=== PATIENT | female | born 1955 | race Caucasian/White ===

== ENCOUNTER 2017-09-16 09:35 | Outpatient (CLI) | payer BC ==
--- NOTE | 2017-09-16 12:19 | ULT ---
HEPATIC ULTRASOUND: INDICATIONS: Cirrhosis. Portal hypertension. Hepatic encephalopathy. Esophageal varices. CORRELATION: CT abdomen and pelvis from 12/07/2016 and hepatic ultrasound from 12/06/2016. TECHNIQUE: A right upper quadrant ultrasound with Doppler study is performed. FINDINGS: Mild ascites is seen with fluid around the liver margin. The gallbladder shows no evidence of gallst ones. Gallbladder wall thickening is seen, consistent with the presence of ascites. No liver lesion seen. Color Doppler with spectral analysis demonstrates flow in the hepatic veins. The hepatic artery show s flow. The main portal vein is difficult to image technically, but there is flow demonstrated in th is vein. Partial thrombus could not be excluded on this study. The prior ultrasound did suggest mary ann dence of portal vein thrombosis; however, CT from 12/07/2016 did not show portal vein thrombosis. Splenomegaly is noted. The pancreas is obscured. The common duct is of normal caliber. IMPRESSION: 1. Small liver, consistent with cirrhosis. 2. Ascites. 3. Splenomegaly, consistent with portal hypertension. 4. Hepatic artery shows normal flow. At least partial flow is detected in the main portal vein, alt lillie there were technical difficulties. POS: [facility]
== END 2017-09-16 09:36 | disposition home or self-care (01) ==
LOC: ULT 09:35
PROVIDERS: ATTEND Internal Medicine
DX: K74.60 Unspecified cirrhosis of liver (principal); K76.6 Portal hypertension; K72.90 Hepatic failure, unspecified without coma; K31.819 Angiodysplasia of stomach and duodenum without bleeding; R18.8 Other ascites; R16.1 Splenomegaly, not elsewhere classified
CPT/HCPCS: 76705

== ENCOUNTER 2018-04-29 18:18 | Inpatient (IN) | payer BC ==
--- NOTE | 2018-04-29 19:42 | RAD ---
CHEST ONE VIEW: 04/29/18 HISTORY: Dyspnea. FINDINGS: No comparison. Cardiac silhouette is magnified by projection. Pulmonary vasculature upper limits of normal. Mediasti num is midline. No lobar consolidation or evidence of pneumothorax. IMPRESSION: No active cardiopulmonary abnormalities are demonstrated. POS: [facility]
[2018-04-29 20:20] LABS: #Basophils 0.1 thou/uL (0.0-0.2); #Eosinphils 0.3 thou/uL (0.0-0.7); #Monocytes 0.3 thou/uL (0.11-0.59); #Neutrophils 3.6 thou/uL (1.40-6.50); %Basophils 1.2 % (0.0-1.0); %Eosinophils 6.1 % (0.0-10.0); %Lymphocytes 18.6 % (21.0-51.0); %Monocytes 4.8 % (0.0-10.0); %Neutrophils 69.4 % (42.0-75.0); Hemoglobin 10.2 g/dL (12.0-16.0); Mean Corpuscular HGB CONC 31.5 g/dL (32.0-36.0); Mean Corpuscular Hemoglobin 32.3 pg (27.0-31.0); Mean Platelet Volume 8.8 fL (7.4-10.4); Platelet Count 125 thou/uL (130-400); RBC Distribution Width 17.4 % (11.5-14.5); Red Blood Cell (RBC) Count 3.15 mill/uL (4.20-5.40); White Blood Cell (WBC) Count 5.2 thou/uL (4.8-10.8)
[2018-04-29 20:38] LABS: ALT (SGPT) 13 U/L (8-55); AST (SGOT) 26 U/L (5-34); Albumin 2.6 g/dL (3.4-4.8); Alkaline Phosphatase 106 U/L (40-150); Anion Gap 10 mmol/L (10-20); BUN (Urea Nitrogen) 30 mg/dL (9.8-20.1); Bilirubin, Total 1.3 mg/dL (0.2-1.2); Calc. Creatinine Clearance 0 mL/min (70-130); Calcium 9.1 mg/dL (7.8-10.44); Carbon Dioxide 20 mmol/L (23-31); Chloride 111 mmol/L (98-107); Estimated GFR-MDRD 21; Globulin 4.5 g/dL (2.4-3.5); Glucose 108 mg/dL (80-115); Potassium 5.2 mmol/L (3.5-5.1); Protein, Total 7.1 g/dL (6.0-8.3); Sodium 136 mmol/L (136-145)
[2018-04-29 20:43] LABS: CKMB 4.2 ng/mL (0-6.6); Troponin I Less than 0.010 ng/mL (< 0.028)
[2018-04-29] MEDS ORDERED: Furosemide 40 MG/4 ML VIAL ONE (21:59)
[2018-04-30] MEDS ORDERED: INSULIN DETEMIR SC SCH (07:45)
[2018-04-30] MEDS ORDERED: [UNRECOGNIZED DRUG - REMARK] PO PRN (07:45)
[2018-04-30] MEDS ORDERED: Dextrose 5% in Water 1,000 ML IV PRN (07:56)
[2018-04-30] MEDS ORDERED: Ondansetron ODT 4 MG TAB PO PRN (07:58)
--- NOTE | 2018-04-30 08:19 | HP ---
CHIEF COMPLAINT: Transfer by patient's primary care doctor for fluid overload. HISTORIAN: The patient. HISTORY OF PRESENT ILLNESS: This is a 63-year-old female with past medical history of liver cirrhosis, diabetes mellitus, hypertension, hyperlipidemia and asthma being admitted for a chief complaint of fluid overload. Patient was seen by her primary care doctor on the day of admission and was told to come to the ED because patient is fluid overloaded and needs to have fluids ticking off. Per patient, her Lasix dose that she normally takes is being adjusted by Dr. Rodriguez and she states that Dr. Rodriguez wants her to come so she can be able to receive IV Lasix. The patient states that she has been experiencing some shortness of breath. Otherwise she does not have any other complaints. REVIEW OF SYSTEMS: Positive for shortness of breath and abdominal distention. PAST MEDICAL HISTORY: Hypertension, diabetes, liver cirrhosis, hyperlipidemia, asthma. PAST SURGICAL HISTORY: Tonsillectomy, and cauterization of varices. SOCIAL HISTORY: Patient denies alcohol use. The patient denies any drug use. The patient has no smoking history. FAMILY HISTORY: Reviewed and noncontributory. ALLERGIES: SULFA. CURRENT MEDICATIONS: The patient is on lactulose, citalopram, Floranex, levothyroxine, Levemir, NovoLog, Lyrica, fluticasone, Xifaxan, Bystolic, atorvastatin, spironolactone, furosemide. PHYSICAL EXAMINATION: VITAL SIGNS: The patient's blood pressure is 154/84, pulse is 73, respiratory rate of 18, temperature of 98.9, O2 saturation of 97%. GENERAL: Patient is alert, oriented x3, not in acute distress. The patient is speaking in full sentences. HEENT: Normocephalic, atraumatic. Pupils are equally round and react to light. Extraocular movements are intact. No scleral icterus. NECK: Trachea is midline, full range of motion, supple. LUNGS: Clear to auscultation bilaterally. No wheezing, no rales, no rhonchi appreciated. CARDIOVASCULAR: S1, S2, regular rate and rhythm, no murmurs, no gallops or rubs appreciated. ABDOMEN: Soft, nontender, nondistended. No palpable masses. EXTREMITIES: Upper extremity, patient had edema bilaterally at the upper extremity and the patient has edema bilaterally at lower extremities. Patient has good strength at the upper and lower extremity. NEUROLOGIC: Cranial nerves II-XII grossly intact. No neurologic deficits noted. SKIN: Warm, dry, and intact. IMAGING DATA: EKG normal sinus rhythm, rate of 71. ED COURSE: The patient received Lasix 40 mg. Chest x-ray showed no active cardiomegaly abnormalities. There is pulmonary vasculature at the upper limit of normal. Mediastinum is midline. No lobar consolidation, no evidence of pneumothorax. LABORATORY DATA: WBC 5.2, hemoglobin is 10.2, hematocrit . Sodium 136, potassium is 5.2, chloride is 111, carbon dioxide of 20, BUN is 30, creatinine is 2.31, GFR is 21, AST 26, ALT is 13, alkaline phosphatase is 106, BNP is 334.1. Troponin is less than 0.010. ASSESSMENT AND PLAN: This is a 63-year-old female being admitted for: 1. fluid overloaded state. At this point, the patient is going to continue on Lasix. We have Nephrology on board. Patient's transcribing operator head has been following the patient in the hospital. 1. Acute on chronic kidney disease. Nephrology is on the case. 2. History of liver cirrhosis. Patient has bilateral edema at the extremities. We will continue Lasix and spironolactone. 3. Hypothyroidism. We will continue patient on her home medication. 4. Hyperlipidemia. Continue the patient's on home medication. 5. Diabetes. We will continue the patient on home medications and insulin sliding scale. 6. Asthma. We will do DuoNeb treatments. 7. Hyperlipidemia. We will continue patient's home medication. This case has been dictated by Dr. Сергей Fried. [facility] HOSPITALAwilda
[2018-04-30] MEDS ORDERED: Non-Formulary Item 1 EACH (Spironolactone [Spironolactone] 50 MG) PO SCH (09:00)
[2018-04-30] MEDS ORDERED: Insulin Glargine 70 UNITS in Pre-Filled Syringe 1 EACH SC SCH (09:00)
[2018-04-30] MEDS ORDERED: LEVOTHYROXINE SODIUM 200 MCG PO SCH (09:00)
[2018-04-30] MEDS ORDERED: Non-Formulary Item 1 EACH (Cetirizine Hcl [Zyrtec] 10 MG) PO SCH (09:00)
[2018-04-30] MEDS ORDERED: Non-Formulary Item 1 EACH (Lactulose [Lactulose] 10 GM) PO SCH (09:00)
[2018-04-30] MEDS ORDERED: Nebivolol HCl 2.5 MG TAB PO SCH (09:00)
[2018-04-30] MEDS ORDERED: [UNRECOGNIZED DRUG - OTHER] PO SCH (09:00)
[2018-04-30] MEDS: Spironolactone 25 MG TAB PO SCH ×3 (09:32→20:09)
[2018-04-30] MEDS: Multivit, Therapeutic 1 TAB PO SCH (09:32)
[2018-04-30] MEDS: Pregabalin 50 MG CAP PO SCH ×3 (09:33→20:10)
[2018-04-30] MEDS: Nebivolol HCl 5 MG TAB PO SCH (09:34)
[2018-04-30] MEDS: Atorvastatin Calcium 10 MG TAB PO SCH (09:34)
[2018-04-30] MEDS: Lactinex Tablet PO SCH ×3 (09:34→20:09)
[2018-04-30] MEDS: Escitalopram Oxalate 20 mg Tablet PO SCH (09:34)
[2018-04-30] MEDS: Heparin 5,000 UNITS/ML VIAL SC SCH ×2 (09:35→20:11)
[2018-04-30] MEDS: Loratadine 10 MG TAB PO SCH (09:43)
[2018-04-30] MEDS: Furosemide 40 MG/4 ML VIAL SLOW IVP SCH (14:30)
--- NOTE | 2018-04-30 20:20 | CON ---
DATE OF CONSULTATION: 04/30/2018 CONSULTING PHYSICIAN: Dr. Fried. REASON FOR CONSULTATION: Acute kidney injury. REASON FOR ADMISSION: Fluid overload. HISTORY OF PRESENT ILLNESS: A 63-year-old white female with history of hypertension, cirrhosis, CKD, came to the hospital with fluid overload and Nephrology is consulted. No nausea, vomiting, no short ness of breath or chest pain. The patient is still having fluid. She does have a history of cirrhos is. She is on followup with Dr. Canseco. PAST MEDICAL HISTORY: Positive for hypertension, diabetes, cirrhosis, hyperlipidemia. PAST SURGICAL HISTORY: Tonsillectomy, , . HOME MEDICATIONS: Lactulose, citalopram, Florinef, levothyroxine, Levemir, NovoLog, Lyrica, fluticas one, Effexor, Bystolic, and atorvastatin. ALLERGIES: SULFA. SOCIAL HISTORY: No smoking, alcohol or drugs. FAMILY HISTORY: No history of any kidney disease. REVIEW OF SYSTEMS: The following complete review of systems was negative, unless otherwise mentioned in the HPI or below: Constitutional: Weight loss or gain, ability to conduct usual activities. Sk in: Rash, itching. Eyes: Double vision, pain. ENT/Mouth: Nose bleeding, neck stiffness, pain, te nderness. Cardiovascular: Palpitations, dyspnea on exertion, orthopnea. Respiratory: Shortness of breath, wheezing, cough, hemoptysis, fever or night sweats. Gastrointestinal: Poor appetite, abdomi nal pain, heartburn, nausea, vomiting, constipation, or diarrhea. Genitourinary: Urgency, frequency , dysuria, nocturia. Musculoskeletal: Pain, swelling. Neurologic/Psychiatric: Anxiety, depression . Allergy/Immunologic: Skin rash, bleeding tendency. PHYSICAL EXAMINATION: GENERAL: This is a well-built female in no apparent distress. VITAL SIGNS: Temperature 98.3, pulse 60, respiratory 18, blood pressure 159/82. HEENT: Atraumatic, normocephalic. Oral mucosa is moist. NECK: Supple, no masses. CARDIOVASCULAR: S1, S2. Rate and rhythm regular. RESPIRATORY: Clear. ABDOMEN: Soft, distended. MUSCULOSKELETAL: 1+ edema. DERMATOLOGIC: No skin rash. NEUROLOGIC: Alert, awake. PSYCHIATRIC: Mood and affect normal. LABORATORY: Hemoglobin is 10.2, potassium 5.2, BUN 30, creatinine is 2.3. ASSESSMENT AND PLAN: 1. Acute kidney injury most likely secondary to fluid overload. Agree with diuretics for now. Anamaria tor labs. 2. Elevated BNP. 3. Hypoalbuminemia secondary to cirrhosis and hyperkalemia. 4. Metabolic acidosis, anemia, chronic. 5. History of cirrhosis. 6. Hepatorenal syndrome. 7. Hypertension, stable. 8. Edema. Plan is to continue on diuretics, monitor renal function, electrolytes closely and further decision w ill be made based on the clinical course. We will follow. Avoid nephrotoxins. Okay with spironolactone and furosemide for now. Monitor potassium. Limit pota ssium in the diet. Recommend renal diet. Thank you for the consult.
[2018-04-30] MEDS ORDERED: Insulin Glargine 50 UNITS in Pre-Filled Syringe 1 EACH SC SCH (21:00)
[2018-04-30] MEDS ORDERED: Insulin Glargine 25 UNITS in Pre-Filled Syringe 1 EACH SC SCH (21:00)
--- NOTE | 2018-04-30 22:41 | PDOC.PN ---
- Subjective Encounter Start Date: 04/30/18 Encounter Start Time: 15:00 Patient seen and examined for SABRINA.No N/V. Some gen abd discomfort from Ascites per patient. No other complaints. No overnight events - Objective Resuscitation Status: Resuscitation Status FULL:Full Resuscitation MAR Reviewed: Yes Vital Signs & Weight: Vital Signs (12 hours) Temp Pulse Resp BP BP Pulse Ox 04/30/18 19:00 98.4 F 60 20 162/73 H 99 04/30/18 16:28 98.3 F 60 16 151/77 H 97 Weight Weight 192 lb 6.4 oz I&O: 04/29/18 04/30/18 05/01/18 06:59 06:59 06:59 Intake Total 180 480 Output Total 950 Balance 180 -470 Result Diagrams: 05/01/18 03:39 05/01/18 03:39 Additional Labs: Accuchecks 04/30/18 04/30/18 04/30/18 19:09 16:27 10:52 POC Glucose 105 73 133 H 04/30/18 09:51 POC Glucose 146 H Phys Exam - Physical Examination Constitutional: NAD Respiratory: no wheezing, no rhonchi Cardiovascular: RRR, no rub Gastrointestinal: soft, positive bowel sounds distended, no guarding/rigidity Musculoskeletal: edema present Neurological: moves all 4 limbs Dx/Plan - Plan DVT proph w/SCDs IMPRESSION: 1. SABRINA on CKD 3/Volume overload 2. DM2 3. Cirrhosis with hypoalbuminemia 4. HTN / Obesity BMI 35 5. Other issues per previous notes. PLAN: Cont IV diuretics with Aldactone Add fluid rest Avoid Nephrotoxins AM labs Reduce Lantus dose Cont sliding scale Review of Systems - Review of Systems Respiratory: negative: Cough, Dry, Shortness of Breath, Hemoptysis, SOB with Excertion, Pleuritic Pain, Sputum, Wheezing Cardiovascular: negative: chest pain, palpitations, orthopnea, paroxysmal nocturnal dyspnea, edema, light headedness, other - Medications/Allergies Allergies/Adverse Reactions: Allergies Allergy/AdvReac Type Severity Reaction Status Date / Time Sulfa (Sulfonamide Allergy Intermediate Rash Verified 01/22/17 17:00 Antibiotics) Medications: Current Medications Acetaminophen (Tylenol) 325 mg PO Q4H PRN PRN Reason: Pain Acidophilus (Floranex) 1 tab PO TID [facility] Last Admin: 10/19/18 20:09 Dose: 1 tab Atorvastatin Calcium (Lipitor) 10 mg PO DAILY [facility] Last Admin: 04/30/18 09:34 Dose: 10 mg Dextrose/Water (Dextrose 50%) 25 gm SLOW IVP PRN PRN PRN Reason: Hypoglycemia Diphenhydramine HCl (Benadryl) 25 mg PO DAILYPRN PRN PRN Reason: Itching & Insomnia Escitalopram Oxalate (Lexapro) 20 mg PO DAILY [facility] Last Admin: 04/30/18 09:34 Dose: 20 mg Furosemide (Lasix) 40 mg SLOW IVP 0600,1400 [facility] Last Admin: 04/30/18 14:30 Dose: 40 mg Glucagon (Glucagon) 1 mg IM PRN PRN PRN Reason: Hypoglycemia Heparin Sodium (Porcine) (Heparin) 5,000 units SC BID [facility] Last Admin: 04/30/18 20:11 Dose: 5,000 units Dextrose/Water (D5w) 1,000 mls @ 0 mls/hr IV .Q0M PRN PRN Reason: Hypoglycemia Insulin Glargine 25 units/ (Miscellaneous Medication) 0.25 mls @ 0 mls/hr SC [facility] Last Admin: 04/30/18 21:08 Dose: Not Given Insulin Glargine 40 units/ (Miscellaneous Medication) 0.4 mls @ 0 mls/hr [facility] Insulin Human Lispro (Humalog) 0 units SC .MILD SLIDING SCALE PRN PRN Reason: Mild Correctional Scale Lactulose (Lactulose) 10 gm PO TID [facility] Last Admin: 04/30/18 20:10 Dose: 10 gm Levothyroxine Sodium (Synthroid) 200 mcg PO 0600 [facility] Loratadine (Claritin) 10 mg PO DAILY [facility] Last Admin: 04/30/18 09:43 Dose: 10 mg Multivitamins (Theragran) 1 tab PO DAILY [facility] Last Admin: 04/30/18 09:32 Dose: 1 tab Nebivolol (Bystolic) 5 mg PO DAILY [facility] Last Admin: 04/30/18 09:34 Dose: 5 mg Ondansetron HCl (Zofran Odt) 4 mg PO Q6H PRN PRN Reason: Nausea/Vomiting Pregabalin (Lyrica) 50 mg PO TID [facility] Last Admin: 04/30/18 20:10 Dose: 50 mg Sodium Chloride (Flush - Normal Saline) 10 ml IVF Q12HR [facility] Last Admin: 04/30/18 20:11 Dose: 10 ml Sodium Chloride (Flush - Normal Saline) 10 ml IVF PRN PRN PRN Reason: Saline Flush Spironolactone (Aldactone) 50 mg PO TID [facility] Last Admin: 04/30/18 20:09 Dose: 50 mg
[2018-05-01 04:55] LABS: #Eosinphils 0.2 thou/uL (0.0-0.7); #Lymphocytes 0.7 thou/uL (1.20-3.40); #Monocytes 0.3 thou/uL (0.11-0.59); #Neutrophils 3.6 thou/uL (1.40-6.50); %Basophils 0.8 % (0.0-1.0); %Eosinophils 3.8 % (0.0-10.0); %Monocytes 6.1 % (0.0-10.0); %Neutrophils 74.3 % (42.0-75.0); Hemoglobin 9.1 g/dL (12.0-16.0); Mean Corpuscular HGB CONC 32.2 g/dL (32.0-36.0); Mean Corpuscular Hemoglobin 32.9 pg (27.0-31.0); Mean Platelet Volume 9.2 fL (7.4-10.4); Platelet Count 100 thou/uL (130-400); RBC Distribution Width 17.2 % (11.5-14.5); Red Blood Cell (RBC) Count 2.77 mill/uL (4.20-5.40); White Blood Cell (WBC) Count 4.8 thou/uL (4.8-10.8)
[2018-05-01 05:05] LABS: Albumin 2.1 g/dL (3.4-4.8); Anion Gap 7 mmol/L (10-20); BUN (Urea Nitrogen) 34 mg/dL (9.8-20.1); BUN/Creatinine Ratio 13.88; Calc. Creatinine Clearance 33 mL/min (70-130); Calcium 8.6 mg/dL (7.8-10.44); Carbon Dioxide 23 mmol/L (23-31); Chloride 110 mmol/L (98-107); Estimated GFR-MDRD 20; Glucose 94 mg/dL (80-115); Magnesium 1.7 mg/dL (1.6-2.6); Phosphorus 3.6 mg/dL (2.3-4.7); Potassium 5.1 mmol/L (3.5-5.1); Sodium 135 mmol/L (136-145)
[2018-05-01] MEDS: Furosemide 40 MG/4 ML VIAL SLOW IVP SCH ×2 (06:08→14:18)
[2018-05-01] MEDS: Levothyroxine Sodium 100 MCG TAB PO SCH (06:08)
[2018-05-01] MEDS: Heparin 5,000 UNITS/ML VIAL SC SCH (09:00)
[2018-05-01] MEDS: Atorvastatin Calcium 10 MG TAB PO SCH (09:02)
[2018-05-01] MEDS: Nebivolol HCl 5 MG TAB PO SCH (09:02)
[2018-05-01] MEDS: Loratadine 10 MG TAB PO SCH (09:02)
[2018-05-01] MEDS: Spironolactone 25 MG TAB PO SCH ×3 (09:02→20:30)
[2018-05-01] MEDS: Multivit, Therapeutic 1 TAB PO SCH (09:02)
[2018-05-01] MEDS: Lactinex Tablet PO SCH ×3 (09:02→20:29)
[2018-05-01] MEDS: Escitalopram Oxalate 20 mg Tablet PO SCH (09:02)
[2018-05-01] MEDS: Pregabalin 50 MG CAP PO SCH ×3 (09:02→20:29)
[2018-05-01] MEDS: Insulin Glargine 40 UNITS in Pre-Filled Syringe 1 EACH SC SCH (09:03)
--- NOTE | 2018-05-01 09:58 | PRG ---
DATE OF SERVICE: 05/01/2018 SUBJECTIVE: Patient was seen and examined at bedside and overnight events noted. Patient denies any shortness of breath or chest pain or palpitation. No history of nausea or vomiting or diarrhea or f ever or chills or cramps. OBJECTIVE: GENERAL: This is an elderly female in no apparent distress. VITAL SIGNS: Temperature 98.7, pulse 70, respiratory rate 18, blood pressure 134/78. HEENT: Atraumatic, normocephalic. Oral mucosa is moist. NECK: Supple. CARDIOVASCULAR: S1, S2 heard. Rate and rhythm regular. RESPIRATORY: Clear to auscultation. GASTROINTESTINAL: Abdomen is soft. MUSCULOSKELETAL: No tenderness. No edema. DERMATOLOGIC: No skin rash. NEUROLOGIC: Alert and awake and oriented x3. No focal neurologic deficits. Moving all the extremiti es. PSYCHIATRIC: Mood and affect normal. LABORATORY DATA: Potassium 5.1, BUN is 34, creatinine is 2.1. ASSESSMENT AND PLAN: 1. Acute kidney injury on chronic kidney stage 4, stable creatinine. Okay with diuretics. If creat inine continues to rise might have to hold diuretics. 2. Hyperkalemia, mild. 3. Metabolic acidosis. 4. Cirrhosis, . 5. Edema. 6. We will continue to follow.
[2018-05-01] MEDS ORDERED: Labetalol HCl 100 MG/20 ML VIAL SLOW IVP PRN (14:22)
--- NOTE | 2018-05-01 20:23 | PDOC.PN ---
- Subjective Encounter Start Date: 05/01/18 Encounter Start Time: 10:30 Patient seen and examined for SABRINA/Volume overload. Feels gen weak. No N/V. No new complaints. No overnight events - Objective Resuscitation Status: Resuscitation Status FULL:Full Resuscitation MAR Reviewed: Yes Vital Signs & Weight: Vital Signs (12 hours) Temp Pulse Resp BP BP Pulse Ox 05/01/18 16:00 97.8 F 65 20 166/86 H 100 05/01/18 15:30 137/82 05/01/18 14:32 65 186/93 H 05/01/18 14:30 65 18 186/93 H 05/01/18 11:59 97.9 F 65 20 195/94 H 100 Weight Weight 192 lb 1.6 oz I&O: 04/30/18 05/01/18 05/02/18 06:59 06:59 06:59 Intake Total 180 930 480 Output Total 1450 660 Balance 180 -520 -180 Result Diagrams: 05/01/18 03:39 05/01/18 03:39 Additional Labs: Accuchecks 05/01/18 05/01/18 05/01/18 15:57 11:57 03:55 POC Glucose 105 97 90 Phys Exam - Physical Examination Constitutional: NAD Respiratory: no wheezing, no rhonchi Dec AE at bases Cardiovascular: RRR, no rub Gastrointestinal: soft, positive bowel sounds Distended Musculoskeletal: edema present Neurological: moves all 4 limbs Dx/Plan - Plan DVT proph w/SCDs IMPRESSION: 1. SABRINA on CKD 3/Volume overload 2. DM2 3. Cirrhosis with hypoalbuminemia 4. HTN / Obesity BMI 35/Thrombocytopenia 5. Other issues per previous notes. PLAN: Cont IV diuretics with fluid rest Cont Aldactone/Bystolic Avoid Nephrotoxins AM labs Cont Lantus with sliding scale Change to intpt due to worsening renal function. Review of Systems - Review of Systems Respiratory: negative: Cough, Dry, Shortness of Breath, Hemoptysis, SOB with Excertion, Pleuritic Pain, Sputum, Wheezing Cardiovascular: negative: chest pain, palpitations, orthopnea, paroxysmal nocturnal dyspnea, edema, light headedness, other - Medications/Allergies Allergies/Adverse Reactions: Allergies Allergy/AdvReac Type Severity Reaction Status Date / Time Sulfa (Sulfonamide Allergy Intermediate Rash Verified 01/22/17 17:00 Antibiotics) Medications: Current Medications Acetaminophen (Tylenol) 325 mg PO Q4H PRN PRN Reason: Pain Acidophilus (Floranex) 1 tab PO TID [facility] Last Admin: 05/01/18 14:17 Dose: 1 tab Atorvastatin Calcium (Lipitor) 10 mg PO DAILY [facility] Last Admin: 05/01/18 09:02 Dose: 10 mg Dextrose/Water (Dextrose 50%) 25 gm SLOW IVP PRN PRN PRN Reason: Hypoglycemia Diphenhydramine HCl (Benadryl) 25 mg PO DAILYPRN PRN PRN Reason: Itching & Insomnia Escitalopram Oxalate (Lexapro) 20 mg PO DAILY [facility] Last Admin: 05/01/18 09:02 Dose: 20 mg Furosemide (Lasix) 40 mg SLOW IVP 0600,1400 [facility] Last Admin: 05/01/18 14:18 Dose: 40 mg Glucagon (Glucagon) 1 mg IM PRN PRN PRN Reason: Hypoglycemia Dextrose/Water (D5w) 1,000 mls @ 0 mls/hr IV .Q0M PRN PRN Reason: Hypoglycemia Insulin Glargine 25 units/ (Miscellaneous Medication) 0.25 mls @ 0 mls/hr SC [facility] Last Admin: 04/30/18 21:08 Dose: Not Given Insulin Glargine 40 units/ (Miscellaneous Medication) 0.4 mls @ 0 mls/hr [facility] Last Admin: 05/01/18 09:03 Dose: 0.4 mls Insulin Human Lispro (Humalog) 0 units SC .MILD SLIDING SCALE PRN PRN Reason: Mild Correctional Scale Labetalol HCl (Normodyne) 10 mg SLOW IVP Q4H PRN PRN Reason: Systolic BP > 180 Last Admin: 05/01/18 14:32 Dose: 10 mg Lactulose (Lactulose) 10 gm PO TID [facility] Last Admin: 05/01/18 14:19 Dose: 10 gm Levothyroxine Sodium (Synthroid) 200 mcg PO 0600 [facility] Last Admin: 05/01/18 06:08 Dose: 200 mcg Loratadine (Claritin) 10 mg PO DAILY [facility] Last Admin: 05/01/18 09:02 Dose: 10 mg Multivitamins (Theragran) 1 tab PO DAILY [facility] Last Admin: 05/01/18 09:02 Dose: 1 tab Nebivolol (Bystolic) 5 mg PO DAILY [facility] Last Admin: 05/01/18 09:02 Dose: 5 mg Ondansetron HCl (Zofran Odt) 4 mg PO Q6H PRN PRN Reason: Nausea/Vomiting Pregabalin (Lyrica) 50 mg PO TID [facility] Last Admin: 05/01/18 14:22 Dose: Not Given Sodium Chloride (Flush - Normal Saline) 10 ml IVF Q12HR [facility] Last Admin: 05/01/18 14:17 Dose: 10 ml Sodium Chloride (Flush - Normal Saline) 10 ml IVF PRN PRN PRN Reason: Saline Flush Spironolactone (Aldactone) 50 mg PO TID [facility] Last Admin: 05/01/18 14:19 Dose: 50 mg
[2018-05-02 04:18] LABS: #Eosinphils 0.1 thou/uL (0.0-0.7); #Lymphocytes 0.5 thou/uL (1.20-3.40); #Monocytes 0.3 thou/uL (0.11-0.59); #Neutrophils 3.4 thou/uL (1.40-6.50); %Basophils 0.2 % (0.0-1.0); %Eosinophils 2.9 % (0.0-10.0); %Lymphocytes 12.1 % (21.0-51.0); %Monocytes 6.5 % (0.0-10.0); %Neutrophils 78.2 % (42.0-75.0); Hemoglobin 8.6 g/dL (12.0-16.0); Mean Corpuscular HGB CONC 32.5 g/dL (32.0-36.0); Mean Corpuscular Hemoglobin 33.4 pg (27.0-31.0); Mean Platelet Volume 9.3 fL (7.4-10.4); Platelet Count 83 thou/uL (130-400); RBC Distribution Width 17.3 % (11.5-14.5); Red Blood Cell (RBC) Count 2.58 mill/uL (4.20-5.40); White Blood Cell (WBC) Count 4.4 thou/uL (4.8-10.8)
[2018-05-02 04:26] LABS: Anion Gap 8 mmol/L (10-20); BUN (Urea Nitrogen) 35 mg/dL (9.8-20.1); Calc. Creatinine Clearance 31 mL/min (70-130); Calcium 8.6 mg/dL (7.8-10.44); Carbon Dioxide 24 mmol/L (23-31); Chloride 111 mmol/L (98-107); Estimated GFR-MDRD 19; Glucose 111 mg/dL (80-115); Magnesium 1.6 mg/dL (1.6-2.6); Potassium 4.8 mmol/L (3.5-5.1); Sodium 138 mmol/L (136-145)
[2018-05-02] MEDS: Furosemide 40 MG/4 ML VIAL SLOW IVP SCH (05:41)
[2018-05-02] MEDS: Levothyroxine Sodium 100 MCG TAB PO SCH (05:41)
[2018-05-02] MEDS: Insulin Glargine 40 UNITS in Pre-Filled Syringe 1 EACH SC SCH (08:22)
[2018-05-02] MEDS: Pregabalin 50 MG CAP PO SCH ×3 (08:23→20:30)
[2018-05-02] MEDS: Spironolactone 25 MG TAB PO SCH (08:24)
[2018-05-02] MEDS: Atorvastatin Calcium 10 MG TAB PO SCH (08:24)
[2018-05-02] MEDS: Multivit, Therapeutic 1 TAB PO SCH (08:24)
[2018-05-02] MEDS: Lactinex Tablet PO SCH ×3 (08:24→20:30)
[2018-05-02] MEDS: Loratadine 10 MG TAB PO SCH (08:24)
[2018-05-02] MEDS: Nebivolol HCl 5 MG TAB PO SCH (08:24)
[2018-05-02] MEDS: Escitalopram Oxalate 20 mg Tablet PO SCH (08:24)
--- NOTE | 2018-05-02 12:42 | PRG ---
DATE OF SERVICE: 05/02/2018 SUBJECTIVE: Patient was seen and examined at bedside and overnight events noted. Patient denies any shortness of breath or chest pain or palpitation. No history of nausea or vomiting or diarrhea or f ever or chills or cramps. OBJECTIVE: GENERAL: This is a well-built female, in no apparent distress. VITAL SIGNS: Temperature 97.5, pulse 72, respiratory rate 18, blood pressure 126/69. HEENT: Atraumatic, normocephalic. Oral mucosa is moist. NECK: Supple. CARDIOVASCULAR: S1, S2 heard. Rate and rhythm regular. RESPIRATORY: Clear to auscultation. GASTROINTESTINAL: Abdomen is soft. MUSCULOSKELETAL: No tenderness. No edema. DERMATOLOGIC: No skin rash. NEUROLOGIC: Alert and awake and oriented x3. No focal neurologic deficits. Moving all the extremit ies. PSYCHIATRIC: Mood and affect normal. LABORATORY DATA: Potassium 4.8, BUN is 35, creatinine is 2.5. ASSESSMENT AND PLAN: 1. Acute kidney injury on chronic kidney disease stage 4. Renal function with slight bump in creati nine. Plan is to reduce the diuretic dose. The patient is feeling better and fluid overload seems t o be better. We will stop the spironolactone. We will make Lasix orally and continue to monitor. T he patient was advised to limit fluid intake. 2. Cirrhosis. Limit salt and fluid intake. 3. Edema. 4. Hyperkalemia, better. 5. Metabolic acidosis, stable. Plan is to reduce the diuretic dose and monitor renal function. Avoid nephrotoxins.
[2018-05-02] MEDS: Furosemide 20 MG TAB PO SCH (14:59)
--- NOTE | 2018-05-02 21:35 | PDOC.PN ---
- Subjective Encounter Start Date: 05/02/18 Encounter Start Time: 10:30 Patient seen and examined for SABRINA. No new complaints. No overnight events - Objective Resuscitation Status: Resuscitation Status FULL:Full Resuscitation MAR Reviewed: Yes Vital Signs & Weight: Vital Signs (12 hours) Temp Pulse Resp BP Pulse Ox 05/02/18 14:00 98.5 F 73 20 154/80 H 98 05/02/18 11:14 97.5 F L 72 16 126/69 98 Weight Weight 190 lb I&O: 05/01/18 05/02/18 05/03/18 06:59 06:59 06:59 Intake Total 981 576 2191 Output Total 1450 860 600 Balance -520 -130 580 Result Diagrams: 05/02/18 03:56 05/02/18 03:56 Additional Labs: Accuchecks 05/02/18 05/02/18 05/02/18 17:07 11:12 04:34 POC Glucose 99 127 H 107 05/01/18 19:26 POC Glucose 87 Phys Exam - Physical Examination Constitutional: NAD Respiratory: no wheezing, no rhonchi Cardiovascular: RRR, no rub Gastrointestinal: soft, positive bowel sounds distended Musculoskeletal: no edema Neurological: moves all 4 limbs Psychiatric: A&O x 3 Dx/Plan - Plan DVT proph w/SCDs IMPRESSION: 1. SABRINA on CKD 3/Volume overload 2. DM2 - on Lantus with sliding scale 3. Cirrhosis with hypoalbuminemia 4. HTN / Obesity BMI 35/Thrombocytopenia 5. Other issues per previous notes. PLAN: Lasix changed to PO Aldactone on hold Reduce Lantus dose to 30 units daily Cont Bystolic Avoid Nephrotoxins AM labs Review of Systems - Review of Systems Respiratory: negative: Cough, Dry, Shortness of Breath, Hemoptysis, SOB with Excertion, Pleuritic Pain, Sputum, Wheezing Cardiovascular: negative: chest pain, palpitations, orthopnea, paroxysmal nocturnal dyspnea, edema, light headedness, other - Medications/Allergies Allergies/Adverse Reactions: Allergies Allergy/AdvReac Type Severity Reaction Status Date / Time Sulfa (Sulfonamide Allergy Intermediate Rash Verified 01/22/17 17:00 Antibiotics) Medications: Current Medications Acetaminophen (Tylenol) 325 mg PO Q4H PRN PRN Reason: Pain Acidophilus (Floranex) 1 tab PO TID [facility] Last Admin: 05/02/18 20:30 Dose: 1 tab Atorvastatin Calcium (Lipitor) 10 mg PO DAILY [facility] Last Admin: 05/02/18 08:24 Dose: 10 mg Dextrose/Water (Dextrose 50%) 25 gm SLOW IVP PRN PRN PRN Reason: Hypoglycemia Diphenhydramine HCl (Benadryl) 25 mg PO DAILYPRN PRN PRN Reason: Itching & Insomnia Escitalopram Oxalate (Lexapro) 20 mg PO DAILY [facility] Last Admin: 05/02/18 08:24 Dose: 20 mg Furosemide (Lasix) 40 mg PO 0900,1400 [facility] Last Admin: 05/02/18 14:59 Dose: 40 mg Glucagon (Glucagon) 1 mg IM PRN PRN PRN Reason: Hypoglycemia Dextrose/Water (D5w) 1,000 mls @ 0 mls/hr IV .Q0M PRN PRN Reason: Hypoglycemia Insulin Glargine 40 units/ (Miscellaneous Medication) 0.4 mls @ 0 mls/hr SC QAM [facility] Last Admin: 05/02/18 08:22 Dose: 0.4 mls Insulin Human Lispro (Humalog) 0 units SC .MILD SLIDING SCALE PRN PRN Reason: Mild Correctional Scale Labetalol HCl (Normodyne) 10 mg SLOW IVP Q4H PRN PRN Reason: Systolic BP > 180 Last Admin: 05/01/18 14:32 Dose: 10 mg Lactulose (Lactulose) 10 gm PO TID [facility] Last Admin: 05/02/18 20:31 Dose: Not Given Levothyroxine Sodium (Synthroid) 200 mcg PO 0600 [facility] Last Admin: 05/02/18 05:41 Dose: 200 mcg Loratadine (Claritin) 10 mg PO DAILY [facility] Last Admin: 05/02/18 08:24 Dose: 10 mg Multivitamins (Theragran) 1 tab PO DAILY [facility] Last Admin: 05/02/18 08:24 Dose: 1 tab Nebivolol (Bystolic) 5 mg PO DAILY [facility] Last Admin: 05/02/18 08:24 Dose: 5 mg Ondansetron HCl (Zofran Odt) 4 mg PO Q6H PRN PRN Reason: Nausea/Vomiting Pregabalin (Lyrica) 50 mg PO TID [facility] Last Admin: 05/02/18 20:30 Dose: 50 mg Sodium Chloride (Flush - Normal Saline) 10 ml IVF Q12HR [facility] Last Admin: 05/02/18 20:42 Dose: Not Given Sodium Chloride (Flush - Normal Saline) 10 ml IVF PRN PRN PRN Reason: Saline Flush
[2018-05-03 04:38] LABS: #Eosinphils 0.2 thou/uL (0.0-0.7); #Lymphocytes 0.8 thou/uL (1.20-3.40); #Monocytes 0.4 thou/uL (0.11-0.59); #Neutrophils 2.8 thou/uL (1.40-6.50); %Basophils 0.7 % (0.0-1.0); %Eosinophils 5.8 % (0.0-10.0); %Lymphocytes 19.6 % (21.0-51.0); %Monocytes 8.4 % (0.0-10.0); %Neutrophils 65.5 % (42.0-75.0); Hemoglobin 8.9 g/dL (12.0-16.0); Mean Corpuscular HGB CONC 32.3 g/dL (32.0-36.0); Mean Corpuscular Hemoglobin 33.7 pg (27.0-31.0); Mean Platelet Volume 9.3 fL (7.4-10.4); Platelet Count 89 thou/uL (130-400); Red Blood Cell (RBC) Count 2.63 mill/uL (4.20-5.40); White Blood Cell (WBC) Count 4.3 thou/uL (4.8-10.8)
[2018-05-03 04:48] LABS: Anion Gap 6 mmol/L (10-20); BUN (Urea Nitrogen) 37 mg/dL (9.8-20.1); Calc. Creatinine Clearance 29 mL/min (70-130); Calcium 8.4 mg/dL (7.8-10.44); Carbon Dioxide 26 mmol/L (23-31); Chloride 111 mmol/L (98-107); Estimated GFR-MDRD 18; Glucose 123 mg/dL (80-115); Magnesium 1.5 mg/dL (1.6-2.6); Potassium 4.9 mmol/L (3.5-5.1); Sodium 138 mmol/L (136-145)
[2018-05-03] MEDS: Levothyroxine Sodium 100 MCG TAB PO SCH (05:52)
[2018-05-03] MEDS: Multivit, Therapeutic 1 TAB PO SCH (08:24)
[2018-05-03] MEDS: Nebivolol HCl 5 MG TAB PO SCH (08:24)
[2018-05-03] MEDS: Atorvastatin Calcium 10 MG TAB PO SCH (08:24)
[2018-05-03] MEDS: Escitalopram Oxalate 20 mg Tablet PO SCH (08:24)
[2018-05-03] MEDS: Pregabalin 50 MG CAP PO SCH ×3 (08:25→21:38)
[2018-05-03] MEDS: Furosemide 20 MG TAB PO SCH ×2 (08:25→14:39)
[2018-05-03] MEDS: Insulin Glargine 30 UNITS in Pre-Filled Syringe 1 EACH SC SCH (08:26)
[2018-05-03] MEDS: Loratadine 10 MG TAB PO SCH (08:27)
--- NOTE | 2018-05-03 08:45 | RAD ---
CHEST 1 VIEW: HISTORY: Dyspnea. Fluid overload. COMPARISON: 04/29/2018. FINDINGS: Cardiac silhouette is magnified and enlarged. Pulmonary vasculature is more engorged with widespread reticulonodular interstitial prominence. Blunting of the right costophrenic angle with fluid in the minor fissure on the right. NO evidence of pneumothorax. IMPRESSION: Pulmonary edema. Right pleural fluid. POS: [facility]
--- NOTE | 2018-05-03 09:26 | PDOC.PN ---
- Subjective Encounter Start Date: 05/03/18 Encounter Start Time: 09:25 Subjective: feels better.tony morgan feel that she is retaining fluid -: no cp/sob - Objective Resuscitation Status: Resuscitation Status FULL:Full Resuscitation MAR Reviewed: Yes Vital Signs & Weight: Vital Signs (12 hours) Temp Pulse Resp BP Pulse Ox 05/03/18 08:00 95 05/03/18 07:36 98.1 F 70 18 128/73 95 05/03/18 06:39 99 Weight Weight 184 lb 3 oz I&O: 05/02/18 05/03/18 05/04/18 06:59 06:59 06:59 Intake Total 730 1180 Output Total 860 600 Balance -130 580 Result Diagrams: 05/03/18 03:55 05/03/18 03:55 Additional Labs: Accuchecks 05/03/18 05/02/18 05/02/18 04:11 19:40 17:07 POC Glucose 115 H 151 H 99 05/02/18 11:12 POC Glucose 127 H Laboratory Tests 07/02/17 04/29/18 05/01/18 11:24 20:05 03:39 Creatinine 1.75 H 2.37 H 2.45 H 05/02/18 05/03/18 03:56 03:55 Creatinine 2.58 H 2.70 H Phys Exam - Physical Examination Constitutional: NAD HEENT: PERRLA, moist MMs, sclera anicteric, oral pharynx no lesions Neck: no nodes, no JVD, supple, full ROM Respiratory: no wheezing, no rales, no rhonchi, clear to auscultation bilateral Cardiovascular: RRR, no significant murmur, no rub Gastrointestinal: soft, non-tender, no distention, positive bowel sounds Musculoskeletal: no edema, pulses present Neurological: non-focal, normal sensation, moves all 4 limbs Psychiatric: normal affect, A&O x 3 Skin: no rash 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 1. SABRINA on CKD 3/Volume overload 2. DM2 - on Lantus with sliding scale 3. Cirrhosis with hypoalbuminemia 4. HTN / Obesity BMI 35/Thrombocytopenia 5. Other issues per previous notes. PLAN: renal Fx improving.Monitor.nephrology also following angelito discuss w GI and Nephrology regarding diuretic dose for DC HH as pt still very weak, Lasix changed to PO.HD stable Aldactone on hold Reduced Lantus dose to 30 units daily Cont Bystolic Avoid Nephrotoxins Restart Rifaximin. Review of Systems - Review of Systems Constitutional: weakness. negative: fever, chills, sweats, malaise, other Respiratory: negative: Cough, Dry, Shortness of Breath, Hemoptysis, SOB with Excertion, Pleuritic Pain, Sputum, Wheezing Cardiovascular: negative: chest pain, palpitations, orthopnea, paroxysmal nocturnal dyspnea, edema, light headedness, other Gastrointestinal: negative: Nausea, Vomiting, Abdominal Pain, Diarrhea, Constipation, Melena, Hematochezia, Other Genitourinary: negative: Dysuria, Frequency, Incontinence, Hematuria, Retention , Other Musculoskeletal: negative: Neck Pain, Shoulder Pain, Arm Pain, Back Pain, Hand Pain, Leg Pain, Foot Pain, Other Neurological: negative: Weakness, Numbness, Incoordination, Change in Speech, Confusion, Seizures, Other - Medications/Allergies Allergies/Adverse Reactions: Allergies Allergy/AdvReac Type Severity Reaction Status Date / Time Sulfa (Sulfonamide Allergy Intermediate Rash Verified 01/22/17 17:00 Antibiotics) Medications: Current Medications Acetaminophen (Tylenol) 325 mg PO Q4H PRN PRN Reason: Pain Atorvastatin Calcium (Lipitor) 10 mg PO DAILY [facility] Last Admin: 05/03/18 08:24 Dose: 10 mg Dextrose/Water (Dextrose 50%) 25 gm SLOW IVP PRN PRN PRN Reason: Hypoglycemia Diphenhydramine HCl (Benadryl) 25 mg PO DAILYPRN PRN PRN Reason: Itching & Insomnia Escitalopram Oxalate (Lexapro) 20 mg PO DAILY [facility] Last Admin: 05/03/18 08:24 Dose: 20 mg Furosemide (Lasix) 40 mg PO 0900,1400 [facility] Last Admin: 05/03/18 08:25 Dose: 40 mg Glucagon (Glucagon) 1 mg IM PRN PRN PRN Reason: Hypoglycemia Dextrose/Water (D5w) 1,000 mls @ 0 mls/hr IV .Q0M PRN PRN Reason: Hypoglycemia Insulin Glargine 30 units/ (Miscellaneous Medication) 0.3 mls @ 0 mls/hr SC QAM [facility] Last Admin: 05/03/18 08:26 Dose: 0.3 mls Insulin Human Lispro (Humalog) 0 units SC .MILD SLIDING SCALE PRN PRN Reason: Mild Correctional Scale Labetalol HCl (Normodyne) 10 mg SLOW IVP Q4H PRN PRN Reason: Systolic BP > 180 Last Admin: 05/01/18 14:32 Dose: 10 mg Lactulose (Lactulose) 10 gm PO TID [facility] Last Admin: 05/03/18 08:26 Dose: 10 gm Levothyroxine Sodium (Synthroid) 200 mcg PO 0600 [facility] Last Admin: 05/03/18 05:52 Dose: 200 mcg Loratadine (Claritin) 10 mg PO DAILY [facility] Last Admin: 05/03/18 08:27 Dose: Not Given Multivitamins (Theragran) 1 tab PO DAILY [facility] Last Admin: 05/03/18 08:24 Dose: 1 tab Nebivolol (Bystolic) 5 mg PO DAILY [facility] Last Admin: 05/03/18 08:24 Dose: 5 mg Ondansetron HCl (Zofran Odt) 4 mg PO Q6H PRN PRN Reason: Nausea/Vomiting Pregabalin (Lyrica) 50 mg PO TID [facility] Last Admin: 05/03/18 08:25 Dose: 50 mg Sodium Chloride (Flush - Normal Saline) 10 ml IVF Q12HR [facility] Last Admin: 05/03/18 08:27 Dose: 10 ml Sodium Chloride (Flush - Normal Saline) 10 ml IVF PRN PRN PRN Reason: Saline Flush
--- NOTE | 2018-05-03 11:00 | PRG ---
DATE OF SERVICE: 05/03/2018 SUBJECTIVE: This is a 63-year-old female being seen for acute kidney injury. The patient denies any nausea, vomiting, or chest pain. PHYSICAL EXAMINATION: GENERAL: Patient is awake, alert. VITAL SIGNS: Pulse 70, breathing at 16, blood pressure 120/73. OBJECTIVE: See above. Awake, alert, in no acute distress. GENERAL APPEARANCE AND MENTAL STATUS: Fair. HEAD/NECK: Normocephalic. Atraumatic. EYES: EOMI. No deformity. EARS: Clear. No ulcers. NOSE: Intact. No lesions. MOUTH: Clear. No discharge. THROAT: Clear. No exudate. LUNGS: Clear. No crackles. CARDIAC: S1, S2. No rub. ABDOMEN: Benign. BS+. GENITALIA/RECTUM: Berman absent. BACK/EXTREMITIES: Edema 0+ Ulcer- NEUROLOGICAL: Alert and motor intact. SKIN: Rash- Bruise- LYMPHATICS: Edema- Ulcer- LABORATORY: Hemoglobin 8.9. Potassium 4.9, creatinine 2.7. ASSESSMENT AND PLAN: 1. Chronic kidney disease stage 4, stable. 2. Hypertension, stable. 3. Anemia, stable. 4. Medications based on glomerular filtration rate are appropriate.
[2018-05-03] MEDS: HumaLOG 300 UNITS/3 ML VIAL SC PRN ×2 (12:51→17:00)
[2018-05-03] MEDS ORDERED: Rifaximin 550 MG TAB PO SCH (15:30)
[2018-05-04 06:04] LABS: Anion Gap 11 mmol/L (10-20); BUN (Urea Nitrogen) 39 mg/dL (9.8-20.1); Calc. Creatinine Clearance 28 mL/min (70-130); Calcium 8.6 mg/dL (7.8-10.44); Carbon Dioxide 22 mmol/L (23-31); Chloride 111 mmol/L (98-107); Estimated GFR-MDRD 18; Glucose 122 mg/dL (80-115); Potassium 5.5 mmol/L (3.5-5.1); Sodium 138 mmol/L (136-145)
[2018-05-04] MEDS: Levothyroxine Sodium 100 MCG TAB PO SCH (06:35)
[2018-05-04] MEDS: Loratadine 10 MG TAB PO SCH (08:03)
[2018-05-04] MEDS: Rifaximin 550 MG TAB PO SCH (08:03)
[2018-05-04] MEDS: Furosemide 20 MG TAB PO SCH ×2 (08:03→15:36)
[2018-05-04] MEDS: Pregabalin 50 MG CAP PO SCH ×3 (08:03→21:06)
[2018-05-04] MEDS: Atorvastatin Calcium 10 MG TAB PO SCH (08:03)
[2018-05-04] MEDS: Multivit, Therapeutic 1 TAB PO SCH (08:03)
[2018-05-04] MEDS: Nebivolol HCl 5 MG TAB PO SCH (08:04)
[2018-05-04] MEDS: Escitalopram Oxalate 20 mg Tablet PO SCH (08:04)
[2018-05-04] MEDS ORDERED: Metolazone 2.5 MG TAB PO SCH (09:30)
--- NOTE | 2018-05-04 09:38 | PRG ---
DATE OF SERVICE: 05/04/2018 SUBJECTIVE: This is a 63-year-old female being seen for acute kidney injury, chronic kidney disease stage 4. The patient denies any nausea, vomiting or chest pain, but does have some dyspnea. PHYSICAL EXAMINATION: GENERAL: Patient is awake, alert. VITAL SIGNS: Afebrile, pulse 89, breathing 16, blood pressure was 128/73 and 189/73 this morning. OBJECTIVE: See above. Awake, alert, in no acute distress. GENERAL APPEARANCE AND MENTAL STATUS: Fair. HEAD/NECK: Normocephalic. Atraumatic. EYES: EOMI. No deformity. EARS: Clear. No ulcers. NOSE: Intact. No lesions. MOUTH: Clear. No discharge. THROAT: Clear. No exudate. LUNGS: Clear. No crackles. CARDIAC: S1, S2. No rub. ABDOMEN: Benign. BS+. GENITALIA/RECTUM: Berman absent. BACK/EXTREMITIES: Lower extremities have edema. NEUROLOGICAL: Alert and motor intact. SKIN: Rash- Bruise- LYMPHATICS: Edema- Ulcer- LABORATORY: Potassium 4.5, creatinine 2.7. ASSESSMENT AND RECOMMENDATIONS: 1. Congestive heart failure, we will give Lasix. 2. Hyperkalemia. We will give Kayexalate. 3. Metabolic acidosis, stable.
[2018-05-04 10:02] LABS: Anion Gap 10 mmol/L (10-20); BUN (Urea Nitrogen) 38 mg/dL (9.8-20.1); Calc. Creatinine Clearance 29 mL/min (70-130); Calcium 8.8 mg/dL (7.8-10.44); Carbon Dioxide 22 mmol/L (23-31); Chloride 111 mmol/L (98-107); Estimated GFR-MDRD 18; Glucose 123 mg/dL (80-115); Potassium 5.3 mmol/L (3.5-5.1); Sodium 138 mmol/L (136-145)
[2018-05-04] MEDS: Insulin Glargine 30 UNITS in Pre-Filled Syringe 1 EACH SC SCH (10:06)
--- NOTE | 2018-05-04 15:26 | PDOC.PN ---
- Subjective Encounter Start Date: 05/04/18 Encounter Start Time: 15:25 Subjective: feels poorly .c/o SOB and weakness - Objective Resuscitation Status: Resuscitation Status FULL:Full Resuscitation MAR Reviewed: Yes Vital Signs & Weight: Vital Signs (12 hours) Temp Pulse Resp BP Pulse Ox 05/04/18 08:00 90 L 05/04/18 07:26 98.0 F 72 18 189/73 H 90 L 05/04/18 06:27 96 Weight Weight 185 lb 3.013 oz I&O: 05/03/18 05/04/18 05/05/18 06:59 06:59 06:59 Intake Total 1180 1400 360 Output Total 600 1100 Balance 580 300 360 Result Diagrams: 05/03/18 03:55 05/04/18 09:27 Additional Labs: Accuchecks 05/04/18 05/04/18 05/03/18 11:22 04:58 20:42 POC Glucose 170 H 119 H 146 H 05/03/18 16:41 POC Glucose 238 H Laboratory Tests 12/09/16 07/02/17 04/29/18 05:34 11:24 20:05 Creatinine 1.33 H 1.75 H 2.37 H 05/01/18 05/02/18 05/03/18 03:39 03:56 03:55 Creatinine 2.45 H 2.58 H 2.70 H 05/04/18 04:53 Creatinine 2.74 H Phys Exam - Physical Examination Constitutional: NAD HEENT: PERRLA, moist MMs, sclera anicteric, oral pharynx no lesions Neck: no nodes, no JVD, supple, full ROM Respiratory: no wheezing, no rales, no rhonchi, clear to auscultation bilateral Cardiovascular: RRR, no significant murmur Gastrointestinal: soft, non-tender, no distention, positive bowel sounds Musculoskeletal: no edema, pulses present Neurological: non-focal, normal sensation, moves all 4 limbs Psychiatric: normal affect, A&O x 3 Skin: no rash Dx/Plan - Plan PT/OT, respiratory therapy, incentive spirometry, 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 * . 1. SABRINA on CKD 3/Volume overload 2. DM2 - on Lantus with sliding scale 3. 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 HTN / Obesity BMI 35/Thrombocytopenia 5. Other issues per previous notes. PLAN- CONT LASIX. PT SEEMS TO BE FLUID OVERLOADED. 1 DOSE ZAROXOLYN GIVEN. POTASSIUM HIGH ,EVEN ON REPEAT LABS.KAYEXALATE GIVEN.RECHECK IN AM RENAL FX STABLE.NEPHROLOGY FOLLOWING WELL PT ENCOURAGED TO F/U W GI. WAS REFERRED TO [facility] FOR TIPS BUT NEVER FOLLOWED UP CONT LACTULOSE AND RIFAXIMIN CONT BB. HD STABLE. AM ALBS CXR DONE YESTERDAY SHOWS EDEMA.CONT LASIX ADD NEBS PRN Review of Systems - Review of Systems Constitutional: weakness, malaise. negative: fever, chills, sweats, other Respiratory: Shortness of Breath, SOB with Excertion. negative: Cough, Dry, Hemoptysis, Pleuritic Pain, Sputum, Wheezing Cardiovascular: negative: chest pain, palpitations, orthopnea, paroxysmal nocturnal dyspnea, edema, light headedness, other Gastrointestinal: negative: Nausea, Vomiting, Abdominal Pain, Diarrhea, Constipation, Melena, Hematochezia, Other Genitourinary: negative: Dysuria, Frequency, Incontinence, Hematuria, Retention , Other Musculoskeletal: negative: Neck Pain, Shoulder Pain, Arm Pain, Back Pain, Hand Pain, Leg Pain, Foot Pain, Other Neurological: negative: Weakness, Numbness, Incoordination, Change in Speech, Confusion, Seizures, Other - Medications/Allergies Allergies/Adverse Reactions: Allergies Allergy/AdvReac Type Severity Reaction Status Date / Time Sulfa (Sulfonamide Allergy Intermediate Rash Verified 01/22/17 17:00 Antibiotics) Medications: Current Medications Acetaminophen (Tylenol) 325 mg PO Q4H PRN PRN Reason: Pain Albuterol/Ipratropium (Duoneb) 3 ml NEB Q6H PRN PRN Reason: SOB &/or Wheezing Atorvastatin Calcium (Lipitor) 10 mg PO DAILY [facility] Last Admin: 05/04/18 08:03 Dose: 10 mg Dextrose/Water (Dextrose 50%) 25 gm SLOW IVP PRN PRN PRN Reason: Hypoglycemia Diphenhydramine HCl (Benadryl) 25 mg PO DAILYPRN PRN PRN Reason: Itching & Insomnia Escitalopram Oxalate (Lexapro) 20 mg PO DAILY [facility] Last Admin: 05/04/18 08:04 Dose: 20 mg Furosemide (Lasix) 40 mg PO 0900,1400 [facility] Last Admin: 05/04/18 08:03 Dose: 40 mg Glucagon (Glucagon) 1 mg IM PRN PRN PRN Reason: Hypoglycemia Dextrose/Water (D5w) 1,000 mls @ 0 mls/hr IV .Q0M PRN PRN Reason: Hypoglycemia Insulin Glargine 30 units/ (Miscellaneous Medication) 0.3 mls @ 0 mls/hr SC QAM [facility] Last Admin: 05/04/18 10:06 Dose: 0.3 mls Insulin Human Lispro (Humalog) 0 units SC .MILD SLIDING SCALE PRN PRN Reason: Mild Correctional Scale Last Admin: 05/03/18 17:00 Dose: 3 unit Labetalol HCl (Normodyne) 10 mg SLOW IVP Q4H PRN PRN Reason: Systolic BP > 180 Last Admin: 05/01/18 14:32 Dose: 10 mg Lactulose (Lactulose) 10 gm PO TID [facility] Last Admin: 05/04/18 08:02 Dose: 10 gm Levothyroxine Sodium (Synthroid) 200 mcg PO 0600 [facility] Last Admin: 05/04/18 06:35 Dose: 200 mcg Loratadine (Claritin) 10 mg PO DAILY [facility] Last Admin: 05/04/18 08:03 Dose: 10 mg Multivitamins (Theragran) 1 tab PO DAILY [facility] Last Admin: 05/04/18 08:03 Dose: 1 tab Nebivolol (Bystolic) 5 mg PO DAILY [facility] Last Admin: 05/04/18 08:04 Dose: 5 mg Ondansetron HCl (Zofran Odt) 4 mg PO Q6H PRN PRN Reason: Nausea/Vomiting Pregabalin (Lyrica) 50 mg PO TID [facility] Last Admin: 05/04/18 08:03 Dose: 50 mg Rifaximin (Xifaxan) 550 mg PO DAILY [facility] Last Admin: 05/04/18 08:03 Dose: 550 mg Sodium Chloride (Flush - Normal Saline) 10 ml IVF Q12HR [facility] Last Admin: 05/04/18 08:04 Dose: 10 ml Sodium Chloride (Flush - Normal Saline) 10 ml IVF PRN PRN PRN Reason: Saline Flush
[2018-05-05] MEDS: Levothyroxine Sodium 100 MCG TAB PO SCH (05:02)
[2018-05-05 05:51] LABS: Anion Gap 11 mmol/L (10-20); BUN (Urea Nitrogen) 40 mg/dL (9.8-20.1); Calc. Creatinine Clearance 26 mL/min (70-130); Calcium 8.8 mg/dL (7.8-10.44); Carbon Dioxide 26 mmol/L (23-31); Chloride 109 mmol/L (98-107); Estimated GFR-MDRD 16; Glucose 222 mg/dL (80-115); Potassium 5.4 mmol/L (3.5-5.1); Sodium 141 mmol/L (136-145)
[2018-05-05] MEDS: Pregabalin 50 MG CAP PO SCH ×3 (08:42→20:07)
[2018-05-05] MEDS: Nebivolol HCl 5 MG TAB PO SCH (08:42)
[2018-05-05] MEDS: Loratadine 10 MG TAB PO SCH (08:43)
[2018-05-05] MEDS: Furosemide 20 MG TAB PO SCH ×2 (08:43→14:05)
[2018-05-05] MEDS: Rifaximin 550 MG TAB PO SCH (08:43)
[2018-05-05] MEDS: Multivit, Therapeutic 1 TAB PO SCH (08:43)
[2018-05-05] MEDS: Atorvastatin Calcium 10 MG TAB PO SCH (08:43)
[2018-05-05] MEDS: Escitalopram Oxalate 20 mg Tablet PO SCH (08:44)
[2018-05-05] MEDS: HumaLOG 300 UNITS/3 ML VIAL SC PRN (08:51)
[2018-05-05 10:22] LABS: Actual Bicarbonate (HCO3a) 24.8 mEq/L (22-28); Analyzer IN Cardio ER; Base Excess (BEa) -4.4 mEq/L (-2.0 to +3.0); Carboxyhemoglobin (COHb) 0.8 gm% (0.0-3.0); Hemoglobin (Hb) 11.5 g/dL (12.0-16.0); O2 Tension (PaO2) 104.8 mmHg (> 80.0); Potassium - ABG Lab 5.55 mmol/L (3.70-5.30)
[2018-05-05] MEDS ORDERED: Calcium Gluconate 4.6 MEQ in Sodium Chloride 0.9% 100 ML IVPB ONE (10:28)
[2018-05-05 11:06] LABS: Anion Gap 13 mmol/L (10-20); BUN (Urea Nitrogen) 41 mg/dL (9.8-20.1); Calc. Creatinine Clearance 27 mL/min (70-130); Calcium 8.5 mg/dL (7.8-10.44); Carbon Dioxide 21 mmol/L (23-31); Chloride 110 mmol/L (98-107); Estimated GFR-MDRD 16; Glucose 193 mg/dL (80-115); Potassium 5.5 mmol/L (3.5-5.1); Sodium 138 mmol/L (136-145)
[2018-05-05 11:47] LABS: CO2 Tension 67.2 mmHg (35.0-45.0); pH, Arterial 7.19 (7.35-7.45)
--- NOTE | 2018-05-05 11:54 | PDOC.PULCN ---
<JohnathonKarina - Last Filed: 05/07/18 19:43> Pulmonology Consult: HPI - Date of Consult Date: 05/05/18 Time: 11:47 - Consult Details Reason for Consult: Acidemia, hypercapnia, altered - History of Present Illness HPI: BO BAH is a 63 year-old F with pmhx of cirrhosis with unknown etiology, hx of esophageal variceal bleeding who was admitted for volume overload suspected to be 2/2 cirrhosis who became acutely altered this morning and drowsy while on the medical floor. An ABG was drawn which showed respiratory acidosis and she was transferred to the unit for bipap to improve her hypercapnia. When I saw her, she stated that she has asthma and last night she felt short of breath while just laying in bed. She is currently on Bipap with 30% FiO2 saturating in the upper 90s. She was a&ox3. Pulmonology Consult: ROS - Review of Systems Constitutional: negative: fever, chills Cardiovascular: negative: chest pain, palpitations Respiratory: chest tightness, short of breath. negative: congestion, cough Pulmonology Consult: H Source: patient Past Medical History: Cirrhosis with hx of esophageal variceal bleeding s/p cautery, unknown etiology of cirrhosis Type 2 diabetes HTN HLD Asthma - Social History Alcohol Use: none Drug Use History: none Pulmonology Consult: Meds - Medications Medications: Current Medications Acetaminophen (Tylenol) 325 mg PO Q4H PRN PRN Reason: Pain Albuterol/Ipratropium (Duoneb) 3 ml NEB Q6H PRN PRN Reason: SOB &/or Wheezing Atorvastatin Calcium (Lipitor) 10 mg PO DAILY [facility] Last Admin: 05/05/18 08:43 Dose: 10 mg Dextrose/Water (Dextrose 50%) 25 gm SLOW IVP PRN PRN PRN Reason: Hypoglycemia Diphenhydramine HCl (Benadryl) 25 mg PO DAILYPRN PRN PRN Reason: Itching & Insomnia Escitalopram Oxalate (Lexapro) 20 mg PO DAILY [facility] Last Admin: 05/05/18 08:44 Dose: 20 mg Furosemide (Lasix) 40 mg PO 0900,1400 [facility] Last Admin: 05/05/18 08:43 Dose: 40 mg Glucagon (Glucagon) 1 mg IM PRN PRN PRN Reason: Hypoglycemia Dextrose/Water (D5w) 1,000 mls @ 0 mls/hr IV .Q0M PRN PRN Reason: Hypoglycemia Insulin Glargine 30 units/ (Miscellaneous Medication) 0.3 mls @ 0 mls/hr SC QAM [facility] Last Admin: 05/04/18 10:06 Dose: 0.3 mls Insulin Human Lispro (Humalog) 0 units SC .MILD SLIDING SCALE PRN PRN Reason: Mild Correctional Scale Last Admin: 05/05/18 08:51 Dose: 3 unit Labetalol HCl (Normodyne) 10 mg SLOW IVP Q4H PRN PRN Reason: Systolic BP > 180 Last Admin: 05/01/18 14:32 Dose: 10 mg Lactulose (Lactulose) 10 gm PO TID [facility] Last Admin: 05/05/18 08:44 Dose: 10 gm Levothyroxine Sodium (Synthroid) 200 mcg PO 0600 [facility] Last Admin: 05/05/18 05:02 Dose: 200 mcg Loratadine (Claritin) 10 mg PO DAILY [facility] Last Admin: 05/05/18 08:43 Dose: 10 mg Multivitamins (Theragran) 1 tab PO DAILY [facility] Last Admin: 05/05/18 08:43 Dose: 1 tab Nebivolol (Bystolic) 5 mg PO DAILY [facility] Last Admin: 05/05/18 08:42 Dose: 5 mg Ondansetron HCl (Zofran Odt) 4 mg PO Q6H PRN PRN Reason: Nausea/Vomiting Pregabalin (Lyrica) 50 mg PO TID [facility] Last Admin: 05/05/18 08:42 Dose: 50 mg Rifaximin (Xifaxan) 550 mg PO DAILY [facility] Last Admin: 05/05/18 08:43 Dose: 550 mg Sodium Chloride (Flush - Normal Saline) 10 ml IVF Q12HR [facility] Last Admin: 05/05/18 10:17 Dose: Not Given Sodium Chloride (Flush - Normal Saline) 10 ml IVF PRN PRN PRN Reason: Saline Flush Sodium Polystyrene Sulfonate (Kayexelate Oral Susp 15 Gm/60 Ml) 15 gm PO ONE [facility] Stop: 05/05/18 12:00 Last Admin: 05/05/18 10:27 Dose: 60 ml - Allergies Allergies/Adverse Reactions: Allergies Allergy/AdvReac Type Severity Reaction Status Date / Time Sulfa (Sulfonamide Allergy Intermediate Rash Verified 01/22/17 17:00 Antibiotics) Pulmonology Consult: PE - Physical Exam Deviation from normal: on bipap HEENT: PERRLA, moist MMs Cardiovascular: RRR, no significant murmur Respiratory: clear to auscultation anteriorly Gastrointestinal: soft, non-tender Deviation from normal: edematous Musculoskeletal: pulses present Deviation from normal: no edema present in lower extremities Neurological: non-focal Psychiatric: normal affect, A&O x 3 Skin: no rash, cap refill <2 seconds Pulmonology Consult: Results - Labs Result Diagrams: 05/06/18 03:35 05/07/18 03:53 - ABG Interpretation Interpretation: respiratory acidosis Pulmonology Consult: A/P - Problem (1) Acute respiratory failure with hypercapnia Current Visit: Yes Code(s): J96.02 - ACUTE RESPIRATORY FAILURE WITH HYPERCAPNIA Status: Acute (2) Hepatorenal syndrome Current Visit: Yes Code(s): K76.7 - HEPATORENAL SYNDROME Status: Chronic (3) Cirrhosis Current Visit: No Code(s): K74.60 - UNSPECIFIED CIRRHOSIS OF LIVER Status: Chronic (4) Diabetes type 2, uncontrolled Current Visit: No Code(s): E11.65 - TYPE 2 DIABETES MELLITUS WITH HYPERGLYCEMIA Status: Chronic (5) HLD (hyperlipidemia) Current Visit: No Code(s): E78.5 - HYPERLIPIDEMIA, UNSPECIFIED Status: Chronic (6) Hypertension Current Visit: No Code(s): I10 - ESSENTIAL (PRIMARY) HYPERTENSION Status: Chronic (7) History of esophageal varices with bleeding Current Visit: Yes Code(s): Z87.19 - PERSONAL HISTORY OF OTHER DISEASES OF THE DIGESTIVE SYSTEM Status: Chronic - Time Time: 50% of the time was spent in coordination of care (as documented) at patient's floor/unit and/or counseling patient. - Plan Plan: A/P: 1.)Acute Hypercapnic Respiratory Failure-continue bipap and recheck an abg in 2- 3 hours to monitor for improvement in hypercapnia, pt is currently not altered. 2.)Hepatorenal syndrome-pt has had an increase in cr during this hospitalization 3.)Hyperkalemia-hold medications that can worsen hyperkalemia. Kayexylate, calcium gluconate, insulin 4.)Acute on chronic kidney disease-volume overloaded, continue lasix, consider echo for cardiogenic causes of volume overload as pt's bnp is elevated. 5.)Diabetes, type 2-acchuchecks achs, sliding scale insulin <Emanuel Feliz - Last Filed: 05/10/18 08:46> Pulmonology Consult: HPI - History of Present Illness HPI: BO BAH is a 63 year-old F Pulmonology Consult: Meds - Medications Medications: Current Medications Acetaminophen (Tylenol) 325 mg PO Q4H PRN PRN Reason: Pain Last Admin: 05/06/18 01:17 Dose: 325 mg Albumin Human (Albumin 25%) 50 gm IVPB DAILY [facility] Stop: 05/11/18 09:01 Last Admin: 05/09/18 08:04 Dose: 50 gm Albuterol/Ipratropium (Duoneb) 3 ml NEB Q6H PRN PRN Reason: SOB &/or Wheezing Last Admin: 05/09/18 18:37 Dose: 3 ml Atorvastatin Calcium (Lipitor) 10 mg PO DAILY [facility] Last Admin: 05/09/18 08:15 Dose: 10 mg Dextrose/Water (Dextrose 50%) 25 gm SLOW IVP PRN PRN PRN Reason: Hypoglycemia Diphenhydramine HCl (Benadryl) 25 mg PO DAILYPRN PRN PRN Reason: Itching & Insomnia Last Admin: 05/06/18 01:16 Dose: 25 mg Escitalopram Oxalate (Lexapro) 20 mg PO DAILY [facility] Last Admin: 05/09/18 08:15 Dose: 20 mg Glucagon (Glucagon) 1 mg IM PRN PRN PRN Reason: Hypoglycemia Heparin Sodium (Porcine) (Heparin Lock Flush 100 Units/Ml) 500 units IVF Q12HR [facility] Heparin Sodium (Porcine) (Heparin Lock Flush 100 Units/Ml) 500 units IVF PRN PRN PRN Reason: Heparin Flush Dextrose/Water (D5w) 1,000 mls @ 0 mls/hr IV .Q0M PRN PRN Reason: Hypoglycemia Insulin Glargine 30 units/ (Miscellaneous Medication) 0.3 mls @ 0 mls/hr SC QAM [facility] Last Admin: 05/09/18 08:13 Dose: 0.3 mls Octreotide Acetate 1,250 mcg/ (Sodium Chloride) 251.25 mls @ 10.05 mls/hr IVPB INF [facility] Last Admin: 05/09/18 19:16 Dose: 251.25 mls Insulin Human Lispro (Humalog) 0 units SC .MILD SLIDING SCALE PRN PRN Reason: Mild Correctional Scale Last Admin: 05/08/18 17:59 Dose: 2 unit Labetalol HCl (Normodyne) 10 mg SLOW IVP Q4H PRN PRN Reason: Systolic BP > 180 Last Admin: 05/01/18 14:32 Dose: 10 mg Lactulose (Lactulose) 30 gm PO TIDPRN PRN PRN Reason: OBTAIN 2-3 SOFT STOOLS DAILY Last Admin: 05/09/18 19:15 Dose: 30 gm Levothyroxine Sodium (Synthroid) 200 mcg PO 0600 [facility] Last Admin: 05/10/18 05:24 Dose: 200 mcg Loratadine (Claritin) 10 mg PO DAILY [facility] Last Admin: 05/09/18 08:14 Dose: 10 mg Midodrine (Proamatine) 7.5 mg PO TID [facility] Last Admin: 05/09/18 21:10 Dose: 7.5 mg Mometasone Furoate/Formoterol Fumar (Dulera 100 Mcg/5 Mcg Inhaler) 2 puff INH BID-RT [facility] Last Admin: 05/10/18 07:37 Dose: 2 puff Multivitamins (Theragran) 1 tab PO DAILY [facility] Last Admin: 05/09/18 08:14 Dose: 1 tab Nebivolol (Bystolic) 5 mg PO DAILY [facility] Last Admin: 05/09/18 08:13 Dose: 5 mg Ondansetron HCl (Zofran Odt) 4 mg PO Q6H PRN PRN Reason: Nausea/Vomiting Pregabalin (Lyrica) 50 mg PO TID [facility] Last Admin: 05/09/18 21:10 Dose: 50 mg Rifaximin (Xifaxan) 550 mg PO DAILY [facility] Last Admin: 05/09/18 08:14 Dose: 550 mg Sodium Chloride (Flush - Normal Saline) 10 ml IVF Q12HR [facility] Last Admin: 05/09/18 21:15 Dose: 10 ml Sodium Chloride (Flush - Normal Saline) 10 ml IVF PRN PRN PRN Reason: Saline Flush Pulmonology Consult: Results - Labs Result Diagrams: 05/09/18 04:12 05/10/18 04:21 - ABG Interpretation ABG Results: ABG pH 7.26 (7.35-7.45) L 05/09/18 18:22 ABG pCO2 65.7 mmHg (35.0-45.0) H* 05/09/18 18:22 ABG O2 Sat Calc/Jas 94.4 % (94.0-98.0) 05/09/18 18:22 ABG Base Excess 0.6 mEq/L (-2.0 to +3.0) 05/09/18 18:22 Pulmonology Consult: A/P - Time Time: 50% of the time was spent in coordination of care (as documented) at patient's floor/unit and/or counseling patient. Time with Patient: greater than 70 minutes Attending Addendum - Attending Addendum Date/Time: 05/05/18 1800 I personally evaluated the patient and discussed the management with Dr. Diego. I agree with the History, Examination, Assessment and Plan documented above with any addition or exceptions noted below. 70 minutes have been devoted to this patient in various activities. I personally reviewed all imaging studies and laboratory data noted within this document. For fifty percent of this time, I was interacting with the patient at the bedside or coordinating care with the care team. For the remainder of the time I was immediately available to the patient in the hospital unit.
--- NOTE | 2018-05-05 12:12 | RAD ---
SINGLE VIEW OF THE CHEST: Comparison: 05-03-18 History: Dyspnea. Shortness of breath. FINDINGS: Two views of the chest shows an enlarged cardiomediastinal silhouette. There has been interval opacif ication of the right thorax without significant shift of the mediastinum. No left pleural effusion is seen. IMPRESSION: Interval opacification of the right thorax could represent a pleural effusion and/or atelectasis of t he right lung. POS: [facility]
--- NOTE | 2018-05-05 12:14 | PRG ---
DATE OF SERVICE: 05/05/2018 SUBJECTIVE: This is a 63-year-old female being seen for acute kidney injury. The patient denies any nausea, vomiting or chest pain. PHYSICAL EXAMINATION: GENERAL: Patient is awake and alert. VITAL SIGNS: Afebrile, pulse 75, breathing at 16, blood pressure 151/95. GENERAL APPEARANCE AND MENTAL STATUS: Fair. HEAD/NECK: Normocephalic. Atraumatic. EYES: EOMI. No deformity. EARS: Clear. No ulcers. NOSE: Intact. No lesions. MOUTH: Clear. No discharge. THROAT: Clear. No exudate. LUNGS: Clear. No crackles. CARDIAC: S1, S2. No rub. ABDOMEN: Benign. BS+. GENITALIA/RECTUM: Berman absent. BACK/EXTREMITIES: Edema 0+ Ulcer-. NEUROLOGICAL: Alert and motor intact. SKIN: Rash- Bruise- LYMPHATICS: Edema- Ulcer-. LABORATORY DATA: Show hemoglobin 8.9, potassium 5.5, bicarbonate 21. ASSESSMENT AND RECOMMENDATIONS: 1. Chronic kidney disease stage 4 with acute kidney injury, stable. 2. Hypertension, stable. 3. Hyperkalemia. We would recommend rechecking potassium. We would recommend low potassium diet. Repeat Kayexalate. 4. Congestive heart failure, order ABG and Echo. MTDD
--- NOTE | 2018-05-05 12:43 | PDOC.PN ---
- Subjective Encounter Start Date: 05/05/18 Encounter Start Time: 12:39 Subjective: RN called for increased work of breathing & SOB.pt seen & examined -: awake and keeps saying that she feels fine.denies CP -: CXR,ABG,labsEKG done at bedside - Objective Resuscitation Status: Resuscitation Status FULL:Full Resuscitation MAR Reviewed: Yes Vital Signs & Weight: Vital Signs (12 hours) Temp Pulse Resp BP BP Pulse Ox 05/05/18 11:38 100 05/05/18 11:00 89 05/05/18 08:00 95 05/05/18 07:08 98 F 75 21 H 170/90 H 93 L 05/05/18 04:18 151/95 H 05/05/18 04:00 98.1 F 79 18 174/87 H 94 L Weight Weight 187 lb 3 oz I&O: 05/04/18 05/05/18 05/06/18 06:59 06:59 06:59 Intake Total 1400 1600 Output Total 1100 1200 Balance 300 400 Result Diagrams: 05/03/18 03:55 05/05/18 10:23 Additional Labs: Accuchecks 05/05/18 05/05/18 05/04/18 11:56 04:13 19:33 POC Glucose 157 H 190 H 154 H 05/04/18 05/04/18 16:11 11:22 POC Glucose 120 H 170 H Phys Exam - Physical Examination mod respiratory distress w use of abdominal muscles HEENT: PERRLA, moist MMs, sclera anicteric, oral pharynx no lesions Neck: no nodes Respiratory: wheezing present Cardiovascular: RRR, no significant murmur Gastrointestinal: soft, non-tender, no distention, positive bowel sounds Musculoskeletal: no edema, pulses present Neurological: non-focal, normal sensation, moves all 4 limbs Psychiatric: normal affect, A&O x 3 Skin: no rash Dx/Plan (1) Acute hypercapnic respiratory failure Code(s): J96.02 - ACUTE RESPIRATORY FAILURE WITH HYPERCAPNIA Status: Acute (2) SABRINA (acute kidney injury) Code(s): N17.9 - ACUTE KIDNEY FAILURE, UNSPECIFIED Status: Acute (3) Hyperkalemia Code(s): E87.5 - HYPERKALEMIA Status: Acute (4) Hepatorenal syndrome Code(s): K76.7 - HEPATORENAL SYNDROME Status: Chronic (5) History of esophageal varices with bleeding Code(s): Z87.19 - PERSONAL HISTORY OF OTHER DISEASES OF THE DIGESTIVE SYSTEM Status: Chronic (6) CKD (chronic kidney disease) stage 3, GFR 30-59 ml/min Code(s): N18.3 - CHRONIC KIDNEY DISEASE, STAGE 3 (MODERATE) Status: Chronic (7) Cirrhosis Code(s): K74.60 - UNSPECIFIED CIRRHOSIS OF LIVER Status: Chronic Comment: GUY w GAVE (8) Diabetes type 2, uncontrolled Code(s): E11.65 - TYPE 2 DIABETES MELLITUS WITH HYPERGLYCEMIA Status: Chronic (9) HLD (hyperlipidemia) Code(s): E78.5 - HYPERLIPIDEMIA, UNSPECIFIED Status: Chronic (10) Hypertension Code(s): I10 - ESSENTIAL (PRIMARY) HYPERTENSION Status: Chronic (11) Hypothyroidism Code(s): E03.9 - HYPOTHYROIDISM, UNSPECIFIED Status: Chronic - Plan PT/OT, respiratory therapy, incentive spirometry, out of bed/ambulate, DVT proph w/SCDs ABG show hypercarbia.will transfer to [facility] on Bipap -: discussed w PCCM.will consult. -: will give 1 dose lasix,CaGluconate for high ppotassium -: recheck Labs,CXR ,BNP high-will get ECHO -: Monitor renal Fx.Worse today. Review of Systems - Review of Systems Constitutional: negative: fever, chills, sweats, weakness, malaise, other ENT: negative: Ear Pain, Ear Discharge, Nose Pain, Nose Discharge, Nose Congestion, Mouth Pain, Mouth Swelling, Throat Pain, Throat Swelling, Other Respiratory: Shortness of Breath, Wheezing. negative: Cough, Dry, Hemoptysis, SOB with Excertion, Pleuritic Pain, Sputum Cardiovascular: negative: chest pain, palpitations, orthopnea, paroxysmal nocturnal dyspnea, edema, light headedness, other Gastrointestinal: negative: Nausea, Vomiting, Abdominal Pain, Diarrhea, Constipation, Melena, Hematochezia, Other Genitourinary: negative: Dysuria, Frequency, Incontinence, Hematuria, Retention , Other Musculoskeletal: negative: Neck Pain, Shoulder Pain, Arm Pain, Back Pain, Hand Pain, Leg Pain, Foot Pain, Other Neurological: negative: Weakness, Numbness, Incoordination, Change in Speech, Confusion, Seizures, Other - Medications/Allergies Allergies/Adverse Reactions: Allergies Allergy/AdvReac Type Severity Reaction Status Date / Time Sulfa (Sulfonamide Allergy Intermediate Rash Verified 01/22/17 17:00 Antibiotics) Medications: Current Medications Acetaminophen (Tylenol) 325 mg PO Q4H PRN PRN Reason: Pain Albuterol/Ipratropium (Duoneb) 3 ml NEB Q6H PRN PRN Reason: SOB &/or Wheezing Atorvastatin Calcium (Lipitor) 10 mg PO DAILY [facility] Last Admin: 05/05/18 08:43 Dose: 10 mg Dextrose/Water (Dextrose 50%) 25 gm SLOW IVP PRN PRN PRN Reason: Hypoglycemia Diphenhydramine HCl (Benadryl) 25 mg PO DAILYPRN PRN PRN Reason: Itching & Insomnia Escitalopram Oxalate (Lexapro) 20 mg PO DAILY [facility] Last Admin: 05/05/18 08:44 Dose: 20 mg Furosemide (Lasix) 40 mg PO 0900,1400 [facility] Last Admin: 05/05/18 08:43 Dose: 40 mg Glucagon (Glucagon) 1 mg IM PRN PRN PRN Reason: Hypoglycemia Dextrose/Water (D5w) 1,000 mls @ 0 mls/hr IV .Q0M PRN PRN Reason: Hypoglycemia Insulin Glargine 30 units/ (Miscellaneous Medication) 0.3 mls @ 0 mls/hr SC QAM [facility] Last Admin: 05/04/18 10:06 Dose: 0.3 mls Insulin Human Lispro (Humalog) 0 units SC .MILD SLIDING SCALE PRN PRN Reason: Mild Correctional Scale Last Admin: 05/05/18 08:51 Dose: 3 unit Labetalol HCl (Normodyne) 10 mg SLOW IVP Q4H PRN PRN Reason: Systolic BP > 180 Last Admin: 05/01/18 14:32 Dose: 10 mg Lactulose (Lactulose) 10 gm PO TID [facility] Last Admin: 05/05/18 08:44 Dose: 10 gm Levothyroxine Sodium (Synthroid) 200 mcg PO 0600 [facility] Last Admin: 05/05/18 05:02 Dose: 200 mcg Loratadine (Claritin) 10 mg PO DAILY [facility] Last Admin: 05/05/18 08:43 Dose: 10 mg Multivitamins (Theragran) 1 tab PO DAILY [facility] Last Admin: 05/05/18 08:43 Dose: 1 tab Nebivolol (Bystolic) 5 mg PO DAILY [facility] Last Admin: 05/05/18 08:42 Dose: 5 mg Ondansetron HCl (Zofran Odt) 4 mg PO Q6H PRN PRN Reason: Nausea/Vomiting Pregabalin (Lyrica) 50 mg PO TID [facility] Last Admin: 05/05/18 08:42 Dose: 50 mg Rifaximin (Xifaxan) 550 mg PO DAILY [facility] Last Admin: 05/05/18 08:43 Dose: 550 mg Sodium Chloride (Flush - Normal Saline) 10 ml IVF Q12HR [facility] Last Admin: 05/05/18 10:17 Dose: Not Given Sodium Chloride (Flush - Normal Saline) 10 ml IVF PRN PRN PRN Reason: Saline Flush
[2018-05-05] MEDS ORDERED: Lidocaine 1% (PF) 30 ML VIAL ONE (12:54)
[2018-05-05] MEDS: Insulin Glargine 30 UNITS in Pre-Filled Syringe 1 EACH SC SCH (13:56)
[2018-05-05 16:25] LABS: Potassium 5.1 mmol/L (3.5-5.1)
--- NOTE | 2018-05-05 17:26 | OP ---
DATE OF PROCEDURE: 05/05/2018 SERVICE: Pulmonary Medicine. PROCEDURE: Right-sided pleural drainage with catheter insertion under ultrasound guidance. CONSENT: The risks and benefits of this procedure were explained to the patient prior to initiating. All questions were answered and alternative options explained. STAFF PHYSICIAN: Emanuel Feliz M.D. MEDICATIONS USED: Lidocaine 1% without epinephrine, a total quantity 10 mL. PREOPERATIVE DIAGNOSES: 1. Acute hypoxic and hypercapnic respiratory failure. 2. Pleural effusion. POSTPROCEDURE DIAGNOSES: 1. Acute hypoxic and hypercapnic respiratory failure. 2. Pleural effusion. DESCRIPTION OF PROCEDURE: A timeout was performed by the procedure team and patient. The patient wa s positively identified using name and date of . The procedure site was marked. Vital sign mon itoring was accomplished by noninvasive hemodynamic monitoring, pulse oximetry, and telemetry. In the seated position, the right posterior hemithorax was examined using ultrasound probe. The diap hragm pleural fluid was easily identified. The skin was prepped and draped in sterile fashion and an esthetized with 1% lidocaine without epinephrine. A finder needle was inserted in the pleural space with return of clear yellow fluid. A pleural drainage catheter was inserted in the same location, a total quantity of 2300 mL of pleural fluid was withdrawn by syringe pump technique. A sample was sen t for analysis. Evacuation of fluid was terminated because the fluid stopped coming. At the end of the procedure, estimated pleural pressure is measured by manometry were -5 cm of pleural fluid. Inta ct catheter was withdrawn on exhalation and sterile dressing was applied. The patient has stable vit als throughout the entire procedure. ESTIMATED BLOOD LOSS: 1 mL. COMPLICATIONS: None.
[2018-05-06] MEDS: diphenhydrAMINE 25 MG CAP PO PRN (01:16)
[2018-05-06] MEDS: Acetaminophen 325 MG TAB PO PRN (01:17)
[2018-05-06] MEDS: Levothyroxine Sodium 100 MCG TAB PO SCH (05:28)
[2018-05-06 05:36] LABS: Anion Gap 10 mmol/L (10-20); BUN (Urea Nitrogen) 44 mg/dL (9.8-20.1); Calc. Creatinine Clearance 24 mL/min (70-130); Calcium 8.5 mg/dL (7.8-10.44); Carbon Dioxide 24 mmol/L (23-31); Chloride 110 mmol/L (98-107); Estimated GFR-MDRD 15; Glucose 157 mg/dL (80-115); Potassium 4.9 mmol/L (3.5-5.1); Sodium 139 mmol/L (136-145)
[2018-05-06 05:40] LABS: #Eosinphils 0.2 thou/uL (0.0-0.7); #Lymphocytes 0.7 thou/uL (1.20-3.40); #Monocytes 0.4 thou/uL (0.11-0.59); #Neutrophils 5.3 thou/uL (1.40-6.50); %Basophils 0.7 % (0.0-1.0); %Eosinophils 3.6 % (0.0-10.0); %Monocytes 6.4 % (0.0-10.0); %Neutrophils 78.3 % (42.0-75.0); Anisocytosis SLIGHT = 6-15 cells (100X) (0-5/hpf); Hemoglobin 9.6 g/dL (12.0-16.0); MDiff Complete? YES; Mean Corpuscular HGB CONC 30.3 g/dL (32.0-36.0); Mean Corpuscular Hemoglobin 32.7 pg (27.0-31.0); Mean Platelet Volume 9.2 fL (7.4-10.4); PLT Morphology Comment Appears Decreased; Platelet Count 104 thou/uL (130-400); RBC Distribution Width 18.1 % (11.5-14.5); Red Blood Cell (RBC) Count 2.94 mill/uL (4.20-5.40); White Blood Cell (WBC) Count 6.7 thou/uL (4.8-10.8)
[2018-05-06] MEDS: Furosemide 20 MG TAB PO SCH ×2 (08:59→14:55)
[2018-05-06] MEDS: Pregabalin 50 MG CAP PO SCH ×3 (08:59→20:58)
[2018-05-06] MEDS: Loratadine 10 MG TAB PO SCH (08:59)
[2018-05-06] MEDS: Rifaximin 550 MG TAB PO SCH (08:59)
[2018-05-06] MEDS: Atorvastatin Calcium 10 MG TAB PO SCH (08:59)
[2018-05-06] MEDS: Escitalopram Oxalate 20 mg Tablet PO SCH (09:00)
[2018-05-06] MEDS: Nebivolol HCl 5 MG TAB PO SCH (09:00)
[2018-05-06] MEDS: Multivit, Therapeutic 1 TAB PO SCH (09:00)
[2018-05-06] MEDS: Insulin Glargine 30 UNITS in Pre-Filled Syringe 1 EACH SC SCH (09:00)
--- NOTE | 2018-05-06 13:44 | RAD ---
PORTABLE UPRIGHT FRONTAL CHEST RADIOGRAPH: 05/06/2018 HISTORY: Pleural effusion. COMPARISON: 05/05/2018 FINDINGS: The inferior two-thirds of the right hemithorax are completely opacified. There is partial opacifica tion of the right upper lobe with portions of aerated right upper lobe medially. This represents an improvement when compared to the 05/05/2018 examination, at which time there was complete opacificati on of the right hemithorax. The left hemithorax is clear. IMPRESSION: Extensive pleural and parenchymal opacity involving the right hemithorax. This suggests a large unde rlying right pleural effusion. Underlying infectious pneumonitis/aspiration and/or mass lesion is a possibility. Followup to resolution is advised. CT examination of the chest suggested for full asse ssment. POS: SHYANNE
--- NOTE | 2018-05-06 14:43 | PDOC.PN ---
- Subjective Encounter Start Date: 05/06/18 Encounter Start Time: 14:41 Subjective: FEELS 'ok',care discussed with at bedside. -: reports that she is having a difficult time w fluid accumulation -: for last 1-2 months. - Objective Resuscitation Status: Resuscitation Status FULL:Full Resuscitation MAR Reviewed: Yes Vital Signs & Weight: Vital Signs (12 hours) Temp Pulse Resp BP BP Pulse Ox 05/06/18 11:25 98.5 F 62 19 106/68 97 05/06/18 11:21 64 20 97 05/06/18 07:55 94 L 05/06/18 07:49 97.7 F 70 25 H 127/70 99 05/06/18 04:00 98.6 F 70 17 112/86 99 Weight Weight 181 lb 9.6 oz I&O: 05/05/18 05/06/18 05/07/18 06:59 06:59 06:59 Intake Total 1600 660 Output Total 1200 2302 Balance 400 -1642 Result Diagrams: 05/06/18 03:35 05/06/18 03:35 Additional Labs: Accuchecks 05/06/18 05/05/18 05/05/18 11:06 20:17 17:41 POC Glucose 175 H 184 H 151 H Laboratory Tests 05/04/18 05/05/18 05/05/18 09:27 04:46 10:23 Potassium 5.3 H 5.4 H 5.5 H Creatinine 3.00 H 2.90 H 05/05/18 05/06/18 16:03 03:35 Potassium 5.1 4.9 Creatinine 3.20 H Radiology Reviewed by me: Yes (CXR-re accumulation of R sided pleural fluid w atelectasis) Phys Exam - Physical Examination somnolent but arousable HEENT: PERRLA, moist MMs, sclera anicteric, oral pharynx no lesions Neck: no nodes, no JVD, supple, full ROM Respiratory: no wheezing, no rales, no rhonchi, clear to auscultation bilateral reduced breath sounds R side Cardiovascular: RRR, no significant murmur, no rub Gastrointestinal: soft, non-tender, no distention, positive bowel sounds +ve fluid wave Musculoskeletal: no edema, pulses present Neurological: non-focal, normal sensation, moves all 4 limbs Psychiatric: normal affect, A&O x 3 Skin: no rash Dx/Plan (1) Acute hypercapnic respiratory failure Code(s): J96.02 - ACUTE RESPIRATORY FAILURE WITH HYPERCAPNIA Status: Acute Comment: s/p bipap.Due to large R sided pleural effusion (2) SABRINA (acute kidney injury) Code(s): N17.9 - ACUTE KIDNEY FAILURE, UNSPECIFIED Status: Acute Comment: Suspect hepatorenal syndrome (3) Hyperkalemia Code(s): E87.5 - HYPERKALEMIA Status: Resolved (4) Hepatorenal syndrome Code(s): K76.7 - HEPATORENAL SYNDROME Status: Chronic (5) History of esophageal varices with bleeding Code(s): Z87.19 - PERSONAL HISTORY OF OTHER DISEASES OF THE DIGESTIVE SYSTEM Status: Chronic Comment: s/p banding in past (6) CKD (chronic kidney disease) stage 3, GFR 30-59 ml/min Code(s): N18.3 - CHRONIC KIDNEY DISEASE, STAGE 3 (MODERATE) Status: Chronic (7) Cirrhosis Code(s): K74.60 - UNSPECIFIED CIRRHOSIS OF LIVER Status: Chronic Comment: GUY w GAVE (8) Diabetes type 2, uncontrolled Code(s): E11.65 - TYPE 2 DIABETES MELLITUS WITH HYPERGLYCEMIA Status: Chronic (9) HLD (hyperlipidemia) Code(s): E78.5 - HYPERLIPIDEMIA, UNSPECIFIED Status: Chronic (10) Hypertension Code(s): I10 - ESSENTIAL (PRIMARY) HYPERTENSION Status: Chronic (11) Hypothyroidism Code(s): E03.9 - HYPOTHYROIDISM, UNSPECIFIED Status: Chronic (12) Thrombocytopenia Code(s): D69.6 - THROMBOCYTOPENIA, UNSPECIFIED Status: Chronic - Plan plan discussed w/ family, PT/OT, social worker masters, respiratory therapy, incentive spirometry, out of bed/ambulate, DVT proph w/SCDs suspect hypercarbia & hyperammoniemia.increase lactulose to 30 tid prn -: may need Bipap again.may need thoracentesis again.defer to PCCM -: discussed w LEAH Howell Case.suspect heaptorenal syndrome w worsening .poor progn -: ECHO pending to r/o cardiac causes like CHF. -: Need to discuss fdc options/prognosis.will also consult GI * .renal Fx worse today.cont diureiss as clinically fluid overloaded .will add Albumin IV x3 doses * am labs * Review of Systems - Review of Systems Constitutional: weakness, malaise. negative: fever, chills, sweats, other Respiratory: Shortness of Breath, SOB with Excertion. negative: Cough, Dry, Hemoptysis, Pleuritic Pain, Sputum, Wheezing Cardiovascular: negative: chest pain, palpitations, orthopnea, paroxysmal nocturnal dyspnea, edema, light headedness, other Gastrointestinal: negative: Nausea, Vomiting, Abdominal Pain, Diarrhea, Constipation, Melena, Hematochezia, Other Genitourinary: negative: Dysuria, Frequency, Incontinence, Hematuria, Retention , Other Musculoskeletal: negative: Neck Pain, Shoulder Pain, Arm Pain, Back Pain, Hand Pain, Leg Pain, Foot Pain, Other Skin: negative: Rash, Lesions, Diaz, Bruising, Other Neurological: negative: Weakness, Numbness, Incoordination, Change in Speech, Confusion, Seizures, Other - Medications/Allergies Allergies/Adverse Reactions: Allergies Allergy/AdvReac Type Severity Reaction Status Date / Time Sulfa (Sulfonamide Allergy Intermediate Rash Verified 01/22/17 17:00 Antibiotics) Medications: Current Medications Acetaminophen (Tylenol) 325 mg PO Q4H PRN PRN Reason: Pain Last Admin: 05/06/18 01:17 Dose: 325 mg Albuterol/Ipratropium (Duoneb) 3 ml NEB Q6H PRN PRN Reason: SOB &/or Wheezing Last Admin: 05/06/18 11:21 Dose: 3 ml Atorvastatin Calcium (Lipitor) 10 mg PO DAILY [facility] Last Admin: 05/06/18 08:59 Dose: 10 mg Dextrose/Water (Dextrose 50%) 25 gm SLOW IVP PRN PRN PRN Reason: Hypoglycemia Diphenhydramine HCl (Benadryl) 25 mg PO DAILYPRN PRN PRN Reason: Itching & Insomnia Last Admin: 05/06/18 01:16 Dose: 25 mg Escitalopram Oxalate (Lexapro) 20 mg PO DAILY [facility] Last Admin: 05/06/18 09:00 Dose: 20 mg Furosemide (Lasix) 40 mg PO 0900,1400 [facility] Last Admin: 05/06/18 08:59 Dose: 40 mg Glucagon (Glucagon) 1 mg IM PRN PRN PRN Reason: Hypoglycemia Dextrose/Water (D5w) 1,000 mls @ 0 mls/hr IV .Q0M PRN PRN Reason: Hypoglycemia Insulin Glargine 30 units/ (Miscellaneous Medication) 0.3 mls @ 0 mls/hr SC QAM [facility] Last Admin: 05/06/18 09:00 Dose: 0.3 mls Insulin Human Lispro (Humalog) 0 units SC .MILD SLIDING SCALE PRN PRN Reason: Mild Correctional Scale Last Admin: 05/05/18 08:51 Dose: 3 unit Labetalol HCl (Normodyne) 10 mg SLOW IVP Q4H PRN PRN Reason: Systolic BP > 180 Last Admin: 05/01/18 14:32 Dose: 10 mg Lactulose (Lactulose) 30 gm PO NOW [facility] Stop: 05/06/18 16:00 Lactulose (Lactulose) 10 gm PO TIDPRN PRN PRN Reason: OBTAIN 2-3 SOFT STOOLS DAILY Levothyroxine Sodium (Synthroid) 200 mcg PO 0600 [facility] Last Admin: 05/06/18 05:28 Dose: 200 mcg Loratadine (Claritin) 10 mg PO DAILY [facility] Last Admin: 05/06/18 08:59 Dose: 10 mg Multivitamins (Theragran) 1 tab PO DAILY [facility] Last Admin: 05/06/18 09:00 Dose: 1 tab Nebivolol (Bystolic) 5 mg PO DAILY [facility] Last Admin: 05/06/18 09:00 Dose: 5 mg Ondansetron HCl (Zofran Odt) 4 mg PO Q6H PRN PRN Reason: Nausea/Vomiting Pregabalin (Lyrica) 50 mg PO TID [facility] Last Admin: 05/06/18 08:59 Dose: 50 mg Rifaximin (Xifaxan) 550 mg PO DAILY [facility] Last Admin: 05/06/18 08:59 Dose: 550 mg Sodium Chloride (Flush - Normal Saline) 10 ml IVF Q12HR [facility] Last Admin: 05/06/18 09:01 Dose: 10 ml Sodium Chloride (Flush - Normal Saline) 10 ml IVF PRN PRN PRN Reason: Saline Flush
--- NOTE | 2018-05-06 16:40 | PRG ---
DATE OF SERVICE: 05/06/2018 SERVICE: Pulmonary Medicine. INTERVAL HISTORY: The patient is doing really well from a respiratory standpoint. She is breathing comfortably. She got no complaints of nausea, vomiting, fevers or chills. There are no overnight ev ents. Otherwise, she is close to her usual state of health. Her abdomen is much softer today. That being said, it has likely gone back up in the right lung. PHYSICAL EXAMINATION: VITAL SIGNS: Afebrile, pulse 62, blood pressure 106/68, respirations 19, saturation 97% on 2 liters nasal cannula. GENERAL: The patient is awake and alert, in no apparent distress. LUNGS: There is good air entry on the left. Very reduced air entry on the right. There is no prolo nged expiratory phase, wheezing or rhonchi. No crackles are appreciated on the left. HEART: Normal rate, regular. ABDOMEN: Soft. It is no longer firm. There is still a shifting dullness. Bowel sounds are present . No rebound or guarding is appreciated today. MUSCULOSKELETAL: No cyanosis or clubbing. There is 2+ throughout. GENITOURINARY: No Berman catheter. NEUROLOGIC: Grossly nonfocal. LABORATORY DATA: WBC 6.7, hemoglobin 9.6, platelets 104,000 and improving. Creatinine 3.20 and gent ly up trending. BUN 44. Basic metabolic profile is unremarkable otherwise. Ammonia level is 70 and up trending. IMAGING: Chest x-ray demonstrates extensive pleural effusion on the right side. This has actually i mproved slightly since prior. ASSESSMENT: 1. Acute hypoxic and hypercapnic respiratory failure, resolved. 2. Hepatic hydrothorax. 3. Acute kidney injury on chronic kidney disease. 4. Hepatorenal syndrome. 5. Cirrhosis, Child C. DISCUSSION AND PLAN: The fluid that we steven off is consistent with a transudate. This is a hepatic hydrothorax. The patient's abdomen is softer today primarily because we removed 3 liters of fluid fr om the right chest, creating room for more fluid to get into that space. Recurrent thoracentesis angelito l not be considered unless the patient is in a dire state and requires very high oxygen requirements. I agree with continued diuretics and albumin. Pulmonary Critical Care will continue to follow luis parker in this location. I would leave her here for an additional day because she is very likely to reacc umulate this fluid and develop respiratory failure again.
--- NOTE | 2018-05-06 23:01 | PRG ---
DATE OF SERVICE: 05/06/2018 SUBJECTIVE: This is a 63-year-old female being seen for acute kidney injury. The patient denies any nausea, vomiting, or chest pain. PHYSICAL EXAMINATION: GENERAL: The patient is awake and alert. VITAL SIGNS: Pulse breathing at 16, blood pressure 133/73. GENERAL APPEARANCE AND MENTAL STATUS: Fair. HEAD/NECK: Normocephalic. Atraumatic. EYES: EOMI. No deformity. EARS: Clear. No ulcers. NOSE: Intact. No lesions. MOUTH: Clear. No discharge. THROAT: Clear. No exudate. LUNGS: Clear. No crackles. CARDIAC: S1, S2. No rub. ABDOMEN: Benign. BS+. GENITALIA/RECTUM: Berman absent. BACK/EXTREMITIES: Edema 0+ Ulcer-. NEUROLOGICAL: Alert and motor intact. SKIN: Rash- Bruise-. LYMPHATICS: Edema- Ulcer-. LABORATORY DATA: Hemoglobin 9.6. Creatinine 3.2. ASSESSMENT AND PLAN: 1. Chronic kidney disease stage 4, stable. 2. Hypertension, stable. 3. Acute kidney injury most likely due to cardiorenal syndrome. No indication for dialysis. 4. Hyperkalemia, improved.
--- NOTE | 2018-05-06 23:51 | CON ---
DATE OF CONSULTATION: 05/06/2018 HISTORY OF PRESENT ILLNESS: Patient is a 63-year-old female who was admitted on 04/30/2018 for increasing fluid. She was having some shortness of breath. She is otherwise doing well. She d enies any abdominal pain, any nausea, vomiting, any melena, hematochezia, any diarrhea, but only occa sional constipation. She has been followed by Dr. Baugh for cirrhosis, felt to be secondary to nonalc oholic steatohepatitis by transjugular biopsy. She has undergone EGD in the past showing varices and gastric antral vascular ectasias as well as portal hypertensive gastropathy. Last EGD was in 01/26, where she had gastric varices banded. EGD was done in 10/2016, again, her esophageal varices were b anded. CT back in 11/2016 showed patent portal vein and hepatic arteries, some abnormal hepatic svetlana ry branching, circumferential wall thickening in the pylorus, small volume ascites and cirrhosis, ext ensive paraesophageal perisplenic and splenorenal varices, some thickening of the colon was noted as well. Patient's last office visit with Dr. Baugh on 04/08/2018. She reported a 10-pound weight gain without worsening lower extremity edema. PAST MEDICAL HISTORY: Includes cirrhosis secondary to nonalcoholic steatohepatitis, ascites, chronic anemia, portal hypertension with esophageal varices, hypertension, diabetes mellitus. ALLERGIES: Include and SULFA. SOCIAL HISTORY: Does not smoke, rarely drinks. FAMILY HISTORY: Significant for mother with chronic liver disease. REVIEW OF SYSTEMS: Constitutional: No fever or chills, no weight loss. Eyes: No blurred vision or double vision. ENT: No sore throat or earaches. Cardiovascular: No chest pain or palpitation. P ulmonary: Positive for shortness of breath. Positive for wheezing. Gastrointestinal: See above. : No hematuria or dysuria. Musculoskeletal: No joint pain or muscle weakness. Skin: No rashes. Neurologic: No numbness or seizure activity. PHYSICAL EXAMINATION: VITAL SIGNS: Temperature 98.5, pulse 73, respiratory rate 16, blood pressure 133/73. HEENT: Shows no scleral icterus. NECK: Supple. CHEST: Showed some bilateral wheezing. CARDIOVASCULAR: Regular rate and rhythm. ABDOMEN: Soft, protuberant, no hepatosplenomegaly is noted by exam. EXTREMITIES: Show no edema. LABORATORY DATA: Shows a white blood cell count of 6.7, hemoglobin 9.6, hematocrit of 31.7 with MCV of 108, platelet count 104. Chemistry panel shows chloride 110, BUN 44, creatinine 3.20, glucose 157 . Admission creatinine was 2.37. Chest x-ray from today showed extensive pleural and parenchymal op acity involving the right hemithorax. The suggestion of underlying right pleural effusion, underlyin g infectious pneumonitis, or aspiration and/or mass lesion is a possibility. Last ultrasound from showed small liver, ascites, splenomegaly, and hepatic artery showing normal flow. ASSESSMENT: 1. Large right pleural effusion - this may be a manifestation the patient's cirrhosis; however, it m ay be also a manifestation of the right lung process that is not related to the patient's cirrhosis. 2. Right lung pneumonitis of unknown etiology. 3. Renal insufficiency - I suspect this is on the basis of the patient's diuresis. 4. Cirrhosis secondary to nonalcoholic steatohepatitis - stable. 5. Diabetes mellitus. 6. Hypertension. 7. History of varices. RECOMMENDATIONS: 1. Consider discontinuation of diuretics. 2. Given some gradual fluids. 3. Evaluate right lung process. 4. Agree with echocardiogram.
[2018-05-07 05:01] LABS: Anion Gap 15 mmol/L (10-20); BUN (Urea Nitrogen) 51 mg/dL (9.8-20.1); Calc. Creatinine Clearance 21 mL/min (70-130); Calcium 8.7 mg/dL (7.8-10.44); Carbon Dioxide 20 mmol/L (23-31); Chloride 110 mmol/L (98-107); Estimated GFR-MDRD 12; Glucose 110 mg/dL (80-115); Potassium 5.1 mmol/L (3.5-5.1); Sodium 140 mmol/L (136-145)
[2018-05-07] MEDS: Levothyroxine Sodium 100 MCG TAB PO SCH (05:36)
[2018-05-07] MEDS: Atorvastatin Calcium 10 MG TAB PO SCH (08:41)
[2018-05-07] MEDS: Escitalopram Oxalate 20 mg Tablet PO SCH (08:41)
[2018-05-07] MEDS: Albumin 25% 25 GM/100 ML BOT IVPB SCH (08:41)
[2018-05-07] MEDS: Insulin Glargine 30 UNITS in Pre-Filled Syringe 1 EACH SC SCH (08:41)
[2018-05-07] MEDS: Nebivolol HCl 5 MG TAB PO SCH (08:42)
[2018-05-07] MEDS: Loratadine 10 MG TAB PO SCH (08:42)
[2018-05-07] MEDS: Pregabalin 50 MG CAP PO SCH ×3 (08:42→20:13)
[2018-05-07] MEDS: Multivit, Therapeutic 1 TAB PO SCH (08:42)
[2018-05-07] MEDS: Rifaximin 550 MG TAB PO SCH (08:43)
--- NOTE | 2018-05-07 10:54 | PRG ---
DATE OF SERVICE: 05/07/2018 SERVICE: Pulmonary Medicine. INTERVAL HISTORY: The patient is doing outstanding from a respiratory standpoint. Denies any current chest pain, fevers, chills, nausea, vomiting, diarrhea. Otherwise, there has been no interval change to her condition. She is a little sleepy this morning. That being said, she wakes up comfortably and talks in full sentences. PHYSICAL EXAMINATION: VITAL SIGNS: Afebrile, pulse 62, blood pressure 112/67, respirations 20, saturation 99% on 2 liters nasal cannula. GENERAL: The patient is awake and alert, in no apparent distress. LUNGS: Decent air entry on the left. There are some crackles present there. There is decreased air entry on the right. HEART: Normal rate, regular. ABDOMEN: Soft. It is increasingly distended. Nontender. Bowel sounds are positive. MUSCULOSKELETAL: No cyanosis or clubbing. There is diffuse pitting throughout. GENITOURINARY: No Berman. NEUROLOGIC: Grossly nonfocal. IMAGING: Echocardiogram demonstrates normal ejection fraction and 2/3 diastolic dysfunction. The right side of the heart is dilated, but functioning well. ASSESSMENT: 1. Acute hypoxic and hypercapnic respiratory failure, improved for now. 2. Hepatic hydrothorax. 3. Cirrhosis, Child C. 4. Anasarca secondary to liver disease. 5. Hepatorenal syndrome. 6. Acute on chronic diastolic heart failure. 7. Obstructive sleep apnea, witnessed at bedside. DISCUSSION AND PLAN: We will perform thoracentesis only for significant respiratory failure, but there is no benefit of repeated procedures because the fluid will always come back without control of the anasarca state and ascites. At this point, there is no indication for one. This fluid is a transudate by observation. She will need to remain in the IMCU until we have definitive control of her volume. Pulmonary Critical Care will continue to follow along. BiPAP should be used at night and PRN with sleep. By observation, she has obstructive sleep apnea. MTDD
--- NOTE | 2018-05-07 15:46 | PDOC.PN ---
- Subjective Encounter Start Date: 05/07/18 Encounter Start Time: 15:44 Subjective: feels a loittl ebetter but still significantly SOB w exertion - Objective Resuscitation Status: Resuscitation Status FULL:Full Resuscitation MAR Reviewed: Yes Vital Signs & Weight: Vital Signs (12 hours) Temp Pulse Resp BP BP Pulse Ox 05/07/18 15:14 97.6 F 64 14 129/64 97 05/07/18 11:39 97.7 F 73 21 H 128/82 05/07/18 08:00 98 05/07/18 07:35 97.8 F 62 20 112/67 99 05/07/18 03:55 97.2 F L 71 20 128/76 98 Weight Weight 182 lb 2 oz I&O: 05/06/18 05/07/18 05/08/18 06:59 06:59 06:59 Intake Total 660 970 Output Total 2302 125 Balance -1642 845 Result Diagrams: 05/06/18 03:35 05/07/18 03:53 Additional Labs: Accuchecks 05/07/18 05/06/18 05/06/18 10:38 17:10 06:07 POC Glucose 113 H 123 H 152 H Radiology Reviewed by me: Yes (ECHO-diastolic dysfunction) Phys Exam - Physical Examination Constitutional: NAD less sleepy today HEENT: PERRLA, moist MMs, sclera anicteric, oral pharynx no lesions Neck: no nodes, no JVD, supple, full ROM Respiratory: no rales, no rhonchi, wheezing present, clear to auscultation bilateral reduced R side Cardiovascular: RRR, no significant murmur Gastrointestinal: soft, non-tender, no distention, positive bowel sounds Musculoskeletal: no edema, pulses present Neurological: non-focal, normal sensation, moves all 4 limbs Psychiatric: normal affect, A&O x 3 Dx/Plan (1) Acute hypercapnic respiratory failure Code(s): J96.02 - ACUTE RESPIRATORY FAILURE WITH HYPERCAPNIA Status: Acute Comment: s/p bipap.Due to large R sided pleural effusion.S/P thoracentesis (2) SABRINA (acute kidney injury) Code(s): N17.9 - ACUTE KIDNEY FAILURE, UNSPECIFIED Status: Acute Comment: Suspect hepatorenal syndrome (3) Hyperkalemia Code(s): E87.5 - HYPERKALEMIA Status: Resolved (4) Hepatorenal syndrome Code(s): K76.7 - HEPATORENAL SYNDROME Status: Chronic (5) History of esophageal varices with bleeding Code(s): Z87.19 - PERSONAL HISTORY OF OTHER DISEASES OF THE DIGESTIVE SYSTEM Status: Chronic Comment: s/p banding in past (6) CKD (chronic kidney disease) stage 3, GFR 30-59 ml/min Code(s): N18.3 - CHRONIC KIDNEY DISEASE, STAGE 3 (MODERATE) Status: Chronic (7) Cirrhosis Code(s): K74.60 - UNSPECIFIED CIRRHOSIS OF LIVER Status: Chronic Comment: GUY w GAVE (8) Diabetes type 2, uncontrolled Code(s): E11.65 - TYPE 2 DIABETES MELLITUS WITH HYPERGLYCEMIA Status: Chronic (9) HLD (hyperlipidemia) Code(s): E78.5 - HYPERLIPIDEMIA, UNSPECIFIED Status: Chronic (10) Hypertension Code(s): I10 - ESSENTIAL (PRIMARY) HYPERTENSION Status: Chronic (11) Hypothyroidism Code(s): E03.9 - HYPOTHYROIDISM, UNSPECIFIED Status: Chronic (12) Thrombocytopenia Code(s): D69.6 - THROMBOCYTOPENIA, UNSPECIFIED Status: Chronic (13) Chronic diastolic CHF (congestive heart failure), NYHA class 3 Code(s): I50.32 - CHRONIC DIASTOLIC (CONGESTIVE) HEART FAILURE Status: Chronic Comment: per ECHO - Plan PT/OT, social sciences 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 prison prognosis.Defer to Gi w regards to liver transplant etc * .Bipap prn an dhs . * HD stable * will follow Review of Systems - Review of Systems Constitutional: weakness, malaise. negative: fever, chills, sweats, other Respiratory: SOB with Excertion. negative: Cough, Dry, Shortness of Breath, Hemoptysis, Pleuritic Pain, Sputum, Wheezing Cardiovascular: negative: chest pain, palpitations, orthopnea, paroxysmal nocturnal dyspnea, edema, light headedness, other Gastrointestinal: negative: Nausea, Vomiting, Abdominal Pain, Diarrhea, Constipation, Melena, Hematochezia, Other Genitourinary: negative: Dysuria, Frequency, Incontinence, Hematuria, Retention , Other Musculoskeletal: negative: Neck Pain, Shoulder Pain, Arm Pain, Back Pain, Hand Pain, Leg Pain, Foot Pain, Other Neurological: negative: Weakness, Numbness, Incoordination, Change in Speech, Confusion, Seizures, Other - Medications/Allergies Allergies/Adverse Reactions: Allergies Allergy/AdvReac Type Severity Reaction Status Date / Time Sulfa (Sulfonamide Allergy Intermediate Rash Verified 01/22/17 17:00 Antibiotics) Medications: Current Medications Acetaminophen (Tylenol) 325 mg PO Q4H PRN PRN Reason: Pain Last Admin: 05/06/18 01:17 Dose: 325 mg Albumin Human (Albumin 25%) 25 gm IVPB DAILY [facility] Stop: 05/09/18 09:01 Last Admin: 05/07/18 08:41 Dose: 25 gm Albuterol/Ipratropium (Duoneb) 3 ml NEB Q6H PRN PRN Reason: SOB &/or Wheezing Last Admin: 05/06/18 11:21 Dose: 3 ml Atorvastatin Calcium (Lipitor) 10 mg PO DAILY [facility] Last Admin: 05/07/18 08:41 Dose: 10 mg Dextrose/Water (Dextrose 50%) 25 gm SLOW IVP PRN PRN PRN Reason: Hypoglycemia Diphenhydramine HCl (Benadryl) 25 mg PO DAILYPRN PRN PRN Reason: Itching & Insomnia Last Admin: 05/06/18 01:16 Dose: 25 mg Escitalopram Oxalate (Lexapro) 20 mg PO DAILY [facility] Last Admin: 05/07/18 08:41 Dose: 20 mg Glucagon (Glucagon) 1 mg IM PRN PRN PRN Reason: Hypoglycemia Dextrose/Water (D5w) 1,000 mls @ 0 mls/hr IV .Q0M PRN PRN Reason: Hypoglycemia Insulin Glargine 30 units/ (Miscellaneous Medication) 0.3 mls @ 0 mls/hr SC QAM [facility] Last Admin: 05/07/18 08:41 Dose: 0.3 mls Insulin Human Lispro (Humalog) 0 units SC .MILD SLIDING SCALE PRN PRN Reason: Mild Correctional Scale Last Admin: 05/05/18 08:51 Dose: 3 unit Labetalol HCl (Normodyne) 10 mg SLOW IVP Q4H PRN PRN Reason: Systolic BP > 180 Last Admin: 05/01/18 14:32 Dose: 10 mg Lactulose (Lactulose) 30 gm PO TIDPRN PRN PRN Reason: OBTAIN 2-3 SOFT STOOLS DAILY Last Admin: 05/06/18 20:58 Dose: 30 gm Levothyroxine Sodium (Synthroid) 200 mcg PO 0600 [facility] Last Admin: 05/07/18 05:36 Dose: 200 mcg Loratadine (Claritin) 10 mg PO DAILY [facility] Last Admin: 05/07/18 08:42 Dose: 10 mg Multivitamins (Theragran) 1 tab PO DAILY [facility] Last Admin: 05/07/18 08:42 Dose: 1 tab Nebivolol (Bystolic) 5 mg PO DAILY [facility] Last Admin: 05/07/18 08:42 Dose: 5 mg Ondansetron HCl (Zofran Odt) 4 mg PO Q6H PRN PRN Reason: Nausea/Vomiting Pregabalin (Lyrica) 50 mg PO TID [facility] Last Admin: 05/07/18 14:55 Dose: 50 mg Rifaximin (Xifaxan) 550 mg PO DAILY [facility] Last Admin: 05/07/18 08:43 Dose: 550 mg Sodium Chloride (Flush - Normal Saline) 10 ml IVF Q12HR [facility] Last Admin: 05/07/18 09:16 Dose: 10 ml Sodium Chloride (Flush - Normal Saline) 10 ml IVF PRN PRN PRN Reason: Saline Flush
--- NOTE | 2018-05-07 18:17 | PRG ---
DATE OF SERVICE: 05/07/2018 SUBJECTIVE: The patient is feeling better, seems to be breathing better today as compared to yesterd ay. She is eating well. She is still on fluid restriction and her diuretics were stopped. OBJECTIVE: VITAL SIGNS: Temperature 97.6, pulse 64, respiratory rate 14, blood pressure 129/64. CHEST: Clear. CARDIOVASCULAR: Regular rate and rhythm. ABDOMEN: Protuberant, nontender. EXTREMITIES: Show no edema. IMAGING DATA: Echocardiogram shows an ejection fraction of 55%-60%, grade 2/3 diastolic dysfunction, mildly dilated left atrium and dilated right ventricle. ASSESSMENT: 1. Cirrhosis. 2. Hepatic hydrothorax. 3. Diabetes mellitus. 4. Hypertension. 5. Varices. 6. Renal failure - I am not sure if this is acute on chronic renal failure, but it does seem to be p rogressive. Her diuretics were stopped yesterday and I think the patient is somewhat intravascularly dry. At this point, I would recommend discontinuing her fluid restriction, holding her diuretics an d possibly give her some saline at 50 mL per hour to see if this turns around. RECOMMENDATIONS: 1. Continue off diuretics. 2. Discontinue fluid restriction. 3. Give 50 of saline per hour. 4. Follow renal functions. 5. Liver transplant evaluation as outpatient.
[2018-05-07] MEDS: Sodium Chloride 0.9% 1,000 ML IV SCH (18:29)
--- NOTE | 2018-05-07 19:02 | PRG ---
DATE OF SERVICE: 05/07/2018 SUBJECTIVE: A 63-year-old female being seen for acute kidney injury. The patient denies any nausea, vomiting, or chest pain. OBJECTIVE: GENERAL: Patient is awake, alert. VITAL SIGNS: Afebrile, pulse 64, breathing 16, blood pressure is 129/64. GENERAL APPEARANCE AND MENTAL STATUS: Fair. HEAD/NECK: Normocephalic. Atraumatic. EYES: EOMI. No deformity. EARS: Clear. No ulcers. NOSE: Intact. No lesions. MOUTH: Clear. No discharge. THROAT: Clear. No exudate. LUNGS: Clear. No crackles. CARDIAC: S1, S2. No rub. ABDOMEN: Benign. BS+. GENITALIA/RECTUM: Berman absent. BACK/EXTREMITIES: Edema 0+ Ulcer- NEUROLOGICAL: Alert and motor intact. SKIN: Rash- Bruise- LYMPHATICS: Edema- Ulcer- LABORATORY: Hemoglobin 6.1, creatinine 3.7. ASSESSMENT AND RECOMMENDATIONS: 1. Acute kidney injury with chronic kidney disease, most likely decreased effective arterial blood v olume. Follow renal function closely. Agree with stopping diuretics. 2. Hypertension, stable. 3. Anemia, stable. 4. Metabolic acidosis, stable. We would recommend gentle hydration as his renal function does not improve tomorrow.
[2018-05-08] MEDS: Levothyroxine Sodium 100 MCG TAB PO SCH (04:12)
[2018-05-08 04:22] LABS: Anion Gap 14 mmol/L (10-20); BUN (Urea Nitrogen) 59 mg/dL (9.8-20.1); Calc. Creatinine Clearance 19 mL/min (70-130); Calcium 8.7 mg/dL (7.8-10.44); Carbon Dioxide 22 mmol/L (23-31); Chloride 107 mmol/L (98-107); Estimated GFR-MDRD 11; Glucose 165 mg/dL (80-115); Potassium 5.3 mmol/L (3.5-5.1); Sodium 138 mmol/L (136-145)
[2018-05-08] MEDS: Loratadine 10 MG TAB PO SCH (09:25)
[2018-05-08] MEDS: Atorvastatin Calcium 10 MG TAB PO SCH (09:25)
[2018-05-08] MEDS: Escitalopram Oxalate 20 mg Tablet PO SCH (09:25)
[2018-05-08] MEDS: Albumin 25% 25 GM/100 ML BOT IVPB SCH (09:25)
[2018-05-08] MEDS: Insulin Glargine 30 UNITS in Pre-Filled Syringe 1 EACH SC SCH (09:25)
[2018-05-08] MEDS: Nebivolol HCl 5 MG TAB PO SCH (09:26)
[2018-05-08] MEDS: Rifaximin 550 MG TAB PO SCH (09:26)
[2018-05-08] MEDS: Multivit, Therapeutic 1 TAB PO SCH (09:26)
[2018-05-08] MEDS: Pregabalin 50 MG CAP PO SCH ×3 (09:26→21:10)
[2018-05-08] MEDS ORDERED: Mometasone/Formoterol 120 PUFF INHALER INH SCH (09:30)
[2018-05-08] MEDS ORDERED: Heparin 1,000 UNITS/ML VIAL ONE (11:11)
--- NOTE | 2018-05-08 11:33 | EKG ---
Test Reason : Blood Pressure : / mmHG Vent. Rate : 071 BPM Atrial Rate : 071 BPM P-R Int : 156 ms QRS Dur : 080 ms QT Int : 432 ms P-R-T Axes : 013 -13 028 degrees QTc Int : 469 ms Sinus rhythm with Premature atrial complexes in a pattern of bigeminy Possible Anterior infarct , age undetermined Abnormal ECG Confirmed by DONG WIN DO ([id number]), graphics editor AIYANA BARNHART ([id number]) on 05/08/2018 11:33:19 AM Referred By: Confirmed By:DONG WIN DO
[2018-05-08 11:37] LABS: Anion Gap 15 mmol/L (10-20); BUN (Urea Nitrogen) 61 mg/dL (9.8-20.1); Calc. Creatinine Clearance 19 mL/min (70-130); Calcium 8.7 mg/dL (7.8-10.44); Carbon Dioxide 22 mmol/L (23-31); Chloride 106 mmol/L (98-107); Estimated GFR-MDRD 11; Glucose 190 mg/dL (80-115); Potassium 5.2 mmol/L (3.5-5.1); Sodium 138 mmol/L (136-145)
[2018-05-08 12:05] LABS: Creatinine, Urine 167.23 mg/dL (47-110)
--- NOTE | 2018-05-08 12:20 | PRG ---
DATE OF SERVICE: 05/08/2018 SUBJECTIVE: This is a 63-year-old female being seen for hyperkalemia. The patient has not made any urine. PHYSICAL EXAMINATION: GENERAL: Patient is resting. VITAL SIGNS: Afebrile, pulse 75, breathing 16, blood pressure 142/107. HEAD/NECK: Normocephalic. Atraumatic. EYES: EOMI. No deformity. EARS: Clear. No ulcers. NOSE: Intact. No lesions. MOUTH: Clear. No discharge. THROAT: Clear. No exudate. LUNGS: Clear. No crackles. CARDIAC: S1, S2. No rub. ABDOMEN: Benign. BS+. GENITALIA/RECTUM: Berman absent. BACK/EXTREMITIES: Edema 0+ Ulcer- NEUROLOGICAL: Alert and motor intact. SKIN: Rash- Bruise- LYMPHATICS: Edema- Ulcer- LABORATORY DATA: Show hemoglobin 9.6, potassium 5.3, creatinine 4.0. ASSESSMENT AND RECOMMENDATIONS: 1. Stage 5 chronic kidney disease with hyperkalemia, plan dialysis. 2. Anemia, stable. 3. Hepatorenal syndrome. Overall, prognosis is poor.
[2018-05-08 13:06] LABS: HBSAB Concentration 0.73 mIU/mL; HBSAg Index 0.42 S/CO (0-0.99); Hep B Core Total Ab Non-Reactive (NonReactive); Hep B Surf AB Non-Reactive (NonReactive); Hep B Surf Ag Non-Reactive S/CO (NonReactive); Hep C IgG Ab Non-Reactive (NonReactive); Hep C Index 0.18 S/CO (0-0.79)
--- NOTE | 2018-05-08 13:58 | PDOC.PN ---
- Subjective Encounter Start Date: 05/08/18 Encounter Start Time: 13:56 Subjective: reports feels about the same -: minimal urine output.very SOB w exertion -: ppor appetite - Objective Resuscitation Status: Resuscitation Status FULL:Full Resuscitation MAR Reviewed: Yes Vital Signs & Weight: Vital Signs (12 hours) Temp Pulse Resp BP BP Pulse Ox 05/08/18 10:51 97.9 F 70 23 H 148/107 H 95 05/08/18 08:00 97 05/08/18 07:25 98.1 F 74 22 H 142/73 H 05/08/18 04:07 98.2 F 65 20 149/84 H 97 Weight Weight 182 lb 2 oz I&O: 05/07/18 05/08/18 05/09/18 06:59 06:59 06:59 Intake Total 970 2250 Output Total 125 200 Balance 845 2050 Result Diagrams: 05/06/18 03:35 05/08/18 11:08 Additional Labs: Accuchecks 05/08/18 05/07/18 05/07/18 10:35 20:58 16:26 POC Glucose 187 H 189 H 130 H Laboratory Tests 04/29/18 05/01/18 05/02/18 20:05 03:39 03:56 Creatinine 2.37 H 2.45 H 2.58 H 05/03/18 05/04/18 05/04/18 03:55 04:53 09:27 Creatinine 2.70 H 2.74 H 2.66 H 05/05/18 05/05/18 05/06/18 04:46 10:23 03:35 Creatinine 3.00 H 2.90 H 3.20 H 05/07/18 05/08/18 03:53 03:45 Creatinine 3.71 H 4.03 H Phys Exam - Physical Examination sleepy ,SOB HEENT: PERRLA, moist MMs, sclera anicteric, TM's clear, oral pharynx no lesions , 2+ tonsils Neck: no nodes, no JVD Respiratory: no rales, no rhonchi, wheezing present Cardiovascular: RRR, no significant murmur Gastrointestinal: soft, non-tender, no distention, positive bowel sounds Musculoskeletal: pulses present, edema present Neurological: non-focal, normal sensation, moves all 4 limbs Psychiatric: normal affect, A&O x 3 Dx/Plan (1) Acute hypercapnic respiratory failure Code(s): J96.02 - ACUTE RESPIRATORY FAILURE WITH HYPERCAPNIA Status: Acute Comment: s/p bipap.Due to large R sided pleural effusion.S/P thoracentesis (2) SABRINA (acute kidney injury) Code(s): N17.9 - ACUTE KIDNEY FAILURE, UNSPECIFIED Status: Acute Comment: Suspect hepatorenal syndrome (3) Hyperkalemia Code(s): E87.5 - HYPERKALEMIA Status: Resolved (4) Hepatorenal syndrome Code(s): K76.7 - HEPATORENAL SYNDROME Status: Chronic (5) History of esophageal varices with bleeding Code(s): Z87.19 - PERSONAL HISTORY OF OTHER DISEASES OF THE DIGESTIVE SYSTEM Status: Chronic Comment: s/p banding in past (6) CKD (chronic kidney disease) stage 3, GFR 30-59 ml/min Code(s): N18.3 - CHRONIC KIDNEY DISEASE, STAGE 3 (MODERATE) Status: Chronic (7) Cirrhosis Code(s): K74.60 - UNSPECIFIED CIRRHOSIS OF LIVER Status: Chronic Comment: BROOKS hoffmann GAVE (8) Diabetes type 2, uncontrolled Code(s): E11.65 - TYPE 2 DIABETES MELLITUS WITH HYPERGLYCEMIA Status: Chronic (9) HLD (hyperlipidemia) Code(s): E78.5 - HYPERLIPIDEMIA, UNSPECIFIED Status: Chronic (10) Hypertension Code(s): I10 - ESSENTIAL (PRIMARY) HYPERTENSION Status: Chronic (11) Hypothyroidism Code(s): E03.9 - HYPOTHYROIDISM, UNSPECIFIED Status: Chronic (12) Thrombocytopenia Code(s): D69.6 - THROMBOCYTOPENIA, UNSPECIFIED Status: Chronic (13) Chronic diastolic CHF (congestive heart failure), NYHA class 3 Code(s): I50.32 - CHRONIC DIASTOLIC (CONGESTIVE) HEART FAILURE Status: Chronic Comment: per ECHO - Plan respiratory therapy, incentive spirometry, DVT proph w/SCDs discussed w GI Dr Hernandez and nephrology Dr Canseco. -: pt now anuric w worsening renal failure d/t hepatorenal syndrome -: will be strated on HD.GS consulted for HD catheter placement -: ? liver transplant candidacy in near future.pt updated -: poor prognosis.follow lytes.add dulera given h/o asthma.nebs prn * . Review of Systems - Review of Systems Constitutional: weakness, malaise Respiratory: SOB with Excertion Cardiovascular: negative: chest pain, palpitations, orthopnea, paroxysmal nocturnal dyspnea, edema, light headedness, other Gastrointestinal: negative: Nausea, Vomiting, Abdominal Pain, Diarrhea, Constipation, Melena, Hematochezia, Other Genitourinary: negative: Dysuria, Frequency, Incontinence, Hematuria, Retention , Other Musculoskeletal: negative: Neck Pain, Shoulder Pain, Arm Pain, Back Pain, Hand Pain, Leg Pain, Foot Pain, Other Skin: negative: Rash, Lesions, Diaz, Bruising, Other Neurological: negative: Weakness, Numbness, Incoordination, Change in Speech, Confusion, Seizures, Other - Medications/Allergies Allergies/Adverse Reactions: Allergies Allergy/AdvReac Type Severity Reaction Status Date / Time Sulfa (Sulfonamide Allergy Intermediate Rash Verified 01/22/17 17:00 Antibiotics) Medications: Current Medications Acetaminophen (Tylenol) 325 mg PO Q4H PRN PRN Reason: Pain Last Admin: 05/06/18 01:17 Dose: 325 mg Albumin Human (Albumin 25%) 50 gm IVPB DAILY [facility] Stop: 05/11/18 09:01 Albuterol/Ipratropium (Duoneb) 3 ml NEB Q6H PRN PRN Reason: SOB &/or Wheezing Last Admin: 05/06/18 11:21 Dose: 3 ml Atorvastatin Calcium (Lipitor) 10 mg PO DAILY [facility] Last Admin: 05/08/18 09:25 Dose: 10 mg Dextrose/Water (Dextrose 50%) 25 gm SLOW IVP PRN PRN PRN Reason: Hypoglycemia Diphenhydramine HCl (Benadryl) 25 mg PO DAILYPRN PRN PRN Reason: Itching & Insomnia Last Admin: 05/06/18 01:16 Dose: 25 mg Escitalopram Oxalate (Lexapro) 20 mg PO DAILY [facility] Last Admin: 05/08/18 09:25 Dose: 20 mg Glucagon (Glucagon) 1 mg IM PRN PRN PRN Reason: Hypoglycemia Dextrose/Water (D5w) 1,000 mls @ 0 mls/hr IV .Q0M PRN PRN Reason: Hypoglycemia Insulin Glargine 30 units/ (Miscellaneous Medication) 0.3 mls @ 0 mls/hr SC QAM [facility] Last Admin: 05/08/18 09:25 Dose: 0.3 mls Sodium Chloride (Normal Saline 0.9%) 1,000 mls @ 50 mls/hr IV .Q20H [facility] Last Admin: 05/07/18 18:29 Dose: 1,000 mls Octreotide Acetate 1,250 mcg/ (Sodium Chloride) 251.25 mls @ 10.05 mls/hr IVPB INF [facility] Insulin Human Lispro (Humalog) 0 units SC .MILD SLIDING SCALE PRN PRN Reason: Mild Correctional Scale Last Admin: 05/05/18 08:51 Dose: 3 unit Labetalol HCl (Normodyne) 10 mg SLOW IVP Q4H PRN PRN Reason: Systolic BP > 180 Last Admin: 05/01/18 14:32 Dose: 10 mg Lactulose (Lactulose) 30 gm PO TIDPRN PRN PRN Reason: OBTAIN 2-3 SOFT STOOLS DAILY Last Admin: 05/07/18 20:12 Dose: 30 gm Levothyroxine Sodium (Synthroid) 200 mcg PO 0600 [facility] Last Admin: 05/08/18 04:12 Dose: 200 mcg Loratadine (Claritin) 10 mg PO DAILY [facility] Last Admin: 05/08/18 09:25 Dose: 10 mg Midodrine (Proamatine) 7.5 mg PO TID [facility] Mometasone Furoate/Formoterol Fumar (Dulera 100 Mcg/5 Mcg Inhaler) 2 puff INH BID-RT [facility] Multivitamins (Theragran) 1 tab PO DAILY [facility] Last Admin: 05/08/18 09:26 Dose: 1 tab Nebivolol (Bystolic) 5 mg PO DAILY [facility] Last Admin: 05/08/18 09:26 Dose: 5 mg Ondansetron HCl (Zofran Odt) 4 mg PO Q6H PRN PRN Reason: Nausea/Vomiting Pregabalin (Lyrica) 50 mg PO TID [facility] Last Admin: 05/08/18 09:26 Dose: 50 mg Rifaximin (Xifaxan) 550 mg PO DAILY [facility] Last Admin: 05/08/18 09:26 Dose: 550 mg Sodium Chloride (Flush - Normal Saline) 10 ml IVF Q12HR [facility] Last Admin: 05/08/18 09:27 Dose: Not Given Sodium Chloride (Flush - Normal Saline) 10 ml IVF PRN PRN PRN Reason: Saline Flush
--- NOTE | 2018-05-08 14:15 | PRG ---
DATE OF SERVICE: 05/08/2018. SUBJECTIVE: The patient is still short of breath. She is eating well. She is having good bowel mov ements. I discussed the situation with both Dr. Martinez who will talk to Dr. Canseco about beginning dialysis. OBJECTIVE: VITAL SIGNS: Temperature 97.9, pulse 70, respiratory rate 23, blood pressure 148/107. HEENT: Unremarkable. NECK: Supple. CHEST: Clear. CARDIOVASCULAR: Regular rate and rhythm. ABDOMEN: Soft and protuberant, nontender. EXTREMITIES: Show no edema. LABORATORY DATA: Shows a potassium of 5.3, CO2 of 22, BUN 59, creatinine 4.03, glucose 165. ASSESSMENT: 1. Hepatorenal with impending renal failure. 2. Ascites. 3. Hepatic hydrothorax. 4. Cirrhosis secondary to nonalcoholic steatohepatitis. 5. Hyperkalemia. RECOMMENDATIONS: 1. We will start a , octreotide and albumin. 2. Agree with beginning dialysis.
--- NOTE | 2018-05-08 14:19 | PRG ---
DATE OF SERVICE: 05/08/2018 SUBJECTIVE: The patient is she is scheduled for dialysis catheter placement later today. PHYSICAL EXAMINATION: VITAL SIGNS: Temperature 97.9, pulse 70, blood pressure 148/107, sat 95% on 2 liters. HEENT: Unremarkable. NECK: No JVD. LUNGS: Diminished breath sounds right base. Left side clear. CARDIAC: S1 and S2 regular. ABDOMEN: Profound distention with ascites. EXTREMITIES: Edematous. LABORATORY DATA: Sodium 138, potassium 5.3, BUN 59, creatinine 4.0, glucose 165. ASSESSMENT: 1. Right-sided hepatic hydrothorax. 2. Ascites. 3. Chronic cirrhosis. 4. Hepatorenal syndrome. PLAN: Dialysis is being tried. There is really no indication for repeated thoracentesis given her l evel of oxygenation.
[2018-05-08] MEDS: Sodium Chloride 0.9% 1,000 ML IV SCH ×2 (15:52→22:26)
--- NOTE | 2018-05-08 16:34 | HP ---
DATE OF SERVICE: 05/08/2018 A 63-year-old female admitted for dyspnea with a past history of asthma, chronic kidney disease, cirr hosis, probably secondary to obesity without history of alcoholism without history of hepatitis, has deterioration in renal function, Dr. Rodriguez has asked me to see her regarding placement of temporary fantasma lysis catheter. She has longstanding chronic kidney disease and is on insulin and oral hypoglycemics at home as well as spironolactone medications for cirrhosis. She is followed GI as known history of varices with banding. She has gastric AVMs cauterized in the past. She is followed by Dr. Rodriguez, Neph rology; Dr. Feliz, Pulmonary Medicine and Hospitalist this hospitalization. ALLERGIES: SULFA. TOBACCO: None. ALCOHOL: None. MEDICATIONS: The patient takes Levemir at home as well as metformin, although these are not listed o n her home medication list. She was on spironolactone 50 mg t.i.d., rifaximin 550 p.o. daily, Lyrica 50 mg t.i.d., Bystolic 5 mg a day p.r.n. Levoxyl 200 mcg a day, lactulose 10 grams t.i.d. Floranex o ne tab p.o. t.i.d., furosemide mg as directed, Lexapro 20 mg a day, Zyrtec 10 mg a day, Lipitor 10 mg at bedtime, Tylenol p.r.n. PAST SURGICAL HISTORY: . PAST MEDICAL HISTORY: Diabetes, insulin-dependent, obesity, metabolic syndrome, cirrhosis with ascit es and varices. Platelet count is 104,000. On 11/2016, coags were normal. SOCIAL HISTORY: Patient lives at home with her . She is independently mobile as a baseline. PHYSICAL EXAMINATION: VITAL SIGNS: 282 pounds, 33 BMI, 97.9, 70, 148/107. GENERAL: Patient has a raspy labored respirations. LUNGS: Rhonchi, rales at the base. No wheezing. CARDIAC: Regular rate and rhythm. ABDOMEN: Distended, positive fluid wave, umbilical hernia with fluid reducible. EXTREMITIES: Unremarkable. LABORATORIES: Consistent with chronic kidney disease with a hemoglobin of 9.6, white count 6.7, plate let count 104,000. Coagulation studies in 2017 normal. Basic metabolic profile: BUN 61, creatinine 4.08, potassium 5.2. Interrogation of her past history in 12/2015 reveals a BUN and creatinine, GFR deteriorated consistent with chronic kidney disease. She has an IV Hep-Lock left mid forearm. Palp able radial pulses. ASSESSMENT AND PLAN: Progressive chronic kidney disease. We will plan placement of temporary dialys is catheter. She is likely need more permanent access and we were able do that later in the week if indicated. Wait for Dr. Rodriguez's assessment. We will plan placement of femoral vein dialysis catheter, preserved veins for future dialysis access as she likely will need that. Avoid blood draws in antec ubital area, left antecubital area has a bandage indicative of recent blood draws, ecchymosis of rece nt blood draws and IV. I have educated the patient to refuse any blood draws in antecubital area. ASSESSMENT AND PLAN: 1. Cirrhosis prodding steatosis secondary to morbid obesity. 2. Mild thrombocytopenia secondary to above. 3. Ascites secondary to above. 4. Umbilical hernia, small, asymptomatic 5. Diabetes mellitus, insulin dependent. 6. Metabolic syndrome. 7. Morbid obesity. 8. Hypertension. 9. Asthma.
--- NOTE | 2018-05-08 16:37 | OP ---
PREOPERATIVE DIAGNOSES: Metabolic syndrome, morbid obesity, cirrhosis, ascites, acute on chronic homer al failure, in need of dialysis access. POSTOPERATIVE DIAGNOSES: Metabolic syndrome, morbid obesity, cirrhosis, ascites, acute on chronic re nal failure, in need of dialysis access. HEAD COOK: Dr. Rodriguez. PROCEDURE: Right femoral vein Trialysis catheter. SURGEON: Dr. Paul Jarrett. ANESTHESIA: 1% Xylocaine. PROCEDURE: The patient at bedside, right groin was prepared with ChloraPrep sterile technique used. Seldinger technique used to place a Trialysis catheter. Good return of venous blood obtained from e ach port. Each port flushed with heparin saline solution and catheter secured between sutures of 3-0 nylon and J-wire removed. Sterile dressings applied.
[2018-05-08] MEDS: Midodrine HCl 5 MG TAB PO SCH ×2 (16:49→21:10)
[2018-05-08] MEDS: HumaLOG 300 UNITS/3 ML VIAL SC PRN (17:59)
[2018-05-08] MEDS: Octreotide Acetate 1,250 MCG in Sodium Chloride 0.9% 250 ML 250 ML IVPB SCH (18:04)
[2018-05-08] MEDS: Mometasone/Formoterol 120 PUFF INHALER INH SCH (18:45)
[2018-05-09 04:53] LABS: #Eosinphils 0.1 thou/uL (0.0-0.7); #Lymphocytes 0.7 thou/uL (1.20-3.40); #Monocytes 0.5 thou/uL (0.11-0.59); #Neutrophils 4.1 thou/uL (1.40-6.50); %Basophils 0.9 % (0.0-1.0); %Eosinophils 2.1 % (0.0-10.0); %Lymphocytes 13.5 % (21.0-51.0); %Monocytes 8.6 % (0.0-10.0); Hemoglobin 8.9 g/dL (12.0-16.0); Mean Corpuscular HGB CONC 31.1 g/dL (32.0-36.0); Mean Corpuscular Hemoglobin 33.2 pg (27.0-31.0); Mean Platelet Volume 9.6 fL (7.4-10.4); Platelet Count 86 thou/uL (130-400); RBC Distribution Width 17.7 % (11.5-14.5); Red Blood Cell (RBC) Count 2.69 mill/uL (4.20-5.40); White Blood Cell (WBC) Count 5.5 thou/uL (4.8-10.8)
[2018-05-09 05:17] LABS: Anion Gap 11 mmol/L (10-20); BUN (Urea Nitrogen) 46 mg/dL (9.8-20.1); Calc. Creatinine Clearance 21 mL/min (70-130); Calcium 8.6 mg/dL (7.8-10.44); Carbon Dioxide 25 mmol/L (23-31); Chloride 105 mmol/L (98-107); Estimated GFR-MDRD 13; Glucose 141 mg/dL (80-115); Potassium 4.9 mmol/L (3.5-5.1); Sodium 136 mmol/L (136-145)
[2018-05-09] MEDS: Levothyroxine Sodium 100 MCG TAB PO SCH (05:32)
[2018-05-09] MEDS: Mometasone/Formoterol 120 PUFF INHALER INH SCH ×2 (07:38→18:40)
[2018-05-09] MEDS: Albumin 25% 25 GM/100 ML BOT IVPB SCH (08:04)
--- NOTE | 2018-05-09 08:12 | ULT ---
BILATERAL RENAL ULTRASOUND: Date: 05/09/18 HISTORY: Acute kidney insufficiency. FINDINGS: Both kidneys are imaged and appear unremarkable. Both kidneys measure approximately 9.0-9.5 cm in romain h. Cortical echogenicity may be mildly increased. There is no hydronephrosis or mass lesion. The bl adder is imaged and is mildly distended and appears unremarkable. There is a moderate volume of ascit es noted. IMPRESSION: 1. Kidneys show mild increased cortical echogenicity consistent with medical renal disease. 2. Moderate volume ascites. POS: [facility]
[2018-05-09] MEDS: Insulin Glargine 30 UNITS in Pre-Filled Syringe 1 EACH SC SCH (08:13)
[2018-05-09] MEDS: Nebivolol HCl 5 MG TAB PO SCH (08:13)
[2018-05-09] MEDS: Rifaximin 550 MG TAB PO SCH (08:14)
[2018-05-09] MEDS: Loratadine 10 MG TAB PO SCH (08:14)
[2018-05-09] MEDS: Multivit, Therapeutic 1 TAB PO SCH (08:14)
[2018-05-09] MEDS: Atorvastatin Calcium 10 MG TAB PO SCH (08:15)
[2018-05-09] MEDS: Escitalopram Oxalate 20 mg Tablet PO SCH (08:15)
[2018-05-09] MEDS: Pregabalin 50 MG CAP PO SCH ×3 (08:16→21:10)
--- NOTE | 2018-05-09 10:07 | PDOC.PN ---
- Subjective Encounter Start Date: 05/09/18 Encounter Start Time: 10:05 Subjective: still feels significantly SOB w minimal exertion -: denies any and pain.poor appetite - Objective Resuscitation Status: Resuscitation Status FULL:Full Resuscitation MAR Reviewed: Yes Vital Signs & Weight: Vital Signs (12 hours) Temp Pulse Resp BP Pulse Ox 05/09/18 08:34 96 05/09/18 08:32 66 18 96 05/09/18 03:55 98.0 F 64 18 119/54 L 97 05/09/18 00:00 96.8 F L 59 L 18 114/59 L 100 Weight Weight 187 lb 6.287 oz I&O: 05/08/18 05/09/18 05/10/18 06:59 06:59 06:59 Intake Total 2250 1779 Output Total 200 1600 Balance 2049 179 Result Diagrams: 05/09/18 04:12 05/09/18 04:12 Additional Labs: Accuchecks 05/09/18 05/08/18 05/08/18 05:41 20:12 17:44 POC Glucose 121 H 187 H 177 H 05/08/18 10:35 POC Glucose 187 H Laboratory Tests 05/04/18 05/05/18 05/05/18 09:27 04:46 10:23 Creatinine 2.66 H 3.00 H 2.90 H 05/06/18 05/07/18 05/08/18 03:35 03:53 03:45 Creatinine 3.20 H 3.71 H 4.03 H 05/08/18 05/09/18 11:08 04:12 Creatinine 4.08 H 3.65 H Phys Exam - Physical Examination easily winded.ill looking HEENT: PERRLA, moist MMs, sclera anicteric, oral pharynx no lesions Neck: no nodes, no JVD, supple, full ROM Respiratory: no rales, no rhonchi, wheezing present, clear to auscultation bilateral Cardiovascular: RRR, no significant murmur Gastrointestinal: soft, positive bowel sounds moderate distension.+fluid wave Musculoskeletal: no edema, pulses present Neurological: non-focal, normal sensation, moves all 4 limbs Psychiatric: normal affect, A&O x 3 Skin: no rash Dx/Plan (1) Acute hypercapnic respiratory failure Code(s): J96.02 - ACUTE RESPIRATORY FAILURE WITH HYPERCAPNIA Status: Acute Comment: s/p bipap.Due to large R sided pleural effusion.S/P thoracentesis (2) SABRINA (acute kidney injury) Code(s): N17.9 - ACUTE KIDNEY FAILURE, UNSPECIFIED Status: Acute Comment: Suspect hepatorenal syndrome. started on HD 05/08/18 May need CRRT if decompensation (3) Pleural effusion associated with hepatic disorder Code(s): K76.9 - LIVER DISEASE, UNSPECIFIED; J91.8 - PLEURAL EFFUSION IN OTHER CONDITIONS CLASSIFIED ELSEWHERE Status: Acute (4) Hyperkalemia Code(s): E87.5 - HYPERKALEMIA Status: Resolved Comment: Improved after HD.Monitor (5) Hepatorenal syndrome Code(s): K76.7 - HEPATORENAL SYNDROME Status: Chronic (6) History of esophageal varices with bleeding Code(s): Z87.19 - PERSONAL HISTORY OF OTHER DISEASES OF THE DIGESTIVE SYSTEM Status: Chronic Comment: s/p banding in past (7) CKD (chronic kidney disease) stage 3, GFR 30-59 ml/min Code(s): N18.3 - CHRONIC KIDNEY DISEASE, STAGE 3 (MODERATE) Status: Chronic (8) Cirrhosis Code(s): K74.60 - UNSPECIFIED CIRRHOSIS OF LIVER Status: Chronic Comment: GUY w GAVE (9) Diabetes type 2, uncontrolled Code(s): E11.65 - TYPE 2 DIABETES MELLITUS WITH HYPERGLYCEMIA Status: Chronic (10) HLD (hyperlipidemia) Code(s): E78.5 - HYPERLIPIDEMIA, UNSPECIFIED Status: Chronic (11) Hypertension Code(s): I10 - ESSENTIAL (PRIMARY) HYPERTENSION Status: Chronic (12) Hypothyroidism Code(s): E03.9 - HYPOTHYROIDISM, UNSPECIFIED Status: Chronic (13) Thrombocytopenia Code(s): D69.6 - THROMBOCYTOPENIA, UNSPECIFIED Status: Chronic Comment: Due to Cirrhosis.stable (14) Chronic diastolic CHF (congestive heart failure), NYHA class 3 Code(s): I50.32 - CHRONIC DIASTOLIC (CONGESTIVE) HEART FAILURE Status: Chronic Comment: per ECHO - Plan PT/OT, respiratory therapy, incentive spirometry, out of bed/ambulate, DVT proph w/SCDs Started on Midodrine,octreotide Drip & Albumin for Hepatorenal syndrome -: cont Rifaximin.lactulose prn.Ammonia NL.no evidence of encephalopathy -: Cont HD.monitor lytes,renal Fx.tolerated first HD yesterday -: Bipap prn.R pleural effusion persists d/t hepatic hydroThorax -: Will continue higher level of care in [facility].Prognosis poor * .HD stable. * labs in am * appreciate GI ,nephrology input Review of Systems - Review of Systems Constitutional: weakness, malaise. negative: fever, chills, sweats, other Respiratory: Shortness of Breath, SOB with Excertion Cardiovascular: negative: chest pain, palpitations, orthopnea, paroxysmal nocturnal dyspnea, edema, light headedness, other Gastrointestinal: negative: Nausea, Vomiting, Abdominal Pain, Diarrhea, Constipation, Melena, Hematochezia, Other Genitourinary: negative: Dysuria, Frequency, Incontinence, Hematuria, Retention , Other Musculoskeletal: negative: Neck Pain, Shoulder Pain, Arm Pain, Back Pain, Hand Pain, Leg Pain, Foot Pain, Other Skin: negative: Rash, Lesions, Diaz, Bruising, Other Neurological: negative: Weakness, Numbness, Incoordination, Change in Speech, Confusion, Seizures, Other - Medications/Allergies Allergies/Adverse Reactions: Allergies Allergy/AdvReac Type Severity Reaction Status Date / Time Sulfa (Sulfonamide Allergy Intermediate Rash Verified 01/22/17 17:00 Antibiotics) Medications: Current Medications Acetaminophen (Tylenol) 325 mg PO Q4H PRN PRN Reason: Pain Last Admin: 05/06/18 01:17 Dose: 325 mg Albumin Human (Albumin 25%) 50 gm IVPB DAILY [facility] Stop: 05/11/18 09:01 Last Admin: 05/09/18 08:04 Dose: 50 gm Albuterol/Ipratropium (Duoneb) 3 ml NEB Q6H PRN PRN Reason: SOB &/or Wheezing Last Admin: 05/09/18 08:32 Dose: 3 ml Atorvastatin Calcium (Lipitor) 10 mg PO DAILY [facility] Last Admin: 05/09/18 08:15 Dose: 10 mg Dextrose/Water (Dextrose 50%) 25 gm SLOW IVP PRN PRN PRN Reason: Hypoglycemia Diphenhydramine HCl (Benadryl) 25 mg PO DAILYPRN PRN PRN Reason: Itching & Insomnia Last Admin: 05/06/18 01:16 Dose: 25 mg Escitalopram Oxalate (Lexapro) 20 mg PO DAILY [facility] Last Admin: 05/09/18 08:15 Dose: 20 mg Glucagon (Glucagon) 1 mg IM PRN PRN PRN Reason: Hypoglycemia Dextrose/Water (D5w) 1,000 mls @ 0 mls/hr IV .Q0M PRN PRN Reason: Hypoglycemia Insulin Glargine 30 units/ (Miscellaneous Medication) 0.3 mls @ 0 mls/hr SC QAM [facility] Last Admin: 05/09/18 08:13 Dose: 0.3 mls Sodium Chloride (Normal Saline 0.9%) 1,000 mls @ 50 mls/hr IV .Q20H [facility] Last Admin: 05/08/18 22:26 Dose: 1,000 mls Octreotide Acetate 1,250 mcg/ (Sodium Chloride) 251.25 mls @ 10.05 mls/hr IVPB INF [facility] Last Admin: 05/08/18 18:04 Dose: 251.25 mls Insulin Human Lispro (Humalog) 0 units SC .MILD SLIDING SCALE PRN PRN Reason: Mild Correctional Scale Last Admin: 05/08/18 17:59 Dose: 2 unit Labetalol HCl (Normodyne) 10 mg SLOW IVP Q4H PRN PRN Reason: Systolic BP > 180 Last Admin: 05/01/18 14:32 Dose: 10 mg Lactulose (Lactulose) 30 gm PO TIDPRN PRN PRN Reason: OBTAIN 2-3 SOFT STOOLS DAILY Last Admin: 05/07/18 20:12 Dose: 30 gm Levothyroxine Sodium (Synthroid) 200 mcg PO 0600 [facility] Last Admin: 05/09/18 05:32 Dose: 200 mcg Loratadine (Claritin) 10 mg PO DAILY [facility] Last Admin: 05/09/18 08:14 Dose: 10 mg Midodrine (Proamatine) 7.5 mg PO TID [facility] Last Admin: 05/08/18 21:10 Dose: Not Given Mometasone Furoate/Formoterol Fumar (Dulera 100 Mcg/5 Mcg Inhaler) 2 puff INH BID-RT [facility] Last Admin: 05/09/18 07:38 Dose: 2 puff Multivitamins (Theragran) 1 tab PO DAILY [facility] Last Admin: 05/09/18 08:14 Dose: 1 tab Nebivolol (Bystolic) 5 mg PO DAILY [facility] Last Admin: 05/09/18 08:13 Dose: 5 mg Ondansetron HCl (Zofran Odt) 4 mg PO Q6H PRN PRN Reason: Nausea/Vomiting Pregabalin (Lyrica) 50 mg PO TID [facility] Last Admin: 05/09/18 08:16 Dose: 50 mg Rifaximin (Xifaxan) 550 mg PO DAILY [facility] Last Admin: 05/09/18 08:14 Dose: 550 mg Sodium Chloride (Flush - Normal Saline) 10 ml IVF Q12HR [facility] Last Admin: 05/09/18 08:16 Dose: Not Given Sodium Chloride (Flush - Normal Saline) 10 ml IVF PRN PRN PRN Reason: Saline Flush
--- NOTE | 2018-05-09 10:09 | ULT ---
BILATERAL UPPER EXTREMITY VENOUS MAPPING STUDY: Date: 05/09/18 PROVIDED CLINICAL HISTORY: End-stage renal disease. FINDINGS: RIGHT UPPER EXTREMITY BRACHIAL ARTERY: 0.45 cm RADIAL ARTERY: 0.22 cm ULNAR ARTERY: 0.21 cm CEPHALIC VEIN Proximal Upper Arm: 0.26 cm Mid Upper Arm: 0.15 cm Distal Upper Arm: Not visualized Antecubital Fossa: Not visualized Proximal Lower Arm: Not visualized Mid Lower Arm: Not visualized Distal Lower Arm: Not visualized BASILIC VEIN Proximal Upper Arm: 0.23 cm Mid Upper Arm: 0.23 cm Distal Upper Arm: 0.19 cm Antecubital Fossa: 0.14 cm Proximal Lower Arm: 0.08 cm Mid Lower Arm: Not visualized Distal Lower Arm: Not visualized LEFT UPPER EXTREMITY BRACHIAL ARTERY: 0.35 cm RADIAL ARTERY: 0.26 cm ULNAR ARTERY: 0.15 cm CEPHALIC VEIN Proximal Upper Arm: 0.24 cm Mid Upper Arm: 0.15 cm Distal Upper Arm: 0.11 cm Antecubital Fossa: Thrombosed Proximal Lower Arm: NA Mid Lower Arm: NA Distal Lower Arm: NA BASILIC VEIN Proximal Upper Arm: 0.33 cm Mid Upper Arm: 0.24 cm Distal Upper Arm: 0.24 cm Antecubital Fossa: 0.32 cm Proximal Lower Arm: 0.09 cm Mid Lower Arm: Not visualized Distal Lower Arm: Not visualized IMPRESSION: Venous mapping as above. Thrombus formation is seen within the left cephalic vein. POS: [facility]
[2018-05-09] MEDS: Midodrine HCl 5 MG TAB PO SCH ×4 (10:30→21:10)
[2018-05-09] MEDS ORDERED: Heparin 1,000 UNITS/ML VIAL ONE (11:11)
--- NOTE | 2018-05-09 11:22 | PRG ---
DATE OF SERVICE: 05/09/2018 SUBJECTIVE: The patient is doing reasonably well. She had her first session of dialysis yesterday a nd a little bit of fluid was removed. PHYSICAL EXAMINATION: VITAL SIGNS: Temperature is 98.0, pulse 66, respirations 18, O2 sat 96% on 2 liters. HEENT: Unremarkable. NECK: No JVD. LUNGS: Diminished breath sounds in the right. Left side clear. CARDIAC: S1 and S2 regular. ABDOMEN: Profoundly distended. EXTREMITIES: Edematous. LABORATORY DATA: White blood cell count 5.5, hematocrit 28.7, platelet count 86. Sodium 136, potass ium 4.9, chloride 105, CO2 25, BUN 46, creatinine 3.6, glucose 141. ASSESSMENT: The patient is profoundly fluid overloaded from cirrhosis, ascites, and hepatorenal synd gabriel. She has a right-sided hepatic hydrothorax, which is stable. PLAN: Continue dialysis with slow removal of fluid and hopefully this will result in improvement of the effusion.
--- NOTE | 2018-05-09 12:48 | PRG ---
DATE OF SERVICE: 05/09/2018 SUBJECTIVE: This is a 63-year-old female being seen for end-stage renal disease. The patient denies any nausea, vomiting or chest pain. PHYSICAL EXAMINATION: GENERAL: Patient is awake, alert. VITAL SIGNS: Afebrile, pulse 65, breathing 16, blood pressure 152/72. HEAD/NECK: Normocephalic. Atraumatic. EYES: EOMI. No deformity. EARS: Clear. No ulcers. NOSE: Intact. No lesions. MOUTH: Clear. No discharge. THROAT: Clear. No exudate. LUNGS: Clear. No crackles. CARDIAC: S1, S2. No rub. ABDOMEN: Benign. BS+. GENITALIA/RECTUM: Berman absent. BACK/EXTREMITIES: Edema 0+ Ulcer- NEUROLOGICAL: Alert and motor intact. SKIN: Rash- Bruise- LYMPHATICS: Edema- Ulcer- LABORATORY DATA: Show hemoglobin 8.9, creatinine 3.6. ASSESSMENT AND RECOMMENDATIONS: 1. Stage 6 chronic kidney disease, plan hemodialysis. 2. Hypertension, stable. 3. Anemia, stable. 4. Medications based on glomerular filtration rate are appropriate.
--- NOTE | 2018-05-09 14:54 | PRG ---
DATE OF SERVICE: 05/09/2018 SUBJECTIVE: The patient is complaining of confusion. She is not sure where she has been or what is going on with her. She is having 2-3 bowel movements every day. She is on a p.r.n. dose of lactulos e. She reports her breathing is much better. OBJECTIVE: VITAL SIGNS: Pulse is 65, respiratory rate 23, blood pressure 152/72, temperature 98.0. CHEST: Clear. CARDIOVASCULAR: Regular rate and rhythm. ABDOMEN: Protuberant, nontender. LABORATORY DATA: Shows a white blood cell count of 5.5, hemoglobin 8.9, hematocrit 28.7. BUN is 46 and creatinine 3.65. Ammonia from 05/06/2018 was normal. ASSESSMENT: 1. Cirrhosis, secondary to nonalcoholic steatohepatitis. 2. Hepatic hydrothorax. 3. Hepatorenal syndrome - now on dialysis. 4. Diabetes mellitus. RECOMMENDATIONS: 1. Check ammonia. 2. Continue hemodialysis. 3. Continue midodrine, octreotide, and albumin for another 24 hours.
[2018-05-09 18:24] LABS: Actual Bicarbonate (HCO3a) 28.6 mEq/L (22-28); Base Excess (BEa) 0.6 mEq/L (-2.0 to +3.0); O2 Tension (PaO2) 75.4 mmHg (> 80.0); pH, Arterial 7.26 (7.35-7.45)
[2018-05-09 18:27] LABS: CO2 Tension 65.7 mmHg (35.0-45.0)
[2018-05-09 18:28] LABS: ALV-art Gradient 42.115 (0-20); Puncture Site RRA
[2018-05-09] MEDS: Octreotide Acetate 1,250 MCG in Sodium Chloride 0.9% 250 ML 250 ML IVPB SCH (19:16)
[2018-05-10 04:44] LABS: Anion Gap 10 mmol/L (10-20); BUN (Urea Nitrogen) 31 mg/dL (9.8-20.1); Calc. Creatinine Clearance 27 mL/min (70-130); Calcium 8.6 mg/dL (7.8-10.44); Carbon Dioxide 28 mmol/L (23-31); Chloride 104 mmol/L (98-107); Estimated GFR-MDRD 16; Potassium 4.5 mmol/L (3.5-5.1); Sodium 137 mmol/L (136-145)
[2018-05-10 04:46] LABS: Glucose 48 mg/dL (80-115)
[2018-05-10] MEDS: Levothyroxine Sodium 100 MCG TAB PO SCH (05:24)
[2018-05-10] MEDS: Mometasone/Formoterol 120 PUFF INHALER INH SCH ×2 (07:37→18:27)
[2018-05-10] MEDS: Midodrine HCl 5 MG TAB PO SCH ×3 (09:21→20:05)
[2018-05-10] MEDS: Albumin 25% 25 GM/100 ML BOT IVPB SCH (09:21)
[2018-05-10] MEDS: Pregabalin 50 MG CAP PO SCH ×4 (09:22→20:06)
[2018-05-10] MEDS: Escitalopram Oxalate 20 mg Tablet PO SCH (09:22)
[2018-05-10] MEDS: Rifaximin 550 MG TAB PO SCH ×2 (09:23→20:07)
[2018-05-10] MEDS: Loratadine 10 MG TAB PO SCH (09:23)
[2018-05-10] MEDS: Atorvastatin Calcium 10 MG TAB PO SCH (09:23)
[2018-05-10] MEDS: Multivit, Therapeutic 1 TAB PO SCH (09:23)
[2018-05-10] MEDS: Nebivolol HCl 5 MG TAB PO SCH (09:23)
--- NOTE | 2018-05-10 09:27 | PRG ---
DATE OF SERVICE: 05/10/2018 The patient says she is doing okay. PHYSICAL EXAMINATION: VITAL SIGNS: Temperature 97.8, pulse 66, respirations 16, O2 saturation is 100% on nasal cannula, bl ood pressure 150/89. Total intake for the last 24 hours 869, output 2000+ whatever is out by dialysi s. HEENT: Unremarkable. NECK: No JVD. LUNGS: Diminished breath sounds in the right compared to left. CARDIAC: S1 and S2 regular. ABDOMEN: Distended. EXTREMITIES: Edematous throughout. LABORATORY DATA: Sodium 137, potassium 4.5, chloride 104, CO2 28, BUN 31, creatinine 2.9, glucose 48 . ASSESSMENT: 1. Pleural effusions and ascites. 2. End-stage liver disease. 3. Cirrhosis. 4. Hepatorenal syndrome. PLAN: Continue hemodialysis. So far, she seems to be better in terms of fluid retention.
[2018-05-10] MEDS ORDERED: Dextrose 50% Abboject 50 ML SYRINGE ONE (11:33)
[2018-05-10] MEDS: Insulin Glargine 30 UNITS in Pre-Filled Syringe 1 EACH SC SCH (11:37)
[2018-05-10] MEDS ORDERED: Tuberculin PPD 0.1 ML VIAL I-DERMAL SCH (12:15)
--- NOTE | 2018-05-10 12:18 | PRG ---
DATE OF SERVICE: 05/10/2018 SUBJECTIVE: Patient was seen and examined at bedside and overnight events noted. Patient denies shortness of breath or cramps or chest pain or palpitation. No Nausea or vomiting or diarrhea or fever or chills. OBJECTIVE: GENERAL: This is a well-built female in no apparent distress. VITAL SIGNS: Temperature 98.7, pulse 60, respiratory 16, blood pressure 150/89. Musculoskeletal : No tenderness, No edema HEENT: Atraumatic normocephalic Neck: Supple Cardiovascular: S1S2 heard, Rate and rhythm regular Respiratory: Clear to auscultation Gastrointestinal: Abdomen is soft Dermatologic : No skin rash Neurologic: Alert and awake and oriented X3 No focal neurologic deficits. Moving all the extremities. Psychiatric: Mood and affect normal LABORATORY DATA: Potassium is 4.5, BUN 31, creatinine is 2.9. ASSESSMENT AND PLAN: 1. End-stage renal disease, started on dialysis, had 2 sessions of dialysis so far. Plan to have a holiday today. We will plan for dialysis tomorrow and then continue dialysis as tolerated. 2. Edema, remove fluid with dialysis. 3. Hypertension. 4. Fluid overload. 5. Anemia. 6. Hepatorenal. 7. History of cirrhosis. 8. Metabolic acidosis, stable. 9. Anemia, chronic. We will add Epogen. Will continue on dialysis as tolerated. MTDD
--- NOTE | 2018-05-10 13:53 | PRG ---
DATE OF SERVICE: 05/10/2018 SUBJECTIVE: Mrs. Olguin feels like she is breathing easier today. She does have a bit of a dry c ough. She is trying to eat, but her appetite is not great. She is drifting in and out of sleep. Pamella duron is having a dialysis holiday today, but plan to resume tomorrow. OBJECTIVE: VITAL SIGNS: Temperature 97.8, pulse 66, blood pressure 150/89, 100% oxygen saturation on 2 liters n sierra cannula. GENERAL: Sitting up on the side of the bed comfortably. MENTAL: She is alert. She is oriented to person and place. She is a bit encephalopathic having scottie e trouble finding the correct words and losing train of thought easily. HEART: Regular rate and rhythm. LUNGS: Dullness to percussion in the right lower lung field, distant breath sounds in the right lowe r lung field consistent with hepatic hydrothorax, no respiratory distress, no wheezing. ABDOMEN: Moderate distention. Dull to percussion, nontender to palpation. EXTREMITIES: No peripheral edema. LABORATORY STUDIES: WBC 5.5, hemoglobin 8.9, platelets 86. Sodium 137, potassium 4.5, BUN 31, creat inine 2.92, glucose 61. Ammonia 62. ASSESSMENT AND PLAN: 1. Hepatorenal syndrome. The patient was initiated on dialysis. It is unclear whether she will nee d this following hospital discharge, but probably so, as a bridge to liver transplantation evaluation . We may as well continue on the midodrine and octreotide as well as albumin while she is inpatient. I appreciate assistance of Nephrology. The patient is established with Dr. Carlton pena at [facility]. She had previously been seen for evaluation for TIPS, for which she is not a candidate se condary to her hepatic encephalopathy. We will need to get her back there at some point soon for a formal liver transplant evaluation. 2. Hepatic hydrothorax. Clinically, she is improved, but this is likely to recur. 3. Hepatic encephalopathy. I upped her rifaximin to 550 mg b.i.d. 4. Nonalcoholic steatohepatitis cirrhosis. This episode represents a significant decompensation, wi th hepatorenal syndrome conferring a poor prognosis. Again, she will need reevaluation with Dr. Warren or for possible liver transplantation.
--- NOTE | 2018-05-10 14:38 | PDOC.PN ---
- Subjective Encounter Start Date: 05/10/18 Encounter Start Time: 13:30 -: old records requested/rev Pt seen and examined, chart reviewed in its entirety, this is my first visit with this patient follow up for: cirrhosis, hepatorenal syndrome with ESRD requiring HD, acute hypoxemic resp failure No F/C, no N/V/D/C, no CP or SOB All systems reviewed and neg x as per HPI - Objective Resuscitation Status: Resuscitation Status FULL:Full Resuscitation MAR Reviewed: Yes Vital Signs & Weight: Vital Signs (12 hours) Temp Pulse Resp BP BP Pulse Ox 05/10/18 08:00 97.8 F 66 16 150/89 H 100 05/10/18 07:37 67 18 100 05/10/18 04:00 97.6 F 64 16 148/82 H 100 Weight Admit Weight 192 lb 3.2 oz Weight 187 lb 9.814 oz I&O: 05/09/18 05/10/18 05/11/18 06:59 06:59 06:59 Intake Total 1779 869 Output Total 1600 1999 Balance 179 -1131 Result Diagrams: 05/12/18 03:32 05/15/18 04:19 Additional Labs: Accuchecks 05/10/18 05/10/18 05/09/18 11:32 05:31 22:15 POC Glucose 61 L 75 78 05/09/18 18:05 POC Glucose 89 Radiology Reviewed by me: Yes EKG Reviewed by me: Yes Phys Exam - Physical Examination Constitutional: NAD HEENT: PERRLA, moist MMs, sclera anicteric, oral pharynx no lesions Neck: no nodes, no JVD, supple, full ROM Respiratory: no wheezing, no rales, no rhonchi, clear to auscultation bilateral Cardiovascular: RRR, no significant murmur, no rub Gastrointestinal: soft, non-tender, no distention, positive bowel sounds Musculoskeletal: edema present Neurological: non-focal, normal sensation, moves all 4 limbs Lymphatic: no nodes Psychiatric: normal affect, A&O x 3 Skin: no rash, normal turgor, cap refill <2 seconds Dx/Plan (1) SABRINA (acute kidney injury) Code(s): N17.9 - ACUTE KIDNEY FAILURE, UNSPECIFIED Status: Acute Comment: Suspect hepatorenal syndrome. started on HD 05/08/18 Being set up for halfway HD. for permcath conversion soon (2) Acute hypercapnic respiratory failure Code(s): J96.02 - ACUTE RESPIRATORY FAILURE WITH HYPERCAPNIA Status: Acute Comment: s/p bipap.Due to large R sided pleural effusion.S/P thoracentesis (3) Pleural effusion associated with hepatic disorder Code(s): K76.9 - LIVER DISEASE, UNSPECIFIED; J91.8 - PLEURAL EFFUSION IN OTHER CONDITIONS CLASSIFIED ELSEWHERE Status: Acute (4) Chronic diastolic CHF (congestive heart failure), NYHA class 3 Code(s): I50.32 - CHRONIC DIASTOLIC (CONGESTIVE) HEART FAILURE Status: Chronic Comment: per ECHO (5) Hepatorenal syndrome Code(s): K76.7 - HEPATORENAL SYNDROME Status: Chronic (6) History of esophageal varices with bleeding Code(s): Z87.19 - PERSONAL HISTORY OF OTHER DISEASES OF THE DIGESTIVE SYSTEM Status: Chronic Comment: s/p banding in past (7) Thrombocytopenia Code(s): D69.6 - THROMBOCYTOPENIA, UNSPECIFIED Status: Chronic Comment: Due to Cirrhosis.stable (8) Hyperkalemia Code(s): E87.5 - HYPERKALEMIA Status: Resolved Comment: Improved after HD.Monitor (9) CKD (chronic kidney disease) stage 3, GFR 30-59 ml/min Code(s): N18.3 - CHRONIC KIDNEY DISEASE, STAGE 3 (MODERATE) Status: Chronic (10) Cirrhosis Code(s): K74.60 - UNSPECIFIED CIRRHOSIS OF LIVER Status: Chronic Qualifiers: Hepatic cirrhosis type: other cirrhosis Qualified Code(s): K74.69 - Other cirrhosis of liver Comment: BROOKS w ALIREZA (11) Diabetes type 2, uncontrolled Code(s): E11.65 - TYPE 2 DIABETES MELLITUS WITH HYPERGLYCEMIA Status: Chronic Qualifiers: Glycemic state: with hyperglycemia Qualified Code(s): E11.65 - Type 2 diabetes mellitus with hyperglycemia (12) HLD (hyperlipidemia) Code(s): E78.5 - HYPERLIPIDEMIA, UNSPECIFIED Status: Chronic Qualifiers: Hyperlipidemia type: unspecified Qualified Code(s): E78.5 - Hyperlipidemia , unspecified (13) Hypertension Code(s): I10 - ESSENTIAL (PRIMARY) HYPERTENSION Status: Chronic Qualifiers: Hypertension type: essential hypertension Qualified Code(s): I10 - Essential (primary) hypertension (14) Hypothyroidism Code(s): E03.9 - HYPOTHYROIDISM, UNSPECIFIED Status: Chronic Qualifiers: Hypothyroidism type: acquired Qualified Code(s): E03.9 - Hypothyroidism, unspecified - Plan cont current plan of care, PT/OT, respiratory therapy, out of bed/ambulate * . BiPAP prn, continue to watch in IMCU. follow up on renal recs and plan
[2018-05-10] MEDS: Dextrose 50% Abboject 50 ML SYRINGE SLOW IVP PRN (20:07)
[2018-05-10] MEDS: Octreotide Acetate 1,250 MCG in Sodium Chloride 0.9% 250 ML 250 ML IVPB SCH (21:07)
[2018-05-10] MEDS: diphenhydrAMINE 25 MG CAP PO PRN (21:20)
[2018-05-11] MEDS: Dextrose 50% Abboject 50 ML SYRINGE SLOW IVP PRN ×2 (01:45→05:17)
[2018-05-11 04:06] LABS: Anion Gap 11 mmol/L (10-20); BUN (Urea Nitrogen) 40 mg/dL (9.8-20.1); Calc. Creatinine Clearance 21 mL/min (70-130); Calcium 8.7 mg/dL (7.8-10.44); Carbon Dioxide 28 mmol/L (23-31); Chloride 102 mmol/L (98-107); Estimated GFR-MDRD 13; Glucose 85 mg/dL (80-115); Potassium 4.9 mmol/L (3.5-5.1); Sodium 136 mmol/L (136-145)
[2018-05-11] MEDS: Levothyroxine Sodium 100 MCG TAB PO SCH (05:17)
[2018-05-11] MEDS: Mometasone/Formoterol 120 PUFF INHALER INH SCH ×2 (08:10→18:22)
[2018-05-11 08:39] LABS: INR-International Normal Ratio 1.3; PTT 37.1 SEC (22.9-36.1); Prothrombin Time 16.4 SEC (12.0-14.7)
[2018-05-11] MEDS: Midodrine HCl 5 MG TAB PO SCH ×3 (09:27→21:20)
[2018-05-11] MEDS: Pregabalin 50 MG CAP PO SCH ×3 (09:27→21:20)
[2018-05-11] MEDS: Rifaximin 550 MG TAB PO SCH ×2 (09:27→21:21)
[2018-05-11] MEDS: Albumin 25% 25 GM/100 ML BOT IVPB SCH (09:28)
--- NOTE | 2018-05-11 12:21 | PRG ---
DATE OF SERVICE: 05/11/2018 SUBJECTIVE: She looks about the same. Has no acute complaints, but appears to be encephalopathic at the baseline. PHYSICAL EXAMINATION: VITAL SIGNS: On exam, temperature is 98.3, pulse 67, respirations 24, O2 sat 97% on 2 liters, blood pressure 168/91. HEENT: Unremarkable. NECK: No JVD. LUNGS: Grossly diminished breath sounds on the right compared to left. CARDIAC: S1 and S2, regular. ABDOMEN: Protuberant, fluid present. EXTREMITIES: Trace edema. LABORATORY DATA: Sodium 136, potassium 4.9, chloride 102, CO2 of 28, BUN 40, creatinine 3.6, glucose 85. ASSESSMENT: 1. Hepatorenal syndrome. 2. Right hepatic hydrothorax. 3. Cirrhosis. PLAN: 1. Continue dialysis as directed by the Nephrology service. 2. The hepatic hydrothorax is not causing much in the way of symptoms at this time. It is almost po int was to tap it again, because the fluid will recur quickly. This patient's prognosis is extremely poor and she would probably benefit from palliative care measures more than medical care.
[2018-05-11] MEDS: Insulin Glargine 30 UNITS in Pre-Filled Syringe 1 EACH SC SCH (13:44)
[2018-05-11] MEDS: Atorvastatin Calcium 10 MG TAB PO SCH (13:47)
[2018-05-11] MEDS: Epoetin (ESRD) 20,000 UNITS/ML IVP SCH (13:47)
[2018-05-11] MEDS: Multivit, Therapeutic 1 TAB PO SCH (13:48)
[2018-05-11] MEDS: Nebivolol HCl 5 MG TAB PO SCH (13:48)
[2018-05-11] MEDS: Escitalopram Oxalate 20 mg Tablet PO SCH (13:48)
[2018-05-11] MEDS: Loratadine 10 MG TAB PO SCH (13:48)
--- NOTE | 2018-05-11 13:57 | PRG ---
DATE OF SERVICE: 05/11/2018 SUBJECTIVE: Ms. Olguin says she feels about the same. She does feel that her breathing is improv ed. She coughs from time to time. She remains mildly encephalopathic. She dialyzed again earlier t nancy. OBJECTIVE: VITAL SIGNS: Temperature 97.8, pulse 70, blood pressure 146/70, 100% oxygen saturation on 2 liters n sierra cannula. GENERAL: No acute distress. HEART: Regular rate and rhythm. LUNGS: Diminished breath sounds on the right lung field compared to the left. ABDOMEN: Moderately distended with ascites, nontender to palpation. EXTREMITIES: No peripheral edema. LABORATORY STUDIES: WBC 5.5, hemoglobin 8.9, platelets 86. INR 1.3. Sodium 136, potassium 4.9, BUN 40, creatinine 3.66, glucose 79. ASSESSMENT AND PLAN: 1. Hepatorenal syndrome, now on dialysis. This confers a very poor prognosis, unless she were a can didate for a renal transplant. Currently treating with midodrine, octreotide and albumin, though if it appears over the next few days renal function is not going to recover, then these can be discontin ued if she is going to continue on dialysis. 2. Hepatic hydrothorax. She has symptomatically improved since admission, but unfortunately this is likely to recur. Recommend pulling fluid with dialysis if possible. 3. Hepatic encephalopathy. She does have some mild encephalopathy at baseline, but this does appear to have worsened this hospitalization. Continuing the lactulose and rifaximin. 4. Cirrhosis secondary to nonalcoholic steatohepatitis. The patient is going to need to follow up [facility] in [place] for liver transplantation evaluation. The alternative would be to pursue primarily pa lliative measures.
--- NOTE | 2018-05-11 17:44 | PRG ---
DATE OF SERVICE: 05/11/2018 SUBJECTIVE: Patient was seen and examined at bedside and overnight events noted. Patient denies any shortness of breath or chest pain or palpitation. No history of nausea or vomiting or diarrhea or f ever or chills or cramps. OBJECTIVE: GENERAL: This is a well-built female in no apparent distress. VITAL SIGNS: Temperature 97.8, pulse 70, respiratory rate 20, blood pressure 146/70. HEENT: Atraumatic, normocephalic. Oral mucosa is moist. NECK: Supple. CARDIOVASCULAR: S1, S2 heard. Rate and rhythm regular. RESPIRATORY: Clear to auscultation. GASTROINTESTINAL: Abdomen is soft. MUSCULOSKELETAL: No tenderness. No edema. DERMATOLOGIC: No skin rash. NEUROLOGIC: Alert and awake and oriented x3. No focal neurologic deficits. Moving all the extremiti es. PSYCHIATRIC: Mood and affect normal. LABORATORY DATA: Potassium is 4.9, BUN 40, creatinine is 3.6. ASSESSMENT AND PLAN: 1. End-stage renal disease. Continue on dialysis as tolerated. 2. Edema, remove fluid. 3. Fluid overload. 4. History of cirrhosis. 5. Metabolic acidosis. 6. Anemia chronic. Plan is to continue on dialysis as tolerated.
[2018-05-11] MEDS: Octreotide Acetate 1,250 MCG in Sodium Chloride 0.9% 250 ML 250 ML IVPB SCH (23:15)
[2018-05-12 04:40] LABS: Anion Gap 11 mmol/L (10-20); BUN (Urea Nitrogen) 26 mg/dL (9.8-20.1); Calc. Creatinine Clearance 26 mL/min (70-130); Calcium 8.7 mg/dL (7.8-10.44); Carbon Dioxide 29 mmol/L (23-31); Chloride 98 mmol/L (98-107); Estimated GFR-MDRD 16; Glucose 184 mg/dL (80-115); Phosphorus 4.8 mg/dL (2.3-4.7); Potassium 4.5 mmol/L (3.5-5.1); Sodium 133 mmol/L (136-145)
[2018-05-12 04:41] LABS: #Eosinphils 0.3 thou/uL (0.0-0.7); #Lymphocytes 0.7 thou/uL (1.20-3.40); #Monocytes 0.5 thou/uL (0.11-0.59); #Neutrophils 5.2 thou/uL (1.40-6.50); %Basophils 0.6 % (0.0-1.0); %Eosinophils 4.3 % (0.0-10.0); %Lymphocytes 10.9 % (21.0-51.0); %Monocytes 7.9 % (0.0-10.0); %Neutrophils 76.3 % (42.0-75.0); Hemoglobin 8.6 g/dL (12.0-16.0); Mean Corpuscular HGB CONC 32.1 g/dL (32.0-36.0); Mean Corpuscular Hemoglobin 33.8 pg (27.0-31.0); Mean Platelet Volume 9.4 fL (7.4-10.4); Platelet Count 86 thou/uL (130-400); RBC Distribution Width 17.4 % (11.5-14.5); Red Blood Cell (RBC) Count 2.55 mill/uL (4.20-5.40); White Blood Cell (WBC) Count 6.8 thou/uL (4.8-10.8)
[2018-05-12] MEDS: Levothyroxine Sodium 100 MCG TAB PO SCH (05:30)
[2018-05-12] MEDS: Mometasone/Formoterol 120 PUFF INHALER INH SCH ×2 (06:51→19:06)
--- NOTE | 2018-05-12 08:25 | PRG ---
DATE OF SERVICE: 05/12/2018 SUBJECTIVE: She is about the same. She has no acute complaints. PHYSICAL EXAMINATION: VITAL SIGNS: Temperature 98.6, pulse 68, respiration 20, O2 sat 97% on 2 liters. HEENT: Unremarkable. NECK: No JVD. LUNGS: She has diminished breath sounds in the right compared to the left. CARDIAC: S1 and S2 regular. ABDOMEN: Fluid noted. EXTREMITIES: Edematous. LABORATORY DATA: White blood cell count 6.8, hematocrit 26.9, platelet count 86. INR yesterday was 1.3. Sodium 133, potassium 4.5, chloride 98, CO2 29, BUN 26, creatinine 3.0, glucose 184. ASSESSMENT: 1. Hepatorenal syndrome. 2. End-stage cirrhosis. 3. Hepatic hydrothorax. 4. Ascites. PLAN: She is continuing dialysis, seems to be clinically stable. We do not plan doing anything abou t the hepatic hydrothorax at this time as draining the effusion will prevent reoccurrence and respira tory robles she is doing quite well as she is.
[2018-05-12] MEDS: Midodrine HCl 5 MG TAB PO SCH (09:19)
[2018-05-12] MEDS: Nebivolol HCl 5 MG TAB PO SCH (09:19)
[2018-05-12] MEDS: Escitalopram Oxalate 20 mg Tablet PO SCH (09:21)
[2018-05-12] MEDS: Rifaximin 550 MG TAB PO SCH ×2 (09:21→20:47)
[2018-05-12] MEDS: Multivit, Therapeutic 1 TAB PO SCH (09:21)
[2018-05-12] MEDS: Pregabalin 50 MG CAP PO SCH ×3 (09:22→20:47)
[2018-05-12] MEDS: Loratadine 10 MG TAB PO SCH (09:22)
[2018-05-12] MEDS: Atorvastatin Calcium 10 MG TAB PO SCH (09:22)
[2018-05-12] MEDS: Insulin Glargine 30 UNITS in Pre-Filled Syringe 1 EACH SC SCH (09:23)
--- NOTE | 2018-05-12 14:38 | PRG ---
DATE OF SERVICE: 05/12/2018 SUBJECTIVE: Mrs. Olguin appears to be breathing easier. She says she feels about the same, diffi cult to take a deep breath. She is more mentally clear today. OBJECTIVE: VITAL SIGNS: Temperature 98.2, pulse 64, blood pressure 138/72, 97% oxygen saturation on 2 liters na kevyn cannula. GENERAL: No acute distress. HEART: Regular rate and rhythm. LUNGS: Decreased breath sounds in the right lung field. ABDOMEN: Moderate distention with ascites, nontender to palpation. EXTREMITIES: Trace pretibial edema bilaterally. LABORATORY STUDIES: Hemoglobin 8.6, WBC 6.8, platelets 86. INR 1.3. Sodium 133, potassium 4.5, BUN 26, creatinine 3.03, glucose 183. ASSESSMENT AND PLAN: 1. Hepatorenal syndrome, now started dialysis. I spoke with Dr. Canseco as well as Dr. Dudley. We ar e going to go ahead and stop the Midodrine and octreotide. She is going to continue to dialyze as ne eded, which will likely end up being 3 times per week. 2. Hepatic hydrothorax. 3. Ascites. I had a long discussion with Mrs. Olguin about this. Unfortunately, we cannot contr ol her fluid status anymore with diuretics. Fluid can be pulled on dialysis, but she may need period ic paracentesis as well, going forward. Currently, her respiratory status is much improved just with initiation of dialysis. This hepatic hydrothorax is likely going to persist. 4. Hepatic encephalopathy. She seems more mentally clear today. Continue lactulose and rifaximin. 5. Cirrhosis secondary to nonalcoholic steatohepatitis. This is a significant decompensation for he r. We discussed that the only good medical option going forward would be liver transplant evaluation . She is already established with Dr. Carlton pena at [facility], so once she is discharged, tahira duron can try to help arrange for evaluation there again.
--- NOTE | 2018-05-12 18:51 | PRG ---
DATE OF SERVICE: 05/12/2018 SUBJECTIVE: Patient was seen and examined at bedside and overnight events noted. Patient denies any shortness of breath or chest pain or palpitation. No history of nausea or vomiting or diarrhea or f ever or chills or cramps. OBJECTIVE: GENERAL: This is a well-built female in no apparent distress. VITAL SIGNS: Temperature 98.2, pulse 64, respiratory 18, blood pressure 138/72. HEENT: Atraumatic, normocephalic. Oral mucosa is moist. NECK: Supple CARDIOVASCULAR: S1, S2 heard. Rate and rhythm regular. RESPIRATORY: Clear to auscultation. GASTROINTESTINAL: Abdomen is soft. MUSCULOSKELETAL: No tenderness, no edema. DERMATOLOGIC: No skin rash. NEUROLOGIC: Alert, awake, and oriented x3. No focal neurologic deficits. Moving all the extremitie s. PSYCHIATRIC: Mood and affect normal. LABORATORY DATA: Potassium is 4.5, BUN is 26, creatinine 3.03. ASSESSMENT AND PLAN: 1. End-stage renal disease. Continue on dialysis as tolerated. Follow up with case management for outpatient placement. 2. Edema, remove fluid. 3. Fluid overload. 4. History of cirrhosis. 5. Anemia, which is chronic. We will continue on dialysis as tolerated.
[2018-05-13 03:38] LABS: Anion Gap 13 mmol/L (10-20); BUN (Urea Nitrogen) 39 mg/dL (9.8-20.1); Calc. Creatinine Clearance 20 mL/min (70-130); Carbon Dioxide 27 mmol/L (23-31); Chloride 96 mmol/L (98-107); Estimated GFR-MDRD 12; Glucose 142 mg/dL (80-115); Potassium 4.7 mmol/L (3.5-5.1); Sodium 131 mmol/L (136-145)
[2018-05-13] MEDS: Levothyroxine Sodium 100 MCG TAB PO SCH (05:56)
[2018-05-13] MEDS: Mometasone/Formoterol 120 PUFF INHALER INH SCH ×2 (06:41→18:52)
[2018-05-13] MEDS: Insulin Glargine 30 UNITS in Pre-Filled Syringe 1 EACH SC SCH (11:02)
[2018-05-13] MEDS: Multivit, Therapeutic 1 TAB PO SCH (12:00)
[2018-05-13] MEDS: Atorvastatin Calcium 10 MG TAB PO SCH (12:01)
[2018-05-13] MEDS: Loratadine 10 MG TAB PO SCH (12:01)
[2018-05-13] MEDS: Rifaximin 550 MG TAB PO SCH ×2 (12:01→20:30)
[2018-05-13] MEDS: Nebivolol HCl 5 MG TAB PO SCH (12:01)
[2018-05-13] MEDS: Escitalopram Oxalate 20 mg Tablet PO SCH (12:01)
[2018-05-13] MEDS: Pregabalin 50 MG CAP PO SCH ×3 (12:05→20:29)
[2018-05-13] MEDS ORDERED: CEFAZOLIN 2 GM/50 ML BAG ONE (14:08)
[2018-05-13] MEDS ORDERED: Bupivacaine HCl 0.5%/Epinephrine 1:200,000/PF 30 ml Vial ONE (14:16)
[2018-05-13] MEDS ORDERED: Heparin 10,000 UNITS/1 ML VIAL ONE (14:17)
[2018-05-13] MEDS ORDERED: Lidocaine 2% PF 5 ML VIAL ONE (14:17)
[2018-05-13] MEDS ORDERED: Sodium Chloride 0.9% 20 ML ONE (14:18)
[2018-05-13] MEDS ORDERED: Midazolam HCl 2 mg/2 ml Vial ONE (14:23)
[2018-05-13] MEDS ORDERED: Fentanyl 100 MCG/2 ML VIAL ONE (14:23)
[2018-05-13] MEDS ORDERED: Ketamine 50 MG/ML VIAL ONE (14:24)
[2018-05-13] MEDS ORDERED: Ondansetron HCl/PF 4 MG/2 ML Vial IVP PRN (15:27)
[2018-05-13] MEDS ORDERED: Sodium Chloride 0.9% 10 ML ONE (15:30)
[2018-05-13] MEDS: Epoetin (ESRD) 20,000 UNITS/ML IVP SCH (16:55)
--- NOTE | 2018-05-13 17:21 | PRG ---
DATE OF SERVICE: 05/13/2018 SUBJECTIVE: Patient was seen and examined at bedside and overnight events noted. Patient denies any shortness of breath or chest pain or palpitation. No history of nausea or vomitin g or diarrhea or fever or chills or cramps. OBJECTIVE: GENERAL: This is an elderly female, in no apparent distress. VITAL SIGNS: Temperature 97.9, pulse 69, respiratory rate 16, blood pressure 108/60. HEENT: Atraumatic, normocephalic. Oral mucosa is moist. NECK: Supple. CARDIOVASCULAR: S1 and S2 heard. Rate and rhythm regular. RESPIRATORY: Clear to auscultation. GASTROINTESTINAL: Abdomen is soft. MUSCULOSKELETAL: No tenderness. No edema. DERMATOLOGIC: No skin rash. NEUROLOGIC: Alert and awake and oriented x3. No focal neurologic deficits. Moving all the extremit ies. PSYCHIATRIC: Mood and affect normal. LABORATORY DATA: Potassium is 4.7, BUN 39, creatinine is 3.7. ASSESSMENT AND PLAN: 1. End-stage renal disease, started on hemodialysis during this admission. We will continue on hemo dialysis as tolerated. Plan is to continue on dialysis Thursday, and Thursday. It seems lik e she was approved for dialysis outpatient at [facility] Thursday, , and Thursday. 2. Edema. We will continue fluid removal with dialysis. Seems to be better. 3. Fluid overload. 4. History of cirrhosis. 5. Anemia, which is chronic and continue Epogen with dialysis. 6. We will continue dialysis as tolerated. We will follow.
--- NOTE | 2018-05-13 17:26 | RAD ---
CHEST ONE VIEW: 05/13/18 INDICATION: PACU evaluation. COMPARISON: Prior exam dated 05/06/18. FINDINGS: There is a new right IJ dialysis catheter. There is a new left IJ dialysis catheter. There is promine nt cardiomegaly with pulmonary vasculature congestion. There is worsening opacification of the right hemithorax. There is prominent pulmonary vascular congestion of the left lung. No acute osseous abnor mality is evident. IMPRESSION: 1. New IJ catheters. 2. Near complete opacification of the right hemithorax. 3. Cardiomegaly with pulmonary vascular congestion. POS: [facility]
--- NOTE | 2018-05-13 18:31 | PRG ---
DATE OF SERVICE: 05/13/2018 SUBJECTIVE: I saw her postop from a tunneled dialysis catheter placement. She looks about the same. She is somewhat sedated from the anesthesia. OBJECTIVE: VITAL SIGNS: O2 saturation is 95% on 2 liters, pulse 85, respirations 18. HEENT: Unremarkable. NECK: No JVD. LUNGS: Diminished breaths on the right compared to left. CARDIAC: S1 and S2 regular. ABDOMEN: Distended from ascites. EXTREMITIES: Edematous. ASSESSMENT: 1. Unchanged ascites and hepatic hydrothorax. 2. End-stage cirrhosis. PLAN: She is continuing dialysis for her hepatorenal syndrome. I would not hold up much hope that t his is going to improve things for her.
[2018-05-14] MEDS: Levothyroxine Sodium 100 MCG TAB PO SCH (06:16)
[2018-05-14 06:25] LABS: Anion Gap 9 mmol/L (10-20); BUN (Urea Nitrogen) 32 mg/dL (9.8-20.1); Calc. Creatinine Clearance 21 mL/min (70-130); Calcium 8.4 mg/dL (7.8-10.44); Carbon Dioxide 29 mmol/L (23-31); Chloride 99 mmol/L (98-107); Estimated GFR-MDRD 13; Glucose 151 mg/dL (80-115); Potassium 4.1 mmol/L (3.5-5.1); Sodium 133 mmol/L (136-145)
[2018-05-14] MEDS: Mometasone/Formoterol 120 PUFF INHALER INH SCH ×2 (06:50→19:38)
[2018-05-14] MEDS: Loratadine 10 MG TAB PO SCH (07:47)
[2018-05-14] MEDS: Rifaximin 550 MG TAB PO SCH ×2 (07:47→20:49)
[2018-05-14] MEDS: Nebivolol HCl 5 MG TAB PO SCH (07:47)
[2018-05-14] MEDS: Multivit, Therapeutic 1 TAB PO SCH (07:47)
[2018-05-14] MEDS: Pregabalin 50 MG CAP PO SCH ×3 (07:48→20:48)
[2018-05-14] MEDS: Atorvastatin Calcium 10 MG TAB PO SCH (07:48)
[2018-05-14] MEDS: Escitalopram Oxalate 20 mg Tablet PO SCH (07:48)
--- NOTE | 2018-05-14 08:59 | PRG ---
DATE OF SERVICE: 05/14/2018 The patient seems to be doing well, has no complaints. PHYSICAL EXAMINATION: VITAL SIGNS: Temperature is 98.3, pulse 88, respirations 18, O2 sat 90% on 2 liters, blood pressure 120/60. HEENT: Unremarkable. NECK: No JVD. CHEST: Clear on the left. Diminished breath sounds in the right. CARDIAC: S1 and S2 regular. ABDOMEN: Soft. EXTREMITIES: No edema. LABORATORY DATA: Sodium 131, BUN 32, creatinine 3.5, glucose 151. ASSESSMENT: 1. Right hepatic hydrothorax. 2. End-stage liver disease. 3. Hepatorenal syndrome with chronic renal failure. PLAN: X-ray still shows fairly significant right effusion, but she is asymptomatic from this. Again , this will not be addressed unless she demonstrates refractory hypoxemia.
[2018-05-14] MEDS ORDERED: Heparin 10,000 UNITS/ 10 ML VIAL ONE (10:02)
[2018-05-14] MEDS: HumaLOG 300 UNITS/3 ML VIAL SC PRN ×2 (10:56→17:17)
[2018-05-14] MEDS: Benzonatate 100 MG CAP PO PRN (15:07)
--- NOTE | 2018-05-14 17:14 | PRG ---
DATE OF SERVICE: 05/14/2018 GASTROINTESTINAL INPATIENT DAILY PROGRESS NOTE SUBJECTIVE: Mrs. Orozco is feeling okay today. She has been having a nonproductive cough, but jimenez s not feel short of breath, has no increased work of breathing. She seems more mentally clear today as well. She has no other complaints. OBJECTIVE: VITAL SIGNS: Temperature 98.5, pulse 61, blood pressure 134/72, 92% oxygen saturation on 2 liters na kevyn cannula. GENERAL: No acute distress. HEART: Regular rate and rhythm. LUNGS: Decreased breath sounds in the right lung mayers consistent with her hepatic hydrothorax. Sh e does have some bilateral rales. She is not tachypneic and is not in any respiratory distress. ABDOMEN: Moderate distention with ascites, soft and nontender to palpation throughout. EXTREMITIES: No peripheral edema. LABORATORY STUDIES: Sodium 133, potassium 4.1, BUN 32, creatinine 3.54, glucose 248. ASSESSMENT AND PLAN: 1. Hepatorenal syndrome, now requiring dialysis. 2. Hepatic hydrothorax. A combination of hepatorenal syndrome with hepatic hydrothorax does carry a grim prognosis. I again discussed with the patient that really the only potential fix for this woul d be liver transplantation. Hopefully, she will be able to maintain a favorable fluid status and res piratory status with dialysis. There is really not a good role for serial paracentesis in this case. Following hospital discharge, my office will make attempts to get her set back up to reestablish ca re at [facility] with Dr. Vincent in the [facility] Trans[facility]. 3. Hepatic encephalopathy. This is certainly improved since admission. Continue with lactulose and rifaximin. Please call any time with questions or concerns.
--- NOTE | 2018-05-14 20:53 | PRG ---
DATE OF SERVICE: 05/14/2018 SUBJECTIVE: Patient was seen and examined at bedside and overnight events noted. Patient denies any shortness of breath or chest pain or palpitation. No history of nausea or vomiting or diarrhea or fever or chills or cramps. OBJECTIVE: GENERAL: This is an elderly female, in no apparent distress. VITAL SIGNS: Temperature 95, pulse 61, respiratory rate 18, blood pressure 134/ 72. HEENT: Atraumatic, normocephalic, oral mucosa is moist. NECK: Supple. CARDIOVASCULAR: S1, S2 heard, rate and rhythm regular RESPIRATORY: Clear to auscultation. GASTROINTESTINAL: Abdomen is soft. MUSCULOSKELETAL: No tenderness, no edema. DERMATOLOGIC: No skin rash. NEUROLOGIC: Alert and awake and oriented x3. No focal neurologic deficits. Moving all the extremities. PSYCHIATRIC: Mood and affect normal. LABORATORY DATA: Potassium is 4.1, BUN 32, creatinine 3.1. ASSESSMENT AND PLAN: 1. End-stage renal disease. Continue on hemodialysis as tolerated. 2. Edema, 3. Anemia 4. Hypertension - limit salt intake. We will continue on dialysis as tolerated. Follow with surgeon for access placement. ELENAD
[2018-05-15] MEDS: Benzonatate 100 MG CAP PO PRN (01:53)
[2018-05-15] MEDS: Acetaminophen 325 MG TAB PO PRN (03:37)
[2018-05-15 04:52] LABS: Anion Gap 11 mmol/L (10-20); BUN (Urea Nitrogen) 46 mg/dL (9.8-20.1); Calc. Creatinine Clearance 16 mL/min (70-130); Calcium 8.2 mg/dL (7.8-10.44); Carbon Dioxide 28 mmol/L (23-31); Chloride 98 mmol/L (98-107); Estimated GFR-MDRD 10; Glucose 146 mg/dL (80-115); Potassium 4.1 mmol/L (3.5-5.1); Sodium 133 mmol/L (136-145)
[2018-05-15] MEDS: Levothyroxine Sodium 100 MCG TAB PO SCH (05:50)
[2018-05-15] MEDS: Mometasone/Formoterol 120 PUFF INHALER INH SCH ×2 (06:31→18:43)
[2018-05-15] MEDS: Escitalopram Oxalate 20 mg Tablet PO SCH (08:32)
[2018-05-15] MEDS: Loratadine 10 MG TAB PO SCH (08:32)
[2018-05-15] MEDS: Atorvastatin Calcium 10 MG TAB PO SCH (08:32)
[2018-05-15] MEDS: Nebivolol HCl 5 MG TAB PO SCH (08:33)
[2018-05-15] MEDS: Pregabalin 50 MG CAP PO SCH ×3 (08:33→20:20)
[2018-05-15] MEDS: Multivit, Therapeutic 1 TAB PO SCH (08:33)
[2018-05-15] MEDS: Rifaximin 550 MG TAB PO SCH ×2 (08:34→20:20)
[2018-05-15] MEDS ORDERED: Albumin 25% 25 GM/100 ML BOT IVPB PRN (10:06)
--- NOTE | 2018-05-15 12:49 | PRG ---
DATE OF SERVICE: 05/15/2018 SUBJECTIVE: Ms. Olguin says she feels about the same. She has continued to breathe okay. She do es have a bit of a nagging cough. She is currently on dialysis. She is tolerating her diet. OBJECTIVE: VITAL SIGNS: Temperature 98.7, pulse 60, blood pressure 124/61, 95% oxygen saturation on 2 liters na kevyn cannula. GENERAL: Chronically ill, undergoing dialysis in no acute distress. HEART: Regular rate and rhythm. LUNGS: Decreased breath sounds on the right. ABDOMEN: Mild to moderate distention with ascites. Nontender to palpation. EXTREMITIES: No peripheral edema. LABORATORY STUDIES: Sodium 133, potassium 4.1, BUN 46, creatinine 4.57, glucose 145. ASSESSMENT AND PLAN: 1. Hepatorenal syndrome, now on dialysis. 2. Hepatic hydrothorax, symptomatically improved. 3. Hepatic encephalopathy, well controlled on lactulose and rifaximin. 4. Nonalcoholic Steatohepatitis cirrhosis. No new recommendations from a GI/liver perspective today . The patient is going to need evaluation for possible liver transplantation down to [facility] following hospital discharge.
--- NOTE | 2018-05-15 13:19 | PDOC.PN ---
- Subjective Encounter Start Date: 05/11/18 Encounter Start Time: 10:30 follow up for: cirrhosis, hepatorenal syndrome with ESRD requiring HD, acute hypoxemic resp failure No F/C, no N/V/D/C, no CP or SOB All systems reviewed and neg x as per HPI - Objective Resuscitation Status: Resuscitation Status FULL:Full Resuscitation MAR Reviewed: Yes Vital Signs & Weight: Vital Signs (12 hours) Temp Pulse Resp BP Pulse Ox 05/15/18 08:30 98.7 F 60 16 124/61 95 05/15/18 06:33 96 05/15/18 06:31 72 16 96 05/15/18 04:00 98.0 F 58 L 18 116/56 L 95 Weight Admit Weight 192 lb 3.2 oz Weight 176 lb I&O: 05/14/18 05/15/18 05/16/18 06:59 06:59 05:59 Intake Total 660 1320 Output Total 3000 Balance -2340 1320 Result Diagrams: 05/12/18 03:32 05/15/18 04:19 Additional Labs: Accuchecks 05/15/18 05/15/18 05/14/18 12:16 05:24 20:31 POC Glucose 147 H 145 H 170 H 05/14/18 17:04 POC Glucose 173 H Phys Exam - Physical Examination Constitutional: NAD HEENT: PERRLA, moist MMs, sclera anicteric, oral pharynx no lesions Neck: no nodes, no JVD, supple, full ROM Respiratory: no wheezing, no rhonchi bibasialr crackles, decreased BS on right Cardiovascular: RRR, no rub Gastrointestinal: soft, non-tender, no distention, positive bowel sounds Musculoskeletal: edema present Neurological: non-focal, normal sensation, moves all 4 limbs Lymphatic: no nodes Psychiatric: normal affect, A&O x 3 Skin: no rash, normal turgor, cap refill <2 seconds Dx/Plan (1) SABRINA (acute kidney injury) Code(s): N17.9 - ACUTE KIDNEY FAILURE, UNSPECIFIED Status: Acute Comment: Suspect hepatorenal syndrome. 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 for permcath conversion today or tomorrow (2) Acute hypercapnic respiratory failure Code(s): J96.02 - ACUTE RESPIRATORY FAILURE WITH HYPERCAPNIA Status: Acute Comment: s/p bipap.Due to large R sided pleural effusion.S/P thoracentesis (3) Pleural effusion associated with hepatic disorder Code(s): K76.9 - LIVER DISEASE, UNSPECIFIED; J91.8 - PLEURAL EFFUSION IN OTHER CONDITIONS CLASSIFIED ELSEWHERE Status: Acute (4) Chronic diastolic CHF (congestive heart failure), NYHA class 3 Code(s): I50.32 - CHRONIC DIASTOLIC (CONGESTIVE) HEART FAILURE Status: Chronic Comment: per ECHO (5) Hepatorenal syndrome Code(s): K76.7 - HEPATORENAL SYNDROME Status: Chronic (6) History of esophageal varices with bleeding Code(s): Z87.19 - PERSONAL HISTORY OF OTHER DISEASES OF THE DIGESTIVE SYSTEM Status: Chronic Comment: s/p banding in past (7) Thrombocytopenia Code(s): D69.6 - THROMBOCYTOPENIA, UNSPECIFIED Status: Chronic Comment: Due to Cirrhosis.stable (8) Hyperkalemia Code(s): E87.5 - HYPERKALEMIA Status: Resolved Comment: Improved after HD.Monitor (9) CKD (chronic kidney disease) stage 3, GFR 30-59 ml/min Code(s): N18.3 - CHRONIC KIDNEY DISEASE, STAGE 3 (MODERATE) Status: Chronic (10) Cirrhosis Code(s): K74.60 - UNSPECIFIED CIRRHOSIS OF LIVER Status: Chronic Qualifiers: Hepatic cirrhosis type: other cirrhosis Qualified Code(s): K74.69 - Other cirrhosis of liver Comment: BROOKS w ALIREZA (11) Diabetes type 2, uncontrolled Code(s): E11.65 - TYPE 2 DIABETES MELLITUS WITH HYPERGLYCEMIA Status: Chronic Qualifiers: Glycemic state: with hyperglycemia Qualified Code(s): E11.65 - Type 2 diabetes mellitus with hyperglycemia (12) HLD (hyperlipidemia) Code(s): E78.5 - HYPERLIPIDEMIA, UNSPECIFIED Status: Chronic Qualifiers: Hyperlipidemia type: unspecified Qualified Code(s): E78.5 - Hyperlipidemia , unspecified (13) Hypertension Code(s): I10 - ESSENTIAL (PRIMARY) HYPERTENSION Status: Chronic Qualifiers: Hypertension type: essential hypertension Qualified Code(s): I10 - Essential (primary) hypertension (14) Hypothyroidism Code(s): E03.9 - HYPOTHYROIDISM, UNSPECIFIED Status: Chronic Qualifiers: Hypothyroidism type: acquired Qualified Code(s): E03.9 - Hypothyroidism, unspecified - Plan cont current plan of care, PT/OT, social welfare research worker, speech therapy, respiratory therapy, out of bed/ambulate * .
--- NOTE | 2018-05-15 13:20 | PDOC.PN ---
- Subjective Encounter Start Date: 05/12/18 Encounter Start Time: 11:45 follow up for: cirrhosis, hepatorenal syndrome with ESRD requiring HD, acute hypoxemic resp failure In HD, tolerating well, no new event/ PC today after HD, planning TTS snf No F/C, no N/V/D/C, no CP or SOB All systems reviewed and neg x as per HPI - Objective Resuscitation Status: Resuscitation Status FULL:Full Resuscitation MAR Reviewed: Yes Vital Signs & Weight: Vital Signs (12 hours) Temp Pulse Resp BP Pulse Ox 05/15/18 08:30 98.7 F 60 16 124/61 95 05/15/18 06:33 96 05/15/18 06:31 72 16 96 05/15/18 04:00 98.0 F 58 L 18 116/56 L 95 Weight Admit Weight 192 lb 3.2 oz Weight 176 lb I&O: 05/14/18 05/15/18 05/16/18 06:59 06:59 05:59 Intake Total 660 1320 Output Total 3000 Balance -2340 1320 Result Diagrams: 05/12/18 03:32 05/15/18 04:19 Additional Labs: Accuchecks 05/15/18 05/15/18 05/14/18 12:16 05:24 20:31 POC Glucose 147 H 145 H 170 H 05/14/18 17:04 POC Glucose 173 H Phys Exam - Physical Examination Constitutional: NAD HEENT: PERRLA, moist MMs, sclera anicteric, oral pharynx no lesions Neck: no nodes, no JVD, supple, full ROM Respiratory: no wheezing, no rales, no rhonchi, clear to auscultation bilateral Cardiovascular: RRR, no significant murmur Gastrointestinal: soft, non-tender, no distention, positive bowel sounds Musculoskeletal: edema present Neurological: non-focal, normal sensation, moves all 4 limbs Lymphatic: no nodes Psychiatric: normal affect, A&O x 3 Skin: no rash, normal turgor, cap refill <2 seconds Dx/Plan (1) SABRINA (acute kidney injury) Code(s): N17.9 - ACUTE KIDNEY FAILURE, UNSPECIFIED Status: Acute Comment: Suspect hepatorenal syndrome. started on HD 05/08/18 Being set up for snf HD. for permcath conversion today (2) Acute hypercapnic respiratory failure Code(s): J96.02 - ACUTE RESPIRATORY FAILURE WITH HYPERCAPNIA Status: Acute Comment: s/p bipap.Due to large R sided pleural effusion.S/P thoracentesis (3) Pleural effusion associated with hepatic disorder Code(s): K76.9 - LIVER DISEASE, UNSPECIFIED; J91.8 - PLEURAL EFFUSION IN OTHER CONDITIONS CLASSIFIED ELSEWHERE Status: Acute (4) Chronic diastolic CHF (congestive heart failure), NYHA class 3 Code(s): I50.32 - CHRONIC DIASTOLIC (CONGESTIVE) HEART FAILURE Status: Chronic Comment: per ECHO (5) Hepatorenal syndrome Code(s): K76.7 - HEPATORENAL SYNDROME Status: Chronic (6) History of esophageal varices with bleeding Code(s): Z87.19 - PERSONAL HISTORY OF OTHER DISEASES OF THE DIGESTIVE SYSTEM Status: Chronic Comment: s/p banding in past (7) Thrombocytopenia Code(s): D69.6 - THROMBOCYTOPENIA, UNSPECIFIED Status: Chronic Comment: Due to Cirrhosis.stable (8) Hyperkalemia Code(s): E87.5 - HYPERKALEMIA Status: Resolved Comment: Improved after HD.Monitor (9) CKD (chronic kidney disease) stage 3, GFR 30-59 ml/min Code(s): N18.3 - CHRONIC KIDNEY DISEASE, STAGE 3 (MODERATE) Status: Chronic (10) Cirrhosis Code(s): K74.60 - UNSPECIFIED CIRRHOSIS OF LIVER Status: Chronic Qualifiers: Hepatic cirrhosis type: other cirrhosis Qualified Code(s): K74.69 - 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 (11) Diabetes type 2, uncontrolled Code(s): E11.65 - TYPE 2 DIABETES MELLITUS WITH HYPERGLYCEMIA Status: Chronic Qualifiers: Glycemic state: with hyperglycemia Qualified Code(s): E11.65 - Type 2 diabetes mellitus with hyperglycemia (12) HLD (hyperlipidemia) Code(s): E78.5 - HYPERLIPIDEMIA, UNSPECIFIED Status: Chronic Qualifiers: Hyperlipidemia type: unspecified Qualified Code(s): E78.5 - Hyperlipidemia , unspecified (13) Hypertension Code(s): I10 - ESSENTIAL (PRIMARY) HYPERTENSION Status: Chronic Qualifiers: Hypertension type: essential hypertension Qualified Code(s): I10 - Essential (primary) hypertension (14) Hypothyroidism Code(s): E03.9 - HYPOTHYROIDISM, UNSPECIFIED Status: Chronic Qualifiers: Hypothyroidism type: acquired Qualified Code(s): E03.9 - Hypothyroidism, unspecified - Plan * .
--- NOTE | 2018-05-15 13:36 | PDOC.PN ---
- Subjective Encounter Start Date: 05/13/18 Encounter Start Time: 11:45 follow up for: cirrhosis, hepatorenal syndrome with ESRD requiring HD, acute hypoxemic resp failure HD , then thursday. approved to go to outpatient HD starting thursday No F/C, no N/V/D/C, no CP or SOB All systems reviewed and neg x as per HPI - Objective Resuscitation Status: Resuscitation Status FULL:Full Resuscitation MAR Reviewed: Yes Vital Signs & Weight: Vital Signs (12 hours) Temp Pulse Resp BP Pulse Ox 05/15/18 08:30 98.7 F 60 16 124/61 95 05/15/18 06:33 96 05/15/18 06:31 72 16 96 05/15/18 04:00 98.0 F 58 L 18 116/56 L 95 Weight Admit Weight 192 lb 3.2 oz Weight 176 lb I&O: 05/14/18 05/15/18 05/16/18 06:59 06:59 05:59 Intake Total 660 1320 Output Total 3000 Balance -2340 1320 Result Diagrams: 05/12/18 03:32 05/15/18 04:19 Additional Labs: Accuchecks 05/15/18 05/15/18 05/14/18 12:16 05:24 20:31 POC Glucose 147 H 145 H 170 H 05/14/18 17:04 POC Glucose 173 H Phys Exam - Physical Examination Constitutional: NAD HEENT: PERRLA, moist MMs, sclera anicteric, oral pharynx no lesions Neck: no nodes, no JVD, supple, full ROM Respiratory: no wheezing, no rales, no rhonchi, clear to auscultation bilateral Cardiovascular: RRR, no significant murmur, no rub Gastrointestinal: soft, non-tender, no distention, positive bowel sounds Musculoskeletal: edema present Neurological: non-focal, normal sensation, moves all 4 limbs Lymphatic: no nodes Psychiatric: normal affect, A&O x 3 Skin: no rash, normal turgor, cap refill <2 seconds Dx/Plan (1) SABRINA (acute kidney injury) Code(s): N17.9 - ACUTE KIDNEY FAILURE, UNSPECIFIED Status: Acute Comment: Suspect hepatorenal syndrome. started on HD 05/08/18 Being set up for [facility]. permacath in, left IJ TL in. (2) Acute hypercapnic respiratory failure Code(s): J96.02 - ACUTE RESPIRATORY FAILURE WITH HYPERCAPNIA Status: Acute Comment: s/p bipap.Due to large R sided pleural effusion.S/P thoracentesis (3) Pleural effusion associated with hepatic disorder Code(s): K76.9 - LIVER DISEASE, UNSPECIFIED; J91.8 - PLEURAL EFFUSION IN OTHER CONDITIONS CLASSIFIED ELSEWHERE Status: Acute (4) Chronic diastolic CHF (congestive heart failure), NYHA class 3 Code(s): I50.32 - CHRONIC DIASTOLIC (CONGESTIVE) HEART FAILURE Status: Chronic Comment: per ECHO (5) Hepatorenal syndrome Code(s): K76.7 - HEPATORENAL SYNDROME Status: Chronic (6) History of esophageal varices with bleeding Code(s): Z87.19 - PERSONAL HISTORY OF OTHER DISEASES OF THE DIGESTIVE SYSTEM Status: Chronic Comment: s/p banding in past (7) Thrombocytopenia Code(s): D69.6 - THROMBOCYTOPENIA, UNSPECIFIED Status: Chronic Comment: Due to Cirrhosis.stable (8) Hyperkalemia Code(s): E87.5 - HYPERKALEMIA Status: Resolved Comment: Improved after HD.Monitor (9) CKD (chronic kidney disease) stage 3, GFR 30-59 ml/min Code(s): N18.3 - CHRONIC KIDNEY DISEASE, STAGE 3 (MODERATE) Status: Chronic (10) Cirrhosis Code(s): K74.60 - UNSPECIFIED CIRRHOSIS OF LIVER Status: Chronic Qualifiers: Hepatic cirrhosis type: other cirrhosis Qualified Code(s): K74.69 - Other cirrhosis of liver Comment: BROOKS LAY (11) Diabetes type 2, uncontrolled Code(s): E11.65 - TYPE 2 DIABETES MELLITUS WITH HYPERGLYCEMIA Status: Chronic Qualifiers: Glycemic state: with hyperglycemia Qualified Code(s): E11.65 - Type 2 diabetes mellitus with hyperglycemia (12) HLD (hyperlipidemia) Code(s): E78.5 - HYPERLIPIDEMIA, UNSPECIFIED Status: Chronic Qualifiers: Hyperlipidemia type: unspecified Qualified Code(s): E78.5 - Hyperlipidemia , unspecified (13) Hypertension Code(s): I10 - ESSENTIAL (PRIMARY) HYPERTENSION Status: Chronic Qualifiers: Hypertension type: essential hypertension Qualified Code(s): I10 - Essential (primary) hypertension (14) Hypothyroidism Code(s): E03.9 - HYPOTHYROIDISM, UNSPECIFIED Status: Chronic Qualifiers: Hypothyroidism type: acquired Qualified Code(s): E03.9 - Hypothyroidism, unspecified - Plan cont current plan of care, PT/OT, social media marketing specialist, respiratory therapy, out of bed/ambulate * .
--- NOTE | 2018-05-15 13:39 | PDOC.PN ---
- Subjective Encounter Start Date: 05/14/18 Encounter Start Time: 11:00 follow up for: cirrhosis, hepatorenal syndrome with ESRD requiring HD, acute hypoxemic resp failure HD tomorrow. no bipap in a few days. transfer to floor and follow, possible to D/C thursday No F/C, no N/V/D/C, no CP or SOB All systems reviewed and neg x as per HPI - Objective Resuscitation Status: Resuscitation Status FULL:Full Resuscitation MAR Reviewed: Yes Vital Signs & Weight: Vital Signs (12 hours) Temp Pulse Resp BP Pulse Ox 05/15/18 08:30 98.7 F 60 16 124/61 95 05/15/18 06:33 96 05/15/18 06:31 72 16 96 05/15/18 04:00 98.0 F 58 L 18 116/56 L 95 Weight Admit Weight 192 lb 3.2 oz Weight 176 lb I&O: 05/14/18 05/15/18 05/16/18 06:59 06:59 05:59 Intake Total 660 1320 Output Total 3000 Balance -2340 1320 Result Diagrams: 05/12/18 03:32 05/15/18 04:19 Additional Labs: Accuchecks 05/15/18 05/15/18 05/14/18 12:16 05:24 20:31 POC Glucose 147 H 145 H 170 H 05/14/18 17:04 POC Glucose 173 H Phys Exam - Physical Examination Constitutional: NAD HEENT: PERRLA, moist MMs, sclera anicteric, oral pharynx no lesions Neck: no nodes, no JVD, supple, full ROM Respiratory: no wheezing, no rales, no rhonchi, clear to auscultation bilateral Cardiovascular: RRR, no significant murmur, no rub Gastrointestinal: soft, non-tender, no distention, positive bowel sounds Musculoskeletal: edema present Neurological: non-focal, normal sensation, moves all 4 limbs Lymphatic: no nodes Psychiatric: normal affect, A&O x 3 Skin: no rash, normal turgor, cap refill <2 seconds Dx/Plan (1) SABRINA (acute kidney injury) Code(s): N17.9 - ACUTE KIDNEY FAILURE, UNSPECIFIED Status: Acute Comment: Suspect hepatorenal syndrome. started on HD 05/08/18 Being set up for care home HD. permacath in, left IJ TL in. (2) Acute hypercapnic respiratory failure Code(s): J96.02 - ACUTE RESPIRATORY FAILURE WITH HYPERCAPNIA Status: Acute Comment: s/p bipap.Due to large R sided pleural effusion.S/P thoracentesis (3) Pleural effusion associated with hepatic disorder Code(s): K76.9 - LIVER DISEASE, UNSPECIFIED; J91.8 - PLEURAL EFFUSION IN OTHER CONDITIONS CLASSIFIED ELSEWHERE Status: Acute (4) Chronic diastolic CHF (congestive heart failure), NYHA class 3 Code(s): I50.32 - CHRONIC DIASTOLIC (CONGESTIVE) HEART FAILURE Status: Chronic Comment: per ECHO (5) Hepatorenal syndrome Code(s): K76.7 - HEPATORENAL SYNDROME Status: Chronic (6) History of esophageal varices with bleeding Code(s): Z87.19 - PERSONAL HISTORY OF OTHER DISEASES OF THE DIGESTIVE SYSTEM Status: Chronic Comment: s/p banding in past (7) Thrombocytopenia Code(s): D69.6 - THROMBOCYTOPENIA, UNSPECIFIED Status: Chronic Comment: Due to Cirrhosis.stable (8) Hyperkalemia Code(s): E87.5 - HYPERKALEMIA Status: Resolved Comment: Improved after HD.Monitor (9) CKD (chronic kidney disease) stage 3, GFR 30-59 ml/min Code(s): N18.3 - CHRONIC KIDNEY DISEASE, STAGE 3 (MODERATE) Status: Chronic (10) Cirrhosis Code(s): K74.60 - UNSPECIFIED CIRRHOSIS OF LIVER Status: Chronic Qualifiers: Hepatic cirrhosis type: other cirrhosis Qualified Code(s): K74.69 - Other cirrhosis of liver Comment: BROOKS LAY (11) Diabetes type 2, uncontrolled Code(s): E11.65 - TYPE 2 DIABETES MELLITUS WITH HYPERGLYCEMIA Status: Chronic Qualifiers: Glycemic state: with hyperglycemia Qualified Code(s): E11.65 - Type 2 diabetes mellitus with hyperglycemia (12) HLD (hyperlipidemia) Code(s): E78.5 - HYPERLIPIDEMIA, UNSPECIFIED Status: Chronic Qualifiers: Hyperlipidemia type: unspecified Qualified Code(s): E78.5 - Hyperlipidemia , unspecified (13) Hypertension Code(s): I10 - ESSENTIAL (PRIMARY) HYPERTENSION Status: Chronic Qualifiers: Hypertension type: essential hypertension Qualified Code(s): I10 - Essential (primary) hypertension (14) Hypothyroidism Code(s): E03.9 - HYPOTHYROIDISM, UNSPECIFIED Status: Chronic Qualifiers: Hypothyroidism type: acquired Qualified Code(s): E03.9 - Hypothyroidism, unspecified - Plan * .
--- NOTE | 2018-05-15 13:42 | PDOC.PN ---
- Subjective Encounter Start Date: 05/15/18 Encounter Start Time: 10:20 follow up for: cirrhosis, hepatorenal syndrome with ESRD requiring HD, acute hypoxemic resp failure No F/C, no N/V/D/C, no CP or SOB All systems reviewed and neg x as per HPI - Objective Resuscitation Status: Resuscitation Status FULL:Full Resuscitation MAR Reviewed: Yes Vital Signs & Weight: Vital Signs (12 hours) Temp Pulse Resp BP Pulse Ox 05/15/18 08:30 98.7 F 60 16 124/61 95 05/15/18 06:33 96 05/15/18 06:31 72 16 96 05/15/18 04:00 98.0 F 58 L 18 116/56 L 95 Weight Admit Weight 192 lb 3.2 oz Weight 176 lb I&O: 05/14/18 05/15/18 05/16/18 06:59 06:59 05:59 Intake Total 660 1320 Output Total 3000 Balance -2340 1320 Result Diagrams: 05/12/18 03:32 05/16/18 05:11 Additional Labs: Accuchecks 05/15/18 05/15/18 05/14/18 12:16 05:24 20:31 POC Glucose 147 H 145 H 170 H 05/14/18 17:04 POC Glucose 173 H Phys Exam - Physical Examination Constitutional: NAD HEENT: PERRLA, moist MMs, sclera anicteric, oral pharynx no lesions Neck: no nodes, no JVD, supple, full ROM Respiratory: no wheezing, no rales, no rhonchi, clear to auscultation bilateral Cardiovascular: RRR, no significant murmur Gastrointestinal: soft, non-tender, no distention, positive bowel sounds Musculoskeletal: edema present Neurological: non-focal, normal sensation, moves all 4 limbs Lymphatic: no nodes Psychiatric: normal affect, A&O x 3 Skin: no rash, normal turgor, cap refill <2 seconds Dx/Plan (1) SABRINA (acute kidney injury) Code(s): N17.9 - ACUTE KIDNEY FAILURE, UNSPECIFIED Status: Acute Comment: Suspect hepatorenal syndrome. started on HD 05/08/18 Being set up for snf HD. permacath in, left IJ TL in. (2) Acute hypercapnic respiratory failure Code(s): J96.02 - ACUTE RESPIRATORY FAILURE WITH HYPERCAPNIA Status: Acute Comment: s/p bipap.Due to large R sided pleural effusion.S/P thoracentesis (3) Pleural effusion associated with hepatic disorder Code(s): K76.9 - LIVER DISEASE, UNSPECIFIED; J91.8 - PLEURAL EFFUSION IN OTHER CONDITIONS CLASSIFIED ELSEWHERE Status: Acute (4) Chronic diastolic CHF (congestive heart failure), NYHA class 3 Code(s): I50.32 - CHRONIC DIASTOLIC (CONGESTIVE) HEART FAILURE Status: Chronic Comment: per ECHO (5) Hepatorenal syndrome Code(s): K76.7 - HEPATORENAL SYNDROME Status: Chronic (6) History of esophageal varices with bleeding Code(s): Z87.19 - PERSONAL HISTORY OF OTHER DISEASES OF THE DIGESTIVE SYSTEM Status: Chronic Comment: s/p banding in past (7) Thrombocytopenia Code(s): D69.6 - THROMBOCYTOPENIA, UNSPECIFIED Status: Chronic Comment: Due to Cirrhosis.stable (8) Hyperkalemia Code(s): E87.5 - HYPERKALEMIA Status: Resolved Comment: Improved after HD.Monitor (9) CKD (chronic kidney disease) stage 3, GFR 30-59 ml/min Code(s): N18.3 - CHRONIC KIDNEY DISEASE, STAGE 3 (MODERATE) Status: Chronic (10) Cirrhosis Code(s): K74.60 - UNSPECIFIED CIRRHOSIS OF LIVER Status: Chronic Qualifiers: Hepatic cirrhosis type: other cirrhosis Qualified Code(s): K74.69 - Other cirrhosis of liver Comment: BROOKS LAY (11) Diabetes type 2, uncontrolled Code(s): E11.65 - TYPE 2 DIABETES MELLITUS WITH HYPERGLYCEMIA Status: Chronic Qualifiers: Glycemic state: with hyperglycemia Qualified Code(s): E11.65 - Type 2 diabetes mellitus with hyperglycemia (12) HLD (hyperlipidemia) Code(s): E78.5 - HYPERLIPIDEMIA, UNSPECIFIED Status: Chronic Qualifiers: Hyperlipidemia type: unspecified Qualified Code(s): E78.5 - Hyperlipidemia , unspecified (13) Hypertension Code(s): I10 - ESSENTIAL (PRIMARY) HYPERTENSION Status: Chronic Qualifiers: Hypertension type: essential hypertension Qualified Code(s): I10 - Essential (primary) hypertension (14) Hypothyroidism Code(s): E03.9 - HYPOTHYROIDISM, UNSPECIFIED Status: Chronic Qualifiers: Hypothyroidism type: acquired Qualified Code(s): E03.9 - Hypothyroidism, unspecified - Plan cont current plan of care, PT/OT, social services analyst, speech therapy, respiratory therapy * .
[2018-05-15] MEDS: Epoetin (ESRD) 20,000 UNITS/ML IVP SCH (14:02)
--- NOTE | 2018-05-15 14:55 | PRG ---
DATE OF SERVICE: 05/15/2018 SUBJECTIVE: Patient was seen and examined at bedside and overnight events noted. Patient denies any shortness of breath or chest pain or palpitation. No history of nausea or vomiting or diarrhea or f ever or chills or cramps. OBJECTIVE: GENERAL: This is a well-built female, in no apparent distress. VITAL SIGNS: Temperature 98.7, pulse 60, respiratory rate is 16, blood pressure 124/61. HEENT: Atraumatic, normocephalic. Oral mucosa is moist. NECK: Supple. CARDIOVASCULAR: S1, S2 heard. Rate and rhythm regular. RESPIRATORY: Clear to auscultation. GASTROINTESTINAL: Abdomen is soft. MUSCULOSKELETAL: No tenderness, no edema. DERMATOLOGIC: No skin rash. NEUROLOGIC: Alert and awake and oriented x3. No focal neurologic deficits. Moving all the extremit ies. PSYCHIATRIC: Mood and affect normal. LABORATORY DATA: Potassium is 4.1, BUN is 46, creatinine is 4.5. ASSESSMENT AND PLAN: 1. End-stage renal disease. We will continue on hemodialysis as tolerated. 2. Edema, controlled. 3. Anemia. 4. Hypertension. 5. Dialysis access. Follow with Dr. Jarrett. 6. We will continue to follow. Continue dialysis as tolerated Thursday, , and Thursday.
[2018-05-16] MEDS: Levothyroxine Sodium 100 MCG TAB PO SCH (05:27)
[2018-05-16 05:50] LABS: Anion Gap 13 mmol/L (10-20); BUN (Urea Nitrogen) 29 mg/dL (9.8-20.1); Calc. Creatinine Clearance 20 mL/min (70-130); Calcium 8.3 mg/dL (7.8-10.44); Carbon Dioxide 24 mmol/L (23-31); Chloride 99 mmol/L (98-107); Estimated GFR-MDRD 12; Glucose 134 mg/dL (80-115); Sodium 132 mmol/L (136-145)
[2018-05-16] MEDS: Mometasone/Formoterol 120 PUFF INHALER INH SCH ×2 (06:37→19:07)
[2018-05-16] MEDS: Nebivolol HCl 5 MG TAB PO SCH (08:53)
[2018-05-16] MEDS: Multivit, Therapeutic 1 TAB PO SCH (08:53)
[2018-05-16] MEDS: Escitalopram Oxalate 20 mg Tablet PO SCH (08:53)
[2018-05-16] MEDS: Atorvastatin Calcium 10 MG TAB PO SCH (08:53)
[2018-05-16] MEDS: Pregabalin 50 MG CAP PO SCH ×3 (08:54→22:42)
[2018-05-16] MEDS: Loratadine 10 MG TAB PO SCH (08:55)
[2018-05-16] MEDS: Rifaximin 550 MG TAB PO SCH ×2 (09:27→22:42)
--- NOTE | 2018-05-16 12:24 | PDOC.PN ---
- Subjective Encounter Start Date: 05/16/18 Encounter Start Time: 09:50 follow up for: cirrhosis, hepatorenal syndrome with ESRD requiring HD, acute hypoxemic resp failure No F/C, no N/V/D/C, no CP or SOB pt decided she wants to go to rehab, need PT eval. All systems reviewed and neg x as per HPI - Objective Resuscitation Status: Resuscitation Status FULL:Full Resuscitation MAR Reviewed: Yes Vital Signs & Weight: Vital Signs (12 hours) Temp Pulse Resp BP Pulse Ox 05/16/18 08:14 97.8 F 67 20 113/58 L 99 05/16/18 05:05 94 L 05/16/18 03:41 97.3 F L 67 18 136/70 94 L Weight Admit Weight 192 lb 3.2 oz Weight 164 lb 3.91 oz I&O: 05/15/18 05/16/18 05/17/18 07:59 06:59 06:59 Intake Total Output Total Balance Result Diagrams: 05/12/18 03:32 05/16/18 05:11 Additional Labs: Accuchecks 05/16/18 05/15/18 05/15/18 05:14 20:48 16:45 POC Glucose 144 H 257 H 151 H Phys Exam - Physical Examination Constitutional: NAD HEENT: PERRLA, moist MMs, sclera anicteric, oral pharynx no lesions Neck: no nodes, no JVD, supple, full ROM Respiratory: no wheezing, no rales, no rhonchi, clear to auscultation bilateral Cardiovascular: RRR, no rub Gastrointestinal: soft, non-tender, no distention, positive bowel sounds Musculoskeletal: edema present Neurological: non-focal, normal sensation, moves all 4 limbs Lymphatic: no nodes Psychiatric: normal affect, A&O x 3 Skin: no rash, normal turgor, cap refill <2 seconds Dx/Plan (1) SABRINA (acute kidney injury) Code(s): N17.9 - ACUTE KIDNEY FAILURE, UNSPECIFIED Status: Acute Comment: Suspect hepatorenal syndrome. started on HD 05/08/18 Being [facility]. permacath in, left IJ TL in. (2) Acute hypercapnic respiratory failure Code(s): J96.02 - ACUTE RESPIRATORY FAILURE WITH HYPERCAPNIA Status: Acute Comment: s/p bipap.Due to large R sided pleural effusion.S/P thoracentesis (3) Pleural effusion associated with hepatic disorder Code(s): K76.9 - LIVER DISEASE, UNSPECIFIED; J91.8 - PLEURAL EFFUSION IN OTHER CONDITIONS CLASSIFIED ELSEWHERE Status: Acute (4) Chronic diastolic CHF (congestive heart failure), NYHA class 3 Code(s): I50.32 - CHRONIC DIASTOLIC (CONGESTIVE) HEART FAILURE Status: Chronic Comment: per ECHO (5) Hepatorenal syndrome Code(s): K76.7 - HEPATORENAL SYNDROME Status: Chronic (6) History of esophageal varices with bleeding Code(s): Z87.19 - PERSONAL HISTORY OF OTHER DISEASES OF THE DIGESTIVE SYSTEM Status: Chronic Comment: s/p banding in past (7) Thrombocytopenia Code(s): D69.6 - THROMBOCYTOPENIA, UNSPECIFIED Status: Chronic Comment: Due to Cirrhosis.stable (8) Hyperkalemia Code(s): E87.5 - HYPERKALEMIA Status: Resolved Comment: Improved after HD.Monitor (9) CKD (chronic kidney disease) stage 3, GFR 30-59 ml/min Code(s): N18.3 - CHRONIC KIDNEY DISEASE, STAGE 3 (MODERATE) Status: Chronic (10) Cirrhosis Code(s): K74.60 - UNSPECIFIED CIRRHOSIS OF LIVER Status: Chronic Qualifiers: Hepatic cirrhosis type: other cirrhosis Qualified Code(s): K74.69 - Other cirrhosis of liver Comment: BROOKS w ALIREZA (11) Diabetes type 2, uncontrolled Code(s): E11.65 - TYPE 2 DIABETES MELLITUS WITH HYPERGLYCEMIA Status: Chronic Qualifiers: Glycemic state: with hyperglycemia Qualified Code(s): E11.65 - Type 2 diabetes mellitus with hyperglycemia (12) HLD (hyperlipidemia) Code(s): E78.5 - HYPERLIPIDEMIA, UNSPECIFIED Status: Chronic Qualifiers: Hyperlipidemia type: unspecified Qualified Code(s): E78.5 - Hyperlipidemia , unspecified (13) Hypertension Code(s): I10 - ESSENTIAL (PRIMARY) HYPERTENSION Status: Chronic Qualifiers: Hypertension type: essential hypertension Qualified Code(s): I10 - Essential (primary) hypertension (14) Hypothyroidism Code(s): E03.9 - HYPOTHYROIDISM, UNSPECIFIED Status: Chronic Qualifiers: Hypothyroidism type: acquired Qualified Code(s): E03.9 - Hypothyroidism, unspecified - Plan cont current plan of care, PT/OT, executive secretary social welfare, respiratory therapy, out of bed/ambulate * . pt eval for rehab approval
[2018-05-16] MEDS: HumaLOG 300 UNITS/3 ML VIAL SC PRN (12:41)
[2018-05-16] MEDS ORDERED: Heparin 10,000 UNITS/ 10 ML VIAL ONE (13:06)
--- NOTE | 2018-05-16 13:34 | PRG ---
DATE OF SERVICE: 05/16/2018 SUBJECTIVE: Patient was seen and examined at bedside and overnight events noted. Patient denies any shortness of breath or chest pain or palpitation. No history of nausea or vomiting or diarrhea or f ever or chills or cramps. OBJECTIVE: GENERAL: This is an elderly female in no apparent distress. VITAL SIGNS: Temperature 97.8, pulse 67, respiratory 20, blood pressure 113/50. HEENT: Atraumatic, normocephalic. Oral mucosa is moist. NECK: Supple. CARDIOVASCULAR: S1, S2 heard. Rate and rhythm regular. RESPIRATORY: Clear to auscultation. GASTROINTESTINAL: Abdomen is soft. MUSCULOSKELETAL: No tenderness, no edema. DERMATOLOGIC: No skin rash. NEUROLOGIC: Alert and awake and oriented x3. No focal neurologic deficits. Moving all the extremit ies. PSYCHIATRIC: Mood and affect normal. LABORATORY DATA: Potassium is 4.0, BUN is 29, creatinine is 3.7. ASSESSMENT AND PLAN: 1. End-stage renal disease on hemodialysis. Continue dialysis as tolerated. The patient has been t olerating sessions well in outpatient dialysis set up. Follow up with Surgery for access placement. 2. Edema, controlled. 3. Anemia. Monitor hemoglobin. 4. Hypertension. 5. We will continue on dialysis as tolerated.
--- NOTE | 2018-05-16 14:40 | PRG ---
DATE OF SERVICE: 05/16/2018 SUBJECTIVE: Yessy Olguin is walking with physical therapy. Her fluid balance was negative coming into this morning. OBJECTIVE: VITAL SIGNS: Her vital signs have been stable. Blood pressure 134/58. She is afebrile, heart rate 74, respiratory rate is 18, oximetry is 98 on 2 liters. GENERAL: She is in no distress. LUNGS: Still remarkable for decreased breath sounds at right base. IMPRESSION: Hepatic hydrothorax. No indication for repeat thoracentesis. PLAN: Continue supportive care. MTDD
[2018-05-17 05:23] LABS: Anion Gap 11 mmol/L (10-20); BUN (Urea Nitrogen) 43 mg/dL (9.8-20.1); Calc. Creatinine Clearance 14 mL/min (70-130); Calcium 8.7 mg/dL (7.8-10.44); Carbon Dioxide 29 mmol/L (23-31); Chloride 98 mmol/L (98-107); Estimated GFR-MDRD 9; Glucose 107 mg/dL (80-115); Potassium 4.1 mmol/L (3.5-5.1); Sodium 134 mmol/L (136-145)
[2018-05-17] MEDS: Levothyroxine Sodium 100 MCG TAB PO SCH (05:26)
[2018-05-17] MEDS: Mometasone/Formoterol 120 PUFF INHALER INH SCH ×2 (06:42→18:03)
--- NOTE | 2018-05-17 07:42 | PDOC.PN ---
- Subjective Encounter Start Date: 05/17/18 Encounter Start Time: 07:41 Subjective: no sob, GI complaints - Objective Resuscitation Status: Resuscitation Status FULL:Full Resuscitation MAR Reviewed: Yes Vital Signs & Weight: Vital Signs (12 hours) Temp Pulse Resp BP BP Pulse Ox 05/17/18 05:17 98.9 F 63 20 139/68 96 05/16/18 20:20 94 L 05/16/18 20:00 98.7 F 65 18 135/65 94 L Weight Admit Weight 192 lb 3.2 oz Weight 163 lb 9.328 oz I&O: 05/16/18 05/17/18 05/18/18 06:59 06:59 06:59 Intake Total 990 Output Total Balance 990 Result Diagrams: 05/12/18 03:32 05/17/18 04:40 Additional Labs: Accuchecks 05/17/18 05/16/18 05/16/18 05:20 20:33 16:31 POC Glucose 108 127 H 131 H 05/16/18 11:56 POC Glucose 211 H Phys Exam - Physical Examination Neck: no JVD dull to perc with decresed BS on right Cardiovascular: RRR 2/6 soft sys murmur Gastrointestinal: soft, non-tender, positive bowel sounds Musculoskeletal: edema present Dx/Plan (1) ESRD on hemodialysis Code(s): N18.6 - END STAGE RENAL DISEASE; Z99.2 - DEPENDENCE ON RENAL DIALYSIS Status: Acute (2) SABRINA (acute kidney injury) Code(s): N17.9 - ACUTE KIDNEY FAILURE, UNSPECIFIED Status: Acute Comment: Suspect hepatorenal syndrome. 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 permacath in, left IJ TL in. (3) Pleural effusion associated with hepatic disorder Code(s): K76.9 - LIVER DISEASE, UNSPECIFIED; J91.8 - PLEURAL EFFUSION IN OTHER CONDITIONS CLASSIFIED ELSEWHERE Status: Acute (4) Chronic diastolic CHF (congestive heart failure), NYHA class 3 Code(s): I50.32 - CHRONIC DIASTOLIC (CONGESTIVE) HEART FAILURE Status: Chronic Comment: per ECHO (5) Hepatorenal syndrome Code(s): K76.7 - HEPATORENAL SYNDROME Status: Chronic (6) History of esophageal varices with bleeding Code(s): Z87.19 - PERSONAL HISTORY OF OTHER DISEASES OF THE DIGESTIVE SYSTEM Status: Chronic Comment: s/p banding in past (7) Thrombocytopenia Code(s): D69.6 - THROMBOCYTOPENIA, UNSPECIFIED Status: Chronic Comment: Due to Cirrhosis.stable (8) Cirrhosis Code(s): K74.60 - UNSPECIFIED CIRRHOSIS OF LIVER Status: Chronic Qualifiers: Hepatic cirrhosis type: other cirrhosis Qualified Code(s): K74.69 - Other cirrhosis of liver Comment: GUY w GAVE (9) Diabetes type 2, uncontrolled Code(s): E11.65 - TYPE 2 DIABETES MELLITUS WITH HYPERGLYCEMIA Status: Chronic Qualifiers: Glycemic state: with hyperglycemia Qualified Code(s): E11.65 - Type 2 diabetes mellitus with hyperglycemia (10) HLD (hyperlipidemia) Code(s): E78.5 - HYPERLIPIDEMIA, UNSPECIFIED Status: Chronic Qualifiers: Hyperlipidemia type: unspecified Qualified Code(s): E78.5 - Hyperlipidemia , unspecified (11) Hypertension Code(s): I10 - ESSENTIAL (PRIMARY) HYPERTENSION Status: Chronic Qualifiers: Hypertension type: essential hypertension Qualified Code(s): I10 - Essential (primary) hypertension (12) Hypothyroidism Code(s): E03.9 - HYPOTHYROIDISM, UNSPECIFIED Status: Chronic Qualifiers: Hypothyroidism type: acquired Qualified Code(s): E03.9 - Hypothyroidism, unspecified - Plan cont HD, access planned today -: cont accu/ss -: cont xifxin, bystolic, lactulose, etc -: DC planning * .
[2018-05-17] MEDS: Pregabalin 50 MG CAP PO SCH ×3 (09:13→20:49)
[2018-05-17] MEDS: Escitalopram Oxalate 20 mg Tablet PO SCH (09:13)
[2018-05-17] MEDS: Nebivolol HCl 5 MG TAB PO SCH (09:14)
[2018-05-17] MEDS: Loratadine 10 MG TAB PO SCH (09:14)
[2018-05-17] MEDS: Atorvastatin Calcium 10 MG TAB PO SCH (09:14)
[2018-05-17] MEDS: Multivit, Therapeutic 1 TAB PO SCH (09:14)
[2018-05-17] MEDS: Rifaximin 550 MG TAB PO SCH ×2 (10:22→20:50)
--- NOTE | 2018-05-17 10:38 | PRG ---
DATE OF SERVICE: 05/17/2018 SUBJECTIVE: No significant change from yesterday. Thankfully, she says her breathing is fairly comfortable, but she is oxygen dependent. She continues to get dialysis. She is tolerating her diet well. No abdominal pain. OBJECTIVE: VITAL SIGNS: Temperature 98.0, pulse 65, blood pressure 133/66, 97% oxygen saturation on 2 liters nasal cannula. GENERAL: Chronically ill, no acute distress. HEART: Regular rate and rhythm. LUNGS: Decreased breath sounds on the right side, but no wheezing, no rales auscultated today. ABDOMEN: Mild distention. Bowel sounds present, soft and nontender to palpation throughout. EXTREMITIES: No peripheral edema. LABORATORY STUDIES: Sodium 134, potassium 4.1, BUN 43, creatinine 5.09, glucose 108. ASSESSMENT AND PLAN: 1. Hepatorenal syndrome, now on dialysis. 2. Hepatic hydrothorax, clinically stable with regard to respiratory status over the past several days. 3. Hepatic encephalopathy. This is chronic and mild, fluctuating even during this admission. Continue lactulose and rifaximin. 4. Nonalcoholic steatohepatitis cirrhosis. This is a significant decompensation for her. The combination of hepatorenal syndrome and hepatic hydrothorax carries a grim prognosis. I have discussed this multiple times with the patient. The plan is to get her back for reevaluation at [facility] transplant center following discharge. DOMINGO
[2018-05-17 11:30] VITALS: BMI 29.9
--- NOTE | 2018-05-17 11:54 | PRG ---
DATE OF SERVICE: 05/17/2018 SUBJECTIVE: A 63-year-old female being seen for end-stage renal disease. The patient denies any nausea, vomiting, or chest pain. PHYSICAL EXAMINATION: GENERAL: Patient is awake, alert. VITAL SIGNS: Afebrile, pulse 65, breathing 16, blood pressure 133/66. OBJECTIVE: See above. Awake, alert, in no acute distress. GENERAL APPEARANCE AND MENTAL STATUS: Fair. HEAD/NECK: Normocephalic. Atraumatic. EYES: EOMI. No deformity. EARS: Clear. No ulcers. NOSE: Intact. No lesions. MOUTH: Clear. No discharge. THROAT: Clear. No exudate. LUNGS: Clear. No crackles. CARDIAC: S1, S2. No rub. ABDOMEN: Benign. BS+. GENITALIA/RECTUM: Berman absent. BACK/EXTREMITIES: Edema 0+ Ulcer- NEUROLOGICAL: Alert and motor intact. SKIN: Rash- Bruise- LYMPHATICS: Edema- Ulcer- LABORATORY DATA: Hemoglobin is pending. ASSESSMENT AND RECOMMENDATIONS: 1. Stage 6 chronic kidney disease. Continue hemodialysis. 2. Hypertension, stable. 3. Anemia, stable. 4. Medication based on GFR are appropriate. Medications and glomerular filtration rate are appropriate. MTDD
[2018-05-17 13:03] LABS: Hemoglobin 7.9 g/dL (12.0-16.0)
[2018-05-17 13:33] LABS: Anion Gap 13 mmol/L (10-20); BUN (Urea Nitrogen) 50 mg/dL (9.8-20.1); Calc. Creatinine Clearance 12 mL/min (70-130); Calcium 8.7 mg/dL (7.8-10.44); Carbon Dioxide 28 mmol/L (23-31); Chloride 96 mmol/L (98-107); Estimated GFR-MDRD 8; Glucose 219 mg/dL (80-115); Potassium 4.2 mmol/L (3.5-5.1); Sodium 133 mmol/L (136-145)
--- NOTE | 2018-05-17 14:19 | PRG ---
DATE OF SERVICE: 05/17/2018 SERVICE: Pulmonary Medicine INTERVAL HISTORY: The patient is doing great from a respiratory standpoint. She has been on and off of oxygen. She feels better whenever she is wearing it. Otherwise, there has been no interval change to her condition. She is breathing comfortably. She has a good appetite. She is tolerating dialysis okay. PHYSICAL EXAMINATION: VITAL SIGNS: Afebrile, pulse 65, blood pressure 133/66, respirations 16, saturation 97% on 2 liters nasal cannula. GENERAL: The patient is awake, alert, no apparent distress. LUNGS: Decent air entry. There is no prolonged expiratory phase or wheezing present. There is decreased air entry at the right base. HEART: Normal rate, regular. ABDOMEN: Soft, nontender, nondistended. Bowel sounds are positive. MUSCULOSKELETAL: No cyanosis or clubbing. No pitting in the bilateral lower extremities. NEUROLOGIC: Grossly nonfocal. LABORATORY DATA: Hemoglobin 7.9 and gently down trending. Creatinine 5.49, BUN 50. Basic metabolic profile is otherwise unremarkable. IMAGING: Echocardiogram demonstrates normal ejection fraction with 2-3 diastolic dysfunction. The RV and RA are dilated. Chest x-ray from 05/13/2018 demonstrates IJ central venous catheter, hemiopacification of the right thorax. Cardiomegaly with pulmonary vascular congestion is still noted. ASSESSMENT: 1. Acute hypoxic and hypercapnic respiratory failure, stable. 2. Hepatic hydrothorax. 3. Cirrhosis, child C. 4. Hepatorenal syndrome, progressing to end-stage renal disease. 5. Acute on chronic diastolic heart failure. 6. Obstructive sleep apnea. DISCUSSION AND PLAN: I will follow the patient a couple of times on a weekly basis. If she gets into respiratory difficulty, give me a call sooner. From a purely respiratory standpoint, assuming we have control of her volume status, she is a candidate for transition out of the hospital. We need to remove the IJ as soon as possible. DOMINGO
[2018-05-17 16:12] LABS: Bilirubin Small (Negative); Blood, Urine Large (Negative); Clarity TURBID (Clear); Glucose, Urine (Dipstick) Negative (Negative); Leukocyte Large (Negative); Nitrite Negative (Negative); Protein, Urine (Dipstick) 300 mg/dL (Neg-Trace); Specific Gravity, Urine 1.016 (1.002-1.036); Urobilinogen 0.2 mg/dL (0.2-1.0)
[2018-05-17 16:22] LABS: Pathc Cast-AUWi Flag 1039.86 (0-2.49); Yeast-AUWi Flag 174.9 (0-25.0)
[2018-05-17 16:33] LABS: Hyaline Casts/LPF NONE SEEN LPF (0-3 Hyaline); Other Casts/LPF None Seen LPF (0-3 Hyaline)
[2018-05-17 16:34] LABS: Bacteria/HPF 3+ HPF (None Seen); Yeast-All Forms None Seen HPF (None Seen)
[2018-05-17] MEDS: HumaLOG 300 UNITS/3 ML VIAL SC PRN (18:27)
[2018-05-18] MEDS: Levothyroxine Sodium 100 MCG TAB PO SCH (05:48)
[2018-05-18] MEDS: Mometasone/Formoterol 120 PUFF INHALER INH SCH ×2 (06:28→18:30)
[2018-05-18 07:46] LABS: Anion Gap 15 mmol/L (10-20); BUN (Urea Nitrogen) 60 mg/dL (9.8-20.1); Calc. Creatinine Clearance 11 mL/min (70-130); Calcium 8.9 mg/dL (7.8-10.44); Carbon Dioxide 27 mmol/L (23-31); Chloride 96 mmol/L (98-107); Estimated GFR-MDRD 7; Glucose 142 mg/dL (80-115); Potassium 4.6 mmol/L (3.5-5.1); Sodium 133 mmol/L (136-145)
--- NOTE | 2018-05-18 08:58 | PDOC.PN ---
- Subjective Encounter Start Date: 05/18/18 Encounter Start Time: 08:56 Subjective: sleepy, but arousable - Objective Resuscitation Status: Resuscitation Status FULL:Full Resuscitation MAR Reviewed: Yes Vital Signs & Weight: Vital Signs (12 hours) Temp Pulse Resp BP Pulse Ox 05/18/18 08:00 96.8 F L 95 18 140/61 93 L 05/18/18 06:28 73 18 93 L 05/18/18 04:00 98.0 F 70 18 126/60 93 L 05/18/18 00:50 97 Weight Admit Weight 192 lb 3.2 oz Weight 170 lb 0.96 oz I&O: 05/17/18 05/18/18 05/19/18 06:59 06:59 06:59 Intake Total 990 830 Output Total 100 Balance 990 730 Result Diagrams: 05/17/18 12:55 05/18/18 07:15 Additional Labs: Accuchecks 05/18/18 05/17/18 05/17/18 05:50 20:43 17:04 POC Glucose 155 H 187 H 216 H 05/17/18 11:08 POC Glucose 153 H Phys Exam - Physical Examination Neck: no JVD clear ant mayers Cardiovascular: RRR, no significant murmur Gastrointestinal: soft, positive bowel sounds Musculoskeletal: edema present Dx/Plan (1) ESRD on hemodialysis Code(s): N18.6 - END STAGE RENAL DISEASE; Z99.2 - DEPENDENCE ON RENAL DIALYSIS Status: Acute (2) SABRINA (acute kidney injury) Code(s): N17.9 - ACUTE KIDNEY FAILURE, UNSPECIFIED Status: Acute Comment: Suspect hepatorenal syndrome. 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 permacath in, left IJ TL in. (3) Pleural effusion associated with hepatic disorder Code(s): K76.9 - LIVER DISEASE, UNSPECIFIED; J91.8 - PLEURAL EFFUSION IN OTHER CONDITIONS CLASSIFIED ELSEWHERE Status: Acute (4) Chronic diastolic CHF (congestive heart failure), NYHA class 3 Code(s): I50.32 - CHRONIC DIASTOLIC (CONGESTIVE) HEART FAILURE Status: Chronic Comment: per ECHO (5) Hepatorenal syndrome Code(s): K76.7 - HEPATORENAL SYNDROME Status: Chronic (6) History of esophageal varices with bleeding Code(s): Z87.19 - PERSONAL HISTORY OF OTHER DISEASES OF THE DIGESTIVE SYSTEM Status: Chronic Comment: s/p banding in past (7) Thrombocytopenia Code(s): D69.6 - THROMBOCYTOPENIA, UNSPECIFIED Status: Chronic Comment: Due to Cirrhosis.stable (8) Cirrhosis Code(s): K74.60 - UNSPECIFIED CIRRHOSIS OF LIVER Status: Chronic Qualifiers: Hepatic cirrhosis type: other cirrhosis Qualified Code(s): K74.69 - Other cirrhosis of liver Comment: GUY w GAVE (9) Diabetes type 2, uncontrolled Code(s): E11.65 - TYPE 2 DIABETES MELLITUS WITH HYPERGLYCEMIA Status: Chronic Qualifiers: Glycemic state: with hyperglycemia Qualified Code(s): E11.65 - Type 2 diabetes mellitus with hyperglycemia (10) HLD (hyperlipidemia) Code(s): E78.5 - HYPERLIPIDEMIA, UNSPECIFIED Status: Chronic Qualifiers: Hyperlipidemia type: unspecified Qualified Code(s): E78.5 - Hyperlipidemia , unspecified (11) Hypertension Code(s): I10 - ESSENTIAL (PRIMARY) HYPERTENSION Status: Chronic Qualifiers: Hypertension type: essential hypertension Qualified Code(s): I10 - Essential (primary) hypertension (12) Hypothyroidism Code(s): E03.9 - HYPOTHYROIDISM, UNSPECIFIED Status: Chronic Qualifiers: Hypothyroidism type: acquired Qualified Code(s): E03.9 - Hypothyroidism, unspecified - Plan cont HD, discusswith renal -: stat ammonia, abg- then reevaluate * .
--- NOTE | 2018-05-18 09:26 | OP ---
DATE OF OPERATION: 05/13/2018 PREOPERATIVE DIAGNOSES: End-stage renal disease, poor IV access. POSTOPERATIVE DIAGNOSES: End-stage renal disease, poor IV access. PROCEDURE: Right IJ cuffed tunnel hemodialysis catheter, angiodynamics precurved, left IJ central li ne triple lumen. Ultrasound fluoroscopy used. SURGEON: Paul Jarrett M.D. ANESTHESIA: Intravenous sedation, local 0.5% Marcaine with epinephrine, 30 mL, mixed with 2% Xylocai ne, 10 mL PROCEDURE: The patient was taken to the operating room where intravenous sedation, neck and chest pr epared with ChloraPrep, draped in routine fashion. Local anesthetic mixture was infiltrated in the s kin and subcutaneous tissues throughout the operative site. Using ultrasound guidance, the right and left internal jugular veins were cannulated with trocar catheters and J-wire threaded. Trocar gordy ter removed. Skin incised and enlarged sharply at the J-wire entrance site, not on left side, a stab incision made over the right chest. Using the tunneling device, the precurved angiodynamics cuffed tunnel hemodialysis catheter tunneled between the two incisions, placing the fabric cuff beneath the skin exit site and securing the catheter with 2 interrupted sutures of 3-0 nylon. Biopatch sterile d ressings applied. Smaller medium sized dilators placed over the J-wire into the internal jugular vei n removed. Dilator and pull-away sheath placed over the J-wire into the internal jugular vein and huff perior vena cava and dilator J-wire removed. Catheter placed with pull-away sheath. Pull-away sheat h removed. Platysma approximated with 4-0 Monocryl, skin with subdermal 4-0 Monocryl and DermaGlue a pplied. Seldinger technique used to place a left IJ triple lumen catheter, secured with 3-0 nylon huff ture, removing the J wire. All ports aspirated, blood flushed with saline solution on hemodialysis c atheter were flushed with heparin solution, 1000 units heparin per mL indicated volume of the port. Fluoroscopic images revealed good line placement. The patient tolerated the procedure well.
[2018-05-18 09:27] LABS: Actual Bicarbonate (HCO3a) 26.6 mEq/L (22-28); Analyzer IN Cardio OR; Base Excess (BEa) -2.8 mEq/L (-2.0 to +3.0); Calcium, Ionized 1.15 mmol/L (1.12-1.30); Carboxyhemoglobin (COHb) 1.6 gm% (0.0-3.0); Hemoglobin (Hb) 8.9 g/dL (12.0-16.0); O2 Tension (PaO2) 99.7 mmHg (> 80.0); Potassium - ABG Lab 4.58 mmol/L (3.70-5.30)
[2018-05-18 09:33] LABS: CO2 Tension 76.9 mmHg (35.0-45.0); Puncture Site RBA; pH, Arterial 7.16 (7.35-7.45)
[2018-05-18 09:34] LABS: ALV-art Gradient 3.815 (0-20)
--- NOTE | 2018-05-18 09:45 | PDOC.EVN ---
Event Note - Event Note Event Note: ABG reviewed, acute on chronic resp failure. move to CCU, Dr Feliz to see, BIPAP
[2018-05-18] MEDS: Pregabalin 50 MG CAP PO SCH ×3 (10:11→21:13)
[2018-05-18] MEDS: Multivit, Therapeutic 1 TAB PO SCH (10:11)
[2018-05-18] MEDS: Loratadine 10 MG TAB PO SCH (10:11)
[2018-05-18] MEDS: Escitalopram Oxalate 20 mg Tablet PO SCH (10:11)
[2018-05-18] MEDS: Atorvastatin Calcium 10 MG TAB PO SCH (10:11)
[2018-05-18] MEDS: Rifaximin 550 MG TAB PO SCH ×2 (10:12→21:13)
[2018-05-18] MEDS: Nebivolol HCl 5 MG TAB PO SCH (10:12)
[2018-05-18] MEDS: Epoetin (ESRD) 20,000 UNITS/ML IVP SCH (12:04)
--- NOTE | 2018-05-18 12:37 | PRG ---
DATE OF SERVICE: 05/18/2018 SUBJECTIVE: A 63-year-old female being seen for end-stage renal disease. Overnight events reported. OBJECTIVE: GENERAL: The patient is resting on BiPAP, in no acute distress. VITAL SIGNS: Afebrile, pulse 75, breathing 16, blood pressure 139/80. GENERAL APPEARANCE AND MENTAL STATUS: Fair. HEAD/NECK: Normocephalic. Atraumatic. EYES: EOMI. No deformity. EARS: Clear. No ulcers. NOSE: Intact. No lesions. MOUTH: Clear. No discharge. THROAT: Clear. No exudate. LUNGS: Clear. No crackles. CARDIAC: S1, S2. No rub. ABDOMEN: Benign. BS+. GENITALIA/RECTUM: Berman absent. BACK/EXTREMITIES: Edema 0+. Ulcer-. NEUROLOGICAL: Alert and motor intact. SKIN: Rash-. Bruise-. LYMPHATICS: Edema-. Ulcer-. LABORATORY DATA: Hemoglobin 7.9. Creatinine 6.4. ASSESSMENT AND RECOMMENDATIONS: 1. Stage 6 chronic kidney disease. We will plan dialysis. 2. Anemia. I would recommend 1 unit of packed red blood cell transfusion. 3. Hypertension. 4. Medication based on glomerular filtration rate are appropriate.
--- NOTE | 2018-05-18 13:19 | RAD ---
SINGLE VIEW OF THE CHEST: Comparison: 05-13-18 History: Respiratory failure. FINDINGS: Single view of the chest shows an enlarged but stable cardiomediastinal silhouette. The dialysis cath eter and central venous catheter are unchanged in position. There is complete opacification of the ri ght thorax, unchanged. Degenerative changes are seen in the spine. IMPRESSION: Stable opacification of the right thorax. POS: TPC
--- NOTE | 2018-05-18 15:40 | PRG ---
DATE OF SERVICE: 05/18/2018 SERVICE: Pulmonary Medicine. INTERVAL HISTORY: The patient is doing poorly from a respiratory standpoint. This morning, her nurs e walked in on her and she was poorly responsive. She did not respond well to a sternal rub. michelle Sterling was called. The reason for that is that we need an urgent ICU bed. She was complet kirsten obtunded and could not provide any additional elements of the history. It is my understanding th at all throughout yesterday, she was doing just fine from a breathing standpoint. PHYSICAL EXAMINATION: VITAL SIGNS: Afebrile, pulse 65, blood pressure 123/60, respirations 17, saturation 100% on 21% FiO2 and a PEEP of 8. GENERAL: The patient is obtunded. HEENT: Normocephalic, atraumatic. Sclerae are white. Conjunctivae are pink. Oral mucosa is moist without lesions. LUNGS: Decreased air entry, particularly on the right. There are some crackles present. No prolong ed expiratory phase or wheezing is appreciated. HEART: Normal rate, regular. ABDOMEN: Soft, nontender, nondistended. Bowel sounds are positive. MUSCULOSKELETAL: No cyanosis or clubbing. There is diffuse pitting throughout. GENITOURINARY: No Berman. NEUROLOGIC: Grossly nonfocal. LABORATORY DATA: Sodium 133 and stable, chloride 96, BUN 60 and up trending, creatinine 6.4. Basic metabolic profile is otherwise unremarkable. Ammonia level is 62 and remains elevated. Urine cultur e from yesterday was growing a gram-negative rory. IMAGING: Chest x-ray demonstrates evidence of a known opacification of the right hemithorax. ASSESSMENT: 1. Acute hypoxic and hypercapnic respiratory failure. 2. Hepatic hydrothorax. 3. Cirrhosis, child C. 4. Hepatorenal syndrome, progressing to end-stage renal disease. 5. Acute on chronic diastolic heart failure. 6. Obstructive sleep apnea. DISCUSSION AND PLAN: We will initiate the patient on noninvasive ventilation. We will give her fair ly heavy doses of pressure support in order to facilitate expulsion of carbon dioxide. I personally titrated this machine at bedside over a period of 30 minutes and checked with the patient multiple ti mes. She had significant recovery of neurologic function. As such, no additional ABGs will be obtai wilder. Supportive care will otherwise be continued. Lactulose will be scheduled and held if she has m ore than 3 bowel movements on a daily basis. She remains in critical condition. CRITICAL CARE TIME: 30 minutes.
[2018-05-18 16:02] LABS: #Eosinphils 0.1 thou/uL (0.0-0.7); #Lymphocytes 0.7 thou/uL (1.20-3.40); #Monocytes 0.7 thou/uL (0.11-0.59); #Neutrophils 11.4 thou/uL (1.40-6.50); %Basophils 0.1 % (0.0-1.0); %Eosinophils 0.6 % (0.0-10.0); %Lymphocytes 5.2 % (21.0-51.0); %Monocytes 5.6 % (0.0-10.0); %Neutrophils 88.6 % (42.0-75.0); Hemoglobin 8.8 g/dL (12.0-16.0); Mean Corpuscular HGB CONC 30.6 g/dL (32.0-36.0); Mean Corpuscular Hemoglobin 32.6 pg (27.0-31.0); Mean Platelet Volume 9.5 fL (7.4-10.4); Platelet Count 84 thou/uL (130-400); RBC Distribution Width 18.2 % (11.5-14.5); Red Blood Cell (RBC) Count 2.69 mill/uL (4.20-5.40); White Blood Cell (WBC) Count 12.9 thou/uL (4.8-10.8)
--- NOTE | 2018-05-18 18:37 | PRG ---
DATE OF SERVICE: 05/18/2018 GI INPATIENT DAILY PROGRESS NOTE SUBJECTIVE: This morning, Mrs. Olguin had an unresponsive episode and was found to be in hypercap dave respiratory failure. She was transferred to the CCU and was on BiPAP for some time. She dialyze d and then pulled off by reports about 4 liters of fluid. She is currently breathing much easier and is awake and alert, though confusion persists. She is back on nasal cannula oxygen, in no respirato ry distress. PHYSICAL EXAMINATION: VITAL SIGNS: Blood pressure 122/60, pulse 70, 100% oxygen saturation on 2 liters nasal cannula. GENERAL: Mildly confused, but alert, able to answer questions. HEART: Regular rate and rhythm. LUNGS: Decreased breath sounds on the right side. No wheezing. No respiratory distress. ABDOMEN: Mild distention, soft, nontender to palpation. EXTREMITIES: No peripheral edema. LABORATORY STUDIES: WBC 12.9, hemoglobin 8.8, platelets 84,000. Sodium 133, potassium 4.6, BUN 60, creatinine 6.40. ASSESSMENT AND PLAN: 1. Hepatic hydrothorax. 2. Hepatorenal syndrome, now on dialysis. 3. Hepatic encephalopathy, waxing and waning despite lactulose and rifaximin. 4. Nonalcoholic steatohepatitis cirrhosis, with severe decompensation. No new recommendations from a GI standpoint today. Again, discussed with the patient and also [facility] that prognosis is quite grim. At this time, she is not a good candidate for liver osuna splant evaluation, which would need to be done at [facility] where she is already established. Hopefully, we will be able to get her clinically stabilized from a fluid status and respiratory sta ndpoint enough to get back down there for palpation evaluation, but if not, then decisions may need t o be made regarding hospice/palliative care.
[2018-05-19 05:43] LABS: Anion Gap 10 mmol/L (10-20); BUN (Urea Nitrogen) 32 mg/dL (9.8-20.1); Calc. Creatinine Clearance 18 mL/min (70-130); Calcium 8.8 mg/dL (7.8-10.44); Carbon Dioxide 30 mmol/L (23-31); Chloride 98 mmol/L (98-107); Estimated GFR-MDRD 12; Glucose 117 mg/dL (80-115); Potassium 4.1 mmol/L (3.5-5.1); Sodium 134 mmol/L (136-145)
[2018-05-19] MEDS: Levothyroxine Sodium 100 MCG TAB PO SCH (06:00)
[2018-05-19] MEDS: Mometasone/Formoterol 120 PUFF INHALER INH SCH ×2 (06:39→19:30)
--- NOTE | 2018-05-19 08:27 | PDOC.PN ---
- Subjective Encounter Start Date: 05/19/18 Encounter Start Time: 08:25 Subjective: no complaints - Objective Resuscitation Status: Resuscitation Status FULL:Full Resuscitation MAR Reviewed: Yes Vital Signs & Weight: Vital Signs (12 hours) Temp Pulse Resp Pulse Ox 05/19/18 08:00 98.0 F 05/19/18 06:41 100 05/19/18 06:39 63 15 100 05/19/18 04:00 99.1 F 05/19/18 00:00 98.6 F Weight Admit Weight 192 lb 3.2 oz Weight 169 lb 15.622 oz Most Recent Monitor Data Heart Rate from ECG 64 NIBP 118/66 NIBP BP-Mean 83 Respiration from ECG 18 SpO2 100 I&O: 05/18/18 05/19/18 05/20/18 06:59 06:59 06:59 Intake Total 830 240 0 Output Total 100 0 0 Balance 730 240 0 Result Diagrams: 05/18/18 15:19 05/19/18 05:00 Additional Labs: Accuchecks 05/19/18 05/18/18 05/18/18 05:06 22:20 17:59 POC Glucose 118 H 114 H 97 05/18/18 05/18/18 11:10 09:12 POC Glucose 135 H 142 H Phys Exam - Physical Examination Neck: no JVD clear ant mayers Cardiovascular: RRR, no significant murmur Gastrointestinal: soft, non-tender, positive bowel sounds Musculoskeletal: edema present Dx/Plan (1) ESRD on hemodialysis Code(s): N18.6 - END STAGE RENAL DISEASE; Z99.2 - DEPENDENCE ON RENAL DIALYSIS Status: Acute (2) SABRINA (acute kidney injury) Code(s): N17.9 - ACUTE KIDNEY FAILURE, UNSPECIFIED Status: Acute Comment: Suspect hepatorenal syndrome. 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 permacath in, left IJ TL in. (3) Pleural effusion associated with hepatic disorder Code(s): K76.9 - LIVER DISEASE, UNSPECIFIED; J91.8 - PLEURAL EFFUSION IN OTHER CONDITIONS CLASSIFIED ELSEWHERE Status: Acute (4) Chronic diastolic CHF (congestive heart failure), NYHA class 3 Code(s): I50.32 - CHRONIC DIASTOLIC (CONGESTIVE) HEART FAILURE Status: Chronic Comment: per ECHO (5) Hepatorenal syndrome Code(s): K76.7 - HEPATORENAL SYNDROME Status: Chronic (6) History of esophageal varices with bleeding Code(s): Z87.19 - PERSONAL HISTORY OF OTHER DISEASES OF THE DIGESTIVE SYSTEM Status: Chronic Comment: s/p banding in past (7) Thrombocytopenia Code(s): D69.6 - THROMBOCYTOPENIA, UNSPECIFIED Status: Chronic Comment: Due to Cirrhosis.stable (8) Cirrhosis Code(s): K74.60 - UNSPECIFIED CIRRHOSIS OF LIVER Status: Chronic Qualifiers: Hepatic cirrhosis type: other cirrhosis Qualified Code(s): K74.69 - Other cirrhosis of liver Comment: GUY w GAVE (9) Diabetes type 2, uncontrolled Code(s): E11.65 - TYPE 2 DIABETES MELLITUS WITH HYPERGLYCEMIA Status: Chronic Qualifiers: Glycemic state: with hyperglycemia Qualified Code(s): E11.65 - Type 2 diabetes mellitus with hyperglycemia (10) HLD (hyperlipidemia) Code(s): E78.5 - HYPERLIPIDEMIA, UNSPECIFIED Status: Chronic Qualifiers: Hyperlipidemia type: unspecified Qualified Code(s): E78.5 - Hyperlipidemia , unspecified (11) Hypertension Code(s): I10 - ESSENTIAL (PRIMARY) HYPERTENSION Status: Chronic Qualifiers: Hypertension type: essential hypertension Qualified Code(s): I10 - Essential (primary) hypertension (12) Hypothyroidism Code(s): E03.9 - HYPOTHYROIDISM, UNSPECIFIED Status: Chronic Qualifiers: Hypothyroidism type: acquired Qualified Code(s): E03.9 - Hypothyroidism, unspecified - Plan cont O2, nebs -: cont accu/ss -: cont xifaxin -: cont HD -: discuss with GI, Chief Information Officer * .
[2018-05-19] MEDS: Escitalopram Oxalate 20 mg Tablet PO SCH (09:00)
[2018-05-19] MEDS: Pregabalin 50 MG CAP PO SCH ×3 (09:00→20:25)
[2018-05-19] MEDS: Nebivolol HCl 5 MG TAB PO SCH (09:00)
[2018-05-19] MEDS: Multivit, Therapeutic 1 TAB PO SCH (09:00)
[2018-05-19] MEDS: Loratadine 10 MG TAB PO SCH (09:00)
[2018-05-19] MEDS: Atorvastatin Calcium 10 MG TAB PO SCH (09:00)
[2018-05-19] MEDS: Rifaximin 550 MG TAB PO SCH ×2 (09:00→20:25)
--- NOTE | 2018-05-19 09:49 | PRG ---
DATE OF SERVICE: 05/19/2018 SUBJECTIVE: This is a 63-year-old female being seen for end-stage renal disease. Denies any nausea, vomiting, or chest pain. PHYSICAL EXAMINATION: GENERAL: Patient is awake. VITAL SIGNS: Afebrile. Pulse 60, breathing 16, blood pressure 118/66. OBJECTIVE: See above. Awake, alert, in no acute distress. GENERAL APPEARANCE AND MENTAL STATUS: Fair. HEAD/NECK: Normocephalic. Atraumatic. EYES: EOMI. No deformity. EARS: Clear. No ulcers. NOSE: Intact. No lesions. MOUTH: Clear. No discharge. THROAT: Clear. No exudate. LUNGS: Clear. No crackles. CARDIAC: S1, S2. No rub. ABDOMEN: Benign. BS+. GENITALIA/RECTUM: Berman absent. BACK/EXTREMITIES: Edema 0+ Ulcer- NEUROLOGICAL: Alert and motor intact. SKIN: Rash- Bruise- LYMPHATICS: Edema- Ulcer- LABORATORY: Hemoglobin 8.8. ASSESSMENT AND RECOMMENDATIONS: 1. Stage 6 chronic kidney disease. Continue hemodialysis. 2. Hypertension, stable. 3. Anemia, stable. 4. Congestive heart failure. Continue ultrafiltration.
--- NOTE | 2018-05-19 10:24 | PRG ---
DATE OF SERVICE: 05/19/2018 SERVICE: Pulmonary Medicine. INTERVAL HISTORY: The patient is doing great from a respiratory standpoint, breathing comfortably. She still has a little bit of asterixis, but it is much improved compared to yesterday. Otherwise, t here has been no interval change to her condition. She got 4 liters off with dialysis yesterday and we are targeting an additional 3 today. PHYSICAL EXAMINATION: VITAL SIGNS: Afebrile, pulse 63, blood pressure 118/66, respirations 18, saturation 100% on 2 liters nasal cannula. GENERAL: The patient is awake, alert, no apparent distress. LUNGS: Excellent air entry. There is decreased air entry on the right side; however. No prolonged expiratory phase or wheezing is present. There are some crackles dependently. HEART: Normal rate, regular. ABDOMEN: Soft, nontender, nondistended. Bowel sounds are positive. MUSCULOSKELETAL: No cyanosis or clubbing. There is trace to 1+ pitting in the bilateral lower extre mities. NEUROLOGIC: Grossly nonfocal. LABORATORY DATA: WBC 12.9, hemoglobin 8.8, platelets 84,000 and stable. A pH 7.16, pCO2 of 77, pO2 of 99. Creatinine 3.91 and significantly down trending, BUN 32. Basic metabolic profile is otherwis e unremarkable with bicarbonate is normal. Gram-negative rory is growing in urine culture. ASSESSMENT: 1. Acute hypoxic and hypercapnic respiratory failure, once again resolved. 2. Hepatic hydrothorax. 3. Cirrhosis, child C. 4. Hepatorenal syndrome, progressing end-stage renal disease. 5. Obstructive sleep apnea. 6. Acute on chronic diastolic heart failure. DISCUSSION AND PLAN: The patient is doing really quite well from a respiratory standpoint. At this point, she is stable for transition back out of the [facility] to the medical unit. We will continue aggre ssive mobilization efforts. A palliative discussions are ongoing. Pulmonary will continue to follow while the patient remains in house for now.
--- NOTE | 2018-05-19 19:56 | PRG ---
DATE OF SERVICE: 05/19/2018 GI INPATIENT DAILY PROGRESS NOTE SUBJECTIVE: Mrs. Olguin is breathing easy today. She remains confused. She denies any abdominal pain or nausea. She is tolerating her diet. OBJECTIVE: VITAL SIGNS: Temperature 98.4, blood pressure 137/70, heart rate is 76, 96% oxygen saturation on 2 l iters via nasal cannula. GENERAL: No acute distress. HEART: Regular rate and rhythm. LUNGS: Decreased breath sounds on the right side. No wheezing. No respiratory distress. ABDOMEN: Less distended today. Soft and nontender to palpation. EXTREMITIES: No peripheral edema. LABORATORY STUDIES: Sodium 134, potassium 4.1, BUN 32, creatinine 3.91, glucose 128. ASSESSMENT AND PLAN: 1. Cirrhosis secondary to nonalcoholic steatohepatitis, end-stage, with multiple manifestations of d ecompensation. 2. Hepatorenal syndrome, now on dialysis. 3. Hepatic hydrothorax. 4. Hepatic encephalopathy, refractory despite maximal medical therapy. I was able to have a long discussion with the patient's , Jatin this evening. We discussed he r case in detail including her clinical course over the past couple of years and now this recent deco mpensation and hospitalization over the past couple of weeks. Jatin is quite understanding of her cl inical situation. The hepatic hydrothorax and hepatorenal syndrome carry a dismal prognosis. My hop e had been to be able to get her stable enough to get out of the hospital and potentially have liver transplant evaluation down in [place], but we have had multiple setbacks this hospitalization. I am not a transplant sitecore developer, but in my estimation, she really is not a great candidate for liver tr ansplantation and it is not likely that she would get one even if she were down there. She is now de pendent on dialysis, and even with this, it seems her fluid status is tenuous and encephalopathy is r efractory. The family, in particular the patient's , are leaning toward consideration of hosp ice care and palliative measures only. I do think that this would be reasonable. If the goals of ca re are changed to palliative measures only, then the best course would probably be discontinuation of dialysis. All questions were answered. I remain available for any further discussions with family, other services, etc.
[2018-05-19] MEDS: HumaLOG 300 UNITS/3 ML VIAL SC PRN (21:10)
[2018-05-20] MEDS: Levothyroxine Sodium 100 MCG TAB PO SCH (05:18)
[2018-05-20 06:18] LABS: Anion Gap 9 mmol/L (10-20); BUN (Urea Nitrogen) 33 mg/dL (9.8-20.1); Calc. Creatinine Clearance 20 mL/min (70-130); Calcium 8.8 mg/dL (7.8-10.44); Carbon Dioxide 30 mmol/L (23-31); Chloride 101 mmol/L (98-107); Estimated GFR-MDRD 15; Glucose 146 mg/dL (80-115); Potassium 3.7 mmol/L (3.5-5.1); Sodium 136 mmol/L (136-145)
[2018-05-20] MEDS: Mometasone/Formoterol 120 PUFF INHALER INH SCH ×2 (06:46→18:44)
[2018-05-20] MEDS: Pregabalin 50 MG CAP PO SCH ×3 (08:45→20:39)
[2018-05-20] MEDS: Rifaximin 550 MG TAB PO SCH ×2 (08:45→20:38)
[2018-05-20] MEDS: Multivit, Therapeutic 1 TAB PO SCH (08:46)
[2018-05-20] MEDS: Escitalopram Oxalate 20 mg Tablet PO SCH (08:46)
[2018-05-20] MEDS: Nebivolol HCl 5 MG TAB PO SCH (08:46)
[2018-05-20] MEDS: Atorvastatin Calcium 10 MG TAB PO SCH (08:46)
[2018-05-20] MEDS: Loratadine 10 MG TAB PO SCH (08:46)
--- NOTE | 2018-05-20 08:47 | PDOC.PN ---
- Subjective Encounter Start Date: 05/20/18 Encounter Start Time: 08:46 Subjective: sleepy - Objective Resuscitation Status: Resuscitation Status DNR:Do Not Resuscitate MAR Reviewed: Yes Vital Signs & Weight: Vital Signs (12 hours) Temp Pulse Resp BP Pulse Ox 05/20/18 07:47 97.8 F 69 22 H 93/57 L 98 05/20/18 03:48 98.6 F 71 18 104/52 L 97 05/20/18 00:57 98.6 F 72 18 120/49 L 96 05/19/18 22:30 76 22 H 98 Weight Admit Weight 192 lb 3.2 oz Weight 155 lb 8 oz Most Recent Monitor Data Heart Rate from ECG 76 NIBP 137/70 NIBP BP-Mean 92 Respiration from ECG 27 SpO2 93 I&O: 05/19/18 05/20/18 05/21/18 06:59 06:59 06:59 Intake Total 240 470 Output Total 0 0 Balance 240 470 Result Diagrams: 05/18/18 15:19 05/20/18 05:20 Additional Labs: Accuchecks 05/20/18 05/19/18 05/19/18 03:52 19:29 16:18 POC Glucose 143 H 225 H 128 H 05/19/18 13:23 POC Glucose 99 Phys Exam - Physical Examination Neck: no JVD clear ant fieds Cardiovascular: RRR, no significant murmur Gastrointestinal: soft, non-tender, positive bowel sounds Musculoskeletal: edema present Dx/Plan (1) ESRD on hemodialysis Code(s): N18.6 - END STAGE RENAL DISEASE; Z99.2 - DEPENDENCE ON RENAL DIALYSIS Status: Acute (2) SABRINA (acute kidney injury) Code(s): N17.9 - ACUTE KIDNEY FAILURE, UNSPECIFIED Status: Acute Comment: Suspect hepatorenal syndrome. started on HD 05/08/18 Being set up for prison HD. permacath in, left IJ TL in. (3) Pleural effusion associated with hepatic disorder Code(s): K76.9 - LIVER DISEASE, UNSPECIFIED; J91.8 - PLEURAL EFFUSION IN OTHER CONDITIONS CLASSIFIED ELSEWHERE Status: Acute (4) Chronic diastolic CHF (congestive heart failure), NYHA class 3 Code(s): I50.32 - CHRONIC DIASTOLIC (CONGESTIVE) HEART FAILURE Status: Chronic Comment: per ECHO (5) Hepatorenal syndrome Code(s): K76.7 - HEPATORENAL SYNDROME Status: Chronic (6) History of esophageal varices with bleeding Code(s): Z87.19 - PERSONAL HISTORY OF OTHER DISEASES OF THE DIGESTIVE SYSTEM Status: Chronic Comment: s/p banding in past (7) Thrombocytopenia Code(s): D69.6 - THROMBOCYTOPENIA, UNSPECIFIED Status: Chronic Comment: Due to Cirrhosis.stable (8) Cirrhosis Code(s): K74.60 - UNSPECIFIED CIRRHOSIS OF LIVER Status: Chronic Qualifiers: Hepatic cirrhosis type: other cirrhosis Qualified Code(s): K74.69 - Other cirrhosis of liver Comment: GUY w GAVE (9) Diabetes type 2, uncontrolled Code(s): E11.65 - TYPE 2 DIABETES MELLITUS WITH HYPERGLYCEMIA Status: Chronic Qualifiers: Glycemic state: with hyperglycemia Qualified Code(s): E11.65 - Type 2 diabetes mellitus with hyperglycemia (10) HLD (hyperlipidemia) Code(s): E78.5 - HYPERLIPIDEMIA, UNSPECIFIED Status: Chronic Qualifiers: Hyperlipidemia type: unspecified Qualified Code(s): E78.5 - Hyperlipidemia , unspecified (11) Hypertension Code(s): I10 - ESSENTIAL (PRIMARY) HYPERTENSION Status: Chronic Qualifiers: Hypertension type: essential hypertension Qualified Code(s): I10 - Essential (primary) hypertension (12) Hypothyroidism Code(s): E03.9 - HYPOTHYROIDISM, UNSPECIFIED Status: Chronic Qualifiers: Hypothyroidism type: acquired Qualified Code(s): E03.9 - Hypothyroidism, unspecified (13) Hepatic encephalopathy Code(s): K72.90 - HEPATIC FAILURE, UNSPECIFIED WITHOUT COMA Status: Acute (14) Acute respiratory failure with hypercapnia Code(s): J96.02 - ACUTE RESPIRATORY FAILURE WITH HYPERCAPNIA Status: Acute - Plan cont HD -: cont current meds -: prognosis disnal , in discussions with family re palliative care,etc * .
--- NOTE | 2018-05-20 14:08 | PRG ---
DATE OF SERVICE: 05/20/2018 SUBJECTIVE: This is a 63-year-old female being seen for end-stage renal disease. The patient denies any nausea, vomiting, or chest pain. PHYSICAL EXAMINATION: GENERAL: Patient is awake, alert. VITAL SIGNS: Afebrile, pulse 92, breathing 16, blood pressure is 104/52. OBJECTIVE: See above. Awake, alert, in no acute distress. GENERAL APPEARANCE AND MENTAL STATUS: Fair. HEAD/NECK: Normocephalic. Atraumatic. EYES: EOMI. No deformity. EARS: Clear. No ulcers. NOSE: Intact. No lesions. MOUTH: Clear. No discharge. THROAT: Clear. No exudate. LUNGS: Clear. No crackles. CARDIAC: S1, S2. No rub. ABDOMEN: Benign. BS+. GENITALIA/RECTUM: Berman absent. BACK/EXTREMITIES: Edema 0+ Ulcer- NEUROLOGICAL: Alert and motor intact. SKIN: Rash- Bruise- LYMPHATICS: Edema- Ulcer- LABORATORY DATA: Show hemoglobin 8.8. ASSESSMENT AND RECOMMENDATIONS: 1. Stage 6 chronic kidney disease, plan hemodialysis. 2. Hypertension, stable. 3. Anemia, stable. 4. Medication based on glomerular filtration rate are appropriate.
--- NOTE | 2018-05-20 14:45 | PRG ---
DATE OF SERVICE: 05/20/2018 SERVICE: Pulmonary Medicine. INTERVAL HISTORY: The patient is doing great from a respiratory standpoint. Mentation robles, she is actually doing quite good today. She denies any current trach shortness of breath or chest discomfor t. PHYSICAL EXAMINATION: VITAL SIGNS: Afebrile, pulse 69, blood pressure 93/57, respirations 22, saturation 98% on 2 liters n sierra cannula. GENERAL: The patient is awake, alert, in no apparent distress. LUNGS: Excellent air entry. There is much improved air entry in the right base. No prolonged expir atory phase or wheezing is appreciated. No crackles. HEART: Normal rate, regular. ABDOMEN: Soft, nontender, nondistended. Bowel sounds are positive. MUSCULOSKELETAL: No cyanosis or clubbing. No pitting in the bilateral lower extremities. NEUROLOGIC: Grossly nonfocal. LABORATORY DATA: Basic metabolic profile is essentially unremarkable except for BUN and creatinine a re elevated and improving. ASSESSMENT: 1. Acute hypoxic and hypercapnic respiratory failure, resolved. 2. Hepatic hydrothorax. 3. Cirrhosis child C. 4. Metabolic encephalopathy, improving. 5. Hepatorenal syndrome, progressing end-stage renal disease. 6. Obstructive sleep apnea. 7. Acute on chronic diastolic heart failure. DISCUSSION AND PLAN: The patient is doing fantastic from a respiratory standpoint. I will continue to follow for the time being. She is approaching a point where she could likely be transitioned out of the hospital if a safe care setting and a safe care environment is established. Currently, there remains no indication for thoracentesis at this time.
[2018-05-20] MEDS: Epoetin (ESRD) 20,000 UNITS/ML IVP SCH (18:20)
[2018-05-20] MEDS: HumaLOG 300 UNITS/3 ML VIAL SC PRN (22:09)
[2018-05-21] MEDS: Levothyroxine Sodium 100 MCG TAB PO SCH (04:52)
[2018-05-21] MEDS: HumaLOG 300 UNITS/3 ML VIAL SC PRN ×2 (04:54→16:08)
[2018-05-21 05:00] LABS: Anion Gap 10 mmol/L (10-20); BUN (Urea Nitrogen) 23 mg/dL (9.8-20.1); Calc. Creatinine Clearance 22 mL/min (70-130); Calcium 8.8 mg/dL (7.8-10.44); Carbon Dioxide 30 mmol/L (23-31); Chloride 101 mmol/L (98-107); Estimated GFR-MDRD 16; Glucose 170 mg/dL (80-115); Potassium 3.7 mmol/L (3.5-5.1); Sodium 137 mmol/L (136-145)
[2018-05-21] MEDS: Mometasone/Formoterol 120 PUFF INHALER INH SCH ×2 (07:01→18:51)
--- NOTE | 2018-05-21 09:18 | PRG ---
DATE OF SERVICE: 05/21/2018 SUBJECTIVE: This is a 63-year-old female being seen for end-stage renal disease. The patient denies any nausea, vomiting or chest pain. PHYSICAL EXAMINATION: GENERAL: Patient is awake, alert. VITAL SIGNS: Afebrile, pulse 75, breathing 16, blood pressure 112/60. OBJECTIVE: See above. Awake, alert, in no acute distress. GENERAL APPEARANCE AND MENTAL STATUS: Fair. HEAD/NECK: Normocephalic. Atraumatic. EYES: EOMI. No deformity. EARS: Clear. No ulcers. NOSE: Intact. No lesions. MOUTH: Clear. No discharge. THROAT: Clear. No exudate. LUNGS: Clear. No crackles. CARDIAC: S1, S2. No rub. ABDOMEN: Benign. BS+. GENITALIA/RECTUM: Berman absent. BACK/EXTREMITIES: Edema 0+ Ulcer- NEUROLOGICAL: Alert and motor intact. SKIN: Rash- Bruise- LYMPHATICS: Edema- Ulcer- LABORATORY DATA: Hemoglobin 8.8. ASSESSMENT AND RECOMMENDATIONS: 1. Stage 6 chronic kidney disease, continue hemodialysis. 2. Hypertension, stable. 3. Anemia, stable. 4. Medications based on glomerular filtration rate are appropriate.
[2018-05-21] MEDS ORDERED: Heparin 1,000 UNITS/ML VIAL ONE (11:11)
--- NOTE | 2018-05-21 11:49 | PRG ---
DATE OF SERVICE: 05/21/2018 SERVICE: Pulmonary Medicine INTERVAL HISTORY: The patient is doing really well from a respiratory standpoint. She is on dialysi s currently. She has absolutely no complaints. Otherwise, there has been no interval change to her condition. She does not demonstrate significant encephalopathy or asterixis today which is nice to s jaleel. PHYSICAL EXAMINATION: VITAL SIGNS: Afebrile, pulse 75, blood pressure 112/63, respirations 16, saturation 98% on 2 liters nasal cannula. GENERAL: The patient is awake, alert, in no apparent distress. LUNGS: Excellent air entry on the left. There is improved air on the right. No prolonged expirator y phase, wheezing or crackles appreciated. HEART: Normal rate, regular. ABDOMEN: Soft, nontender, nondistended. Bowel sounds are positive. MUSCULOSKELETAL: No cyanosis or clubbing. No pitting in the bilateral lower extremities. NEUROLOGIC: Grossly nonfocal. LABORATORY DATA: Basic metabolic profile is essentially unremarkable with a BUN that is low at 23, c reatinine is down trending at 2.92. Urine culture is growing Enterobacter aerogenes. This is sensit raul to fluoroquinolones, but resistant to third generation cephalosporins. ASSESSMENT: 1. Acute hypoxic and hypercapnic respiratory failure, resolved. 2. Hepatic hydrothorax. 3. Cirrhosis, child C. 4. Metabolic encephalopathy, resolved. 5. Hepatorenal syndrome, progressing end-stage renal disease. 6. Obstructive sleep apnea. 7. Acute on chronic diastolic heart failure. DISCUSSION AND PLAN: The patient is doing absolutely wonderful from a respiratory standpoint. I angelito l continue to follow intermittently during this hospital stay, but for the time being, she will need to continue dialysis to keep the water off of her and prevent it from going to the lung. Please call if there is a change in her respiratory condition. We will continue all other supportive measures. She is status post a full course of antibiotic for the urine.
[2018-05-21] MEDS: Atorvastatin Calcium 10 MG TAB PO SCH (12:00)
[2018-05-21] MEDS: Escitalopram Oxalate 20 mg Tablet PO SCH (12:00)
[2018-05-21] MEDS: Rifaximin 550 MG TAB PO SCH ×2 (12:01→20:47)
[2018-05-21] MEDS: Multivit, Therapeutic 1 TAB PO SCH (12:01)
[2018-05-21] MEDS: Loratadine 10 MG TAB PO SCH (12:01)
[2018-05-21] MEDS: Pregabalin 50 MG CAP PO SCH ×3 (12:01→20:48)
[2018-05-21] MEDS: Nebivolol HCl 5 MG TAB PO SCH (12:02)
--- NOTE | 2018-05-21 14:09 | PDOC.PN ---
- Subjective Encounter Start Date: 05/21/18 Encounter Start Time: 14:08 Subjective: alert appropriate - Objective Resuscitation Status: Resuscitation Status DNR:Do Not Resuscitate MAR Reviewed: Yes Vital Signs & Weight: Vital Signs (12 hours) Temp Pulse Resp BP Pulse Ox 05/21/18 07:22 98.2 F 75 16 112/63 98 05/21/18 07:01 74 16 98 Weight Admit Weight 192 lb 3.2 oz Weight 155 lb 8 oz Most Recent Monitor Data Heart Rate from ECG 76 NIBP 137/70 NIBP BP-Mean 92 Respiration from ECG 27 SpO2 93 I&O: 05/20/18 05/21/18 05/22/18 06:59 06:59 06:59 Intake Total 470 Output Total 0 Balance 470 Result Diagrams: 05/18/18 15:19 05/21/18 04:20 Additional Labs: Accuchecks 05/21/18 05/21/18 05/20/18 12:12 04:01 19:36 POC Glucose 95 167 H 221 H 05/20/18 16:11 POC Glucose 145 H Phys Exam - Physical Examination Neck: no JVD Respiratory: clear to auscultation bilateral except dull in base Cardiovascular: RRR, no significant murmur Gastrointestinal: soft, positive bowel sounds Musculoskeletal: edema present Dx/Plan (1) ESRD on hemodialysis Code(s): N18.6 - END STAGE RENAL DISEASE; Z99.2 - DEPENDENCE ON RENAL DIALYSIS Status: Acute (2) SABRINA (acute kidney injury) Code(s): N17.9 - ACUTE KIDNEY FAILURE, UNSPECIFIED Status: Acute Comment: Suspect hepatorenal syndrome. started on HD 05/08/18 Being set up for correction HD. permacath in, left IJ TL in. (3) Pleural effusion associated with hepatic disorder Code(s): K76.9 - LIVER DISEASE, UNSPECIFIED; J91.8 - PLEURAL EFFUSION IN OTHER CONDITIONS CLASSIFIED ELSEWHERE Status: Acute (4) Chronic diastolic CHF (congestive heart failure), NYHA class 3 Code(s): I50.32 - CHRONIC DIASTOLIC (CONGESTIVE) HEART FAILURE Status: Chronic Comment: per ECHO (5) Hepatorenal syndrome Code(s): K76.7 - HEPATORENAL SYNDROME Status: Chronic (6) History of esophageal varices with bleeding Code(s): Z87.19 - PERSONAL HISTORY OF OTHER DISEASES OF THE DIGESTIVE SYSTEM Status: Chronic Comment: s/p banding in past (7) Thrombocytopenia Code(s): D69.6 - THROMBOCYTOPENIA, UNSPECIFIED Status: Chronic Comment: Due to Cirrhosis.stable (8) Cirrhosis Code(s): K74.60 - UNSPECIFIED CIRRHOSIS OF LIVER Status: Chronic Qualifiers: Hepatic cirrhosis type: other cirrhosis Qualified Code(s): K74.69 - Other cirrhosis of liver Comment: GUY w GAVE (9) Diabetes type 2, uncontrolled Code(s): E11.65 - TYPE 2 DIABETES MELLITUS WITH HYPERGLYCEMIA Status: Chronic Qualifiers: Glycemic state: with hyperglycemia Qualified Code(s): E11.65 - Type 2 diabetes mellitus with hyperglycemia (10) HLD (hyperlipidemia) Code(s): E78.5 - HYPERLIPIDEMIA, UNSPECIFIED Status: Chronic Qualifiers: Hyperlipidemia type: unspecified Qualified Code(s): E78.5 - Hyperlipidemia , unspecified (11) Hypertension Code(s): I10 - ESSENTIAL (PRIMARY) HYPERTENSION Status: Chronic Qualifiers: Hypertension type: essential hypertension Qualified Code(s): I10 - Essential (primary) hypertension (12) Hypothyroidism Code(s): E03.9 - HYPOTHYROIDISM, UNSPECIFIED Status: Chronic Qualifiers: Hypothyroidism type: acquired Qualified Code(s): E03.9 - Hypothyroidism, unspecified (13) Hepatic encephalopathy Code(s): K72.90 - HEPATIC FAILURE, UNSPECIFIED WITHOUT COMA Status: Acute (14) Acute respiratory failure with hypercapnia Code(s): J96.02 - ACUTE RESPIRATORY FAILURE WITH HYPERCAPNIA Status: Acute - Plan cont HD -: cont xifaxin,etc -: needs outpt HD * .
[2018-05-22] MEDS: Levothyroxine Sodium 100 MCG TAB PO SCH (05:16)
[2018-05-22 06:22] LABS: Anion Gap 9 mmol/L (10-20); BUN (Urea Nitrogen) 20 mg/dL (9.8-20.1); Calc. Creatinine Clearance 21 mL/min (70-130); Calcium 8.7 mg/dL (7.8-10.44); Carbon Dioxide 30 mmol/L (23-31); Chloride 99 mmol/L (98-107); Estimated GFR-MDRD 15; Glucose 141 mg/dL (80-115); Potassium 3.9 mmol/L (3.5-5.1); Sodium 134 mmol/L (136-145)
[2018-05-22] MEDS: Mometasone/Formoterol 120 PUFF INHALER INH SCH ×2 (07:33→18:20)
[2018-05-22] MEDS: Loratadine 10 MG TAB PO SCH (09:25)
[2018-05-22] MEDS: Atorvastatin Calcium 10 MG TAB PO SCH (09:25)
[2018-05-22] MEDS: Escitalopram Oxalate 20 mg Tablet PO SCH (09:25)
[2018-05-22] MEDS: Nebivolol HCl 5 MG TAB PO SCH (09:25)
[2018-05-22] MEDS: Pregabalin 50 MG CAP PO SCH ×3 (09:25→21:00)
[2018-05-22] MEDS: Multivit, Therapeutic 1 TAB PO SCH (09:25)
[2018-05-22] MEDS: Rifaximin 550 MG TAB PO SCH ×2 (09:25→21:00)
--- NOTE | 2018-05-22 11:32 | PRG ---
DATE OF SERVICE: 05/22/2018 SUBJECTIVE: A 63-year-old female being seen for end-stage renal disease. The patient denies any jose maria sea, vomiting or chest pain. PHYSICAL EXAMINATION: GENERAL: Patient is awake, alert. VITAL SIGNS: Afebrile, 64, breathing 16, blood pressure 160/63. HEAD/NECK: Normocephalic. Atraumatic. EYES: EOMI. No deformity. EARS: Clear. No ulcers. NOSE: Intact. No lesions. MOUTH: Clear. No discharge. THROAT: Clear. No exudate. LUNGS: Clear. No crackles. CARDIAC: S1, S2. No rub. ABDOMEN: Benign. BS+. GENITALIA/RECTUM: Berman absent. BACK/EXTREMITIES: Edema 0+ Ulcer- NEUROLOGICAL: Alert and motor intact. SKIN: Rash- Bruise- LYMPHATICS: Edema- Ulcer- LABORATORY DATA: Show hemoglobin 8.8 and creatinine 3.1. ASSESSMENT AND RECOMMENDATIONS: 1. Stage 6 chronic kidney disease. We will plan dialysis on Thursday. 2. Hypertension, stable. 3. Anemia, stable. 4. Congestive heart failure, stable.
[2018-05-22] MEDS: HumaLOG 300 UNITS/3 ML VIAL SC PRN ×3 (12:16→21:10)
[2018-05-22] MEDS: Epoetin (ESRD) 20,000 UNITS/ML IVP SCH (15:22)
--- NOTE | 2018-05-22 15:40 | PDOC.PN ---
- Subjective Encounter Start Date: 05/22/18 Encounter Start Time: 03:10 Subjective: no complains, waiting to go home after dialysis is set up - Objective Resuscitation Status: Resuscitation Status DNR:Do Not Resuscitate MAR Reviewed: Yes Vital Signs & Weight: Vital Signs (12 hours) Temp Pulse Resp BP Pulse Ox 05/22/18 08:00 100 05/22/18 07:57 98.0 F 74 16 116/60 100 Weight Admit Weight 192 lb 3.2 oz Weight 155 lb 8 oz Most Recent Monitor Data Heart Rate from ECG 76 NIBP 137/70 NIBP BP-Mean 92 Respiration from ECG 27 SpO2 93 I&O: 05/21/18 05/22/18 05/23/18 06:59 06:59 06:59 Intake Total 500 Output Total 2000 Balance -1500 Result Diagrams: 05/18/18 15:19 05/22/18 05:30 Additional Labs: Accuchecks 05/22/18 05/22/18 05/21/18 11:40 03:57 20:04 POC Glucose 206 H 141 H 258 H 05/21/18 16:07 POC Glucose 228 H Phys Exam - Physical Examination HEENT: PERRLA, moist MMs, sclera anicteric, TM's clear, oral pharynx no lesions , 2+ tonsils Neck: no nodes, no JVD, supple, full ROM Respiratory: no wheezing, no rales, no rhonchi, clear to auscultation bilateral Cardiovascular: RRR, no significant murmur, no rub Gastrointestinal: soft, non-tender, no distention, positive bowel sounds Musculoskeletal: no edema, pulses present Neurological: non-focal, normal sensation, moves all 4 limbs Lymphatic: no nodes Psychiatric: normal affect, A&O x 3 Dx/Plan (1) ESRD on hemodialysis Code(s): N18.6 - END STAGE RENAL DISEASE; Z99.2 - DEPENDENCE ON RENAL DIALYSIS Status: Acute Comment: Continue HD, SW to place patient for OP dialysis (2) Pleural effusion associated with hepatic disorder Code(s): K76.9 - LIVER DISEASE, UNSPECIFIED; J91.8 - PLEURAL EFFUSION IN OTHER CONDITIONS CLASSIFIED ELSEWHERE Status: Acute (3) Chronic diastolic CHF (congestive heart failure), NYHA class 3 Code(s): I50.32 - CHRONIC DIASTOLIC (CONGESTIVE) HEART FAILURE Status: Chronic Comment: per ECHO (4) Hepatorenal syndrome Code(s): K76.7 - HEPATORENAL SYNDROME Status: Chronic - Plan cont current plan of care pending OP placement of dialysis
[2018-05-23] MEDS: Levothyroxine Sodium 100 MCG TAB PO SCH (05:39)
[2018-05-23] MEDS: HumaLOG 300 UNITS/3 ML VIAL SC PRN (05:40)
[2018-05-23 05:52] LABS: Anion Gap 11 mmol/L (10-20); BUN (Urea Nitrogen) 38 mg/dL (9.8-20.1); Calc. Creatinine Clearance 13 mL/min (70-130); Calcium 8.9 mg/dL (7.8-10.44); Carbon Dioxide 28 mmol/L (23-31); Chloride 98 mmol/L (98-107); Estimated GFR-MDRD 9; Glucose 232 mg/dL (80-115); Potassium 4.1 mmol/L (3.5-5.1); Sodium 133 mmol/L (136-145)
[2018-05-23] MEDS: Mometasone/Formoterol 120 PUFF INHALER INH SCH (07:22)
[2018-05-23 07:48] VITALS: BP 118/69; TEMP 98.2
[2018-05-23] MEDS: Nebivolol HCl 5 MG TAB PO SCH (08:42)
[2018-05-23] MEDS: Atorvastatin Calcium 10 MG TAB PO SCH (08:43)
[2018-05-23] MEDS: Multivit, Therapeutic 1 TAB PO SCH (08:43)
[2018-05-23] MEDS: Loratadine 10 MG TAB PO SCH (08:43)
[2018-05-23] MEDS: Pregabalin 50 MG CAP PO SCH ×2 (08:43→15:15)
[2018-05-23] MEDS: Rifaximin 550 MG TAB PO SCH (08:43)
[2018-05-23] MEDS: Escitalopram Oxalate 20 mg Tablet PO SCH (08:43)
--- NOTE | 2018-05-23 14:59 | PRG ---
DATE OF SERVICE: 05/23/2018 SUBJECTIVE: A 63-year-old female being seen for end-stage renal disease. The patient denies any nausea, vomiting, or chest pain. PHYSICAL EXAMINATION: GENERAL: Patient is awake, alert. VITAL SIGNS: Afebrile, pulse 79, breathing 16, blood pressure 118/69. HEAD/NECK: Normocephalic. Atraumatic. EYES: EOMI. No deformity. EARS: Clear. No ulcers. NOSE: Intact. No lesions. MOUTH: Clear. No discharge. THROAT: Clear. No exudate. LUNGS: Clear. No crackles. CARDIAC: S1, S2. No rub. ABDOMEN: Benign. BS+. GENITALIA/RECTUM: Berman absent. BACK/EXTREMITIES: Edema 0+ Ulcer- NEUROLOGICAL: Alert and motor intact. SKIN: Rash- Bruise- LYMPHATICS: Edema- Ulcer- LABORATORY DATA: Show hemoglobin 8.8. ASSESSMENT AND RECOMMENDATIONS: 1. Stage 6 chronic kidney disease, plan dialysis. 2. Hypertension, stable. 3. Anemia, stable. 4. Medications based on glomerular filtration rate are appropriate. MTDD
== END 2018-05-23 16:16 | disposition short-term general hospital (02) | DRG 673 ==
LOC: ERS 18:18 → T4-B 23:43 → OBSVTOIN 23:43 → IMCU/EMU 05-05 11:04 → 2NO 05-14 16:39 → CCU 05-18 09:48 → T4-A 05-19 16:59
PROVIDERS: ADMIT Internal Medicine; ATTEND Internal Medicine
PROC: 5A09457 Assistance with Respiratory Ventilation, 24-96 Consecutive Hours, Continuous Positive Airway Pressure (ICD-10-PCS; 2018-05-01)
PROC: 0W993ZX Drainage of Right Pleural Cavity, Percutaneous Approach, Diagnostic (ICD-10-PCS; 2018-05-05)
PROC: 5A1D70Z Performance of Urinary Filtration, Intermittent, Less than 6 Hours Per Day (ICD-10-PCS; 2018-05-08)
PROC: 06HM33Z Insertion of Infusion Device into Right Femoral Vein, Percutaneous Approach (ICD-10-PCS; 2018-05-09)
PROC: 5A1D70Z Performance of Urinary Filtration, Intermittent, Less than 6 Hours Per Day (ICD-10-PCS; 2018-05-09)
PROC: 5A1D70Z Performance of Urinary Filtration, Intermittent, Less than 6 Hours Per Day (ICD-10-PCS; 2018-05-11)
PROC: 0JH63XZ Insertion of Tunneled Vascular Access Device into Chest Subcutaneous Tissue and Fascia, Percutaneous Approach (ICD-10-PCS; principal; 2018-05-13)
PROC: 02HV33Z Insertion of Infusion Device into Superior Vena Cava, Percutaneous Approach (ICD-10-PCS; 2018-05-13)
PROC: B5181ZA Fluoroscopy of Superior Vena Cava using Low Osmolar Contrast, Guidance (ICD-10-PCS; 2018-05-13)
PROC: 5A1D70Z Performance of Urinary Filtration, Intermittent, Less than 6 Hours Per Day (ICD-10-PCS; 2018-05-13)
PROC: 5A1D70Z Performance of Urinary Filtration, Intermittent, Less than 6 Hours Per Day (ICD-10-PCS; 2018-05-15)
PROC: 5A1D70Z Performance of Urinary Filtration, Intermittent, Less than 6 Hours Per Day (ICD-10-PCS; 2018-05-18)
PROC: 5A1D70Z Performance of Urinary Filtration, Intermittent, Less than 6 Hours Per Day (ICD-10-PCS; 2018-05-19)
PROC: 5A1D70Z Performance of Urinary Filtration, Intermittent, Less than 6 Hours Per Day (ICD-10-PCS; 2018-05-20)
PROC: 5A1D70Z Performance of Urinary Filtration, Intermittent, Less than 6 Hours Per Day (ICD-10-PCS; 2018-05-21)
DX: N17.9 Acute kidney failure, unspecified (principal); J96.02 Acute respiratory failure with hypercapnia; J96.01 Acute respiratory failure with hypoxia; G93.41 Metabolic encephalopathy; K76.7 Hepatorenal syndrome; R18.8 Other ascites; J94.8 Other specified pleural conditions; I13.2 Hypertensive heart and chronic kidney disease with heart failure and with stage 5 chronic kidney disease, or end stage renal disease; E87.2 Acidosis; J91.8 Pleural effusion in other conditions classified elsewhere; I50.32 Chronic diastolic (congestive) heart failure; J45.909 Unspecified asthma, uncomplicated; N18.6 End stage renal disease; E11.22 Type 2 diabetes mellitus with diabetic chronic kidney disease; Z79.4 Long term (current) use of insulin; K74.69 Other cirrhosis of liver; Z68.33 Body mass index [BMI] 33.0-33.9, adult; D69.6 Thrombocytopenia, unspecified; K42.9 Umbilical hernia without obstruction or gangrene; E88.81 Metabolic syndrome and other insulin resistance; E66.01 Morbid (severe) obesity due to excess calories; E78.5 Hyperlipidemia, unspecified; Z88.2 Allergy status to sulfonamides; G47.33 Obstructive sleep apnea (adult) (pediatric); K72.90 Hepatic failure, unspecified without coma; D63.1 Anemia in chronic kidney disease; E87.5 Hyperkalemia; E88.09 Other disorders of plasma-protein metabolism, not elsewhere classified; Z87.19 Personal history of other diseases of the digestive system; E03.9 Hypothyroidism, unspecified
CPT/HCPCS: 36415; 36416; 71045; 76770; 80048; 80053; 80069; 81001; 82140; 82553; 82570; 82805; 83735; 83880; 84100; 84156; 84484; 85014; 85018; 85025; 85610; 85730; 86580; 86704; 86706; 86803; 87077; 87086; 87186; 87340; 90471; 90686; 90732; 90935; 93005; 93010; 93306; 93970; 94640; 94660; 96374; C1752; C1769; G0008; G0009; G0257; G0365; G8978-GP-CK; G8979-GP-CI; G8979-GP-CJ; G8987-GO-CJ; G8987-GO-CK; G8988-GO-CH; G8988-GO-CJ; J0670; J1642; J1644; J1940; J2001; J2250; J2354; J3010; J7050; J7620; P9047; Q4081

== ENCOUNTER 2018-06-16 09:31 | Day surgery (SDC) | payer BC ==
[2018-06-14 17:45] VITALS: BMI 27.8
[2018-06-16] MEDS ORDERED: CEFAZOLIN 2 GM/50 ML BAG ONE (11:19)
[2018-06-16 11:35] LABS: #Eosinphils 0.1 thou/uL (0.0-0.7); #Lymphocytes 0.5 thou/uL (1.20-3.40); #Monocytes 0.4 thou/uL (0.11-0.59); #Neutrophils 3.2 thou/uL (1.40-6.50); %Basophils 0.6 % (0.0-1.0); %Eosinophils 3.1 % (0.0-10.0); %Lymphocytes 10.7 % (21.0-51.0); %Monocytes 9.8 % (0.0-10.0); %Neutrophils 75.8 % (42.0-75.0); Hemoglobin 8.6 g/dL (12.0-16.0); Mean Corpuscular HGB CONC 31.7 g/dL (32.0-36.0); Mean Corpuscular Hemoglobin 31.8 pg (27.0-31.0); Mean Platelet Volume 9.4 fL (7.4-10.4); Platelet Count 82 thou/uL (130-400); RBC Distribution Width 15.2 % (11.5-14.5); Red Blood Cell (RBC) Count 2.71 mill/uL (4.20-5.40); White Blood Cell (WBC) Count 4.2 thou/uL (4.8-10.8)
[2018-06-16 12:15] LABS: Anion Gap 11 mmol/L (10-20); BUN (Urea Nitrogen) 16 mg/dL (9.8-20.1); Calc. Creatinine Clearance 25 mL/min (70-130); Calcium 8.9 mg/dL (7.8-10.44); Carbon Dioxide 28 mmol/L (23-31); Chloride 99 mmol/L (98-107); Estimated GFR-MDRD 19; Glucose 64 mg/dL (80-115); Potassium 3.4 mmol/L (3.5-5.1); Sodium 135 mmol/L (136-145)
[2018-06-16] MEDS ORDERED: Lidocaine 2% PF 5 ML VIAL ONE (13:34)
[2018-06-16] MEDS ORDERED: Protamine Sulfate 50 MG/5 ML VIAL ONE (13:34)
[2018-06-16] MEDS ORDERED: Bupivacaine HCl 0.5%/Epinephrine 1:200,000/PF 30 ml Vial ONE ×2 (13:34→16:21)
[2018-06-16] MEDS ORDERED: Heparin 5,000 UNITS/ML VIAL ONE (13:34)
[2018-06-16] MEDS ORDERED: Fentanyl 100 MCG/2 ML VIAL ONE (13:43)
[2018-06-16] MEDS ORDERED: Propofol 500 MG/50 ML VIAL ONE (13:43)
[2018-06-16] MEDS ORDERED: PHENYLEPHRINE-NS 100 MCG/ML 10 ML SYRINGE ONE (16:28)
--- NOTE | 2018-06-18 07:33 | OP ---
DATE OF PROCEDURE: 06/16/2018 PREOPERATIVE DIAGNOSES: End-stage renal disease, cirrhosis, ascites, poor veins by vein mapping. POSTOPERATIVE DIAGNOSES: End-stage renal disease, cirrhosis, ascites, poor veins by vein mapping, but with excellent veins. PROCEDURES PERFORMED: Exploration of antecubital fossa noting excellent antecubital vein and cephalic vein. Thus an incision made at the wrist and with 3.5 mm coronary cephalic vein and radial artery. ANESTHESIA: Regional, TIVA. DESCRIPTION OF PROCEDURE: The patient was taken to the operating room, underwent intravenous sedation and regional anesthesia. Left upper extremity was prepared with ChloraPrep and draped in routine fashion. Incision was made longitudinally beyond the antecubital fossa. An excellent size antecubital vein identified as well as cephalic vein. The incision was closed by approximating subcutaneous tissue with 3-0 Monocryl, skin with subdermal 4-0 Monocryl. A longitudinal incision was made in the left wrist between the radial artery and cephalic vein. Both these were dissected free. The cephalic vein dissected free down toward the hand, silk ties and clips and on the hand side, the cephalic vein ligated with 3-0 silk tie, divided, spatulated, interrogated with coronary dyes, passing coronary dye from 2 mm to a 3.5 mm outflow tract without obstruction. It was flushed with heparinized saline solution. The patient was given 6000 units of heparin intravenously. Radial artery dissected free proximally and distally and controlled with vascular clamps. elongated with Kelsey scissors and the cephalic vein spatulated, and end vein to side radial artery anastomosis was created with continuous suture of 6-0 Prolene and hemostasis gained with 6-0 Prolene. Vascular control was released. There was excellent Doppler signal in the outflow tract. The patient given anesthesia. Subcutaneous tissue was approximated with 3-0 Monocryl, skin with subdermal 4-0 Monocryl, and Filer glue applied. Job ID: [id number]
== END 2018-06-16 16:20 | disposition home or self-care (01) ==
LOC: SDC 09:31
PROVIDERS: ATTEND Specialist
PROC: 031C0ZF Bypass Left Radial Artery to Lower Arm Vein, Open Approach (ICD-10-PCS; principal; 2018-06-16)
DX: N18.6 End stage renal disease (principal); K74.60 Unspecified cirrhosis of liver; R18.8 Other ascites; Z88.2 Allergy status to sulfonamides; Z91.048 Other nonmedicinal substance allergy status; Z79.899 Other long term (current) drug therapy; Z79.4 Long term (current) use of insulin
CPT/HCPCS: 36415; 36416; 80048; 85025; J0131; J0670; J1644; J2001; J2704; J2720; J3010

== ENCOUNTER 2018-07-28 13:25 | Outpatient (CLI) | payer BC ==
--- NOTE | 2018-07-28 15:22 | CT ---
CT OF CHEST PERFORMED WITHOUT CONTRAST ENHANCEMENT: HISTORY: Respiratory distress. Shortness of breath. CT scan done in [place] which showed a pleural effusion. The patient has a dialysis catheter and a history of cirrhosis. COMPARISON: A recent plain film examination of 05/18/2018. FINDINGS: There is a very large right-sided pleural effusion. There is associated atelectasis in the right low er lobe. I do not see any type of obstructive mass or hilar adenopathy on this noncontrast study. N o significant mediastinal adenopathy. There are some coronary calcifications present. The left lung is clear of any infiltrative process. The spleen is enlarged. There is some ascites noted. Contour of the liver has a slightly nodular pa ttern suggesting some cirrhotic change. IMPRESSION: 1. Large right-sided pleural effusion. 2. Cirrhotic change of the liver with splenomegaly. POS: [facility]
== END 2018-07-28 13:26 | disposition home or self-care (01) ==
LOC: CT 13:25
PROVIDERS: ATTEND Family Medicine
DX: J90 Pleural effusion, not elsewhere classified (principal); R16.1 Splenomegaly, not elsewhere classified; K74.60 Unspecified cirrhosis of liver
CPT/HCPCS: 71250

== ENCOUNTER 2019-01-07 17:35 | Inpatient (IN) | payer BC, MEDICARE ==
[2019-01-07 19:29] LABS: #Eosinphils 0.4 thou/uL (0.0-0.7); #Monocytes 0.3 thou/uL (0.11-0.59); #Neutrophils 2.2 thou/uL (1.40-6.50); %Basophils 0.6 % (0.0-1.0); %Eosinophils 9.9 % (0.0-10.0); %Lymphocytes 25.9 % (21.0-51.0); %Monocytes 6.7 % (0.0-10.0); %Neutrophils 56.9 % (42.0-75.0); Hemoglobin 6.3 g/dL (12.0-16.0); Mean Corpuscular HGB CONC 33.4 g/dL (32.0-36.0); Mean Corpuscular Hemoglobin 33.3 pg (27.0-31.0); Mean Corpuscular Volume 99.6 fL (78.0-98.0); Platelet Count 90 thou/uL (130-400); RBC Distribution Width 18.4 % (11.5-14.5); White Blood Cell (WBC) Count 3.8 thou/uL (4.8-10.8)
[2019-01-07 19:45] LABS: ALT (SGPT) 14 U/L (8-55); AST (SGOT) 31 U/L (5-34); Albumin 3.2 g/dL (3.4-4.8); Alkaline Phosphatase 140 U/L (40-150); Anion Gap 13 mmol/L (10-20); BUN (Urea Nitrogen) 58 mg/dL (9.8-20.1); Bilirubin, Total 1.1 mg/dL (0.2-1.2); Calc. Creatinine Clearance 0 mL/min (70-130); Calcium 9.3 mg/dL (7.8-10.44); Carbon Dioxide 25 mmol/L (23-31); Chloride 106 mmol/L (98-107); Estimated GFR-MDRD 9; Globulin 3.2 g/dL (2.4-3.5); Glucose 97 mg/dL (80-115); Potassium 4.1 mmol/L (3.5-5.1); Protein, Total 6.4 g/dL (6.0-8.3); Sodium 140 mmol/L (136-145)
[2019-01-08 01:29] LABS: Hemoglobin 6.1 g/dL (12.0-16.0)
[2019-01-08] MEDS ORDERED: Loratadine 10 MG TAB PO PRN (01:42)
[2019-01-08] MEDS ORDERED: Dextrose 50% Abboject 50 ML SYRINGE SLOW IVP PRN (01:45)
[2019-01-08] MEDS ORDERED: Dextrose 5% in Water 1,000 ML IV PRN (01:45)
[2019-01-08] MEDS ORDERED: HumaLOG 300 UNITS/3 ML VIAL SC PRN (01:45)
[2019-01-08] MEDS: Acetaminophen/Codeine 30-300mg Tablet PO PRN ×3 (01:55→22:48)
[2019-01-08] MEDS ORDERED: Ondansetron ODT 4 MG TAB PO PRN (02:05)
[2019-01-08] MEDS ORDERED: Ondansetron PF 4 MG/2 ML Vial IVP PRN (02:05)
[2019-01-08] MEDS ORDERED: Acetaminophen 325 MG TAB PO PRN (02:05)
[2019-01-08] MEDS ORDERED: Acetaminophen 650 MG Suppository PR PRN (02:05)
--- NOTE | 2019-01-08 02:24 | CON ---
DATE OF CONSULTATION: 01/07/2019 CONSULTING PHYSICIAN: ER physician. REASON FOR CONSULT: Clotted access. REASON FOR ADMISSION: Clotted access. HISTORY OF PRESENT ILLNESS: This is a 63-year-old female with history of end-stage renal disease, hypertension, diabetes, who came to the hospital with clotted access. The patient was discharged from the rehab on Thursday and was seen in the dialysis clinic on and she ran for few hours and then her access started infiltrating and was not able to run. She was told to come back today at the dialysis and her access was found to be clotted with no bruit or thrill, with inability to cannulate, and she was sent to the hospital. She denies any chest pain or shortness of breath. No nausea or vomiting. She does have bruising around her access. No fever. No chills. PAST MEDICAL HISTORY: Positive for hypertension, diabetes, cirrhosis, hyperlipidemia, and asthma. PAST SURGICAL HISTORY: Tonsillectomy, , dialysis access placement. HOME MEDICATIONS: Reviewed. ALLERGIES: TO SULFA. SOCIAL HISTORY: No smoking, alcohol, or illicit drug abuse. FAMILY HISTORY: No history of kidney disease. REVIEW OF SYSTEMS: CONSTITUTIONAL: Negative for weight loss or gain, ability to conduct usual activities. SKIN: Negative for rash, itching. EYES: Negative for double vision, pain. ENT/MOUTH: Negative for nose bleeding, neck stiffness, pain, tenderness. CARDIOVASCULAR: Negative for palpitations, dyspnea on exertion, orthopnea. RESPIRATORY: Negative for shortness of breath, wheezing, cough, hemoptysis, fever or night sweats. GASTROINTESTINAL: Negative for poor appetite, abdominal pain, heartburn, nausea, vomiting, constipation, or diarrhea. GENITOURINARY: Negative for urgency, frequency, dysuria, nocturia. MUSCULOSKELETAL: Negative for pain, swelling. NEUROLOGIC/PSYCHIATRIC: Negative for anxiety, depression. ALLERGY/IMMUNOLOGIC: Negative for skin rash, bleeding tendency. PHYSICAL EXAMINATION: GENERAL: This is a well-built female, in no apparent distress. VITAL SIGNS: Temperature 98.9, pulse 73, respiratory rate 18, blood pressure 154/84. HEENT: Atraumatic, normocephalic. Oral mucosa is moist. NECK: Supple. CV: S1 and S2 heard. Rate and rhythm regular. RESPIRATORY: Clear. GI: Abdomen is soft. MUSCULOSKELETAL: 1+ edema. DERMATOLOGIC: No skin rash. NEUROLOGIC: Alert and awake. PSYCHIATRIC: Mood and affect normal. EXTREMITIES: Left arm access visible. LABORATORY DATA: Hemoglobin 6.3, potassium 4.1, BUN is 58, creatinine is 5.2, and albumin is 3.2. ASSESSMENT AND PLAN: 1. End-stage renal disease. No urgent indication for dialysis. Plan is to consult IR in the morning for declotting if possible. If no IR is available for declotting, might need a temporary dialysis catheter. 2. Anemia. Agree with type and crossmatch, and need blood transfusion with dialysis. 3. Edema, controlled. 4. Hypertension, stable. Plan is to have declotting done if possible over the weekend. The patient needs dialysis, the last dialysis was Thursday. We will continue close monitoring. Repeat labs in the morning and we will follow. Rule out any other bleeds. We will follow. Thank you for the consult. Job ID: [id number]
--- NOTE | 2019-01-08 04:11 | HP ---
CHIEF COMPLAINT: Dialysis catheter malfunction. HISTORY OF PRESENT ILLNESS: Ms. Olguin is a pleasant 63-year-old woman, who is known to have an end-stage renal disease, on dialysis every Thursday and . The patient was seen for dialysis the day before yesterday and with difficulty accessing the catheter. There was no thrill heard. She was seen again yesterday and again with difficulty undergoing dialysis. The patient was referred to the Emergency Department and seen by Dr. Vaughn. Her access was found to be clotted with no bruit or thrill. Unable to have a cannulating. Per Dr. Vaughn, she is for declotting via IR in the morning. The patient was noted to have anemia with a hemoglobin of 6.3, asymptomatic, and 1 unit of packed red blood cells was ordered. The patient states she has been suffering from pain in the sacrum following a recent fall and at this time, her only complaint was the discomfort. She is otherwise well without complaints. Denies having any chest pain, palpitations, or shortness of breath. No nausea or vomiting. No abdominal pain or cramping. No headaches or dizziness. All other review of systems negative. PAST MEDICAL HISTORY: 1. Diabetes. 2. Liver cirrhosis. 3. Hypertension. 4. Hyperlipidemia. 5. Asthma. 6. End-stage renal disease, on dialysis. PAST SURGICAL HISTORY: 1. Tonsillectomy. 2. . 3. Cauterization of her esophageal varices. SOCIAL HISTORY: The patient denies any alcohol use, drug use, or tobacco use. ALLERGIES: 1. ADHESIVE. 2. SULFA. CURRENT MEDICATIONS: 1. Lactulose. 2. Escitalopram. 3. Floranex. 4. Levothyroxine. 5. Levemir. 6. NovoLog. 7. Lyrica. 8. Fluticasone. 9. Xifaxan. 10. Bystolic. 11. Atorvastatin. 12. Spironolactone. 13. Furosemide. PHYSICAL EXAMINATION: GENERAL: The patient appears to be in mild discomfort, but no distress, well developed, found resting in bed. VITAL SIGNS: Temperature 98.3, pulse 73, respirations 20, O2 saturation 99% on room air, and blood pressure 137/65. SKIN: Warm and dry, pallor noted. HEENT: Normocephalic and atraumatic. Pupils are equal, round, and reactive to light. Sclerae without icterus. Oropharynx is clear. NECK: Supple. LUNGS: Clear to auscultation bilaterally without any wheezes, rales, or rhonchi. CARDIAC: Regular rate and rhythm. ABDOMEN: Soft, nontender, nondistended. Normoactive bowel sounds present. No guarding or rigidity. No renal angle tenderness. EXTREMITIES: Without lower leg swelling or edema. Left forearm notable for ecchymosis along the medial aspect. No thrill or bruit at the site of the catheter. No swelling or erythema. NEUROLOGIC: Alert and oriented x3. LABORATORY DATA: White blood count 3.8, hemoglobin 6.3, hematocrit 18.9, and platelets 90. Sodium 140, potassium 4.1, chloride 106, carbon dioxide 25, BUN 58, creatinine 5.09, GFR 9, glucose 97, calcium 9.3, total bilirubin 1.1, AST 31, ALT 14, alkaline phosphatase 140, protein 6.4, and albumin 3.2. IMAGING DATA: None. IMPRESSION AND PLAN: Ms. Olguin is a 63-year-old woman, who is being referred for management of the following. 1. Dialysis catheter malfunction. The patient is seen by Dr. Vaughn, who has advised declotting in the morning by IR followed by dialysis. According to the nurse, it was confirmed that this could not be done over the weekend. I have therefore placed a consultation with General Surgery for temporary dialysis catheter. Per Dr. Vaughn's further recommendations indicated on his consultation note. 2. Anemia. The patient with hemoglobin of 6.3. Transfusion with 1 unit of packed red blood cells was requested. It is unclear if the patient has received transfusion. I did recheck hemoglobin, it is 6.1. We will look further into this, and we will advise her nurse to transfuse the unit ordered packed red blood cells. 3. Pain. We will resume her regular pain medications. 4. Diabetes. We will initiate insulin sliding scale and monitor blood glucose. 5. Hypertension. We will resume her regular home medications and monitor blood pressure. 6. Gastrointestinal prophylaxis. 7. Deep venous thrombosis prophylaxis with mechanical SCDs. 8. Will have code status full. Her surrogate decision maker is her , [employer] Ol[employer]. The patient's case to be discussed with attending for further recommendations. Job ID: [id number]
[2019-01-08 05:42] LABS: #Eosinphils 0.3 thou/uL (0.0-0.7); #Lymphocytes 0.7 thou/uL (1.20-3.40); #Monocytes 0.2 thou/uL (0.11-0.59); #Neutrophils 1.4 thou/uL (1.40-6.50); %Basophils 0.3 % (0.0-1.0); %Eosinophils 11.6 % (0.0-10.0); %Lymphocytes 25.6 % (21.0-51.0); %Monocytes 8.6 % (0.0-10.0); %Neutrophils 53.9 % (42.0-75.0); Hemoglobin 5.5 g/dL (12.0-16.0); INR-International Normal Ratio 1.2; Mean Corpuscular HGB CONC 33.2 g/dL (32.0-36.0); Mean Corpuscular Hemoglobin 33.3 pg (27.0-31.0); PTT 31.9 SEC (22.9-36.1); Platelet Count 73 thou/uL (130-400); Prothrombin Time 15.2 SEC (12.0-14.7); RBC Distribution Width 18.1 % (11.5-14.5); Red Blood Cell (RBC) Count 1.64 mill/uL (4.20-5.40); White Blood Cell (WBC) Count 2.6 thou/uL (4.8-10.8)
[2019-01-08 05:56] LABS: Anion Gap 12 mmol/L (10-20); BUN (Urea Nitrogen) 60 mg/dL (9.8-20.1); Calc. Creatinine Clearance 0 mL/min (70-130); Calcium 8.8 mg/dL (7.8-10.44); Carbon Dioxide 25 mmol/L (23-31); Chloride 107 mmol/L (98-107); Estimated GFR-MDRD 8; Glucose 125 mg/dL (80-115); Potassium 4.2 mmol/L (3.5-5.1); Sodium 140 mmol/L (136-145)
[2019-01-08] MEDS: Mometasone/Formoterol 120 PUFF INHALER INH SCH ×2 (07:39→18:40)
[2019-01-08] MEDS: Escitalopram Oxalate 20 mg Tablet PO SCH (08:43)
[2019-01-08] MEDS: Famotidine/PF 20 mg/2ml Vial SLOW IVP SCH (08:43)
[2019-01-08] MEDS: Sevelamer Carbonate 800 MG TAB PO SCH ×3 (08:43→17:59)
[2019-01-08] MEDS: Losartan 25 MG TAB PO SCH (08:43)
[2019-01-08] MEDS: Levothyroxine Sodium 75 MCG TAB PO SCH (08:43)
[2019-01-08] MEDS: Midodrine HCl 5 MG TAB PO SCH (08:43)
[2019-01-08] MEDS: Pregabalin 50 MG CAP PO SCH ×2 (08:44→20:47)
--- NOTE | 2019-01-08 10:38 | PDOC.EVN ---
Event Note - Event Note Event Note: Patient seen and examined by my colleague earlier in the night, complainin gof black stools, Hgb at 5.3, given PRBC 1 unit, pending 2 more units with HD. Will consult GI for evaluation an also obtain guiac to confirm diagnosis. No other changes to plan of care. Case and plan d/w patient at length, she understood and agreed with this plan.
--- NOTE | 2019-01-08 11:50 | PRG ---
DATE OF SERVICE: 01/08/2019 SUBJECTIVE: Patient was seen and examined at bedside and overnight events noted. Patient denies any shortness of breath or chest pain or palpitation. No history of nausea or vomiting or diarrhea or fever or chills or cramps. OBJECTIVE: GENERAL: This is a well-built female, in no apparent distress. VITAL SIGNS: Temperature 98.2. Pulse 69. Respiratory rate 16. Blood pressure 100/62. HEENT: Atraumatic, normocephalic. Oral mucosa is moist NECK: Supple. CARDIOVASCULAR: S1, S2 heard. Rate and rhythm regular. RESPIRATORY: Clear to auscultation. GASTROINTESTINAL: Abdomen is soft. MUSCULOSKELETAL: No tenderness. No edema. DERMATOLOGIC: No skin rash. NEUROLOGIC: Alert and awake and oriented X3. No focal neurologic deficits. Moving all the extremities. PSYCHIATRIC: Mood and affect normal. LABORATORY DATA: Potassium 4.2, BUN is 60, creatinine is 5.3, and hemoglobin is 5.5. ASSESSMENT AND PLAN: 1. End-stage renal disease. Plan is to have dialysis. Her access is clotted and plan is to have a temporary dialysis catheter. 2. Anemia, most likely secondary to gastrointestinal bleed. The patient is having black tarry stools. Follow with Gastroenterology. 3. We will transfuse with dialysis. 4. Gastrointestinal bleed. Follow with Gastroenterology. 5. Edema, controlled. 6. Hypertension, stable. 7. Follow with Gastroenterology. We will transfuse and have dialysis as tolerated. Job ID: [id number]
[2019-01-08] MEDS ORDERED: Pantoprazole 40 MG VIAL IVP SCH (13:00)
[2019-01-08] MEDS ORDERED: Pantoprazole 80 MG in Sodium Chloride 0.9% 100 ML IVP SCH (13:00)
[2019-01-08] MEDS ORDERED: Octreotide Acetate 50 MCG/ML AMP SLOW IVP SCH (13:00)
--- NOTE | 2019-01-08 13:16 | OP ---
DATE OF PROCEDURE: 01/08/2019 PREOPERATIVE DIAGNOSIS: Acute renal failure. POSTOPERATIVE DIAGNOSIS: Acute renal failure. PROCEDURE PERFORMED: Placement of triple-lumen right femoral Trialysis catheter for hemodialysis. ANESTHESIA: Local. INDICATIONS FOR PROCEDURE: This is a 63-year-old woman, presented with worsening acute renal failure. I was asked to place a temporary dialysis catheter to facilitate hemodialysis. DESCRIPTION OF PROCEDURE: Informed consent was obtained. The patient was placed in supine position. Right groin sterilely prepped and draped in usual fashion. Right femoral artery was palpated at the groin. The skin medial to this was anesthetized with 1% lidocaine. Right femoral vein was cannulated with an 18-gauge introducer needle, returning dark venous blood. Guidewire was passed through the needle and advanced into the right femoral vein without resistance. Needle was withdrawn over the guidewire. A stab incision was made adjacent to the guidewire using 11 scalpel. Dilator was passed over the guidewire dilating the subcutaneous tissues. Dilator was removed and triple-lumen Trialysis hemodialysis catheter was advanced over the guidewire and placed in the right femoral vein without resistance and advanced down to the hub. Guidewire was removed. Dark venous blood was aspirated from all three ports, which were individually flushed with saline followed by heparin. Catheter was secured to right groin using 3-0 nylon suture at two points. Sterile dressings were applied. The patient tolerated the procedure without any apparent complication. Hemodynamically stable following completion of the procedure. Dialysis catheter is ready for use for hemodialysis. Job ID: [id number]
--- NOTE | 2019-01-08 16:00 | CON ---
DATE OF CONSULTATION: 01/08/2019 CHIEF COMPLAINT: Anemia and black stool. HISTORY OF PRESENT ILLNESS: Ms. Olguin is a 63-year-old woman, who has cirrhosis and end-stage renal disease, on dialysis, who presented for dialysis on 2 days ago. However, her shunt was not functioning appropriately. She went back yesterday and was found to have her dialysis shunt to have been clotted off. She was admitted and today she underwent femoral dialysis catheter placement with plan for dialysis today. She was also found to have severe anemia initially with a hemoglobin of 6.3 yesterday and this morning, her hemoglobin is 5.5. She passes black stools intermittently. She states she had 2 black stools yesterday. No spontaneous bowel movements today. She has had no nausea, vomiting, or abdominal pain associated with this. No chest pain or shortness of breath. She has a history of hepatic encephalopathy, but is not acutely confused right now. GI was consulted due to the severe anemia and black stools. PAST MEDICAL HISTORY: End-stage liver disease. This has been decompensated with history of varices. 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 She has had no followup endoscopy since then. She has a history of hepatic encephalopathy. Continued end-stage renal disease, on hemodialysis, asthma, hyperlipidemia, hypertension, diabetes mellitus. She had a fall earlier this month and had a sacrum and coccyx fracture and was admitted to [facility] and discharged to rehab after that. PAST SURGICAL HISTORY: , tonsillectomy, banding of esophageal varices, and cautery of gastric antral vascular ectasia. SOCIAL HISTORY: No alcohol, tobacco, or drugs. FAMILY HISTORY: Negative for GI malignancy. ALLERGIES: SULFA. MEDICATIONS: Prior to admission: 1. Furosemide. 2. Spironolactone. 3. Xifaxan. 4. Lactulose. 5. Atorvastatin. 6. Bystolic. 7. Fluticasone. 8. Lyrica. 9. NovoLog. 10. Levemir. 11. Levothyroxine. 12. Floranex. 13. Escitalopram. REVIEW OF SYSTEMS: Negative x10 systems reviewed except as stated in history of present illness. PHYSICAL EXAMINATION: VITAL SIGNS: Temperature 98.3, pulse 67, and blood pressure 143/69. GENERAL: She is in no acute distress. Alert and oriented x3. She has no asterixis on neurological exam. She is pale. HEENT: Her eyes have no scleral icterus. Oropharynx is clear without lesions. No cervical or supraclavicular lymphadenopathy. LUNGS: Clear to auscultation bilaterally. HEART: Regular rate and rhythm without murmur. ABDOMEN: Soft, nontender, and nondistended. Bowel sounds are present. EXTREMITIES: No lower extremity edema. RECTAL: Reveals black melenic stool in the rectal vault. LABORATORY DATA: White blood cell count 2.6, hemoglobin 5.5, platelets 73. INR 1.2. Creatinine 5.35. Bilirubin 1.1, AST 31, ALT 14, alkaline phosphatase 140, and albumin 3.2. IMPRESSION: 1. Decompensated cirrhosis. 2. Gastrointestinal bleed, most likely upper presenting with melena. 3. Anemia of acute blood loss on top of chronic anemia from renal disease. 4. Hepatic encephalopathy. Currently, this is controlled with lactulose and Xifaxan. 5. History of ascites. She is on hemodialysis. She appears also be on furosemide and spironolactone, but this also will have to be verified. 6. History of esophageal varices and gastric antral vascular ectasia with most recent endoscopy for banding of the varices and cautery of the vascular ectasia in [address] Goss. RECOMMENDATIONS: 1. She has received 1 unit transfusion. Plan is to receive a couple of more units with hemodialysis. 2. Plan proton pump inhibitor IV drip. 3. Octreotide IV drip. 4. I will plan for upper endoscopy tomorrow. I think she will need to get dialysis today since it has been a few days since her last complete dialysis and she also needs transfusion prior to sedation. Job ID: [id number]
[2019-01-08] MEDS: Atorvastatin Calcium 10 MG TAB PO SCH (20:47)
[2019-01-08] MEDS: Loratadine 10 MG TAB PO SCH (20:47)
[2019-01-08] MEDS: Octreotide Acetate 1,250 MCG in Sodium Chloride 0.9% 250 ML 250 ML IVPB SCH (22:37)
[2019-01-09] MEDS: Acetaminophen/Codeine 30-300mg Tablet PO PRN ×2 (05:33→14:56)
[2019-01-09 06:32] LABS: #Eosinphils 0.3 thou/uL (0.0-0.7); #Lymphocytes 0.5 thou/uL (1.20-3.40); #Monocytes 0.3 thou/uL (0.11-0.59); #Neutrophils 2.3 thou/uL (1.40-6.50); %Basophils 0.3 % (0.0-1.0); %Eosinophils 8.1 % (0.0-10.0); %Lymphocytes 14.5 % (21.0-51.0); %Monocytes 8.9 % (0.0-10.0); %Neutrophils 68.2 % (42.0-75.0); Hemoglobin 9.8 g/dL (12.0-16.0); Mean Corpuscular HGB CONC 33.8 g/dL (32.0-36.0); Mean Corpuscular Hemoglobin 32.4 pg (27.0-31.0); Mean Corpuscular Volume 95.7 fL (78.0-98.0); Mean Platelet Volume 8.2 fL (7.4-10.4); Platelet Count 78 thou/uL (130-400); RBC Distribution Width 17.1 % (11.5-14.5); Red Blood Cell (RBC) Count 3.03 mill/uL (4.20-5.40); White Blood Cell (WBC) Count 3.3 thou/uL (4.8-10.8)
[2019-01-09 06:33] VITALS: BMI 27.8
[2019-01-09 07:02] LABS: Anion Gap 12 mmol/L (10-20); BUN (Urea Nitrogen) 24 mg/dL (9.8-20.1); Calc. Creatinine Clearance 19 mL/min (70-130); Carbon Dioxide 27 mmol/L (23-31); Chloride 98 mmol/L (98-107); Estimated GFR-MDRD 14; Glucose 158 mg/dL (80-115); Potassium 4.3 mmol/L (3.5-5.1); Sodium 133 mmol/L (136-145)
[2019-01-09] MEDS: Sevelamer Carbonate 800 MG TAB PO SCH ×3 (08:19→15:40)
[2019-01-09] MEDS: Losartan 25 MG TAB PO SCH (08:19)
[2019-01-09] MEDS: Escitalopram Oxalate 20 mg Tablet PO SCH (08:19)
[2019-01-09] MEDS: Levothyroxine Sodium 75 MCG TAB PO SCH (08:19)
[2019-01-09] MEDS: Pregabalin 50 MG CAP PO SCH ×2 (08:20→20:49)
[2019-01-09] MEDS: Midodrine HCl 5 MG TAB PO SCH (08:20)
[2019-01-09] MEDS: Pantoprazole 40 MG VIAL IVP SCH ×2 (10:33→20:50)
[2019-01-09] MEDS: Famotidine/PF 20 mg/2ml Vial SLOW IVP SCH (10:33)
[2019-01-09] MEDS: Mometasone/Formoterol 120 PUFF INHALER INH SCH ×2 (10:39→18:36)
[2019-01-09] MEDS: cefTRIAXone\\ROCEPHIN 1 GM in Sodium Chloride 0.9% 100 ML IVPB SCH (11:18)
[2019-01-09] MEDS ORDERED: PROPOFOL 200 MG/20 ML VIAL ONE (11:36)
--- NOTE | 2019-01-09 11:39 | PRG ---
DATE OF SERVICE: 01/09/2019 SUBJECTIVE: Patient was seen and examined at bedside and overnight events noted. Patient denies any shortness of breath or chest pain or palpitation. No history of nausea or vomiting or diarrhea or fever or chills or cramps. OBJECTIVE: GENERAL: This is a well-built female in no apparent distress. VITAL SIGNS: Temperature 98.7. Heart rate 71. Respiratory rate 18. Blood pressure 146/61. HEENT: Atraumatic, normocephalic. Oral mucosa is moist NECK: Supple. CARDIOVASCULAR: S1, S2 heard. Rate and rhythm regular. RESPIRATORY: Clear to auscultation. GASTROINTESTINAL: Abdomen is soft. MUSCULOSKELETAL: No tenderness. No edema. DERMATOLOGIC: No skin rash. NEUROLOGIC: Alert and awake and oriented X3. No focal neurologic deficits. Moving all the extremities. PSYCHIATRIC: Mood and affect normal. LABORATORY DATA: Potassium 4.3, BUN is 24, and creatinine is 3.2. ASSESSMENT AND PLAN: 1. End-stage renal disease. Continue dialysis as tolerated. To have declotting by Interventional Radiology tomorrow. 2. Anemia, status post transfusion. 3. Edema, controlled. 4. Hypertension, stable. 5. Follow with Interventional Radiology tomorrow for declotting and appreciate surgery for temporary dialysis catheter placement. Job ID: [id number]
--- NOTE | 2019-01-09 12:10 | OP ---
DATE OF PROCEDURE: 01/09/2019 PROCEDURE PERFORMED: Esophagogastroduodenoscopy with banding of esophageal varices. PREOPERATIVE DIAGNOSES: Upper gastrointestinal bleed presenting with anemia and melena. DESCRIPTION OF PROCEDURE: Informed consent was obtained from the patient. She was sedated with total intravenous anesthesia. The bite block was placed and the endoscope was advanced easily to the first portion of the duodenum. The esophagus had two columns grade 2 varices with a few red signs. These were banded x2. The stomach had a large amount of fibrous food material in the entire stomach and a minimal amount of the gastric mucosa was visualized. There was no blood in the stomach. The first portion of the duodenum was also obscured with food. IMPRESSION: 1. Two columns grade 2 varices with red signs banded. 2. Large amount of food with vegetable matter obscured views in the stomach and duodenum. There was no red blood in the stomach or blood staining of the food. RECOMMENDATIONS: 1. Continue octreotide. 2. Follow trend of the hemoglobin. 3. Antibiotics for SBP prophylaxis. Job ID: [id number]
--- NOTE | 2019-01-09 12:56 | PRG ---
DATE OF SERVICE: 01/09/2019 SUBJECTIVE: The patient is seen and examined at the bedside. She just came back from the OR. She had procedure done by Dr. Chapa. He banded 3 esophageal varices. She seems to be doing fine. Does not have much complaints to offer. OBJECTIVE: VITAL SIGNS: Blood pressure is 146/65, pulse is 71, temperature is 98.7, respiratory rate is 18, and O2 saturation is 99% on room air. GENERAL: She is not in any distress during my visit. HEENT: Head is atraumatic and normocephalic. Eyes are PERRLA. Sclerae are nonicteric. Oral mucosa is moist. NECK: Supple. LUNGS: Clear. HEART: S1 and S2 normal. No S3. No S4. No any murmur. ABDOMEN: Soft and nontender. Bowel sounds are present. No organomegaly. EXTREMITIES: No clubbing, cyanosis, or edema. NEUROLOGIC: She is alert and oriented x4. There are no any sensory or motor deficits present. Cranial nerves are intact. The left forearm presents with a big bruise, but there is no pain. LABORATORY DATA: White count of 3.3, hemoglobin 9.8, hematocrit 29.0, platelet count is 78,000. Sodium of 133, potassium 4.3, chloride 98, CO2 of 27, BUN 24, creatinine 3.27, glycemia is ranging from 89 to 159, and calcium 9.0. ASSESSMENT: 1. End-stage renal disease with clotted fistula. Temporary dialysis catheter was placed in the right groin yesterday and she will continue her dialysis per Dr. Vaughn. 2. Anemia secondary to gastrointestinal bleed secondary to esophageal variceal bleeding, status post banding x3 and transfusion of 1 unit of packed red blood cells. 3. Liver cirrhosis. 4. Upper gastrointestinal bleeding, status post variceal banding. 5. Hypertension, diabetes mellitus. The patient is well controlled on her glycemia. PLAN: Plan is to set her up for General Surgeon, Dr. Jarrett to take her to the operating room for declotting of her left upper extremity fistula. She had additional unit of packed red blood cells transfused and her hemoglobin is up to 9.8 this morning. Clinically, she seems to be doing okay. We will continue her hemodialysis through right groin catheter, which was placed yesterday by Dr. Pan. Continue pantoprazole and octreotide for now until GI makes decision about any change. We will continue her diabetic coverage insulin sliding scale. Her long-acting insulin is on hold. We will keep her on full liquid diet as per GI recommendation. Job ID: [id number]
[2019-01-09] MEDS: Atorvastatin Calcium 10 MG TAB PO SCH (20:49)
[2019-01-09] MEDS: Loratadine 10 MG TAB PO SCH (20:49)
[2019-01-09] MEDS: Octreotide Acetate 1,250 MCG in Sodium Chloride 0.9% 250 ML 250 ML IVPB SCH (21:24)
[2019-01-10] MEDS: Mometasone/Formoterol 120 PUFF INHALER INH SCH ×2 (06:55→18:28)
--- NOTE | 2019-01-10 08:20 | CON ---
DATE OF CONSULTATION: HISTORY OF PRESENT ILLNESS: Yessy Olguin is a 63-year-old female with cirrhosis and end-stage renal disease. I saw her April 2018, at which time I placed a Trialysis catheter, subsequently placed a cuffed tunneled hemodialysis catheter and in on 06/16/2018, I explored her left antecubital area and the vein was so good, that I closed this wound and opened the left wrist and performed a Francisco Javier fistula. This matured and they were able to access it. I saw her on one occasion postoperatively. She is from [place]. She has been to the [facility] on two occasions for interventions to keep this fistula open. The Dialysis Center sent her to Dr. Faustin in [place] to remove her cuffed tunneled dialysis catheter. The patient has not followed up with me since. She now presents with a thrombosed fistula and is admitted to the hospital and over the weekend, Dr. Pan has placed a Trialysis catheter in her groin. The patient has multiple ecchymoses about her left forearm from recent dialysis access attempts. Over the weekend, 01/09/2019, Dr. Jakub Chapa, has performed upper endoscopy with bandings of two columns grade 2 varices. There were large amount of food particles within the stomach, but no blood staining. The patient has been administered 2 units of packed cells this hospitalization. Her hemoglobin was 6.3 on admission 01/07, and on 01/08, 5.5, and yesterday, 9.8. Electrolytes yesterday, sodium 133, potassium 4.3. ALLERGIES: SULFA. HABITS: Tobacco, none. Alcohol, none. PAST SURGICAL HISTORY: C-sections, dialysis access as noted above. PAST MEDICAL HISTORY: Diabetes mellitus, insulin dependent, obesity, metabolic syndrome, cirrhosis, ascites, varices. The patient dialyzes at [facility] Thursday, , and Thursday. MEDICATIONS: At home, 1. . 2. Dulera inhaler. 3. DuoNeb inhaler. 4. Zyrtec. 5. Aranesp. 6. Flonase nasal spray. 7. Tylenol with Codeine p.r.n. 8. Insulin 15 units subcu b.i.d. 9. Levemir. 10. Levothyroxine three tabs daily. 11. Midodrine 5 mg a day. 12. Cozaar daily. 13. Sevelamer two tabs t.i.d. 14. Xifaxan 550 mg b.i.d. 15. Lactulose a day. 16. Lipitor 10 mg at bedtime. 17. Lexapro 20 mg daily. 18. Lyrica 50 mg daily. PHYSICAL EXAMINATION: VITAL SIGNS: Height 5 feet, 2 inches, 152 pounds, 27 BMI. Temperature 98.5, pulse 66, and blood pressure 131/67. HEAD, EARS, EYES, NOSE AND THROAT: Unremarkable. LUNGS: Clear to auscultation. CARDIAC: Regular rate and rhythm without murmur or gallop. ABDOMEN: Soft. Positive fluid wave. Ascites present. EXTREMITIES: Unremarkable. Thrombosed fistula, left forearm. LABORATORY DATA: Coagulation studies PT 15, INR 1.2. ASSESSMENT AND PLAN: 1. Thrombosis Francisco Javier fistula, left forearm. Plan, upper left arm fistula, possible prosthetic graft. She understands risks and benefits and consents. We will plan placement of a hemodialysis catheter cuffed tunneled also. She understands risks and benefits and consents. 2. Cirrhosis. 3. Esophageal varices. 4. History of morbid obesity. She has lost weight and BMI is 27 at this time. 5. Coagulation studies negative. 6. Gastrointestinal bleed without evidence of hemorrhage, although she was severely anemic, and transfused. Job ID: [id number]
[2019-01-10] MEDS ORDERED: Fentanyl 100 MCG/2 ML VIAL ONE (10:00)
[2019-01-10] MEDS ORDERED: Propofol 500 MG/50 ML VIAL ONE (10:00)
[2019-01-10] MEDS ORDERED: Sodium Chloride 0.9% 30 ML ONE (10:09)
[2019-01-10] MEDS ORDERED: Heparin 5,000 UNITS/ML VIAL ONE (10:09)
[2019-01-10] MEDS ORDERED: Bupivacaine HCl 0.5%/Epinephrine 1:200,000/PF 30 ml Vial ONE (10:09)
[2019-01-10] MEDS ORDERED: Lidocaine 2% Jelly 5 ML TUBE ONE (10:09)
[2019-01-10] MEDS ORDERED: Heparin 10,000 UNITS/1 ML VIAL ONE (10:09)
[2019-01-10] MEDS ORDERED: Lidocaine 2% PF 5 ML VIAL ONE (10:11)
[2019-01-10] MEDS ORDERED: Sodium Chloride 0.9% 100 ML ONE (10:13)
[2019-01-10] MEDS ORDERED: cefTRIAXone\\ROCEPHIN 1 GM VIAL ONE (10:13)
[2019-01-10] MEDS ORDERED: Protamine Sulfate 50 MG/5 ML VIAL ONE (12:08)
--- NOTE | 2019-01-10 12:28 | PRG ---
DATE OF SERVICE: 01/10/2019 SUBJECTIVE: A 63-year-old female, being seen for end-stage kidney disease. The patient denied any nausea, vomiting, or chest pain. OBJECTIVE: GENERAL: The patient is awake and alert. VITAL SIGNS: Afebrile, pulse 75, breathing 16, blood pressure 131/67. GENERAL APPEARANCE AND MENTAL STATUS: Fair. HEAD/NECK: Normocephalic. Atraumatic. EYES: EOMI. No deformity. EARS: Clear. No ulcers. NOSE: Intact. No lesions. MOUTH: Clear. No discharge. THROAT: Clear. No exudate. LUNGS: Clear. No crackles. CARDIAC: S1, S2. No rub. ABDOMEN: Benign. Bowel sounds positive. GENITALIA/RECTUM: Berman absent. BACK/EXTREMITIES: Edema 0+. NEUROLOGICAL: Alert and motor intact. SKIN: LYMPHATICS: LABORATORY DATA: Reviewed. ASSESSMENT AND PLAN: 1. Stage 6 chronic kidney disease. Continue hemodialysis. 2. Hypertension, stable. 3. Anemia, stable. 4. Medication based on GFR, appropriate. Job ID: [id number]
[2019-01-10] MEDS ORDERED: Promethazine HCl 25 MG/ML VIAL SLOW IVP PRN (12:39)
[2019-01-10] MEDS ORDERED: Promethazine HCl 25 MG/ML VIAL IM PRN (12:39)
[2019-01-10] MEDS ORDERED: HYDROmorphone 2 MG/ML VIAL SLOW IVP PRN (12:39)
[2019-01-10] MEDS ORDERED: Ondansetron HCl/PF 4 MG/2 ML Vial IVP PRN (12:39)
--- NOTE | 2019-01-10 12:57 | RAD ---
Exam: Chest one view HISTORY:Dialysis catheter placement Comparison: 05/18/2018 FINDINGS: Cardiac silhouette:Upper normal cardiac silhouette. Lines and tubes: Right-sided HemoSplit dialysis catheter with the distal tip projecting over the supe rior vena cava. Pulmonary vessels: Normal Costophrenic angles: Minimal blunting of the left costophrenic angle. LUNGS: Patchy interstitial opacities with more focal opacification in the left lung base. Pneumothorax: None Osseous abnormalities: None IMPRESSION: 1. Right-sided HemoSplit dialysis catheter as above. No pneumothorax 2. Interstitial opacities with more focal opacification left lung base. Correlate for edema/volume ov erload. Left lower lobe atelectasis or pneumonia versus aspiration. Continued surveillance.
[2019-01-10 14:24] LABS: Hemoglobin 8.5 g/dL (12.0-16.0)
--- NOTE | 2019-01-10 14:36 | OP ---
DATE OF PROCEDURE: 01/10/2019 PREOPERATIVE DIAGNOSES: End-stage renal disease, left Francisco Javier fistula thrombosis, status post multiple interventions since placement in June 2018, cirrhosis, esophageal variceal banding this hospitalization. POSTOPERATIVE DIAGNOSES: End-stage renal disease, left Francisco Javier fistula thrombosis, status post multiple interventions since placement in June 2018, cirrhosis, esophageal variceal banding this hospitalization. PROCEDURES PERFORMED: Right internal jugular cuffed-tunneled hemodialysis catheter, ultrasound and fluoroscopy use, left arm primary fistula, perforating branch of the antecubital vein to the proximal radial artery outflow, both cephalic and basilic veins with retrograde antecubital vein preserved. Note, probing of the basilic vein outflow carried out from a 2 mm to 4 mm coronary dilator without obstruction. Probing of the cephalic vein fistula revealed some obstruction about 6 cm from the antecubital fossa proximally. Thus, both outflows were left open. ANESTHESIA: Regional, left arm block. Intravenous sedation, local 0.5% Marcaine with epinephrine 30 mL mixed with 2% Xylocaine 10 mL. DESCRIPTION OF PROCEDURE: The patient was taken to the operating room, where under regional anesthesia and intravenous sedation, neck, chest, and left upper extremity, axilla prepared with ChloraPrep and draped in routine fashion. Local anesthetic was infiltrated in the skin and subcutaneous tissue about the operative site for placement of a hemodialysis catheter. Right internal jugular vein cannulated with a trocar catheter under ultrasound guidance, and J-wire threaded, trocar catheter removed. Straighten the catheter was required to advance into the superior vena cava. A stab incision was made over the right chest at the planned exit site, and using the tunneling device, the pre-curved [employer] cuffed-tunneled hemodialysis catheter tunneled between 2 incisions, placed the fabric cuff beneath the skin exit site and catheter secured with 2 interrupted sutures of 3-0 nylon. Sterile dressings applied along with Biopatch. Small and medium sized dilators placed over the J-wire into the internal jugular vein and removed. Dilator and Peel-Away sheath placed over the J-wire into superior vena cava. Dilator and J-wire were removed. Catheter placed with the Peel-Away sheath. Peel-Away sheath removed. Fluoroscopically, catheter noted to be in good position. As each port was aspirated of blood, flushed with saline solution and heparinized saline solution 1000 units heparin per mL indicating volume of the port. Platysma was approximated with 4-0 Monocryl, skin with subdermal 4-0 Monocryl and [place] glue applied. Attention was then turned to the left arm. The Francisco Javier fistula had previously thrombosed. An incision was made through the old scar in the proximal volar forearm just below the antecubital fossa, carried down through skin and subcutaneous tissue and the antecubital vein dissected free. It was of good caliber. It was not thrombosed. It was dissected free and perforating branch dissected free and branches were divided between the clips and 4-0 silk ties and spatulated over branch point. The patient was given 6000 units of heparin intravenously. Vein interrogated. The perforating branch seen to enter just below this basilic vein, but just at the confluence outflow of the basilic-cephalic vein. Coronary dilators placed from a 2 mm to 4 mm dilator out the basilic vein outflow and likewise placed in the cephalic vein outflow, although there seemed to be some obstruction in the cephalic vein outflow 4 to 6 cm above the antecubital fossa. Nonetheless, it was left patent. Proximal radial artery dissected free, and after adequate circulation and heparin time, proximal radial artery clamped proximally and distally, and longitudinal arteriotomy was made sharply for longitudinal anastomosis between the end perforating branch of antecubital vein to side proximal radial artery using continuous suture of 6-0 Prolene. Once anastomosis was completed, good hemostasis obtained with 6-0 Prolene. The patient was given 25 mg of protamine intravenously by Anesthesia. Good hemostasis noted. Doppler interrogation of outflow revealed good Doppler signal in the cephalic vein outflow in the upper arm, even with occlusion of the basilic vein outflow. The patient did not have retrograde good signal in the antecubital vein form. Good hemostasis was noted. Subcutaneous tissue was approximated with 3-0 Monocryl, skin with subdermal 4-0 Monocryl and [place] glue applied. The patient tolerated the procedure well. The patient may need a followup fistulogram to be arranged when I see her in followup, and she may need a basilic vein transposition or revision to gain final function of this fistula. Job ID: [id number]
--- NOTE | 2019-01-10 14:38 | PRG ---
DATE OF SERVICE: 01/10/2019 SUBJECTIVE: The patient is seen and examined at the bedside. She is back from the procedure by Dr. Jarrett, who did try to unclot the left arm fistula. Apparently, it was not successful and he had to place a new one along with new dialysis catheter in the right upper chest. OBJECTIVE: VITAL SIGNS: Blood pressure is 110/58, temperature is 98.3, pulse is 70, respiratory rate is 16, O2 saturation is 95% on room air. HEENT: Head is atraumatic, normocephalic. Eyes are PERRLA. Sclerae are nonicteric. Oral mucosa is moist. NECK: Supple. LUNGS: Clear. HEART: S1, S2 normal. No S3. No S4. ABDOMEN: Soft, nontender. Bowel sounds are present. No organomegaly. She has in the right groin and new catheter in the right upper chest for dialysis purposes. NEUROLOGICAL: She is alert and oriented x4. There are no any motor deficits. Cranial nerves are intact. LABORATORY AND DIAGNOSTIC DATA: H and H are pending. Glycemia is ranging from 130 to 163. Chest x-ray showed right-sided HemoSplit dialysis catheter without any pneumothorax. Also, there are some interstitial opacities with more focal opacification of the left lung base. IMPRESSION: 1. End-stage renal disease with clotted fistula. The patient just had a new fistula placed by Dr. Jarrett in the left upper arm and right upper chest new dialysis catheter. 2. Anemia secondary to gastrointestinal bleed secondary to esophageal variceal bleeding, status post banding x3 and transfusion of packed red blood cells. 3. Liver cirrhosis of unclear etiology. 4. Upper gastrointestinal bleeding, status post variceal banding. 5. Hypertension. 6. Diabetes mellitus, controlled well with current regimen. PLAN: The patient is still going to be seen by Dr. Chapa and he will make decision about continuation of her octreotide drip. We are still waiting for H and H to be done. She just had her new catheter placed in the right upper chest by Dr. Jarrett and she will most likely go home tomorrow after dialysis, and for now, we will continue the current regimen. Job ID: [id number]
[2019-01-10] MEDS: Octreotide Acetate 1,250 MCG in Sodium Chloride 0.9% 250 ML 250 ML IVPB SCH (14:47)
[2019-01-10] MEDS: Escitalopram Oxalate 20 mg Tablet PO SCH (15:05)
[2019-01-10] MEDS: Sevelamer Carbonate 800 MG TAB PO SCH ×2 (15:05→18:22)
[2019-01-10] MEDS: Famotidine/PF 20 mg/2ml Vial SLOW IVP SCH (15:06)
[2019-01-10] MEDS: Pantoprazole 40 MG VIAL IVP SCH ×2 (15:06→20:16)
[2019-01-10] MEDS: Losartan 25 MG TAB PO SCH (15:06)
[2019-01-10] MEDS: Midodrine HCl 5 MG TAB PO SCH (15:06)
[2019-01-10] MEDS: Levothyroxine Sodium 75 MCG TAB PO SCH (15:06)
[2019-01-10] MEDS: Pregabalin 50 MG CAP PO SCH ×2 (15:06→20:11)
[2019-01-10] MEDS: cefTRIAXone\\ROCEPHIN 1 GM in Sodium Chloride 0.9% 100 ML IVPB SCH (15:07)
[2019-01-10] MEDS ORDERED: Ropivacaine 0.5% HCl/PF (150 MG/30 ML VIAL) ONE (15:57)
[2019-01-10] MEDS ORDERED: Lidocaine 1% PF 5 ML VIAL ONE (16:02)
[2019-01-10] MEDS ORDERED: PROPOFOL 200 MG/20 ML VIAL ONE ×2 (16:02)
[2019-01-10] MEDS ORDERED: Heparin 10,000 UNITS/ 10 ML VIAL ONE (16:02)
[2019-01-10] MEDS ORDERED: PHENYLEPHRINE-NS 100 MCG/ML 10 ML SYRINGE ONE (16:02)
--- NOTE | 2019-01-10 17:57 | PRG ---
DATE OF SERVICE: 01/10/2019 SUBJECTIVE: Ms. Olguin is feeling okay today. She went down for attempt at unclotting her dialysis fistula, but this was ultimately unsuccessful, and Dr. Jarrett performed right IJ tunneled hemodialysis catheter placement as well as left arm primary AV fistula. OBJECTIVE: VITAL SIGNS: Temperature 98.3, pulse 70, blood pressure 110/58, and 95% oxygen saturation on room air. GENERAL: No acute distress. HEART: Regular rate and rhythm. LUNGS: Clear to auscultation bilaterally. ABDOMEN: Nondistended. Bowel sounds present. Soft and nontender. EXTREMITIES: No peripheral edema. LABORATORY STUDIES: Hemoglobin fairly stable today at 8.5, WBC 3.3, and platelets 78. INR 1.2. Sodium 133, potassium 4.3, BUN 24, creatinine 3.27, and glucose 156. Total bilirubin 1.1, alkaline phosphatase 140, AST 31, and ALT 14. ASSESSMENT AND PLAN: 1. Decompensated cirrhosis, secondary to nonalcoholic steatohepatitis. 2. History of ascites with hepatic hydrothorax. The hepatic hydrothorax was a significant issue, causing great morbidity at the end of last year, but this seems to have been less of an issue with good fluid management through dialysis. I am actually happy with how she is doing on this front. Continue with dialysis and also diuretics as titrated per Nephrology. 3. Esophageal varices, status post multiple banding procedures. I banded her varices in the past and Dr. Chapa performed repeat EGD with 2 bands placed on grade 2 varices earlier this admission. Octreotide drip continues for now. I would continue the octreotide drip for another day, and it can be discontinued tomorrow. Note, that there was no evidence of active bleeding or blood in the stomach on that examination, so I am not entirely clear as to whether the varices have bled recently. 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 Anemia is also at least in part secondary to her chronic renal insufficiency. 4. Hepatic encephalopathy. The patient reports good compliance with lactulose and rifaximin on an outpatient basis. Despite this, she has had several recent falls including a sacral fracture. Continue with the lactulose and the rifaximin. If she is doing well tomorrow, no barriers to hospital discharge from a GI perspective. We will see her back in followup in clinic in the next few weeks. Please call anytime with questions or concerns. Job ID: [id number]
[2019-01-10] MEDS: HumaLOG 300 UNITS/3 ML VIAL SC PRN (18:20)
[2019-01-10] MEDS: Loratadine 10 MG TAB PO SCH (20:11)
[2019-01-10] MEDS: Atorvastatin Calcium 10 MG TAB PO SCH (20:14)
[2019-01-10] MEDS: Acetaminophen/Codeine 30-300mg Tablet PO PRN ×2 (20:14)
[2019-01-11] MEDS: Acetaminophen/Codeine 30-300mg Tablet PO PRN ×2 (02:30→17:19)
[2019-01-11] MEDS: HumaLOG 300 UNITS/3 ML VIAL SC PRN (05:29)
[2019-01-11 06:04] LABS: Hemoglobin 8.2 g/dL (12.0-16.0)
[2019-01-11] MEDS: Mometasone/Formoterol 120 PUFF INHALER INH SCH ×2 (07:19→18:03)
[2019-01-11] MEDS: Famotidine/PF 20 mg/2ml Vial SLOW IVP SCH (09:11)
[2019-01-11] MEDS: Pantoprazole 40 MG VIAL IVP SCH (09:13)
[2019-01-11] MEDS: Pregabalin 50 MG CAP PO SCH (09:17)
[2019-01-11] MEDS: Escitalopram Oxalate 20 mg Tablet PO SCH (09:17)
[2019-01-11] MEDS: Losartan 25 MG TAB PO SCH (09:17)
[2019-01-11] MEDS: Levothyroxine Sodium 75 MCG TAB PO SCH (09:18)
[2019-01-11] MEDS: Midodrine HCl 5 MG TAB PO SCH (09:18)
[2019-01-11] MEDS: Sevelamer Carbonate 800 MG TAB PO SCH ×3 (09:18→17:19)
--- NOTE | 2019-01-11 11:19 | PRG ---
DATE OF SERVICE: 01/11/2019 SUBJECTIVE: A 63-year-old female, being seen for end-stage kidney disease. The patient denied any nausea, vomiting, or chest pain. OBJECTIVE: GENERAL: The patient is awake and alert. VITAL SIGNS: Afebrile, pulse 69, breathing 16, and blood pressure 135/74. GENERAL APPEARANCE AND MENTAL STATUS: Fair. HEAD/NECK: Normocephalic. Atraumatic. EYES: EOMI. No deformity. EARS: Clear. No ulcers. NOSE: Intact. No lesions. MOUTH: Clear. No discharge. THROAT: Clear. No exudate. LUNGS: Clear. No crackles. CARDIAC: S1, S2. No rub. ABDOMEN: Benign. Bowel sounds positive. GENITALIA/RECTUM: Berman absent. BACK/EXTREMITIES: Edema 0+. NEUROLOGICAL: Alert and motor intact. SKIN: LYMPHATICS: LABORATORY DATA: Reviewed. ASSESSMENT AND PLAN: 1. Stage 6 chronic kidney disease. Continue hemodialysis. 2. Hypertension, stable. 3. Anemia, stable. 4. Medication based on GFR appropriate. Job ID: [id number]
--- NOTE | 2019-01-11 15:05 | PRG ---
DATE OF SERVICE: 01/11/2019 SUBJECTIVE: I am seeing Ms. Olguin in dialysis today. She says she is feeling pretty well. No abdominal pain or nausea. PHYSICAL EXAMINATION: VITAL SIGNS: Temperature 97.5, pulse 69, blood pressure 149/73, 99% oxygen saturation on room air. GENERAL: No acute distress. HEART: Regular rate and rhythm. LUNGS: Clear to auscultation bilaterally. ABDOMEN: Soft, nontender to palpation. EXTREMITIES: No peripheral edema. LABORATORY STUDIES: Hemoglobin stable at 8.2, hematocrit 24.4. INR 1.2. ASSESSMENT/PLAN: 1. Decompensated cirrhosis secondary to nonalcoholic steatohepatitis. 2. History of ascites with hepatic hydrothorax. Hepatic hydrothorax has essentially resolved over the past few months on continued dialysis and diuretics. 3. Esophageal varices, status post multiple banding procedures. I banded her varices in the past and Dr. Chapa performed repeat EGD with two bands placed on grade 2 varices earlier this admission. At this point, the octreotide drip can be discontinued. Note that there was no evidence of active bleeding or blood in the stomach on recent examination. 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 Anemia is also at least in part secondary to her chronic renal insufficiency. 4. Hepatic encephalopathy. The patient reports good compliance with lactulose and rifaximin on an outpatient basis. Despite this, she has had several recent falls including sacral fracture. Continue with lactulose and rifaximin. 5. No barriers to hospital discharge from a GI perspective. We will see her back in followup in clinic in the next 2 to 3 weeks. GI will sign off, but please call anytime with questions or concerns. Job ID: [id number]
[2019-01-11] MEDS: cefTRIAXone\\ROCEPHIN 1 GM in Sodium Chloride 0.9% 100 ML IVPB SCH (15:07)
[2019-01-11 16:16] VITALS: BP 157/73; TEMP 99.3
--- NOTE | 2019-01-11 17:25 | PRG ---
DATE OF SERVICE: 01/11/2019 Yessy Olguin is doing well today. She has good thrill and bruit in her fistula, left arm. Surgical wound looks good. Discharge home is planned today. I will see her in my office in 3 to 4 weeks. Job ID: [id number]
--- NOTE | 2019-01-11 17:49 | DIS ---
DATE OF ADMISSION: 01/07/2019 DATE OF DISCHARGE: 01/11/2019 DIAGNOSES AT THE TIME OF DISCHARGE: 1. End-stage renal disease with clotted fistula. 2. Anemia secondary to gastrointestinal bleeding, secondary to esophageal variceal bleeding. 3. Liver cirrhosis, non-alcohol related. 4. Upper gastrointestinal bleeding. 5. Hypertension. 6. Diabetes mellitus, type 2. 7. End-stage renal disease, on hemodialysis. CONSULTANTS: 1. Dr. Jakub Chapa, GI. 2. Dr. Darrell Pan, General Surgery. 3. Dr. Elsy Vaughn, Nephrology. 4. Dr. Kemar Canseco, Nephrology. 5. Dr. Paul Jarrett, General Surgery. 6. Dr. Brandan Baugh, Gastrointestinal Service. PROCEDURES: 1. Placement of triple-lumen right femoral Trialysis catheter for hemodialysis. 2. Esophagogastroduodenoscopy with banding of esophageal varices. 3. Revision of the left arm primary fistula. HOSPITAL COURSE: The patient was a 63-year-old female, who was admitted to the hospital with dialysis catheter malfunction. Apparently, she was sent to the hospital after there was difficulty accessing the catheter for dialysis. During the emergency room evaluation, her hemoglobin was found to be low at 6.3. She was transfused with 1 unit of packed red blood cells. Also, her white count was 3.8, hematocrit 18.9, platelet count 90,000. Sodium 140, potassium 4.1, chloride 106, CO2 of 25, BUN 58, creatinine 5.09. LFTs were within normal limits. was to declot the fistula, but this could not be done over the weekend, so General surgery consult was requested. Dialysis catheter was placed by Dr. Pan in the right groin. The patient was seen subsequently by Dr. Jarrett, who did procedure on her. He did revision of the fistula and he placed a catheter in her right internal jugular, this was hemodialysis catheter. This was ultrasound and fluoroscopically assisted. Also, the patient was seen by Dr. Chapa after she was found to have guaiac-positive stools. He did EGD with banding of esophageal varices. She was transfused with additional 2 units of packed red blood cells. She was on octreotide drip, and finally, the patient is doing well. She underwent hemodialysis today through her new access. Her vitals are stable. She is discharged home on diabetic diet. ACTIVITIES: As tolerated. FOLLOWUP: Recommendation is to follow up with Dr. Jarrett in the next 3 to 4 weeks, also with Dr. Chapa or Dr. Baugh for GI followup visit in a week. MEDICATIONS: At the time of discharge; 1. Dulera 2 puffs twice a day. 2. DuoNeb q.6 hours p.r.n. 3. Zyrtec 10 mg at bedtime. 4. Aranesp 0.5 mL subcutaneously every 7 days. 5. Flonase 1 spray to each nostril daily p.r.n. 6. Tylenol with codeine p.r.n. every 4 hours. 7. Levemir 15 units subcutaneously twice a day. 8. Levothyroxine 3 tablets a day. 9. Midodrine 5 mg once a day. 10. Losartan 1 tablet once a day. 11. Sevelamer carbonate 2 tablets 3 times a day. 12. Xifaxan 550 mg twice a day. 13. Lactulose . 14. Atorvastatin 10 mg at bedtime. 15. Lexapro 20 mg once a day. 16. Lyrica 50 mg once a day. TIME SPENT: Discharge time is more than 30 minutes. Job ID: [id number]
== END 2019-01-11 19:02 | disposition home or self-care (01) | DRG 264 ==
LOC: ERS 17:36 → T4-B 22:45
PROVIDERS: ADMIT Family Medicine; ATTEND Family Medicine
PROC: 02HV33Z Insertion of Infusion Device into Superior Vena Cava, Percutaneous Approach (ICD-10-PCS; 2019-01-08)
PROC: 30233N1 Transfusion of Nonautologous Red Blood Cells into Peripheral Vein, Percutaneous Approach (ICD-10-PCS; 2019-01-08)
PROC: 06L38CZ Occlusion of Esophageal Vein with Extraluminal Device, Via Natural or Artificial Opening Endoscopic (ICD-10-PCS; 2019-01-09)
PROC: 031C09F Bypass Left Radial Artery to Lower Arm Vein with Autologous Venous Tissue, Open Approach (ICD-10-PCS; principal; 2019-01-10)
PROC: 0JH63XZ Insertion of Tunneled Vascular Access Device into Chest Subcutaneous Tissue and Fascia, Percutaneous Approach (ICD-10-PCS; 2019-01-10)
PROC: B518YZA Fluoroscopy of Superior Vena Cava using Other Contrast, Guidance (ICD-10-PCS; 2019-01-10)
PROC: 02HV33Z Insertion of Infusion Device into Superior Vena Cava, Percutaneous Approach (ICD-10-PCS; 2019-01-10)
DX: T82.868A Thrombosis due to vascular prosthetic devices, implants and grafts, initial encounter (principal); I85.11 Secondary esophageal varices with bleeding; I12.0 Hypertensive chronic kidney disease with stage 5 chronic kidney disease or end stage renal disease; D62 Acute posthemorrhagic anemia; E11.22 Type 2 diabetes mellitus with diabetic chronic kidney disease; E78.5 Hyperlipidemia, unspecified; D63.1 Anemia in chronic kidney disease; K74.60 Unspecified cirrhosis of liver; J45.909 Unspecified asthma, uncomplicated; K72.90 Hepatic failure, unspecified without coma; Z99.2 Dependence on renal dialysis; Z79.899 Other long term (current) drug therapy; Z79.51 Long term (current) use of inhaled steroids; Z79.82 Long term (current) use of aspirin; Z79.4 Long term (current) use of insulin
CPT/HCPCS: 36415; 36416; 36430; 71045; 80048; 80053; 82274; 85014; 85018; 85025; 85610; 85730; 86850; 86900; 86901; 90935; 94664; 99284; C1752; C1769; C9113; G0257; J0670; J0696; J1642; J1644; J2001; J2354; J2704; J2720; J2795; J3010; J3490; J7050; P9016; S0028

== ENCOUNTER 2019-01-12 22:51 | Inpatient (IN) | payer BC, MEDICARE ==
[2019-01-12] MEDS ORDERED: cefTRIAXone\\ROCEPHIN 1 GM VIAL ONE (23:18)
[2019-01-12 23:36] LABS: #Basophils 0.1 thou/uL (0.0-0.2); #Lymphocytes 0.4 thou/uL (1.20-3.40); #Monocytes 0.2 thou/uL (0.11-0.59); #Neutrophils 3.2 thou/uL (1.40-6.50); %Basophils 1.4 % (0.0-1.0); %Eosinophils 0.6 % (0.0-10.0); %Monocytes 4.9 % (0.0-10.0); %Neutrophils 82.2 % (42.0-75.0); Mean Corpuscular HGB CONC 33.5 g/dL (32.0-36.0); Mean Corpuscular Hemoglobin 32.6 pg (27.0-31.0); Mean Corpuscular Volume 97.3 fL (78.0-98.0); Mean Platelet Volume 8.4 fL (7.4-10.4); Platelet Count 75 thou/uL (130-400); RBC Distribution Width 17.9 % (11.5-14.5); Red Blood Cell (RBC) Count 2.44 mill/uL (4.20-5.40); White Blood Cell (WBC) Count 3.9 thou/uL (4.8-10.8)
[2019-01-12 23:46] LABS: ALT (SGPT) 11 U/L (8-55); AST (SGOT) 31 U/L (5-34); Albumin 3.1 g/dL (3.4-4.8); Alkaline Phosphatase 128 U/L (40-150); Anion Gap 16 mmol/L (10-20); BUN (Urea Nitrogen) 45 mg/dL (9.8-20.1); Bilirubin, Total 1.2 mg/dL (0.2-1.2); Calc. Creatinine Clearance 0 mL/min (70-130); Calcium 9.2 mg/dL (7.8-10.44); Carbon Dioxide 22 mmol/L (23-31); Chloride 106 mmol/L (98-107); Estimated GFR-MDRD 12; Globulin 3.4 g/dL (2.4-3.5); Glucose 202 mg/dL (80-115); Magnesium 2.1 mg/dL (1.6-2.6); Protein, Total 6.5 g/dL (6.0-8.3); Sodium 140 mmol/L (136-145)
[2019-01-13] MEDS ORDERED: Dextrose 50% Abboject 50 ML SYRINGE SLOW IVP PRN (00:41)
[2019-01-13] MEDS ORDERED: Dextrose 5% in Water 1,000 ML IV PRN (00:41)
[2019-01-13] MEDS ORDERED: Pantoprazole 40 MG VIAL ONE ×2 (01:35→14:05)
[2019-01-13 03:33] LABS: #Lymphocytes 0.6 thou/uL (1.20-3.40); #Monocytes 0.2 thou/uL (0.11-0.59); #Neutrophils 3.2 thou/uL (1.40-6.50); %Basophils 0.6 % (0.0-1.0); %Lymphocytes 15.6 % (21.0-51.0); %Monocytes 4.5 % (0.0-10.0); %Neutrophils 78.4 % (42.0-75.0); Hemoglobin 7.4 g/dL (12.0-16.0); Mean Corpuscular HGB CONC 34.3 g/dL (32.0-36.0); Mean Corpuscular Hemoglobin 33.5 pg (27.0-31.0); Mean Corpuscular Volume 97.6 fL (78.0-98.0); Mean Platelet Volume 8.1 fL (7.4-10.4); Platelet Count 79 thou/uL (130-400); Red Blood Cell (RBC) Count 2.22 mill/uL (4.20-5.40); White Blood Cell (WBC) Count 4.1 thou/uL (4.8-10.8)
--- NOTE | 2019-01-13 05:04 | HP ---
PRIMARY CARE PHYSICIAN: Dr. Williams Holden. CODE STATUS: Full code. TIME OF EVALUATION: 12:00 a.m. CHIEF COMPLAINT: Change in mental status. HISTORY OF PRESENT ILLNESS: This is a 63-year-old female with past medical history of cirrhosis of the liver, chronic anemia, history of previous hepatic encephalopathy, came to the hospital after having change in mental status. As per her , the patient's symptoms started getting significantly worse since 11 :30 this morning. The patient was sleepy, not arousable, with no clear triggers, no alleviating factors. No fevers. No sign of sepsis. Symptoms were severe. Not having any real intake today due to change in mental status. She was found to have very high ammonia level, therefore being admitted to the hospital for that reason. REVIEW OF SYSTEMS: Unable to obtain as patient has acute encephalopathy. KNOWN ALLERGIES: 1. Adhesive. 2. Sulfa. FAMILY HISTORY: Reviewed and noncontributory to current presentation. REPORTED MEDICATIONS: Please see medication reconciliation for details. PHYSICAL EXAMINATION: VITAL SIGNS: On presentation, blood pressure 163/75 with heart rate 69, respiratory rate was 16, temperature 97.5, pain was 0/10, oxygen saturation was 97% on room air. GENERAL APPEARANCE: The patient is confused, lethargic. HEENT: Eyes, normal conjunctivae. Moist oral mucosa. Anicteric. No JVD. RESPIRATORY: Bilateral air entry. No rales or wheezes. Symmetric expansion. CARDIOVASCULAR: Normal rate. Regular rhythm. No murmurs. No gallop. No edema. ABDOMEN: Soft. Normal bowel sounds. MUSCULOSKELETAL: Baseline range of motion and strength. SKIN: Warm, intact. No pallor. No rash. No redness. Capillary refill seems to be intact. NEUROLOGIC: The patient is lethargic, unable to fully explore. No evidence of any new focal weakness. PSYCHIATRIC: Unable to fully explore. The patient is lethargic. LABORATORY DATA: Reviewed. The patient has white count 3.9, hemoglobin 8.0, repeat one 7.4, hematocrit 23.7, repeat one 21.4, MCV 97.3, platelet count 75. Chemistry; sodium 140, potassium 4.0, chloride 106, carbon dioxide 22, anion gap 16, BUN 45 , creatinine 3.75, GFR 12, glucose 202, calcium 9.2, magnesium 2.1. Ammonia level 123. Serum total protein 6.5 with albumin 3.1, globulin 3.4, albumin to globulin ratio 0.1. ASSESSMENT AND PLAN: The patient will be placed in the hospital with following medical problems: 1. Acute hepatic encephalopathy. The patient will be placed on rifaximin, lactulose, will be monitored. We will give support as inpatient, no significant etiology for any underlying infection or problem causing these acute events. We will monitor and adjust treatment accordingly. Might need evaluation from GI. The patient follows with Dr. Baugh. 2. Pancytopenia secondary to chronic liver disease. We will monitor. The patient does not seem to be bleeding. Last hemoglobin 7.4, that has been lower than the previous one. We will monitor hemoglobin. If the hemoglobin keeps dropping, we will transfuse as needed. 3. History of renal disease. The patient is on hemodialysis. We will consult Dr. Canseco for dialysis as inpatient. 4. Uncontrolled diabetes, blood sugar 202. Place the patient on sliding scale for optimal control. The patient not eating at this point. 5. Deep venous thrombosis prophylaxis. Job ID: [id number] [id number]
[2019-01-13] MEDS ORDERED: Morphine 2 MG/ML SYRINGE ONE (08:09)
[2019-01-13 08:15] LABS: #Eosinphils 0.2 thou/uL (0.0-0.7); #Lymphocytes 0.9 thou/uL (1.20-3.40); #Monocytes 0.4 thou/uL (0.11-0.59); #Neutrophils 3.2 thou/uL (1.40-6.50); %Basophils 0.4 % (0.0-1.0); %Eosinophils 3.6 % (0.0-10.0); %Lymphocytes 18.7 % (21.0-51.0); %Monocytes 7.6 % (0.0-10.0); %Neutrophils 69.7 % (42.0-75.0); Hemoglobin 7.2 g/dL (12.0-16.0); Mean Corpuscular Hemoglobin 32.7 pg (27.0-31.0); Mean Corpuscular Volume 96.2 fL (78.0-98.0); Mean Platelet Volume 8.5 fL (7.4-10.4); Platelet Count 81 thou/uL (130-400); RBC Distribution Width 18.1 % (11.5-14.5); Red Blood Cell (RBC) Count 2.19 mill/uL (4.20-5.40); White Blood Cell (WBC) Count 4.7 thou/uL (4.8-10.8)
[2019-01-13 09:33] LABS: Bacteria/HPF 1+ HPF (None Seen); Bilirubin Negative (Negative); Blood, Urine 1+ (Negative); Clarity Clear (Clear); Glucose, Urine (Dipstick) 200 mg/dL (Negative); Leukocyte 75 Leu/uL (Negative); Nitrite Negative (Negative); Protein, Urine (Dipstick) 100 mg/dL (Neg-Trace); Squamous Epithelial 0-3 HPF (0-3); Urobilinogen Normal mg/dL (Less than 2); WBC/HPF 21-50 HPF (0-3)
[2019-01-13 09:34] LABS: Transitional Epithelial 0-3 HPF (None Seen)
[2019-01-13 09:35] LABS: Renal Epithelial 0-3 HPF (None Seen)
[2019-01-13] MEDS ORDERED: cefTRIAXone\\ROCEPHIN 1 GM in Sodium Chloride 0.9% 100 ML IVPB SCH (10:00)
--- NOTE | 2019-01-13 12:05 | CON ---
DATE OF CONSULTATION: REASON FOR CONSULTATION: End-stage kidney disease, on maintenance hemodialysis. HISTORY OF PRESENT ILLNESS: This is a very pleasant 63-year-old female, who was brought in for altered ammonia level. The patient can give no further history. PAST MEDICAL HISTORY: Significant for hypertension, anemia, liver failure, end-stage kidney disease. ALLERGIES: REVIEWED. HOME MEDICATIONS: List reviewed. REVIEW OF SYSTEMS: Unobtainable. PHYSICAL EXAMINATION: CONSTITUTIONAL: On examination, the patient is resting. VITAL SIGNS: Afebrile, pulse 69, breathing 16, and blood pressure 163/75. GENERAL APPEARANCE AND MENTAL STATUS: Fair. HEAD/NECK: Normocephalic. Atraumatic. EYES: EOMI. No deformity. EARS: Clear. No ulcers. NOSE: Intact. No lesions. MOUTH: Clear. No discharge. THROAT: Clear. No exudate. LUNGS: Clear. No crackles. CARDIAC: S1, S2. No rub. ABDOMEN: Benign. Bowel sounds positive. GENITALIA/RECTUM: Berman absent. BACK/EXTREMITIES: Edema 0+. NEUROLOGICAL: The patient is lethargic and cannot do neurological examination. SKIN: LYMPHATICS: LABORATORY FINDINGS: Labs show potassium is 4. ASSESSMENT/PLAN: 1. Stage 6 chronic kidney disease. Plan dialysis per schedule on Thursday, , and Thursday. 2. Hypertension, stable. 3. Anemia, stable. 4. Medication based on glomerular filtration rate appropriate. Job ID: [id number]
[2019-01-13] MEDS: Pantoprazole 40 MG VIAL IVP SCH ×2 (13:17→20:16)
[2019-01-13] MEDS: Sodium Chloride 0.9% 1,000 ML IV SCH (13:19)
[2019-01-13] MEDS: Rifaximin 550 MG TAB PO SCH ×2 (14:03→20:16)
[2019-01-13 14:44] LABS: Anisocytosis SLIGHT = 6-15 cells (100X) (0-5/hpf); Band 3 % (5-11); Hemoglobin 7.8 g/dL (12.0-16.0); Lymphocytes 5 % (21-51); MDiff Complete? YES; Mean Corpuscular HGB CONC 33.5 g/dL (32.0-36.0); Mean Corpuscular Hemoglobin 32.5 pg (27.0-31.0); Mean Corpuscular Volume 96.8 fL (78.0-98.0); Mean Platelet Volume 8.6 fL (7.4-10.4); Monocytes 2 % (0-10); Neutrophil 90 % (42-75); Platelet Count 101 thou/uL (130-400); Platelet Morphology Comment Appears Decreased; RBC Distribution Width 18.2 % (11.5-14.5); Red Blood Cell (RBC) Count 2.41 mill/uL (4.20-5.40); White Blood Cell (WBC) Count 6.3 thou/uL (4.8-10.8)
[2019-01-13] MEDS ORDERED: Heparin 10,000 UNITS/1 ML VIAL ONE (15:00)
--- NOTE | 2019-01-13 15:05 | PDOC.PN ---
- Subjective Encounter Start Date: 01/13/19 Encounter Start Time: 10:15 Subjective: pt up in bed very confused - Objective Result Diagrams: 01/13/19 13:51 01/12/19 23:12 Phys Exam - Physical Examination Respiratory: no wheezing, no rales, no rhonchi, wheezing present, clear to auscultation bilateral Cardiovascular: RRR, no significant murmur, no rub, gallop, irregular Gastrointestinal: soft, non-tender, no distention, positive bowel sounds Musculoskeletal: no edema, pulses present, edema present Dx/Plan (1) Hepatic encephalopathy Code(s): K72.90 - HEPATIC FAILURE, UNSPECIFIED WITHOUT COMA Status: Acute (2) ESRD on hemodialysis Code(s): N18.6 - END STAGE RENAL DISEASE; Z99.2 - DEPENDENCE ON RENAL DIALYSIS Status: Acute Comment: Continue HD, SW to place patient for OP dialysis (3) Upper GI bleed Code(s): K92.2 - GASTROINTESTINAL HEMORRHAGE, UNSPECIFIED Status: Acute (4) Cirrhosis Code(s): K74.60 - UNSPECIFIED CIRRHOSIS OF LIVER Status: Chronic Qualifiers: Comment: BROOKS LAY (5) Diabetes type 2, uncontrolled Code(s): E11.65 - TYPE 2 DIABETES MELLITUS WITH HYPERGLYCEMIA Status: Chronic Qualifiers: - Plan pt very confused, will start her on abx, albumin and octretoid drip -: she is having dark stools. HH is stable. updated about her overall -: condition. will get ct head -: she is typed and screened. will continue her ppi. recent banding * . Review of Systems - Review of Systems Other: unable to obtain - Medications/Allergies Allergies/Adverse Reactions: Allergies Allergy/AdvReac Type Severity Reaction Status Date / Time Sulfa (Sulfonamide Allergy Intermediate Rash Verified 01/07/19 23:27 Antibiotics) adhesive Allergy Verified 01/07/19 23:27 Medications: Current Medications Albumin Human (Albumin 25%) 25 gm IVPB TID [facility] Stop: 01/14/19 15:01 Dextrose/Water (Dextrose 50%) 25 gm SLOW IVP PRN PRN PRN Reason: Hypoglycemia Glucagon (Glucagon) 1 mg IM PRN PRN PRN Reason: Hypoglycemia Dextrose/Water (D5w) 1,000 mls @ 0 mls/hr IV .Q0M PRN PRN Reason: Hypoglycemia Ceftriaxone Sodium 1 gm/ (Sodium Chloride) 100 mls @ 200 mls/hr IVPB Q24HR [facility] Last Admin: 01/13/19 13:19 Dose: 100 mls Sodium Chloride (Normal Saline 0.9%) 1,000 mls @ 50 mls/hr IV .Q20H [facility] Last Admin: 01/13/19 13:19 Dose: 1,000 mls Octreotide Acetate 1,250 mcg/ (Sodium Chloride) 251.25 mls @ 10.05 mls/hr IVPB INF [facility] Insulin Human Lispro (Humalog) 0 units SC .MILD SLIDING SCALE PRN PRN Reason: Mild Correctional Scale Pantoprazole Sodium (Protonix) 40 mg IVP Q12HR [facility] Last Admin: 01/13/19 13:17 Dose: 40 mg Rifaximin (Xifaxan) 550 mg PO BID [facility] Last Admin: 01/13/19 14:03 Dose: Not Given
--- NOTE | 2019-01-13 15:08 | CT ---
CT BRAIN NONCONTRAST: DATE: 01/13/2019 HISTORY: 63-year-old female with altered mental status FINDINGS: There is no evidence of acute intra-axial or extra-axial hemorrhage. There is no midline shift or any other mass effect. There is no extra-axial fluid collection. There is no evidence of obstructive hydrocephalus. Calvarium is intact. IMPRESSION: No acute intracranial findings.
[2019-01-13] MEDS ORDERED: Piperacillin/Tazobactam 0.75 GM in Sodium Chloride 0.9% 100 ML IVPB SCH (15:45)
[2019-01-13] MEDS: Albumin 25% 25 GM/100 ML BOT IVPB SCH ×2 (15:54→21:46)
[2019-01-13 19:08] LABS: Hemoglobin 9.4 g/dL (12.0-16.0)
[2019-01-13] MEDS: Octreotide Acetate 1,250 MCG in Sodium Chloride 0.9% 250 ML 250 ML IVPB SCH (20:17)
[2019-01-13] MEDS: Piperacillin/Tazobactam 2.25 GM in Sodium Chloride 0.9% 100 ML IVPB SCH (21:22)
[2019-01-14 00:07] LABS: Hemoglobin 7.8 g/dL (12.0-16.0)
[2019-01-14] MEDS: Sodium Chloride 0.9% 1,000 ML IV SCH ×2 (05:28→22:12)
[2019-01-14] MEDS: Piperacillin/Tazobactam 2.25 GM in Sodium Chloride 0.9% 100 ML IVPB SCH ×2 (09:47→22:11)
[2019-01-14] MEDS: Rifaximin 550 MG TAB PO SCH ×2 (09:47→22:10)
[2019-01-14] MEDS: Pantoprazole 40 MG VIAL IVP SCH ×2 (09:47→22:11)
[2019-01-14] MEDS: Albumin 25% 25 GM/100 ML BOT IVPB SCH ×2 (09:47→14:10)
--- NOTE | 2019-01-14 14:34 | PDOC.PN ---
- Subjective Encounter Start Date: 01/14/19 Encounter Start Time: 10:15 Subjective: pt more awake - Objective Vital Signs & Weight: Vital Signs (12 hours) Temp 01/14/19 11:10 98.9 F 01/14/19 07:34 98.3 F 01/14/19 04:00 99.2 F Weight Admit Weight 146 lb 6.191 oz Weight 142 lb 10.225 oz Most Recent Monitor Data Heart Rate from ECG 90 NIBP 176/76 NIBP BP-Mean 109 Respiration from ECG 17 SpO2 100 I&O: 01/13/19 01/14/19 01/15/19 06:59 06:59 06:59 Intake Total 408 Output Total 700 Balance -292 Result Diagrams: 01/15/19 05:29 01/15/19 05:29 Additional Labs: Accuchecks 01/14/19 01/14/19 01/13/19 05:50 00:03 17:57 POC Glucose 172 H 136 H 111 H Phys Exam - Physical Examination Neck: no nodes, no JVD, supple, full ROM Respiratory: no wheezing, no rales, no rhonchi, wheezing present, clear to auscultation bilateral Cardiovascular: RRR, no significant murmur, no rub, gallop, irregular Gastrointestinal: soft, non-tender, no distention, positive bowel sounds Dx/Plan (1) Hepatic encephalopathy Code(s): K72.90 - HEPATIC FAILURE, UNSPECIFIED WITHOUT COMA Status: Acute (2) ESRD on hemodialysis Code(s): N18.6 - END STAGE RENAL DISEASE; Z99.2 - DEPENDENCE ON RENAL DIALYSIS Status: Acute Comment: Continue HD, SW to place patient for OP dialysis (3) Upper GI bleed Code(s): K92.2 - GASTROINTESTINAL HEMORRHAGE, UNSPECIFIED Status: Acute (4) Cirrhosis Code(s): K74.60 - UNSPECIFIED CIRRHOSIS OF LIVER Status: Chronic Qualifiers: Comment: BROOKS LAY (5) Diabetes type 2, uncontrolled Code(s): E11.65 - TYPE 2 DIABETES MELLITUS WITH HYPERGLYCEMIA Status: Chronic Qualifiers: - Plan will continue octreotide for now -: gi to see pt. will continue abx -: will continue oral lactulose * . Review of Systems - Review of Systems Respiratory: negative: Cough, Dry, Shortness of Breath, Hemoptysis, SOB with Excertion, Pleuritic Pain, Sputum, Wheezing Cardiovascular: negative: chest pain, palpitations, orthopnea, paroxysmal nocturnal dyspnea, edema, light headedness, other - Medications/Allergies Allergies/Adverse Reactions: Allergies Allergy/AdvReac Type Severity Reaction Status Date / Time Sulfa (Sulfonamide Allergy Intermediate Rash Verified 01/13/19 15:39 Antibiotics) adhesive Allergy Verified 01/13/19 15:39 Medications: Current Medications Atorvastatin Calcium (Lipitor) 10 mg PO HS [facility] Last Admin: 01/14/19 22:10 Dose: 10 mg Dextrose/Water (Dextrose 50%) 25 gm SLOW IVP PRN PRN PRN Reason: Hypoglycemia Glucagon (Glucagon) 1 mg IM PRN PRN PRN Reason: Hypoglycemia Dextrose/Water (D5w) 1,000 mls @ 0 mls/hr IV .Q0M PRN PRN Reason: Hypoglycemia Octreotide Acetate 1,250 mcg/ (Sodium Chloride) 251.25 mls @ 10.05 mls/hr IVPB INF [facility] Last Admin: 01/14/19 22:12 Dose: 251.25 mls Piperacillin Sod/Tazobactam Sod 0.75 gm/ Miscellaneous Medication 1 each/ Sodium Chloride 100 mls @ 200 mls/hr IVPB ASDIR [facility] Last Admin: 01/13/19 20:16 Dose: 100 mls Ceftriaxone Sodium 1 gm/ (Sodium Chloride) 100 mls @ 200 mls/hr IVPB Q24HR [facility] Insulin Human Lispro (Humalog) 0 units SC .MILD SLIDING SCALE PRN PRN Reason: Mild Correctional Scale Last Admin: 01/15/19 06:41 Dose: 2 unit Lactulose (Lactulose) 30 gm PO DAILY [facility] Last Admin: 01/15/19 09:01 Dose: 30 gm Levothyroxine Sodium (Synthroid) 225 mcg PO 0600 [facility] Last Admin: 01/15/19 05:39 Dose: 225 mcg Losartan Potassium (Cozaar) 25 mg PO DAILY [facility] Last Admin: 01/15/19 09:02 Dose: 25 mg Miscellaneous Medication (Pharmacy To Dose) 1 each IVPB ONE PRN PRN Reason: Pharmacy to dose Stop: 01/23/19 15:08 Mometasone Furoate/Formoterol Fumar (Dulera 100 Mcg/5 Mcg Inhaler) 2 puff INH BID-RT [facility] Last Admin: 01/15/19 06:37 Dose: 2 puff Pantoprazole Sodium (Protonix) 40 mg IVP Q12HR [facility] Last Admin: 01/15/19 09:03 Dose: 40 mg Pregabalin (Lyrica) 50 mg PO BID [facility] Last Admin: 01/15/19 09:02 Dose: 50 mg Rifaximin (Xifaxan) 550 mg PO BID [facility] Last Admin: 01/15/19 09:02 Dose: 550 mg Spironolactone (Aldactone) 25 mg PO [facility]
--- NOTE | 2019-01-14 15:47 | PRG ---
DATE OF SERVICE: 01/14/2019 SUBJECTIVE: A 63-year-old female being seen for end-stage renal disease. The patient denied nausea, vomiting, or chest pain. OBJECTIVE: CONSTITUTIONAL: The patient is awake and alert. VITAL SIGNS: Afebrile, pulse 75, breathing 16, and blood pressure 136/76. GENERAL APPEARANCE AND MENTAL STATUS: Fair. HEAD/NECK: Normocephalic. Atraumatic. EYES: EOMI. No deformity. EARS: Clear. No ulcers. NOSE: Intact. No lesions. MOUTH: Clear. No discharge. THROAT: Clear. No exudate. LUNGS: Clear. No crackles. CARDIAC: S1, S2. No rub. ABDOMEN: Benign. Bowel sounds positive. GENITALIA/RECTUM: Berman absent. BACK/EXTREMITIES: Edema 0+. NEUROLOGICAL: Alert and motor intact. SKIN: LYMPHATICS: LABORATORY DATA: Labs reviewed. ASSESSMENT AND PLAN: Stage 6 chronic kidney disease, continue current hemodialysis. Hypertension, stable. Anemia, stable. Medication based on GFR appropriate. Job ID: [id number]
[2019-01-14] MEDS ORDERED: Prevnar 13-Val Conj/PF 0.5 ML SYRINGE IM ONE (16:45)
[2019-01-14] MEDS: HumaLOG 300 UNITS/3 ML VIAL SC PRN (18:45)
[2019-01-14] MEDS: Mometasone/Formoterol 120 PUFF INHALER INH SCH (18:54)
[2019-01-14] MEDS ORDERED: Rifaximin 550 MG TAB PO SCH (21:00)
--- NOTE | 2019-01-14 21:29 | CON ---
DATE OF CONSULTATION: 01/14/2019 HISTORY OF PRESENT ILLNESS: Ms. Olguin is a 63-year-old female with cirrhosis, who presented with confusion. She apparently has improved significantly overnight. She also has end-stage renal disease, on dialysis. She has no complaints when I saw her. She is still word searching, but does manage to answer questions appropriately. PAST MEDICAL HISTORY: Remarkable for: 1. Hypertension. 2. Cirrhosis. 3. End-stage renal disease, on dialysis. 4. History of vascular access procedures in the past. According to one of Dr. Jarrett's old notes, she had a vein mapping revealed poor veins in both arms. 5. Diabetes. 6. Hypothyroidism, on replacement. 7. History of lipid disorder. 8. History of in the past. 9. Thrombocytopenia. 10. History of asthma reportedly. 11. History of banding of varices in the past. 12. History of tonsillectomy. SOCIAL HISTORY: She is reportedly a nonsmoker and nondrinker. FAMILY HISTORY: 1. Negative for lung disease in early age. 2. History of portal vein thrombosis. One of Dr. Goss' notes in 2017, his note stated they felt that her cirrhosis was related to nonalcoholic steatohepatitis. 3. 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 4. History of noncardiac chest pain in 2017 related to her banding. REVIEW OF SYSTEMS: Ten point review of systems completed, otherwise negative. PHYSICAL EXAMINATION: GENERAL: Ms. Olguin is a 63-year-old female with cirrhosis. VITAL SIGNS: She is afebrile. Blood pressure 176/76, heart rate 90, and respiratory rate 17. HEENT: pupils react. NECK: Supple. LUNGS: Clear. HEART: Regular rhythm. ABDOMEN: Soft and nontender. EXTREMITIES: Without asymmetry. She does not have asterixis. LABORATORY DATA: Hemoglobin was 9.4 yesterday morning and 7.8 yesterday evening , this was not repeated today. Sodium was 140 on the 3rd, potassium 4, chloride 106, bicarb 22, BUN 45, and creatinine 3.75. Creatinine had been repeated. She is a dialysis patient. IMPRESSION: 1. Hepatic encephalopathy, clinically improving. 2. End-stage renal disease. 3. Cirrhosis secondary to steatohepatitis. 4. History of portal vein thrombosis. 5. History of a hepatic hilar mass? Was worked up as an outpatient by Dr. Goss. It is not sure what the workup revealed. 6. Anemia likely mostly of chronic disease, thrombocytopenia secondary to her cirrhosis. She is probably stable enough to move out of the intermediate care unit here within the next 12 to 24 hours. This is a 70 minute consult, with greater than 50% of time spent on unit coordinating care. Job ID: [id number] MTDD
[2019-01-14] MEDS: Pregabalin 50 MG CAP PO SCH (22:10)
[2019-01-14] MEDS: Atorvastatin Calcium 10 MG TAB PO SCH (22:10)
[2019-01-14] MEDS: Octreotide Acetate 1,250 MCG in Sodium Chloride 0.9% 250 ML 250 ML IVPB SCH (22:12)
[2019-01-15] MEDS ORDERED: traMADol HCl 50 MG TAB PO SCH (01:15)
[2019-01-15] MEDS: Levothyroxine Sodium 75 MCG TAB PO SCH (05:39)
[2019-01-15] MEDS: Mometasone/Formoterol 120 PUFF INHALER INH SCH ×2 (06:37→19:14)
[2019-01-15] MEDS: HumaLOG 300 UNITS/3 ML VIAL SC PRN ×2 (06:41→18:28)
[2019-01-15 06:42] LABS: ALT (SGPT) 9 U/L (8-55); AST (SGOT) 25 U/L (5-34); Albumin 3.6 g/dL (3.4-4.8); Alkaline Phosphatase 96 U/L (40-150); Anion Gap 15 mmol/L (10-20); BUN (Urea Nitrogen) 35 mg/dL (9.8-20.1); Bilirubin, Total 2.2 mg/dL (0.2-1.2); Calc. Creatinine Clearance 15 mL/min (70-130); Calcium 9.2 mg/dL (7.8-10.44); Carbon Dioxide 21 mmol/L (23-31); Chloride 109 mmol/L (98-107); Estimated GFR-MDRD 11; Globulin 2.6 g/dL (2.4-3.5); Glucose 183 mg/dL (80-115); Potassium 3.4 mmol/L (3.5-5.1); Protein, Total 6.2 g/dL (6.0-8.3); Sodium 142 mmol/L (136-145)
[2019-01-15 06:53] LABS: #Eosinphils 0.4 thou/uL (0.0-0.7); #Lymphocytes 0.9 thou/uL (1.20-3.40); #Monocytes 0.4 thou/uL (0.11-0.59); #Neutrophils 2.5 thou/uL (1.40-6.50); %Basophils 0.7 % (0.0-1.0); %Eosinophils 8.8 % (0.0-10.0); %Monocytes 8.6 % (0.0-10.0); Hemoglobin 6.9 g/dL (12.0-16.0); Mean Corpuscular HGB CONC 33.4 g/dL (32.0-36.0); Mean Corpuscular Hemoglobin 31.9 pg (27.0-31.0); Mean Corpuscular Volume 95.5 fL (78.0-98.0); Mean Platelet Volume 8.4 fL (7.4-10.4); Platelet Count 71 thou/uL (130-400); Platelet Morphology Comment Appears Decreased; RBC Distribution Width 18.3 % (11.5-14.5); Red Blood Cell (RBC) Count 2.16 mill/uL (4.20-5.40); White Blood Cell (WBC) Count 4.1 thou/uL (4.8-10.8)
[2019-01-15 07:13] VITALS: BMI 24.7
[2019-01-15] MEDS: Rifaximin 550 MG TAB PO SCH ×2 (09:02→20:43)
[2019-01-15] MEDS: Pregabalin 50 MG CAP PO SCH ×2 (09:02→20:43)
[2019-01-15] MEDS: Losartan 25 MG TAB PO SCH (09:02)
[2019-01-15] MEDS: Piperacillin/Tazobactam 2.25 GM in Sodium Chloride 0.9% 100 ML IVPB SCH (09:03)
[2019-01-15] MEDS: Pantoprazole 40 MG VIAL IVP SCH ×2 (09:03→20:43)
[2019-01-15] MEDS ORDERED: Heparin 10,000 UNITS/ 10 ML VIAL ONE (11:11)
--- NOTE | 2019-01-15 13:32 | PRG ---
DATE OF SERVICE: 01/15/2019 SUBJECTIVE: A 63-year-old lady being seen for end-stage renal disease. The patient denied nausea, vomiting, or chest pain. OBJECTIVE: See above. The patient is awake, alert, in no acute distress. VITAL SIGNS: Afebrile, pulse 74, breathing 16, blood pressure . GENERAL APPEARANCE AND MENTAL STATUS: Fair. HEAD/NECK: Normocephalic. Atraumatic. EYES: EOMI. No deformity. EARS: Clear. No ulcers. NOSE: Intact. No lesions. MOUTH: Clear. No discharge. THROAT: Clear. No exudate. LUNGS: Clear. No crackles. CARDIAC: S1, S2. No rub. ABDOMEN: Benign. Bowel sounds positive. GENITALIA/RECTUM: Berman absent. BACK/EXTREMITIES: Edema 0+. NEUROLOGICAL: Alert and motor intact. SKIN: LYMPHATICS: LABORATORY DATA: Reviewed. ASSESSMENT AND PLAN: 1. Stage 6 chronic kidney disease. Plan dialysis. 2. Anemia. Plan transfusion. 3. Hypertension, stable. 4. Medication based on GFR appropriate. Job ID: [id number]
--- NOTE | 2019-01-15 14:07 | PDOC.PN ---
- Subjective Encounter Start Date: 01/15/19 Encounter Start Time: 10:15 Subjective: pt up in bed able to tell me her name - Objective Vital Signs & Weight: Vital Signs (12 hours) Temp Pulse Resp Pulse Ox 01/15/19 11:14 98.6 F 01/15/19 10:45 98.7 F 01/15/19 10:12 99.0 F 01/15/19 09:45 98.8 F 01/15/19 09:15 98.7 F 01/15/19 09:00 98.6 F 01/15/19 07:34 98.6 F 01/15/19 06:37 77 15 100 01/15/19 03:47 99.3 F Weight Admit Weight 146 lb 6.191 oz Weight 144 lb 9.972 oz Most Recent Monitor Data Heart Rate from ECG 81 NIBP 148/84 NIBP BP-Mean 105 Respiration from ECG 18 SpO2 100 I&O: 01/14/19 01/15/19 01/16/19 06:59 06:59 06:59 Intake Total 408 2021 700 Output Total 2700 450 Balance -2292 1571 700 Result Diagrams: 01/15/19 05:29 01/15/19 05:29 Additional Labs: Accuchecks 01/15/19 01/15/19 01/15/19 12:45 06:04 00:10 POC Glucose 89 188 H 165 H 01/14/19 01/14/19 18:37 15:11 POC Glucose 253 H 157 H Phys Exam - Physical Examination Neck: no nodes, no JVD, supple, full ROM Respiratory: no wheezing, no rales, no rhonchi, wheezing present, clear to auscultation bilateral Cardiovascular: RRR, no significant murmur, no rub, gallop, irregular Gastrointestinal: soft, non-tender, no distention, positive bowel sounds Dx/Plan (1) Hepatic encephalopathy Code(s): K72.90 - HEPATIC FAILURE, UNSPECIFIED WITHOUT COMA Status: Acute (2) ESRD on hemodialysis Code(s): N18.6 - END STAGE RENAL DISEASE; Z99.2 - DEPENDENCE ON RENAL DIALYSIS Status: Acute Comment: Continue HD, SW to place patient for OP dialysis (3) Upper GI bleed Code(s): K92.2 - GASTROINTESTINAL HEMORRHAGE, UNSPECIFIED Status: Acute (4) Cirrhosis Code(s): K74.60 - UNSPECIFIED CIRRHOSIS OF LIVER Status: Chronic Qualifiers: Comment: BROOKS tahira ALIREZA (5) Diabetes type 2, uncontrolled Code(s): E11.65 - TYPE 2 DIABETES MELLITUS WITH HYPERGLYCEMIA Status: Chronic Qualifiers: - Plan will continue octreotide and protonix -: will check hh daily. gi to see pt. -: will change zosyn to ceftriaxone * . Review of Systems - Review of Systems Respiratory: negative: Cough, Dry, Shortness of Breath, Hemoptysis, SOB with Excertion, Pleuritic Pain, Sputum, Wheezing Cardiovascular: negative: chest pain, palpitations, orthopnea, paroxysmal nocturnal dyspnea, edema, light headedness, other Gastrointestinal: negative: Nausea, Vomiting, Abdominal Pain, Diarrhea, Constipation, Melena, Hematochezia, Other - Medications/Allergies Allergies/Adverse Reactions: Allergies Allergy/AdvReac Type Severity Reaction Status Date / Time Sulfa (Sulfonamide Allergy Intermediate Rash Verified 01/13/19 15:39 Antibiotics) adhesive Allergy Verified 01/13/19 15:39 Medications: Current Medications Atorvastatin Calcium (Lipitor) 10 mg PO HS [facility] Last Admin: 01/14/19 22:10 Dose: 10 mg Dextrose/Water (Dextrose 50%) 25 gm SLOW IVP PRN PRN PRN Reason: Hypoglycemia Glucagon (Glucagon) 1 mg IM PRN PRN PRN Reason: Hypoglycemia Dextrose/Water (D5w) 1,000 mls @ 0 mls/hr IV .Q0M PRN PRN Reason: Hypoglycemia Octreotide Acetate 1,250 mcg/ (Sodium Chloride) 251.25 mls @ 10.05 mls/hr IVPB INF [facility] Last Admin: 01/14/19 22:12 Dose: 251.25 mls Piperacillin Sod/Tazobactam Sod 0.75 gm/ Miscellaneous Medication 1 each/ Sodium Chloride 100 mls @ 200 mls/hr IVPB ASDIR [facility] Last Admin: 01/13/19 20:16 Dose: 100 mls Ceftriaxone Sodium 1 gm/ (Sodium Chloride) 100 mls @ 200 mls/hr IVPB Q24HR [facility] Insulin Human Lispro (Humalog) 0 units SC .MILD SLIDING SCALE PRN PRN Reason: Mild Correctional Scale Last Admin: 01/15/19 06:41 Dose: 2 unit Lactulose (Lactulose) 30 gm PO DAILY [facility] Last Admin: 01/15/19 09:01 Dose: 30 gm Levothyroxine Sodium (Synthroid) 225 mcg PO 0600 [facility] Last Admin: 01/15/19 05:39 Dose: 225 mcg Losartan Potassium (Cozaar) 25 mg PO DAILY [facility] Last Admin: 01/15/19 09:02 Dose: 25 mg Miscellaneous Medication (Pharmacy To Dose) 1 each IVPB ONE PRN PRN Reason: Pharmacy to dose Stop: 01/23/19 15:08 Mometasone Furoate/Formoterol Fumar (Dulera 100 Mcg/5 Mcg Inhaler) 2 puff INH BID-RT [facility] Last Admin: 01/15/19 06:37 Dose: 2 puff Pantoprazole Sodium (Protonix) 40 mg IVP Q12HR [facility] Last Admin: 01/15/19 09:03 Dose: 40 mg Pregabalin (Lyrica) 50 mg PO BID [facility] Last Admin: 01/15/19 09:02 Dose: 50 mg Rifaximin (Xifaxan) 550 mg PO BID [facility] Last Admin: 01/15/19 09:02 Dose: 550 mg Spironolactone (Aldactone) 25 mg PO [facility]
--- NOTE | 2019-01-15 15:41 | PRG ---
DATE OF SERVICE: 01/15/2019 SUBJECTIVE: Yessy Olguin is much more alert today. She is quick to answer questions. She is not word searching like yesterday. OBJECTIVE: VITAL SIGNS: Blood pressure 148/84, heart rate 80, respiratory rate 18, oximetry is 100%. LUNGS: Clear. HEART: Regular rhythm. ABDOMEN: Soft. LABORATORY DATA: White count is 4.1, hemoglobin 6.9, platelets 71,000. Electrolytes; sodium 142, potassium 3.4, chloride 109, bicarb 21, BUN 35, creatinine 3.98. Intake and output, positive 1571. She is being dialyzed when I saw her this morning. IMPRESSION AND PLAN: 1. Idiopathic encephalopathy, resolving. She can be transferred out of intermediate care. 2. Mixture of anemia of chronic disease, probably combined with blood loss anemia, probably needs transfusion. 3. We will sign off when she is transferred out of the intermediate care unit. Job ID: [id number]
[2019-01-15] MEDS: cefTRIAXone\\ROCEPHIN 1 GM in Sodium Chloride 0.9% 100 ML IVPB SCH (15:44)
[2019-01-15] MEDS: Atorvastatin Calcium 10 MG TAB PO SCH (20:43)
--- NOTE | 2019-01-15 23:42 | CON ---
DATE OF CONSULTATION: 01/15/2019 REASON FOR CONSULTATION: GI bleeding, hepatic encephalopathy. HISTORY OF PRESENT ILLNESS: Ms. Yessy Olguin is a very pleasant 63-year-old female who was hospitalized here last week in December of 2018 with upper GI bleeding. She was seen by Dr. Jakub Chapa and underwent EGD and variceal banding. She did well for the next several days and was sent home. The patient was discharged from the hospital on 01/11/2019. She came back to the hospital on 01/13/2019 with altered mental status, confusion and disorientation. The patient was found to have evidence of hepatic encephalopathy with ammonia level more than 123. The patient will be treated appropriately with antibiotics and also rifaximin, etc. Her mental status is improving slowly, but steadily. She is also on lactulose. The patient's mental status is markedly improved. She is back to almost her baseline level. She is awake, alert, and communicative. She is able to tell me her date of , where she lives, where she is now and also tell me the date and the year. I gave her my name in the afternoon, I went back to see her in the evening. She remembers my name and she appears to be back to her baseline status. The patient tells me she has had no stool today, but she had a stool, which was dark yesterday. She has no abdominal pain. No nausea or vomiting. No hematemesis. Blood count has been drifting down slowly since admission. CBC on 01/13/2019 was 7.4 and went up to 7.8. On 01/13 it was 7.4, drifting down to 7.3 and 6.9 today. Hematocrit is 20.6, platelet count is 71,000. The patient apparently has had liver cirrhosis due to steatohepatitis over the years. She also has had variceal banding in the past. She has had hydrothorax in the past, which has resolved. At the present time, she is hemodynamically stable and does not offer any complaints. MEDICAL ILLNESSES: 1. Liver cirrhosis due to steatohepatitis. 2. Esophageal varices. 3. Chronic kidney disease. 4. Chronic anemia. 5. Previous encephalopathy. 6. Hypothyroidism. 7. Hyperlipidemia. 8. Diabetes. 9. Thrombocytopenia due to hypersplenism. 10. History of asthma. 11. History of tonsillectomy. 12. in the past. SOCIAL HISTORY: The patient does not smoke or drink alcohol. ALLERGIES: TAPE AND SULFA. MEDICATION LIST: Reviewed. REVIEW OF SYSTEMS: A 10-point system reviewed. At the present time [employer], no headache, no seizures, no TIA. RESPIRATORY SYSTEM: No history of chronic coughing, hemoptysis. CARDIOVASCULAR: No chest pain, no palpitation. No dyspnea, orthopnea, PND. GI: She had a history of melena, history of altered mental status and elevated ammonia level. : No dysuria, hematuria or frequency urination. MUSCULOSKELETAL: Unremarkable. NEUROENDOCRINE: Unremarkable. PHYSICAL EXAMINATION: GENERAL: She is a very pleasant who appears very comfortable. At the present time, she is awake, alert, oriented to time, place, and person. VITAL SIGNS: Actually very stable. She is afebrile, pulse is 80, blood pressure 116/59. HEENT: Conjunctivae clear. NECK: Supple. No adenitis or thyromegaly noted. CARDIOVASCULAR: First and second heart sounds heard. LUNGS: Clear to auscultation. ABDOMEN: Soft. No organomegaly. No tenderness. No masses. EXTREMITIES: Reveal no edema. CENTRAL NERVOUS SYSTEM: No hepatic flap seen. NEUROLOGIC: She is also alert, oriented to time, place, and person. LABORATORY DATA: Shows decreasing hemoglobin from 9.4 two days ago to 6.9 today and hematocrit of 20.6. She also had a tarry stool last night. IMPRESSION: 1. The patient with liver cirrhosis, esophageal varices. She has had banding done recently. I am not sure of bleeding. However, black tarry stool and drop in blood count is a possibility. 2. Steatohepatitis-liver cirrhosis, esophageal varices. 3. Chronic kidney disease, on dialysis. 4. Hypothyroidism. 5. Asthma. 6. Anemia. 7. Hepatic encephalopathy. RECOMMENDATIONS: Continue at present time treatment with octreotide and IV antibiotics. I will plan for EGD tomorrow and make recommendations. Job ID: [id number]
[2019-01-16] MEDS: Octreotide Acetate 1,250 MCG in Sodium Chloride 0.9% 250 ML 250 ML IVPB SCH (01:48)
[2019-01-16] MEDS: Levothyroxine Sodium 75 MCG TAB PO SCH (04:09)
[2019-01-16] MEDS: Mometasone/Formoterol 120 PUFF INHALER INH SCH ×2 (07:32→19:07)
[2019-01-16] MEDS ORDERED: Ondansetron HCl/PF 4 MG/2 ML Vial IVP PRN (09:34)
[2019-01-16] MEDS ORDERED: Ketamine 50 MG/ML (10ML VIAL) ONE (11:15)
--- NOTE | 2019-01-16 12:20 | PRG ---
DATE OF SERVICE: 01/16/2019 SUBJECTIVE: A 63-year-old female being seen for end-stage renal disease. The patient denied nausea, vomiting, or chest pain. OBJECTIVE: See above. The patient is awake, alert, in no acute distress. VITAL SIGNS: Afebrile, pulse 78, breathing 16, blood pressure 117/65. GENERAL APPEARANCE AND MENTAL STATUS: Fair. HEAD/NECK: Normocephalic. Atraumatic. EYES: EOMI. No deformity. EARS: Clear. No ulcers. NOSE: Intact. No lesions. MOUTH: Clear. No discharge. THROAT: Clear. No exudate. LUNGS: Clear. No crackles. CARDIAC: S1, S2. No rub. ABDOMEN: Benign. Bowel sounds positive. GENITALIA/RECTUM: Berman absent. BACK/EXTREMITIES: Edema 0+. NEUROLOGICAL: Alert and motor intact. SKIN: LYMPHATICS: LABORATORY DATA: Shows hemoglobin 6.9. Today's hemoglobin is pending. Labs reviewed. ASSESSMENT AND PLAN: 1. Stage 6 chronic kidney disease. Continue dialysis. 2. Hypertension, stable. 3. Anemia, stable. 4. Medication based on GFR appropriate. Job ID: [id number]
[2019-01-16 12:45] LABS: #Eosinphils 0.7 thou/uL (0.0-0.7); #Lymphocytes 1.4 thou/uL (1.20-3.40); #Monocytes 0.5 thou/uL (0.11-0.59); #Neutrophils 3.7 thou/uL (1.40-6.50); %Basophils 0.5 % (0.0-1.0); %Eosinophils 11.7 % (0.0-10.0); %Lymphocytes 21.7 % (21.0-51.0); %Monocytes 7.9 % (0.0-10.0); %Neutrophils 58.2 % (42.0-75.0); Hemoglobin 10.6 g/dL (12.0-16.0); Mean Corpuscular HGB CONC 32.6 g/dL (32.0-36.0); Mean Corpuscular Volume 98.1 fL (78.0-98.0); Mean Platelet Volume 7.7 fL (7.4-10.4); Platelet Count 72 thou/uL (130-400); RBC Distribution Width 17.6 % (11.5-14.5); Red Blood Cell (RBC) Count 3.32 mill/uL (4.20-5.40); White Blood Cell (WBC) Count 6.3 thou/uL (4.8-10.8)
[2019-01-16] MEDS: Pantoprazole 40 MG VIAL IVP SCH ×2 (12:59→20:17)
[2019-01-16] MEDS: Losartan 25 MG TAB PO SCH (12:59)
[2019-01-16] MEDS: Pregabalin 50 MG CAP PO SCH ×2 (12:59→20:18)
[2019-01-16] MEDS: Spironolactone 25 MG TAB PO SCH (12:59)
[2019-01-16] MEDS: Rifaximin 550 MG TAB PO SCH ×2 (12:59→20:18)
[2019-01-16] MEDS: HumaLOG 300 UNITS/3 ML VIAL SC PRN ×3 (13:08→20:19)
[2019-01-16] MEDS ORDERED: PROPOFOL 200 MG/20 ML VIAL ONE (13:11)
--- NOTE | 2019-01-16 13:55 | PDOC.PN ---
- Subjective Encounter Start Date: 01/16/19 Encounter Start Time: 15:00 Subjective: pt up in bed no complains - Objective Vital Signs & Weight: Vital Signs (12 hours) Temp Pulse Resp BP Pulse Ox 01/16/19 08:00 98.4 F 78 20 117/65 100 Weight Admit Weight 146 lb 6.191 oz Weight 144 lb 9.972 oz Most Recent Monitor Data Heart Rate from ECG 81 NIBP 148/84 NIBP BP-Mean 105 Respiration from ECG 18 SpO2 100 I&O: 01/15/19 01/16/19 01/17/19 06:59 06:59 06:59 Intake Total 2020 820 Output Total 450 150 Balance 1571 670 Result Diagrams: 01/16/19 12:31 01/15/19 05:29 Additional Labs: Accuchecks 01/16/19 01/16/19 01/15/19 13:10 05:35 20:03 POC Glucose 184 H 218 H 181 H 01/15/19 18:11 POC Glucose 272 H Phys Exam - Physical Examination Neck: no nodes, no JVD, supple, full ROM Respiratory: no wheezing, no rales, no rhonchi, wheezing present, clear to auscultation bilateral Cardiovascular: RRR, no significant murmur, no rub, gallop, irregular Gastrointestinal: soft, non-tender, no distention, positive bowel sounds Musculoskeletal: no edema, pulses present, edema present Dx/Plan (1) Hepatic encephalopathy Code(s): K72.90 - HEPATIC FAILURE, UNSPECIFIED WITHOUT COMA Status: Acute (2) ESRD on hemodialysis Code(s): N18.6 - END STAGE RENAL DISEASE; Z99.2 - DEPENDENCE ON RENAL DIALYSIS Status: Acute Comment: Continue HD, SW to place patient for OP dialysis (3) Upper GI bleed Code(s): K92.2 - GASTROINTESTINAL HEMORRHAGE, UNSPECIFIED Status: Acute (4) Cirrhosis Code(s): K74.60 - UNSPECIFIED CIRRHOSIS OF LIVER Status: Chronic Qualifiers: (5) Diabetes type 2, uncontrolled Code(s): E11.65 - TYPE 2 DIABETES MELLITUS WITH HYPERGLYCEMIA Status: Chronic Qualifiers: - Plan s/p egd -: will conitnue ppi for now * . Review of Systems - Review of Systems Cardiovascular: negative: chest pain, palpitations, orthopnea, paroxysmal nocturnal dyspnea, edema, light headedness, other Gastrointestinal: negative: Nausea, Vomiting, Abdominal Pain, Diarrhea, Constipation, Melena, Hematochezia, Other - Medications/Allergies Allergies/Adverse Reactions: Allergies Allergy/AdvReac Type Severity Reaction Status Date / Time Sulfa (Sulfonamide Allergy Intermediate Rash Verified 01/13/19 15:39 Antibiotics) adhesive Allergy Verified 01/13/19 15:39 Medications: Current Medications Atorvastatin Calcium (Lipitor) 10 mg PO HS [facility] Last Admin: 01/15/19 20:43 Dose: 10 mg Dextrose/Water (Dextrose 50%) 25 gm SLOW IVP PRN PRN PRN Reason: Hypoglycemia Glucagon (Glucagon) 1 mg IM PRN PRN PRN Reason: Hypoglycemia Dextrose/Water (D5w) 1,000 mls @ 0 mls/hr IV .Q0M PRN PRN Reason: Hypoglycemia Octreotide Acetate 1,250 mcg/ (Sodium Chloride) 251.25 mls @ 10.05 mls/hr IVPB INF [facility] Last Admin: 01/16/19 01:48 Dose: 251.25 mls Ceftriaxone Sodium 1 gm/ (Sodium Chloride) 100 mls @ 200 mls/hr IVPB Q24HR [facility] Last Admin: 01/15/19 15:44 Dose: 100 mls Insulin Human Lispro (Humalog) 0 units SC .MILD SLIDING SCALE PRN PRN Reason: Mild Correctional Scale Last Admin: 01/16/19 13:08 Dose: 2 unit Lactulose (Lactulose) 30 gm PO DAILY [facility] Last Admin: 01/16/19 12:58 Dose: 30 gm Levothyroxine Sodium (Synthroid) 225 mcg PO 0600 [facility] Last Admin: 01/16/19 04:09 Dose: Not Given Losartan Potassium (Cozaar) 25 mg PO DAILY [facility] Last Admin: 01/16/19 12:59 Dose: 25 mg Mometasone Furoate/Formoterol Fumar (Dulera 100 Mcg/5 Mcg Inhaler) 2 puff INH BID-RT [facility] Last Admin: 01/16/19 07:32 Dose: 2 puff Pantoprazole Sodium (Protonix) 40 mg IVP Q12HR [facility] Last Admin: 01/16/19 12:59 Dose: 40 mg Pregabalin (Lyrica) 50 mg PO BID [facility] Last Admin: 01/16/19 12:59 Dose: 50 mg Rifaximin (Xifaxan) 550 mg PO BID [facility] Last Admin: 01/16/19 12:59 Dose: 550 mg Spironolactone (Aldactone) 25 mg PO QA-[facility] Last Admin: 01/16/19 12:59 Dose: 25 mg
[2019-01-16] MEDS: cefTRIAXone\\ROCEPHIN 1 GM in Sodium Chloride 0.9% 100 ML IVPB SCH (15:57)
[2019-01-16] MEDS: Atorvastatin Calcium 10 MG TAB PO SCH (20:18)
[2019-01-16] MEDS ORDERED: Preparation H HC 1% Cream 26 GM TUBE TOP PRN (22:07)
[2019-01-16] MEDS ORDERED: Proctozone-HC 2.5% Cream 30 GM TUBE TOP PRN (23:03)
[2019-01-17] MEDS: Octreotide Acetate 1,250 MCG in Sodium Chloride 0.9% 250 ML 250 ML IVPB SCH (01:41)
[2019-01-17] MEDS: Levothyroxine Sodium 75 MCG TAB PO SCH (06:19)
[2019-01-17] MEDS: Mometasone/Formoterol 120 PUFF INHALER INH SCH ×2 (07:43→19:02)
[2019-01-17 08:29] LABS: #Eosinphils 0.6 thou/uL (0.0-0.7); #Lymphocytes 0.9 thou/uL (1.20-3.40); #Monocytes 0.2 thou/uL (0.11-0.59); #Neutrophils 2.6 thou/uL (1.40-6.50); %Basophils 0.3 % (0.0-1.0); %Eosinophils 13.2 % (0.0-10.0); %Lymphocytes 20.2 % (21.0-51.0); %Monocytes 5.2 % (0.0-10.0); %Neutrophils 61.2 % (42.0-75.0); Hemoglobin 9.9 g/dL (12.0-16.0); Mean Corpuscular HGB CONC 32.8 g/dL (32.0-36.0); Mean Corpuscular Hemoglobin 31.6 pg (27.0-31.0); Mean Corpuscular Volume 96.4 fL (78.0-98.0); Platelet Count 67 thou/uL (130-400); RBC Distribution Width 17.4 % (11.5-14.5); Red Blood Cell (RBC) Count 3.14 mill/uL (4.20-5.40); White Blood Cell (WBC) Count 4.3 thou/uL (4.8-10.8)
[2019-01-17 08:48] LABS: Anion Gap 14 mmol/L (10-20); BUN (Urea Nitrogen) 39 mg/dL (9.8-20.1); Calc. Creatinine Clearance 14 mL/min (70-130); Calcium 9.7 mg/dL (7.8-10.44); Carbon Dioxide 23 mmol/L (23-31); Chloride 107 mmol/L (98-107); Estimated GFR-MDRD 11; Glucose 208 mg/dL (80-115); Potassium 3.6 mmol/L (3.5-5.1); Sodium 140 mmol/L (136-145)
[2019-01-17] MEDS: Rifaximin 550 MG TAB PO SCH ×2 (08:52→20:55)
[2019-01-17] MEDS: Pantoprazole 40 MG VIAL IVP SCH ×2 (08:53→20:57)
[2019-01-17] MEDS: Losartan 25 MG TAB PO SCH (08:53)
[2019-01-17] MEDS: Spironolactone 25 MG TAB PO SCH (08:53)
[2019-01-17] MEDS: Pregabalin 50 MG CAP PO SCH ×2 (08:55→20:55)
--- NOTE | 2019-01-17 11:46 | PRG ---
DATE OF SERVICE: 01/17/2019 SUBJECTIVE: Patient was seen and examined at bedside and overnight events noted. Patient denies any shortness of breath or chest pain or palpitation. No history of nausea or vomiting or diarrhea or fever or chills or cramps. OBJECTIVE: GENERAL: This is an elderly female, in no apparent distress. VITAL SIGNS: Temperature 97.9, pulse 80, respiratory rate 16, blood pressure 189/92. Musculoskeletal : No tenderness, No edema HEENT: Atraumatic normocephalic Neck: Supple Cardiovascular: S1S2 heard, Rate and rhythm regular Respiratory: Clear to auscultation Gastrointestinal: Abdomen is soft Dermatologic : No skin rash Neurologic: Alert and awake and oriented X3 No focal neurologic deficits. Moving all the extremities. Psychiatric: Mood and affect normal LABORATORY DATA: Potassium is 3.6, BUN is 39, creatinine 4.1. ASSESSMENT AND PLAN: 1. End-stage renal disease, continue on hemodialysis. 2. Hypertension. 3. Anemia. 4. Edema, controlled. 5. Plan to continue on dialysis as tolerated. Job ID: [id number] [facility]
[2019-01-17] MEDS: HumaLOG 300 UNITS/3 ML VIAL SC PRN ×2 (12:59→17:37)
--- NOTE | 2019-01-17 14:25 | PDOC.PN ---
- Subjective Encounter Start Date: 01/17/19 Encounter Start Time: 11:30 Subjective: pt up in bed feels well - Objective Vital Signs & Weight: Vital Signs (12 hours) Temp Pulse Resp BP Pulse Ox 01/17/19 11:14 150/85 H 01/17/19 08:47 100 01/17/19 08:00 97.9 F 88 16 189/92 H 100 Weight Admit Weight 146 lb 6.191 oz Weight 144 lb 9.972 oz Most Recent Monitor Data Heart Rate from ECG 81 NIBP 148/84 NIBP BP-Mean 105 Respiration from ECG 18 SpO2 100 I&O: 01/16/19 01/17/19 01/18/19 06:59 06:59 06:59 Intake Total 820 540 Output Total 150 250 Balance 670 540 -250 Result Diagrams: 01/17/19 08:14 01/17/19 08:14 Additional Labs: Accuchecks 01/17/19 01/17/19 01/16/19 11:45 04:26 20:18 POC Glucose 352 H 209 H 204 H 01/16/19 17:34 POC Glucose 260 H Phys Exam - Physical Examination Neck: no nodes, no JVD, supple, full ROM Respiratory: no wheezing, no rales, no rhonchi, wheezing present, clear to auscultation bilateral Cardiovascular: RRR, no significant murmur, no rub, gallop, irregular Gastrointestinal: soft, non-tender, no distention, positive bowel sounds Dx/Plan (1) Hepatic encephalopathy Code(s): K72.90 - HEPATIC FAILURE, UNSPECIFIED WITHOUT COMA Status: Acute (2) ESRD on hemodialysis Code(s): N18.6 - END STAGE RENAL DISEASE; Z99.2 - DEPENDENCE ON RENAL DIALYSIS Status: Acute Comment: Continue HD, SW to place patient for OP dialysis (3) Upper GI bleed Code(s): K92.2 - GASTROINTESTINAL HEMORRHAGE, UNSPECIFIED Status: Acute (4) Cirrhosis Code(s): K74.60 - UNSPECIFIED CIRRHOSIS OF LIVER Status: Chronic Qualifiers: (5) Diabetes type 2, uncontrolled Code(s): E11.65 - TYPE 2 DIABETES MELLITUS WITH HYPERGLYCEMIA Status: Chronic Qualifiers: - Plan will discontinue octreotide drip -: awaiting egd note. will continue ppi. -: pt has agreeded on rehab, will place consult. -: hh stable. will start lantus * . Review of Systems - Review of Systems Cardiovascular: negative: chest pain, palpitations, orthopnea, paroxysmal nocturnal dyspnea, edema, light headedness, other Gastrointestinal: negative: Nausea, Vomiting, Abdominal Pain, Diarrhea, Constipation, Melena, Hematochezia, Other - Medications/Allergies Allergies/Adverse Reactions: Allergies Allergy/AdvReac Type Severity Reaction Status Date / Time Sulfa (Sulfonamide Allergy Intermediate Rash Verified 01/13/19 15:39 Antibiotics) adhesive Allergy Verified 01/13/19 15:39 Medications: Current Medications Atorvastatin Calcium (Lipitor) 10 mg PO HS [facility] Last Admin: 01/16/19 20:18 Dose: 10 mg Dextrose/Water (Dextrose 50%) 25 gm SLOW IVP PRN PRN PRN Reason: Hypoglycemia Glucagon (Glucagon) 1 mg IM PRN PRN PRN Reason: Hypoglycemia Hydrocortisone Sodium Succinate (Proctozone-Hc 2.5% Cream) 0 gm TOP PRN PRN PRN Reason: HEMORROID PAIN Dextrose/Water (D5w) 1,000 mls @ 0 mls/hr IV .Q0M PRN PRN Reason: Hypoglycemia Ceftriaxone Sodium 1 gm/ (Sodium Chloride) 100 mls @ 200 mls/hr IVPB Q24HR [facility] Last Admin: 01/16/19 15:57 Dose: 100 mls Insulin Human Lispro (Humalog) 0 units SC .MILD SLIDING SCALE PRN PRN Reason: Mild Correctional Scale Last Admin: 01/17/19 12:59 Dose: 6 unit Lactulose (Lactulose) 30 gm PO DAILY [facility] Last Admin: 01/17/19 08:50 Dose: 30 gm Levothyroxine Sodium (Synthroid) 225 mcg PO 0600 [facility] Last Admin: 01/17/19 06:19 Dose: 225 mcg Losartan Potassium (Cozaar) 25 mg PO DAILY [facility] Last Admin: 01/17/19 08:53 Dose: 25 mg Mometasone Furoate/Formoterol Fumar (Dulera 100 Mcg/5 Mcg Inhaler) 2 puff INH BID-RT [facility] Last Admin: 01/17/19 07:43 Dose: 2 puff Pantoprazole Sodium (Protonix) 40 mg IVP Q12HR [facility] Last Admin: 01/17/19 08:53 Dose: 40 mg Pregabalin (Lyrica) 50 mg PO BID [facility] Last Admin: 01/17/19 08:55 Dose: 50 mg Rifaximin (Xifaxan) 550 mg PO BID [facility] Last Admin: 01/17/19 08:52 Dose: 550 mg Spironolactone (Aldactone) 25 mg PO QA-[facility] Last Admin: 01/17/19 08:53 Dose: 25 mg
--- NOTE | 2019-01-17 14:31 | OP ---
DATE OF PROCEDURE: 01/16/2019 PROCEDURE PERFORMED: 1. Esophagogastroduodenoscopy with irrigation of water, tried to wash out the stomach. 2. Injection of epinephrine 1:10,000 solution, total of 4 mL injected over the pyloric channel. PREOPERATIVE DIAGNOSES: Liver cirrhosis, esophageal variceal bleeding and status post banding 2 weeks ago. The patient presents with altered mental status and she had some black tarry stool. Blood count has been dropping down. She is undergoing EGD. POSTOPERATIVE DIAGNOSES: 1. Ulceration of the distal esophagus, most likely represent previously banded varix. 2. No bleeding from the esophagus and the gastroesophageal junction, again no bleeding seen. 3. Diffuse coating of the gastric body and antrum with fresh blood. 4. Intestinal metaplasia. 5. Normal duodenum. DESCRIPTION OF PROCEDURE: The patient was placed on her left lateral position and was given sedation by Anesthesia Department. A [employer]ax video gastroscope under direct vision passed down the oropharynx, past the GE junction into the stomach. The esophageal mucosa appeared normal. The patient has had a previous banding and there was ulceration of the distal esophagus. No active bleeding seen. At the GE junction, below ulceration, no pathology seen. Upon entering the stomach, the patient was found to have fresh blood coating in the gastric body and also some area of gastric antrum. It almost looked like diffuse oozing of blood than actually localized bleeding. She also had mucosal coating of the duodenum with blood. Water was irrigated and washed out. After washing out, I did not see any active bleeding from any spot. The gastric body washed out and suctioned out. I did not see any bleeding point. There was some mild oozing of blood at the pyloric channel, which was persistent. Water was irrigated and washed out. There was some persistent oozing from the pyloric channel area. I elected to inject epinephrine 1:10,000 solution at 1 mL increment to a total about 4 mL. Following injection, there was no more oozing of blood seen. The duodenal bulb no lesion seen. I did not see any underlying pathology and no bleeding seen. The descending, no duodenal pathology. The scope was withdrawn back into the stomach. The gastric body was carefully examined. There was no bleeding seen, and the mucosa appeared normal. Some mucosal hyperemia. There was also no lesion sen over the gastric antrum. At the end of the procedure, I did not see any active bleeding. Possibilities for the bleeding, 1. Possible portal hypertensive gastropathy. 2. Possible vascular ectasia. However, there was no single area of bleeding or diffuse oozing. However, after washing, the bleeding completely stopped. I did not see anymore bleeding. The stomach decompressed and the scope removed. RECOMMENDATIONS: 1. Continue PPI. 2. Diet as tolerated. 3. Follow up labs. Job ID: [id number] [facility]ITALAw[facility]
[2019-01-17] MEDS: cefTRIAXone\\ROCEPHIN 1 GM in Sodium Chloride 0.9% 100 ML IVPB SCH (15:24)
--- NOTE | 2019-01-17 19:05 | PRG ---
DATE OF SERVICE: 01/17/2019 SUBJECTIVE: This is Clau who underwent EGD with Dr. Fraga yesterday. There was distal esophageal ulceration which was nonbleeding and represented her recent banding site. She also had some slow, but continuous oozing of blood from the pre-pyloric area, which Dr. Fraga felt likely represents portal hypertensive gastropathy versus small arteriovenous malformations. He performed epinephrine injection with good hemostasis achieved. Today, the patient's hemoglobin is stable. She is not having any melena or hematochezia. She has remained hemodynamically stable. She has no complaints today. Mental status appears clear at this time. PHYSICAL EXAMINATION: VITAL SIGNS: Temperature 97.9, pulse 88, blood pressure 150/85, and 100% oxygen saturation on room air. GENERAL: No acute distress. She is pale. HEART: Regular rate and rhythm. LUNGS: Clear to auscultation bilaterally. ABDOMEN: Soft, nontender to palpation. EXTREMITIES: No peripheral edema. LABORATORY STUDIES: WBC 4.3, hemoglobin 9.9, and platelets 67. Sodium 140, potassium 3.6, BUN 39, creatinine 4.18, and glucose 235. ASSESSMENT AND PLAN: 1. Upper gastrointestinal bleeding from portal hypertensive gastropathy/gastric antral vascular ectasias. Appreciate Dr. Fraga's assistance. The patient is going to remain at risk for slow chronic upper gastrointestinal blood loss, particularly with her low platelet count and her ongoing uremia. Recommend that she will stay on a proton pump inhibitor. I would have her on Protonix 40 mg b.i.d. She did not have recurrent bleeding from esophageal varices, and those banding sites looked pretty good per Dr. Fraga's examination yesterday. 2. Hepatic encephalopathy. We would continue with lactulose and rifaximin. If the patient is having significant diarrhea, the lactulose can be titrated down with titrate to 2 to 3 loose bowel movements per day. 3. Cirrhosis, secondary to nonalcoholic steatohepatitis, otherwise stable at this time. 4. If the patient's H and H are stable tomorrow, then I think the patient could be safely discharged to rehab facility as already planned. Job ID: [id number]
[2019-01-17] MEDS: Atorvastatin Calcium 10 MG TAB PO SCH (20:57)
[2019-01-17] MEDS: Insulin Glargine 10 UNITS in Pre-Filled Syringe 1 EACH SC SCH (20:57)
[2019-01-17] MEDS ORDERED: Non-Formulary Item 1 EACH (Insulin Detemir [Levemir] 10 UNITS) SC SCH (21:00)
[2019-01-18] MEDS: Levothyroxine Sodium 75 MCG TAB PO SCH (05:12)
[2019-01-18 07:11] LABS: #Eosinphils 0.3 thou/uL (0.0-0.7); #Lymphocytes 0.7 thou/uL (1.20-3.40); #Monocytes 0.2 thou/uL (0.11-0.59); #Neutrophils 2.1 thou/uL (1.40-6.50); %Basophils 0.9 % (0.0-1.0); %Eosinophils 10.1 % (0.0-10.0); %Lymphocytes 19.5 % (21.0-51.0); %Monocytes 6.3 % (0.0-10.0); %Neutrophils 63.1 % (42.0-75.0); Hemoglobin 8.1 g/dL (12.0-16.0); Mean Corpuscular HGB CONC 33.2 g/dL (32.0-36.0); Mean Corpuscular Volume 96.3 fL (78.0-98.0); Mean Platelet Volume 8.6 fL (7.4-10.4); Platelet Count 56 thou/uL (130-400); RBC Distribution Width 17.5 % (11.5-14.5); Red Blood Cell (RBC) Count 2.53 mill/uL (4.20-5.40); White Blood Cell (WBC) Count 3.4 thou/uL (4.8-10.8)
[2019-01-18] MEDS: Mometasone/Formoterol 120 PUFF INHALER INH SCH ×2 (07:14→19:49)
[2019-01-18 07:18] LABS: Anion Gap 14 mmol/L (10-20); BUN (Urea Nitrogen) 45 mg/dL (9.8-20.1); Calc. Creatinine Clearance 13 mL/min (70-130); Calcium 8.8 mg/dL (7.8-10.44); Carbon Dioxide 22 mmol/L (23-31); Chloride 106 mmol/L (98-107); Estimated GFR-MDRD 10; Glucose 181 mg/dL (80-115); Potassium 3.9 mmol/L (3.5-5.1); Sodium 138 mmol/L (136-145)
[2019-01-18] MEDS: Insulin Glargine 10 UNITS in Pre-Filled Syringe 1 EACH SC SCH ×2 (08:35→21:25)
[2019-01-18] MEDS: Pantoprazole 40 MG VIAL IVP SCH ×2 (08:36→20:44)
[2019-01-18] MEDS: Pregabalin 50 MG CAP PO SCH ×2 (08:36→20:42)
[2019-01-18] MEDS: Rifaximin 550 MG TAB PO SCH ×2 (08:36→20:43)
[2019-01-18] MEDS: Escitalopram Oxalate 20 mg Tablet PO SCH (08:36)
[2019-01-18] MEDS: Spironolactone 25 MG TAB PO SCH (08:36)
[2019-01-18] MEDS: Losartan 25 MG TAB PO SCH (08:36)
[2019-01-18] MEDS: HumaLOG 300 UNITS/3 ML VIAL SC PRN (12:45)
--- NOTE | 2019-01-18 13:25 | PRG ---
DATE OF SERVICE: 01/18/2019 SUBJECTIVE: Ms. Olguin is feeling okay, still quite weak. She is having good bowel movements with the lactulose. They are fairly dark in color. No red blood per rectum. She has remained hemodynamically stable, but hemoglobin dropped again from 9.9 to 8.1 since yesterday. OBJECTIVE: VITAL SIGNS: Temperature 98.4, pulse 83, blood pressure 134/67, 99% oxygen saturation on room air. GENERAL: No acute distress. She is pale. HEART: Regular rate and rhythm. LUNGS: Clear to auscultation bilaterally. ABDOMEN: Bowel sounds present. Soft, nontender to palpation. EXTREMITIES: No peripheral edema. LABORATORY STUDIES: Hemoglobin declined from 9.9 to 8.1, WBC 3.4, platelets down to 56. Sodium 138, potassium 3.9, BUN 45, creatinine 4.59, glucose 400. ASSESSMENT AND PLAN: 1. Upper gastrointestinal bleeding from either portal hypertensive gastropathy or gastric antral vascular ectasias. She underwent upper endoscopy by Dr. Fraga 2 days ago with epinephrine injection in the antral area due to active bleeding. Despite continuing on high-dose acid suppression, she continues to have significant daily downtrend in hemoglobin. I think it is worth another look with repeat upper endoscopy to try to determine if there is some intervenable lesion here, otherwise she is going to remain very high risk for bounce-back and recurrent transfusions with this hemoglobin trend. We will plan for repeat EGD tomorrow. N.p.o. after midnight. 2. Hepatic encephalopathy, doing well on lactulose and rifaximin, which should both be continued. 3. Cirrhosis, secondary to nonalcoholic steatohepatitis, otherwise stable at this time. Job ID: [id number]
--- NOTE | 2019-01-18 14:30 | PDOC.PN ---
- Subjective Encounter Start Date: 01/18/19 Encounter Start Time: 10:15 Subjective: pt up in bed no complains - Objective Vital Signs & Weight: Vital Signs (12 hours) Temp Pulse Resp BP Pulse Ox 01/18/19 08:00 99 01/18/19 07:24 98.4 F 83 16 134/67 99 01/18/19 07:14 85 16 98 01/18/19 04:00 98.8 F 86 16 143/64 H 93 L Weight Admit Weight 146 lb 6.191 oz Weight 144 lb 9.972 oz Most Recent Monitor Data Heart Rate from ECG 81 NIBP 148/84 NIBP BP-Mean 105 Respiration from ECG 18 SpO2 100 I&O: 01/17/19 01/18/19 01/19/19 06:59 06:59 06:59 Intake Total 540 1150 Output Total 500 Balance 540 650 Result Diagrams: 01/18/19 06:00 01/18/19 06:00 Additional Labs: Accuchecks 01/18/19 01/18/19 01/17/19 12:23 05:46 19:35 POC Glucose 400 H 187 H 215 H 01/17/19 16:25 POC Glucose 235 H Phys Exam - Physical Examination Neck: no nodes, no JVD, supple, full ROM Respiratory: no wheezing, no rales, no rhonchi, wheezing present, clear to auscultation bilateral Cardiovascular: RRR, no significant murmur, no rub, gallop, irregular Gastrointestinal: soft, non-tender, no distention, positive bowel sounds Dx/Plan (1) Hepatic encephalopathy Code(s): K72.90 - HEPATIC FAILURE, UNSPECIFIED WITHOUT COMA Status: Acute (2) ESRD on hemodialysis Code(s): N18.6 - END STAGE RENAL DISEASE; Z99.2 - DEPENDENCE ON RENAL DIALYSIS Status: Acute Comment: Continue HD, SW to place patient for OP dialysis (3) Upper GI bleed Code(s): K92.2 - GASTROINTESTINAL HEMORRHAGE, UNSPECIFIED Status: Acute (4) Cirrhosis Code(s): K74.60 - UNSPECIFIED CIRRHOSIS OF LIVER Status: Chronic Qualifiers: (5) Diabetes type 2, uncontrolled Code(s): E11.65 - TYPE 2 DIABETES MELLITUS WITH HYPERGLYCEMIA Status: Chronic Qualifiers: - Plan hh is low stable. will continue to monitor -: pt medically stable to be discharged * . Review of Systems - Review of Systems Respiratory: negative: Cough, Dry, Shortness of Breath, Hemoptysis, SOB with Excertion, Pleuritic Pain, Sputum, Wheezing Cardiovascular: negative: chest pain, palpitations, orthopnea, paroxysmal nocturnal dyspnea, edema, light headedness, other Gastrointestinal: negative: Nausea, Vomiting, Abdominal Pain, Diarrhea, Constipation, Melena, Hematochezia, Other - Medications/Allergies Allergies/Adverse Reactions: Allergies Allergy/AdvReac Type Severity Reaction Status Date / Time Sulfa (Sulfonamide Allergy Intermediate Rash Verified 01/13/19 15:39 Antibiotics) adhesive Allergy Verified 01/13/19 15:39 Medications: Current Medications Atorvastatin Calcium (Lipitor) 10 mg PO [facility] Last Admin: 01/17/19 20:57 Dose: 10 mg Dextrose/Water (Dextrose 50%) 25 gm SLOW IVP PRN PRN PRN Reason: Hypoglycemia Escitalopram Oxalate (Lexapro) 20 mg PO DAILY [facility] Last Admin: 01/18/19 08:36 Dose: 20 mg Glucagon (Glucagon) 1 mg IM PRN PRN PRN Reason: Hypoglycemia Hydrocortisone Sodium Succinate (Proctozone-Hc 2.5% Cream) 0 gm TOP PRN PRN PRN Reason: HEMORROID PAIN Dextrose/Water (D5w) 1,000 mls @ 0 mls/hr IV .Q0M PRN PRN Reason: Hypoglycemia Ceftriaxone Sodium 1 gm/ (Sodium Chloride) 100 mls @ 200 mls/hr IVPB Q24HR [facility] Last Admin: 01/17/19 15:24 Dose: 100 mls Insulin Glargine 10 units/ (Miscellaneous Medication) 0.1 mls @ 0 mls/hr SC HS [facility] Last Admin: 01/17/19 20:57 Dose: 0.1 mls Insulin Glargine 10 units/ (Miscellaneous Medication) 0.1 mls @ 0 mls/hr SC QAM [facility] Last Admin: 01/18/19 08:35 Dose: 0.1 mls Insulin Human Lispro (Humalog) 0 units SC .MILD SLIDING SCALE PRN PRN Reason: Mild Correctional Scale Last Admin: 01/18/19 12:45 Dose: 6 unit Lactulose (Lactulose) 30 gm PO DAILY [facility] Last Admin: 01/18/19 08:35 Dose: 30 gm Levothyroxine Sodium (Synthroid) 225 mcg PO 0600 [facility] Last Admin: 01/18/19 05:12 Dose: 225 mcg Losartan Potassium (Cozaar) 25 mg PO DAILY [facility] Last Admin: 01/18/19 08:36 Dose: 25 mg Mometasone Furoate/Formoterol Fumar (Dulera 100 Mcg/5 Mcg Inhaler) 2 puff INH BID-RT [facility] Last Admin: 01/18/19 07:14 Dose: 2 puff Pantoprazole Sodium (Protonix) 40 mg IVP Q12HR [facility] Last Admin: 01/18/19 08:36 Dose: 40 mg Pregabalin (Lyrica) 50 mg PO BID [facility] Last Admin: 01/18/19 08:36 Dose: 50 mg Rifaximin (Xifaxan) 550 mg PO BID [facility] Last Admin: 01/18/19 08:36 Dose: 550 mg Spironolactone (Aldactone) 25 mg PO QAM-WM [facility] Last Admin: 01/18/19 08:36 Dose: 25 mg
--- NOTE | 2019-01-18 15:12 | PRG ---
DATE OF SERVICE: 01/18/2019 SUBJECTIVE: Patient was seen and examined at bedside and overnight events noted. Patient denies any shortness of breath or chest pain or palpitation. No history of nausea or vomiting or diarrhea or fever or chills or cramps. OBJECTIVE: GENERAL: This is a well-built female, in no apparent distress. VITAL SIGNS: Temperature 98.4. . Blood pressure 134/67. HEENT: Atraumatic, normocephalic. Oral mucosa is moist NECK: Supple. CARDIOVASCULAR: S1, S2 heard. Rate and rhythm regular. RESPIRATORY: Clear to auscultation. GASTROINTESTINAL: Abdomen is soft. MUSCULOSKELETAL: No tenderness. No edema. DERMATOLOGIC: No skin rash. NEUROLOGIC: Alert and awake and oriented X3. No focal neurologic deficits. Moving all the extremities. PSYCHIATRIC: Mood and affect normal. LABORATORY DATA: Potassium 3.9, BUN is 45, creatinine is 4.5. ASSESSMENT AND PLAN: 1. End-stage renal disease. Continue on hemodialysis as tolerated. 2. Hypertension. 3. Anemia. Hemoglobin is dropping. Follow with Gastroenterology. 4. Edema, controlled. 5. We will continue on dialysis Thursday, , Thursday as tolerated. Job ID: [id number]
[2019-01-18] MEDS: Atorvastatin Calcium 10 MG TAB PO SCH (20:42)
[2019-01-18] MEDS: cefTRIAXone\\ROCEPHIN 1 GM in Sodium Chloride 0.9% 100 ML IVPB SCH (21:14)
[2019-01-19] MEDS: Levothyroxine Sodium 75 MCG TAB PO SCH (05:29)
[2019-01-19] MEDS: Mometasone/Formoterol 120 PUFF INHALER INH SCH ×2 (07:15→21:09)
[2019-01-19 08:26] LABS: Hemoglobin 8.5 g/dL (12.0-16.0)
[2019-01-19] MEDS: Rifaximin 550 MG TAB PO SCH ×2 (08:37→19:45)
[2019-01-19] MEDS: Losartan 25 MG TAB PO SCH (08:37)
[2019-01-19] MEDS: Insulin Glargine 10 UNITS in Pre-Filled Syringe 1 EACH SC SCH ×2 (08:38→21:29)
[2019-01-19] MEDS: Escitalopram Oxalate 20 mg Tablet PO SCH (08:38)
[2019-01-19] MEDS: Pregabalin 50 MG CAP PO SCH ×2 (08:38→19:46)
[2019-01-19] MEDS: Pantoprazole 40 MG VIAL IVP SCH ×2 (08:38→19:50)
[2019-01-19] MEDS: Spironolactone 25 MG TAB PO SCH (08:38)
--- NOTE | 2019-01-19 12:26 | PRG ---
DATE OF SERVICE: 01/19/2019 SUBJECTIVE: Patient was seen and examined at bedside and overnight events noted. Patient denies any shortness of breath or chest pain or palpitation. No history of nausea or vomiting or diarrhea or fever or chills or cramps. OBJECTIVE: GENERAL: This is a well-built female, in no apparent distress. VITAL SIGNS: Temperature 98.3. Pulse 83. Respiratory rate 16. Blood pressure 111/62. HEENT: Atraumatic, normocephalic. Oral mucosa is moist NECK: Supple. CARDIOVASCULAR: S1, S2 heard. Rate and rhythm regular. RESPIRATORY: Clear to auscultation. GASTROINTESTINAL: Abdomen is soft. MUSCULOSKELETAL: No tenderness. No edema. DERMATOLOGIC: No skin rash. NEUROLOGIC: Alert and awake and oriented X3. No focal neurologic deficits. Moving all the extremities. PSYCHIATRIC: Mood and affect normal. LABORATORY DATA: ASSESSMENT AND PLAN: 1. End-stage renal disease. Continue on hemodialysis . 2. Anemia, stable. 3. Hypertension. 4. Edema, controlled. Plan to continue on dialysis as tolerated; Thursday, , Thursday. Job ID: [id number]
--- NOTE | 2019-01-19 13:18 | PDOC.PN ---
- Subjective Encounter Start Date: 01/19/19 Encounter Start Time: 11:15 Subjective: pt up in bed no complains - Objective Vital Signs & Weight: Vital Signs (12 hours) Temp Pulse Resp BP Pulse Ox 01/19/19 11:10 98.3 F 83 16 111/62 100 01/19/19 08:00 98 01/19/19 07:54 98 F 76 18 145/77 H 98 Weight Admit Weight 146 lb 6.191 oz Weight 144 lb 9.972 oz Most Recent Monitor Data Heart Rate from ECG 81 NIBP 148/84 NIBP BP-Mean 105 Respiration from ECG 18 SpO2 100 I&O: 01/18/19 01/19/19 01/20/19 06:59 06:59 06:59 Intake Total 1150 470 Output Total 500 Balance 650 470 Result Diagrams: 01/19/19 08:18 01/18/19 06:00 Additional Labs: Accuchecks 01/19/19 01/19/19 01/18/19 10:40 05:47 21:20 POC Glucose 227 H 205 H 137 H Phys Exam - Physical Examination Neck: no nodes, no JVD, supple, full ROM Respiratory: no wheezing, no rales, no rhonchi, wheezing present, clear to auscultation bilateral Cardiovascular: RRR, no significant murmur, no rub, gallop, irregular Gastrointestinal: soft, non-tender, no distention, positive bowel sounds Dx/Plan (1) Hepatic encephalopathy Code(s): K72.90 - HEPATIC FAILURE, UNSPECIFIED WITHOUT COMA Status: Acute (2) ESRD on hemodialysis Code(s): N18.6 - END STAGE RENAL DISEASE; Z99.2 - DEPENDENCE ON RENAL DIALYSIS Status: Acute Comment: Continue HD, SW to place patient for OP dialysis (3) Upper GI bleed Code(s): K92.2 - GASTROINTESTINAL HEMORRHAGE, UNSPECIFIED Status: Acute (4) Cirrhosis Code(s): K74.60 - UNSPECIFIED CIRRHOSIS OF LIVER Status: Chronic Qualifiers: (5) Diabetes type 2, uncontrolled Code(s): E11.65 - TYPE 2 DIABETES MELLITUS WITH HYPERGLYCEMIA Status: Chronic Qualifiers: - Plan hh is low stable, pt going for egd today -: she is being evaluated for rehab * . Review of Systems - Review of Systems Respiratory: negative: Cough, Dry, Shortness of Breath, Hemoptysis, SOB with Excertion, Pleuritic Pain, Sputum, Wheezing Cardiovascular: negative: chest pain, palpitations, orthopnea, paroxysmal nocturnal dyspnea, edema, light headedness, other - Medications/Allergies Allergies/Adverse Reactions: Allergies Allergy/AdvReac Type Severity Reaction Status Date / Time Sulfa (Sulfonamide Allergy Intermediate Rash Verified 01/13/19 15:39 Antibiotics) adhesive Allergy Verified 01/13/19 15:39 Medications: Current Medications Atorvastatin Calcium (Lipitor) 10 mg PO [facility] Last Admin: 01/18/19 20:42 Dose: 10 mg Dextrose/Water (Dextrose 50%) 25 gm SLOW IVP PRN PRN PRN Reason: Hypoglycemia Escitalopram Oxalate (Lexapro) 20 mg PO DAILY [facility] Last Admin: 01/19/19 08:38 Dose: 20 mg Glucagon (Glucagon) 1 mg IM PRN PRN PRN Reason: Hypoglycemia Hydrocortisone Sodium Succinate (Proctozone-Hc 2.5% Cream) 0 gm TOP PRN PRN PRN Reason: HEMORROID PAIN Dextrose/Water (D5w) 1,000 mls @ 0 mls/hr IV .Q0M PRN PRN Reason: Hypoglycemia Ceftriaxone Sodium 1 gm/ (Sodium Chloride) 100 mls @ 200 mls/hr IVPB Q24HR [facility] Last Admin: 01/18/19 21:14 Dose: 100 mls Insulin Glargine 10 units/ (Miscellaneous Medication) 0.1 mls @ 0 mls/hr SC [facility] Last Admin: 01/18/19 21:25 Dose: Not Given Insulin Glargine 10 units/ (Miscellaneous Medication) 0.1 mls @ 0 mls/hr [facility] Last Admin: 01/19/19 08:38 Dose: Not Given Insulin Human Lispro (Humalog) 0 units SC .MILD SLIDING SCALE PRN PRN Reason: Mild Correctional Scale Last Admin: 01/18/19 12:45 Dose: 6 unit Lactulose (Lactulose) 30 gm PO DAILY [facility] Last Admin: 01/19/19 08:37 Dose: 30 gm Levothyroxine Sodium (Synthroid) 225 mcg PO 0600 [facility] Last Admin: 01/19/19 05:29 Dose: 225 mcg Losartan Potassium (Cozaar) 25 mg PO DAILY [facility] Last Admin: 01/19/19 08:37 Dose: 25 mg Mometasone Furoate/Formoterol Fumar (Dulera 100 Mcg/5 Mcg Inhaler) 2 puff INH BID-RT [facility] Last Admin: 01/19/19 07:15 Dose: 2 puff Pantoprazole Sodium (Protonix) 40 mg IVP Q12HR [facility] Last Admin: 01/19/19 08:38 Dose: 40 mg Pregabalin (Lyrica) 50 mg PO BID [facility] Last Admin: 01/19/19 08:38 Dose: 50 mg Rifaximin (Xifaxan) 550 mg PO BID [facility] Last Admin: 01/19/19 08:37 Dose: 550 mg Spironolactone (Aldactone) 25 mg PO QAM-[facility] Last Admin: 01/19/19 08:38 Dose: 25 mg
[2019-01-19] MEDS ORDERED: Albuterol Sulfate 1.25 MG/3 ML NEB ONE (14:02)
[2019-01-19] MEDS ORDERED: Ondansetron HCl/PF 4 MG/2 ML Vial IVP PRN (15:11)
[2019-01-19] MEDS ORDERED: Promethazine HCl 25 MG/ML VIAL IM PRN (15:11)
[2019-01-19] MEDS ORDERED: Promethazine HCl 25 MG/ML VIAL SLOW IVP PRN (15:11)
[2019-01-19] MEDS ORDERED: PHENYLEPHRINE-NS 100 MCG/ML 10 ML SYRINGE ONE (16:04)
[2019-01-19] MEDS: cefTRIAXone\\ROCEPHIN 1 GM in Sodium Chloride 0.9% 100 ML IVPB SCH (16:15)
--- NOTE | 2019-01-19 16:44 | OP ---
DATE OF PROCEDURE: 01/19/2019 PROCEDURE PERFORMED: Esophagogastroduodenoscopy with control of hemorrhage with argon plasma coagulation. PREPROCEDURE DIAGNOSES: 1. GI hemorrhage, recurrent. 2. Cirrhosis. 3. Portal hypertension. POSTPROCEDURE DIAGNOSES: 1. 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 2. Esophageal erosion, distal esophagus with fibrin clot. This is the area of previous varicocele banding. ANESTHESIA: TIVA conversion to general endotracheal anesthesia secondary to bronchospasm, extubated without difficulty after procedure. RECOMMENDATIONS: 1. IV Protonix q.12 hours. 2. If the patient has further bleeding, we would consider restarting octreotide drip. We will actually do that overnight. 3. Hemoglobin and hematocrit in the morning. 4. Full liquid diet. DESCRIPTION OF PROCEDURE: The patient was informed of the risks, benefits, and possible complications of endoscopy including perforation, reaction to medication, and aspiration. Informed consent was obtained and the patient was brought to the endoscopy suite, where she was sedated in standard fashion. Once she was comfortable, a bite-block was placed inside the orifice. The endoscope was advanced through the esophagus, stomach, and second and third portion of the duodenum and slowly removed. There were no bleeding sites identified in the duodenum. In the antrum of the stomach, there was fresh blood, which was cleared away. There were signs of gastric antral vascular ectasias. This was cauterized with argon plasma coagulation with good ablation and hemostasis. The stomach showed no signs of active bleeding once we were finished. In the proximal stomach, there was no evidence of gastric varices. There was some food in the proximal stomach. There were no bleeding sites in the proximal stomach. The scope was returned in forward position and the esophagus was evaluated. There were signs of previous banded varix in the lower esophagus. No stigmata of bleeding, bland clot, or thrombin. The scope was removed and the patient tolerated the procedure well. There were no complications. Job ID: [id number]
[2019-01-19] MEDS: HumaLOG 300 UNITS/3 ML VIAL SC PRN ×2 (17:27→21:23)
[2019-01-19] MEDS: Atorvastatin Calcium 10 MG TAB PO SCH (19:46)
[2019-01-20] MEDS: Levothyroxine Sodium 75 MCG TAB PO SCH (05:17)
[2019-01-20] MEDS: Mometasone/Formoterol 120 PUFF INHALER INH SCH ×2 (06:41→18:20)
[2019-01-20 07:16] LABS: INR-International Normal Ratio 1.3; Prothrombin Time 16.3 SEC (12.0-14.7)
[2019-01-20 07:17] LABS: #Eosinphils 0.2 thou/uL (0.0-0.7); #Lymphocytes 0.8 thou/uL (1.20-3.40); #Monocytes 0.3 thou/uL (0.11-0.59); #Neutrophils 1.9 thou/uL (1.40-6.50); %Basophils 0.5 % (0.0-1.0); %Eosinophils 7.2 % (0.0-10.0); %Lymphocytes 25.1 % (21.0-51.0); %Monocytes 9.8 % (0.0-10.0); %Neutrophils 57.4 % (42.0-75.0); Hemoglobin 7.5 g/dL (12.0-16.0); Mean Corpuscular HGB CONC 32.3 g/dL (32.0-36.0); Mean Corpuscular Volume 99.1 fL (78.0-98.0); Platelet Count 49 thou/uL (130-400); RBC Distribution Width 18.1 % (11.5-14.5); Red Blood Cell (RBC) Count 2.36 mill/uL (4.20-5.40); White Blood Cell (WBC) Count 3.3 thou/uL (4.8-10.8)
[2019-01-20 07:26] LABS: ALT (SGPT) 9 U/L (8-55); AST (SGOT) 20 U/L (5-34); Albumin 3.1 g/dL (3.4-4.8); Alkaline Phosphatase 90 U/L (40-150); Anion Gap 10 mmol/L (10-20); BUN (Urea Nitrogen) 35 mg/dL (9.8-20.1); Bilirubin, Total 0.6 mg/dL (0.2-1.2); Calc. Creatinine Clearance 13 mL/min (70-130); Carbon Dioxide 27 mmol/L (23-31); Chloride 107 mmol/L (98-107); Estimated GFR-MDRD 9; Globulin 2.7 g/dL (2.4-3.5); Glucose 159 mg/dL (80-115); Potassium 3.6 mmol/L (3.5-5.1); Protein, Total 5.8 g/dL (6.0-8.3); Sodium 140 mmol/L (136-145)
[2019-01-20] MEDS ORDERED: Octreotide Acetate 1,250 MCG in Sodium Chloride 0.9% 250 ML 250 ML IVPB SCH (07:45)
[2019-01-20] MEDS ORDERED: EPOETIN ALFA-EPBX (ESRD) 10,000 UNIT/ML VIAL IVP SCH ×3 (09:00→11:45)
[2019-01-20 10:05] LABS: HBSAg Index 0.31 S/CO (0-0.99); Hep B Surf Ag Non-Reactive S/CO (NonReactive)
--- NOTE | 2019-01-20 11:53 | PRG ---
DATE OF SERVICE: 01/20/2019 SUBJECTIVE: Patient was seen and examined at bedside and overnight events noted. Patient denies any shortness of breath or chest pain or palpitation. No history of nausea or vomiting or diarrhea or fever or chills or cramps. OBJECTIVE: GENERAL: This is a well-built female, in no apparent distress. VITAL SIGNS: Temperature 98.4. Heart rate 72. Respiratory rate 18. Blood pressure 109/63. HEENT: Atraumatic, normocephalic. Oral mucosa is moist NECK: Supple. CARDIOVASCULAR: S1, S2 heard. Rate and rhythm regular. RESPIRATORY: Clear to auscultation. GASTROINTESTINAL: Abdomen is soft. MUSCULOSKELETAL: No tenderness. No edema. DERMATOLOGIC: No skin rash. NEUROLOGIC: Alert and awake and oriented X3. No focal neurologic deficits. Moving all the extremities. PSYCHIATRIC: Mood and affect normal. LABORATORY DATA: Hemoglobin is 7.5. Potassium is 3.6, BUN . ASSESSMENT AND PLAN: 1. End-stage renal disease. Continue on hemodialysis. 2. Anemia. We will add Epogen. Follow with GI. 3. Hypertension. 4. Edema, controlled. 5. We will continue on dialysis, Thursday, , and Thursday. Job ID: [id number]
[2019-01-20] MEDS: Insulin Glargine 10 UNITS in Pre-Filled Syringe 1 EACH SC SCH ×2 (12:19→21:02)
[2019-01-20] MEDS: Pregabalin 50 MG CAP PO SCH ×2 (12:19→21:01)
[2019-01-20] MEDS: Rifaximin 550 MG TAB PO SCH ×2 (12:20→21:01)
[2019-01-20] MEDS: Pantoprazole 40 MG VIAL IVP SCH ×2 (12:20→21:03)
[2019-01-20] MEDS: Losartan 25 MG TAB PO SCH (13:28)
[2019-01-20] MEDS: Spironolactone 25 MG TAB PO SCH (13:28)
[2019-01-20] MEDS: Escitalopram Oxalate 20 mg Tablet PO SCH (13:28)
[2019-01-20] MEDS: cefTRIAXone\\ROCEPHIN 1 GM in Sodium Chloride 0.9% 100 ML IVPB SCH (14:49)
[2019-01-20] MEDS ORDERED: Heparin 10,000 UNITS/1 ML VIAL ONE (15:00)
--- NOTE | 2019-01-20 16:45 | PRG ---
DATE OF SERVICE: 01/20/2019 SUBJECTIVE: Ms. Olguin went down for EGD yesterday with Dr. Goss. He found her to have actively bleeding gastric antral vascular ectasias. He performed extensive APC treatment. I reviewed the images and spoke with Dr. Goss. Ms. Olguin has remained hemodynamically stable today. She completed dialysis. She has been tolerating a full liquid diet and is hungry for something more. Hemoglobin drifted down again at 7.5. She received epoetin with dialysis. OBJECTIVE: VITAL SIGNS: Temperature 98.4, pulse 76, blood pressure 109/63, and 94% oxygen saturation on room air. GENERAL: Pale, in no acute distress. HEART: Regular rate and rhythm. LUNGS: Clear to auscultation bilaterally. ABDOMEN: Nondistended. Bowel sounds present. Soft and nontender to palpation. EXTREMITIES: No peripheral edema. LABORATORY STUDIES: Hemoglobin 7.5, WBC 3.3, and platelets 49. INR 1.3. Sodium 140, potassium 3.6, BUN 35, and creatinine 4.72. Total bilirubin 0.6, alkaline phosphatase 90, AST 20, and ALT 9. ASSESSMENT AND PLAN: 1. Gastric antral vascular ectasias, status post extensive APC treatment with Dr. Goss on 01/19/2019. 2. Esophageal varices, status post recent banding. 3. Chronic anemia, secondary to chronic losses from gastric antral vascular ectasia. 4. Hepatic encephalopathy, stable at this time. 5. Nonalcoholic steatohepatitis cirrhosis. I discussed with Ms. Olguin that hopefully this APC treatment will be effective. It is slowing down some of the chronic bleeding that she has been having. Sometimes several sessions of APC treatment are needed, but never closer than 2 weeks apart. She will need to stay on full-strength PPI twice daily going forward. I agree with the epoetin as well as recommending iron supplementation. She may require repeated transfusions, we will just have to see. No further endoscopic investigation is planned in the near future. We will advance her diet now. We will plan to have her follow up in clinic in the next 3 to 4 weeks. Job ID: [id number]
[2019-01-20 17:24] LABS: Hemoglobin 7.9 g/dL (12.0-16.0)
[2019-01-20] MEDS: HumaLOG 300 UNITS/3 ML VIAL SC PRN (17:45)
[2019-01-20] MEDS: Atorvastatin Calcium 10 MG TAB PO SCH (21:01)
[2019-01-21] MEDS: Levothyroxine Sodium 75 MCG TAB PO SCH (05:06)
[2019-01-21 06:12] LABS: #Eosinphils 0.3 thou/uL (0.0-0.7); #Lymphocytes 0.8 thou/uL (1.20-3.40); #Monocytes 0.3 thou/uL (0.11-0.59); %Basophils 0.8 % (0.0-1.0); %Eosinophils 7.5 % (0.0-10.0); %Lymphocytes 24.8 % (21.0-51.0); %Monocytes 8.7 % (0.0-10.0); %Neutrophils 58.2 % (42.0-75.0); Hemoglobin 7.1 g/dL (12.0-16.0); Mean Corpuscular HGB CONC 32.6 g/dL (32.0-36.0); Mean Corpuscular Hemoglobin 32.5 pg (27.0-31.0); Mean Corpuscular Volume 99.4 fL (78.0-98.0); Platelet Count 53 thou/uL (130-400); RBC Distribution Width 18.2 % (11.5-14.5); White Blood Cell (WBC) Count 3.3 thou/uL (4.8-10.8)
[2019-01-21 06:29] LABS: Anion Gap 11 mmol/L (10-20); BUN (Urea Nitrogen) 14 mg/dL (9.8-20.1); Calc. Creatinine Clearance 18 mL/min (70-130); Calcium 9.1 mg/dL (7.8-10.44); Carbon Dioxide 27 mmol/L (23-31); Chloride 104 mmol/L (98-107); Estimated GFR-MDRD 14; Glucose 134 mg/dL (80-115); Potassium 4.1 mmol/L (3.5-5.1); Sodium 138 mmol/L (136-145)
[2019-01-21] MEDS: Mometasone/Formoterol 120 PUFF INHALER INH SCH ×2 (06:43→19:38)
[2019-01-21] MEDS: Losartan 25 MG TAB PO SCH (09:03)
[2019-01-21] MEDS: Pregabalin 50 MG CAP PO SCH ×2 (09:03→20:44)
[2019-01-21] MEDS: Escitalopram Oxalate 20 mg Tablet PO SCH (09:04)
[2019-01-21] MEDS: Rifaximin 550 MG TAB PO SCH ×2 (09:04→20:44)
[2019-01-21] MEDS: Spironolactone 25 MG TAB PO SCH (09:04)
[2019-01-21] MEDS: Pantoprazole 40 MG VIAL IVP SCH ×2 (09:05→20:44)
[2019-01-21] MEDS: Insulin Glargine 10 UNITS in Pre-Filled Syringe 1 EACH SC SCH ×2 (09:15→20:51)
[2019-01-21 12:02] LABS: Hemoglobin 7.4 g/dL (12.0-16.0)
[2019-01-21] MEDS: HumaLOG 300 UNITS/3 ML VIAL SC PRN (12:03)
--- NOTE | 2019-01-21 14:31 | PRG ---
DATE OF SERVICE: 01/21/2019 SUBJECTIVE: Patient was seen and examined at bedside and overnight events noted. Patient denies any shortness of breath or chest pain or palpitation. No history of nausea or vomiting or diarrhea or fever or chills or cramps. OBJECTIVE: GENERAL: This is a well-built female, in no apparent distress. VITAL SIGNS: Temperature 98.2. Heart rate 82. Respiratory rate 18. Blood pressure 113/64. HEENT: Atraumatic, normocephalic. Oral mucosa is moist NECK: Supple. CARDIOVASCULAR: S1, S2 heard. Rate and rhythm regular. RESPIRATORY: Clear to auscultation. GASTROINTESTINAL: Abdomen is soft. MUSCULOSKELETAL: No tenderness. No edema. DERMATOLOGIC: No skin rash. NEUROLOGIC: Alert and awake and oriented X3. No focal neurologic deficits. Moving all the extremities. PSYCHIATRIC: Mood and affect normal. LABORATORY DATA: Potassium is 4.1, BUN is 40, creatinine is 3.3. ASSESSMENT: 1. End-stage renal disease. Continue on hemodialysis. 2. Anemia. 3. Hypertension. 4. Edema. PLAN: Continue on dialysis as tolerated. Monitor hemoglobin and transfuse with dialysis. Job ID: [id number]
--- NOTE | 2019-01-21 16:49 | PDOC.PN ---
- Subjective Encounter Start Date: 01/21/19 Encounter Start Time: 08:40 Pt seen for followup re: GI bleed. Says she feels better. - Objective Vital Signs & Weight: Vital Signs (12 hours) Temp Pulse Pulse Resp BP BP Pulse Ox 01/21/19 15:30 98.2 F 78 18 94/53 L 95 01/21/19 08:00 94 L 01/21/19 07:26 98.2 F 82 18 113/64 94 L 01/21/19 06:43 86 12 Weight Admit Weight 146 lb 6.191 oz Weight 144 lb 9.972 oz Most Recent Monitor Data Heart Rate from ECG 81 NIBP 148/84 NIBP BP-Mean 105 Respiration from ECG 18 SpO2 100 I&O: 01/20/19 01/21/19 01/22/19 06:59 06:59 06:59 Intake Total 400 2030 0 Output Total 1400 Balance 400 630 0 Result Diagrams: 01/21/19 11:49 01/21/19 05:32 Additional Labs: Accuchecks 01/21/19 01/21/19 01/20/19 11:51 04:55 19:43 POC Glucose 294 H 140 H 163 H 01/20/19 17:00 POC Glucose 248 H Phys Exam - Physical Examination Constitutional: NAD HEENT: moist MMs Neck: supple Respiratory: clear to auscultation bilateral Cardiovascular: RRR Gastrointestinal: soft Neurological: moves all 4 limbs Psychiatric: normal affect Dx/Plan (1) Upper GI bleed Code(s): K92.2 - GASTROINTESTINAL HEMORRHAGE, UNSPECIFIED Status: Acute Comment: s/p EGD. Hb drifting down, will transfuse 1 unit pRBC. (2) ESRD on hemodialysis Code(s): N18.6 - END STAGE RENAL DISEASE; Z99.2 - DEPENDENCE ON RENAL DIALYSIS Status: Acute Comment: Dialysis per nephrology service (3) Diabetes type 2, uncontrolled Code(s): E11.65 - TYPE 2 DIABETES MELLITUS WITH HYPERGLYCEMIA Status: Chronic Qualifiers: Comment: reasonable control (4) HLD (hyperlipidemia) Code(s): E78.5 - HYPERLIPIDEMIA, UNSPECIFIED Status: Chronic Qualifiers: Hyperlipidemia type: unspecified Qualified Code(s): E78.5 - Hyperlipidemia , unspecified Comment: continue atorvastatin (5) Hypertension Code(s): I10 - ESSENTIAL (PRIMARY) HYPERTENSION Status: Chronic Qualifiers: Hypertension type: essential hypertension Qualified Code(s): I10 - Essential (primary) hypertension Comment: controlled (6) Hypothyroidism Code(s): E03.9 - HYPOTHYROIDISM, UNSPECIFIED Status: Chronic Qualifiers: Hypothyroidism type: acquired Qualified Code(s): E03.9 - Hypothyroidism, unspecified Comment: continue levothyroxine - Plan * . Review of Systems - Review of Systems Respiratory: negative: Cough, Shortness of Breath, SOB with Excertion, Pleuritic Pain, Wheezing Cardiovascular: negative: chest pain, palpitations, orthopnea, paroxysmal nocturnal dyspnea, edema, light headedness Gastrointestinal: negative: Nausea, Vomiting, Abdominal Pain, Diarrhea, Constipation, Melena, Hematochezia - Medications/Allergies Allergies/Adverse Reactions: Allergies Allergy/AdvReac Type Severity Reaction Status Date / Time Sulfa (Sulfonamide Allergy Intermediate Rash Verified 01/13/19 15:39 Antibiotics) adhesive Allergy Verified 01/13/19 15:39 Medications: Current Medications Atorvastatin Calcium (Lipitor) 10 mg PO [facility] Last Admin: 01/20/19 21:01 Dose: 10 mg Dextrose/Water (Dextrose 50%) 25 gm SLOW IVP PRN PRN PRN Reason: Hypoglycemia Epoetin Jonathan-epbx (Retacrit) 10,000 unit IVP [facility] Escitalopram Oxalate (Lexapro) 20 mg PO DAILY [facility] Last Admin: 01/21/19 09:04 Dose: 20 mg Glucagon (Glucagon) 1 mg IM PRN PRN PRN Reason: Hypoglycemia Hydrocortisone Sodium Succinate (Proctozone-Hc 2.5% Cream) 0 gm TOP PRN PRN PRN Reason: HEMORROID PAIN Dextrose/Water (D5w) 1,000 mls @ 0 mls/hr IV .Q0M PRN PRN Reason: Hypoglycemia Insulin Glargine 10 units/ (Miscellaneous Medication) 0.1 mls @ 0 mls/hr SC [facility] Last Admin: 01/20/19 21:02 Dose: 0.1 mls Insulin Glargine 10 units/ (Miscellaneous Medication) 0.1 mls @ 0 mls/hr [facility] Last Admin: 01/21/19 09:15 Dose: 0.1 mls Octreotide Acetate 1,250 mcg/ (Sodium Chloride) 251.25 mls @ 10.05 mls/hr IVPB INF [facility] Last Admin: 01/20/19 17:39 Dose: 251.25 mls Insulin Human Lispro (Humalog) 0 units SC .MILD SLIDING SCALE PRN PRN Reason: Mild Correctional Scale Last Admin: 01/21/19 12:03 Dose: 4 unit Lactulose (Lactulose) 30 gm PO DAILY [facility] Last Admin: 01/21/19 09:04 Dose: 30 gm Levothyroxine Sodium (Synthroid) 225 mcg PO 0600 [facility] Last Admin: 01/21/19 05:06 Dose: 225 mcg Losartan Potassium (Cozaar) 25 mg PO DAILY [facility] Last Admin: 01/21/19 09:03 Dose: 25 mg Mometasone Furoate/Formoterol Fumar (Dulera 100 Mcg/5 Mcg Inhaler) 2 puff INH BID-RT [facility] Last Admin: 01/21/19 06:43 Dose: 2 puff Pantoprazole Sodium (Protonix) 40 mg IVP Q12HR [facility] Last Admin: 01/21/19 09:05 Dose: 40 mg Pregabalin (Lyrica) 50 mg PO BID [facility] Last Admin: 01/21/19 09:03 Dose: 50 mg Rifaximin (Xifaxan) 550 mg PO BID [facility] Last Admin: 01/21/19 09:04 Dose: 550 mg Spironolactone (Aldactone) 25 mg PO [facility] Last Admin: 01/21/19 09:04 Dose: 25 mg
[2019-01-21] MEDS: Atorvastatin Calcium 10 MG TAB PO SCH (20:43)
--- NOTE | 2019-01-22 04:00 | PDOC.PN ---
- Subjective Encounter Start Date: 01/20/19 Encounter Start Time: 10:30 Subjective: pt up in bed no complains - Objective Vital Signs & Weight: Vital Signs (12 hours) Temp Pulse Pulse Resp BP BP BP 01/21/19 20:00 98.7 F 81 20 112/60 01/21/19 19:38 80 18 01/21/19 18:18 98.1 F 76 16 146/79 H 01/21/19 16:16 98.8 F 72 16 97/54 L Pulse Ox 01/21/19 20:00 98 01/21/19 19:38 94 L 01/21/19 18:18 100 01/21/19 16:16 96 Weight Admit Weight 146 lb 6.191 oz Weight 144 lb 9.972 oz Most Recent Monitor Data Heart Rate from ECG 81 NIBP 148/84 NIBP BP-Mean 105 Respiration from ECG 18 SpO2 100 I&O: 01/20/19 01/21/19 01/22/19 06:59 06:59 06:59 Intake Total 400 2030 2250 Output Total 1400 Balance 408 074 6877 Result Diagrams: 01/21/19 11:49 01/21/19 05:32 Additional Labs: Accuchecks 01/22/19 01/21/19 01/21/19 02:20 20:16 18:26 POC Glucose 146 H 220 H 69 L 01/21/19 01/21/19 11:51 04:55 POC Glucose 294 H 140 H Phys Exam - Physical Examination Neck: no nodes, no JVD, supple, full ROM Respiratory: no wheezing, no rales, no rhonchi, wheezing present, clear to auscultation bilateral Cardiovascular: RRR, no significant murmur, no rub, gallop, irregular Gastrointestinal: soft, non-tender, no distention, positive bowel sounds Dx/Plan (1) Hepatic encephalopathy Code(s): K72.90 - HEPATIC FAILURE, UNSPECIFIED WITHOUT COMA Status: Acute (2) ESRD on hemodialysis Code(s): N18.6 - END STAGE RENAL DISEASE; Z99.2 - DEPENDENCE ON RENAL DIALYSIS Status: Acute Comment: Dialysis per nephrology service (3) Upper GI bleed Code(s): K92.2 - GASTROINTESTINAL HEMORRHAGE, UNSPECIFIED Status: Acute Comment: s/p EGD. Hb drifting down, will transfuse 1 unit pRBC. (4) Cirrhosis Code(s): K74.60 - UNSPECIFIED CIRRHOSIS OF LIVER Status: Chronic Qualifiers: (5) Diabetes type 2, uncontrolled Code(s): E11.65 - TYPE 2 DIABETES MELLITUS WITH HYPERGLYCEMIA Status: Chronic Qualifiers: Comment: reasonable control - Plan pt's hh continues to worsen. s/p EGD argon -: will start octreotide if her hh continues to worsen * . Review of Systems - Review of Systems Respiratory: negative: Cough, Dry, Shortness of Breath, Hemoptysis, SOB with Excertion, Pleuritic Pain, Sputum, Wheezing Cardiovascular: negative: chest pain, palpitations, orthopnea, paroxysmal nocturnal dyspnea, edema, light headedness, other Gastrointestinal: negative: Nausea, Vomiting, Abdominal Pain, Diarrhea, Constipation, Melena, Hematochezia, Other - Medications/Allergies Allergies/Adverse Reactions: Allergies Allergy/AdvReac Type Severity Reaction Status Date / Time Sulfa (Sulfonamide Allergy Intermediate Rash Verified 01/13/19 15:39 Antibiotics) adhesive Allergy Verified 01/13/19 15:39 Medications: Current Medications Atorvastatin Calcium (Lipitor) 10 mg PO [facility] Last Admin: 01/21/19 20:43 Dose: 10 mg Dextrose/Water (Dextrose 50%) 25 gm SLOW IVP PRN PRN PRN Reason: Hypoglycemia Epoetin Jonathan-epbx (Retacrit) 10,[address] [facility] Escitalopram Oxalate (Lexapro) 20 mg PO DAILY [facility] Last Admin: 01/21/19 09:04 Dose: 20 mg Glucagon (Glucagon) 1 mg IM PRN PRN PRN Reason: Hypoglycemia Hydrocortisone Sodium Succinate (Proctozone-Hc 2.5% Cream) 0 gm TOP PRN PRN PRN Reason: HEMORROID PAIN Dextrose/Water (D5w) 1,000 mls @ 0 mls/hr IV .Q0M PRN PRN Reason: Hypoglycemia Insulin Glargine 10 units/ (Miscellaneous Medication) 0.1 mls @ 0 mls/hr SC [facility] Last Admin: 01/21/19 20:51 Dose: 0.1 mls Insulin Glargine 10 units/ (Miscellaneous Medication) 0.1 mls @ 0 mls/hr SC [facility] Last Admin: 01/21/19 09:15 Dose: 0.1 mls Insulin Human Lispro (Humalog) 0 units SC .MILD SLIDING SCALE PRN PRN Reason: Mild Correctional Scale Last Admin: 01/21/19 12:03 Dose: 4 unit Lactulose (Lactulose) 30 gm PO DAILY [facility] Last Admin: 01/21/19 09:04 Dose: 30 gm Levothyroxine Sodium (Synthroid) 225 mcg PO 0600 [facility] Last Admin: 01/21/19 05:06 Dose: 225 mcg Losartan Potassium (Cozaar) 25 mg PO DAILY [facility] Last Admin: 01/21/19 09:03 Dose: 25 mg Mometasone Furoate/Formoterol Fumar (Dulera 100 Mcg/5 Mcg Inhaler) 2 puff INH BID-RT [facility] Last Admin: 01/21/19 19:38 Dose: 2 puff Pantoprazole Sodium (Protonix) 40 mg IVP Q12HR [facility] Last Admin: 01/21/19 20:44 Dose: 40 mg Pregabalin (Lyrica) 50 mg PO BID [facility] Last Admin: 01/21/19 20:44 Dose: 50 mg Rifaximin (Xifaxan) 550 mg PO BID [facility] Last Admin: 01/21/19 20:44 Dose: 550 mg Spironolactone (Aldactone) 25 mg PO [facility] Last Admin: 01/21/19 09:04 Dose: 25 mg
[2019-01-22] MEDS: Levothyroxine Sodium 75 MCG TAB PO SCH (05:23)
[2019-01-22 06:35] LABS: #Eosinphils 0.2 thou/uL (0.0-0.7); #Lymphocytes 0.7 thou/uL (1.20-3.40); #Monocytes 0.3 thou/uL (0.11-0.59); #Neutrophils 2.1 thou/uL (1.40-6.50); %Basophils 0.2 % (0.0-1.0); %Eosinophils 7.1 % (0.0-10.0); %Lymphocytes 20.5 % (21.0-51.0); %Monocytes 9.3 % (0.0-10.0); Mean Corpuscular HGB CONC 32.2 g/dL (32.0-36.0); Mean Corpuscular Hemoglobin 31.6 pg (27.0-31.0); Mean Corpuscular Volume 98.2 fL (78.0-98.0); Mean Platelet Volume 8.9 fL (7.4-10.4); Platelet Count 57 thou/uL (130-400); RBC Distribution Width 18.9 % (11.5-14.5); Red Blood Cell (RBC) Count 2.52 mill/uL (4.20-5.40); White Blood Cell (WBC) Count 3.4 thou/uL (4.8-10.8)
[2019-01-22 06:55] LABS: Anion Gap 11 mmol/L (10-20); BUN (Urea Nitrogen) 20 mg/dL (9.8-20.1); Calc. Creatinine Clearance 13 mL/min (70-130); Calcium 8.9 mg/dL (7.8-10.44); Carbon Dioxide 24 mmol/L (23-31); Chloride 104 mmol/L (98-107); Estimated GFR-MDRD 10; Glucose 86 mg/dL (80-115); Potassium 4.2 mmol/L (3.5-5.1); Sodium 135 mmol/L (136-145)
[2019-01-22] MEDS: Mometasone/Formoterol 120 PUFF INHALER INH SCH (07:17)
[2019-01-22] MEDS: Escitalopram Oxalate 20 mg Tablet PO SCH (08:05)
[2019-01-22] MEDS: Losartan 25 MG TAB PO SCH (08:05)
[2019-01-22] MEDS: Pregabalin 50 MG CAP PO SCH (08:05)
[2019-01-22] MEDS: Insulin Glargine 10 UNITS in Pre-Filled Syringe 1 EACH SC SCH (08:05)
[2019-01-22] MEDS: Spironolactone 25 MG TAB PO SCH (08:05)
[2019-01-22] MEDS: Rifaximin 550 MG TAB PO SCH (08:06)
[2019-01-22] MEDS: Pantoprazole 40 MG VIAL IVP SCH (08:06)
[2019-01-22] MEDS ORDERED: Heparin 1,000 UNITS/ML VIAL ONE (11:11)
--- NOTE | 2019-01-22 13:31 | PRG ---
DATE OF SERVICE: SUBJECTIVE: Patient was seen and examined at bedside and overnight events noted. Patient denies any shortness of breath or chest pain or palpitation. No history of nausea or vomiting or diarrhea or fever or chills or cramps. OBJECTIVE: GENERAL: This is a well-built female, in no apparent distress. VITAL SIGNS: Temperature 98.3. Heart rate 74. Respiratory rate 16. Blood pressure 110/61. HEENT: Atraumatic, normocephalic. Oral mucosa is moist NECK: Supple. CARDIOVASCULAR: S1, S2 heard. Rate and rhythm regular. RESPIRATORY: Clear to auscultation. GASTROINTESTINAL: Abdomen is soft. MUSCULOSKELETAL: No tenderness. No edema. DERMATOLOGIC: No skin rash. NEUROLOGIC: Alert and awake and oriented X3. No focal neurologic deficits. Moving all the extremities. PSYCHIATRIC: Mood and affect normal. LABORATORY DATA: Potassium 4.2, BUN is 20, creatinine is 4.5. ASSESSMENT AND PLAN: 1. End-stage renal disease. Continue hemodialysis as tolerated. 2. Anemia of chronic disease plus GI bleed. Follow with Gastroenterology. 3. Hypertension. 4. Edema, controlled. 5. Continue dialysis. We will inform dialysis facility to check hemoglobin weekly. Job ID: [id number]
[2019-01-22 15:27] VITALS: TEMP 98.7
[2019-01-22 15:30] VITALS: BP 122/62
--- NOTE | 2019-01-22 22:19 | DIS ---
DATE OF ADMISSION: 01/13/2019 DATE OF DISCHARGE: 01/22/2019 PRIMARY CARE PROVIDER: Dr. Williams Holden. DISCHARGE DIAGNOSES: 1. Acute metabolic encephalopathy. 2. Distal esophageal ulceration. 3. Gastric antral vascular ectasia bleeding. 4. Anemia of acute blood loss. CONDITION OF PATIENT ON THE DAY OF DISCHARGE: Stable. I assessed Ms. Olguin on the day of discharge. She denies any chest pain or shortness of breath. Vital signs are stable. S1 and S2 are heard, regular. Lungs are clear to auscultation bilaterally. CONSULTATIONS DURING THIS HOSPITALIZATION: Nephrology, Dr. Canseco. Gastroenterology, Dr. Fraga. Pulmonology, Dr. Huerta. DISCHARGE MEDICATIONS: 1. Tylenol No.3 p.r.n. 2. Procrit 24538 units IV push 3 times a week. 3. Lipitor 10 mg at bedtime. 4. Zyrtec 10 mg at bedtime. 5. Lexapro 20 mg daily. 6. Flonase 1 spray to each naris daily as needed. 7. Levemir 15 units 2 times a day. 8. Lactulose 30 g daily. 9. Synthroid 75 mcg tablets, 3 tablets daily. 10. Cozaar 25 mg daily. 11. Midodrine 5 mg daily. 12. Lyrica 50 mg 2 times a day. 13. Rifaximin 550 mg 2 times a day. 14. Sevelamer 2 tablets 3 times a day. 15. Dulera 100/5 mcg inhaler 2 puffs 2 times a day. 16. Protonix 40 mg 2 times a day. 17. DuoNebs p.r.n. 18. Ferrous sulfate 325 mg daily. HOSPITAL COURSE: Ms. Olguin is a pleasant 63-year-old lady, who was admitted to [facility] on 01/13/2019, for acute metabolic encephalopathy secondary to hepatic encephalopathy. Please refer to Dr. Cole's history and physical note dated 01/13/2019, for further details. She was treated for hepatic encephalopathy with lactulose. She was also seen by Nephrology Service for maintenance hemodialysis. She improved clinically. However, she was found to have tarry stool and hemoglobin which was trending down. She underwent EGD on 01/16. She was found to have ulceration of distal esophagus. Following the EGD, she continued to have trending down of hemoglobin. She had repeat EGD on 01/19. She was found to have active gastric bleeding from gastric antral vascular ectasia, treated with APC and ablated. Gastroenterology Service recommends continuing her on b.i.d. PPI and also having her hemoglobin checked frequently and transfused as needed with her dialysis session. They also recommended iron supplementation. No further endoscopic investigation was planned in the near future. She has been cleared for discharge by consultants services. She is being discharged home in a stable condition. She received a total of 4 units packed RBC transfusions during this hospitalization. On the day of discharge, she has white count 3400, hemoglobin 8, platelet count 57,000. Sodium 135, potassium 4.2, and creatinine 4.57 prior to dialysis. Many thanks for allowing me to participate in your patient's care. Please feel free to contact me with any questions or concerns. DISCHARGE DESTINATION: Home. FOLLOWUP: With primary care provider. TIME SPENT: Total amount of time spent coordinating this discharge, 32 minutes. Job ID: [id number]
[2019-01-25] MEDS ORDERED: EPOETIN ALFA-EPBX (ESRD) 10,000 UNIT/ML VIAL IVP SCH (10:00)
== END 2019-01-22 18:10 | disposition home or self-care (01) | DRG 441 ==
LOC: ERS 22:51 → ERHOLD 01-13 02:53 → OBSVTOIN 01-13 05:16 → IMCU/EMU 01-13 15:38 → T4-A 01-15 14:59
PROVIDERS: ADMIT Hospitalist; ATTEND Hospitalist
PROC: 30233N1 Transfusion of Nonautologous Red Blood Cells into Peripheral Vein, Percutaneous Approach (ICD-10-PCS; 2019-01-13)
PROC: 3E0G8GC Introduction of Other Therapeutic Substance into Upper GI, Via Natural or Artificial Opening Endoscopic (ICD-10-PCS; principal; 2019-01-16)
PROC: 0W3P8ZZ Control Bleeding in Gastrointestinal Tract, Via Natural or Artificial Opening Endoscopic (ICD-10-PCS; 2019-01-19)
DX: K72.00 Acute and subacute hepatic failure without coma (principal); K31.811 Angiodysplasia of stomach and duodenum with bleeding; G93.41 Metabolic encephalopathy; N18.6 End stage renal disease; K76.6 Portal hypertension; K22.10 Ulcer of esophagus without bleeding; D62 Acute posthemorrhagic anemia; D61.818 Other pancytopenia; I12.0 Hypertensive chronic kidney disease with stage 5 chronic kidney disease or end stage renal disease; D63.1 Anemia in chronic kidney disease; E11.22 Type 2 diabetes mellitus with diabetic chronic kidney disease; K74.60 Unspecified cirrhosis of liver; K21.9 Gastro-esophageal reflux disease without esophagitis; E03.9 Hypothyroidism, unspecified; M19.90 Unspecified osteoarthritis, unspecified site; K75.81 Nonalcoholic steatohepatitis (NASH); K31.89 Other diseases of stomach and duodenum; D69.6 Thrombocytopenia, unspecified; Z88.2 Allergy status to sulfonamides; Z88.8 Allergy status to other drugs, medicaments and biological substances; Z99.2 Dependence on renal dialysis
CPT/HCPCS: 36415; 36416; 36430; 70450; 80048; 80053; 81003; 81015; 82140; 82274; 83735; 85014; 85018; 85025; 85610; 86850; 86900; 86901; 87340; 90935; 96365; 96366; 96367; C9113; G0257; J0696; J1644; J1815; J2270; J2354; J2543; J2704; J3490; J7050; P9016; P9047; Q5105

== ENCOUNTER 2019-03-23 06:40 | Day surgery (SDC) | payer BC, MEDICARE ==
--- NOTE | 2019-03-22 12:27 | HP ---
HISTORY OF PRESENT ILLNESS: Yessy Olguin is a 64-year-old female presenting in followup for dialysis access. She dialyzes at [facility] Thursday, , and Thursday. The patient had a Francisco Javier fistula placed that did not mature. During recent hospitalization on 01/10/2019, she underwent evaluation and revision to more proximal fistula. On probing the cephalic vein outflow, it was noted to be obstructed. The primary outflow was the basilic vein. She presents now in followup. She has a good thrill and bruit, but no occlusion of the basilic vein. There was no signal indicating all outflow was through the basilic vein. Plan is for basilic vein transposition fistula of left arm. She understands risks and benefits, and consents. She lives in [place]. MEDICATIONS: Insulin, metformin, spironolactone, rifaximin, Lyrica, Bystolic, Levoxyl, Floranex, lactulose, Lexapro, Zyrtec, Lipitor, and Procrit. PAST MEDICAL HISTORY: Cirrhosis, thrombocytopenia mild, umbilical hernia history, diabetes mellitus insulin dependent, metabolic syndrome, morbid obesity, hypertension, asthma, end-stage renal disease, on maintenance dialysis at [facility] Thursday, and Thursday. PAST SURGICAL HISTORY: Hemodialysis catheter, Francisco Javier fistula, subsequent revision to more proximal fistula left arm. TOBACCO: None. ALCOHOL: None. REVIEW OF SYSTEMS: Noncontributory. PHYSICAL EXAMINATION: VITAL SIGNS: Weight 149 pounds, height 62 inches, 26 BMI, blood pressure 117/48, pulse 78, temperature 97 degrees. HEAD, EARS, EYES, NOSE AND THROAT: Unremarkable. LUNGS: Clear to auscultation. CARDIAC: Regular rate and rhythm without murmur or gallop. ABDOMEN: Soft and nontender. EXTREMITIES: Left arm fistula, well-healed wounds. ASSESSMENT: Dysfunctional left arm fistula. PLAN: Basilic vein transposition fistula, left arm. IV access and blood draws through her dialysis catheter. She understands risks and benefits, and consents. Job ID: [id number]
[2019-03-22 12:58] VITALS: BMI 27.2
[2019-03-23] MEDS ORDERED: Lidocaine 2% PF 5 ML VIAL ONE (06:49)
[2019-03-23] MEDS ORDERED: Heparin 5,000 UNITS/ML VIAL ONE (06:49)
[2019-03-23] MEDS ORDERED: Bupivacaine HCl 0.5%/Epinephrine 1:200,000/PF 30 ml Vial ONE (06:49)
[2019-03-23] MEDS ORDERED: Protamine Sulfate 50 MG/5 ML VIAL ONE (06:58)
[2019-03-23] MEDS ORDERED: Ioversol 68 % 50 ML VIAL ONE (06:58)
[2019-03-23 07:23] LABS: #Eosinphils 0.2 thou/uL (0.0-0.7); #Lymphocytes 0.7 thou/uL (1.20-3.40); #Monocytes 0.3 thou/uL (0.11-0.59); #Neutrophils 2.8 thou/uL (1.40-6.50); %Basophils 0.8 % (0.0-1.0); %Eosinophils 4.6 % (0.0-10.0); %Lymphocytes 18.5 % (21.0-51.0); %Monocytes 6.4 % (0.0-10.0); %Neutrophils 69.6 % (42.0-75.0); Hemoglobin 8.1 g/dL (12.0-16.0); Mean Corpuscular HGB CONC 33.8 g/dL (32.0-36.0); Mean Corpuscular Hemoglobin 33.6 pg (27.0-31.0); Mean Corpuscular Volume 99.4 fL (78.0-98.0); Mean Platelet Volume 8.6 fL (7.4-10.4); Platelet Count 75 thou/uL (130-400); RBC Distribution Width 18.6 % (11.5-14.5); Red Blood Cell (RBC) Count 2.42 mill/uL (4.20-5.40)
[2019-03-23] MEDS ORDERED: Famotidine/PF 20 mg/2ml Vial ONE (07:32)
[2019-03-23] MEDS ORDERED: Fentanyl 100 MCG/2 ML VIAL ONE ×2 (07:32→09:54)
[2019-03-23 07:33] LABS: Anion Gap 11 mmol/L (10-20); BUN (Urea Nitrogen) 13 mg/dL (9.8-20.1); Calc. Creatinine Clearance 19 mL/min (70-130); Calcium 9.2 mg/dL (7.8-10.44); Carbon Dioxide 28 mmol/L (23-31); Chloride 100 mmol/L (98-107); Estimated GFR-MDRD 14; Glucose 406 mg/dL (80-115); Potassium 3.5 mmol/L (3.5-5.1); Sodium 135 mmol/L (136-145)
[2019-03-23 07:38] LABS: INR-International Normal Ratio 1.1; Prothrombin Time 13.9 SEC (12.0-14.7)
[2019-03-23 07:39] LABS: PTT 31.7 SEC (22.9-36.1)
[2019-03-23] MEDS ORDERED: Bupivacaine/Epinephrine 0.25% 30 ML VIAL ONE (08:14)
--- NOTE | 2019-03-23 10:48 | OP ---
DATE OF PROCEDURE: 03/23/2019 PREOPERATIVE DIAGNOSES: End-stage renal disease; dialysis fistula malfunction, left arm; occluded cephalic vein outflow. PROCEDURE PERFORMED: Left arm basilic vein transposition fistula. ANESTHESIA: General, local 0.5% Marcaine with epinephrine 30 mL mixed with 0.25% Marcaine with epinephrine 30 mL mixed with 2% Xylocaine 10 mL. DESCRIPTION OF PROCEDURE: The patient was taken to the operating room, where under general anesthesia, left upper extremity was prepared with ChloraPrep and draped in routine fashion. Incision was made in the left axilla, carried down to the proximal forearm. Incision was carried down to skin and subcutaneous tissue, the deep fascia, unroofing the basilic vein, dividing branch between 4-0 silk ties and clips, marking it with a marker, dissected down to the proximal volar formal arterial inflow. A Luzma-Wimax tunneler was used to create a tunnel between the proximal forearm incision in the axilla. The patient was given 6000 units of heparin intravenously. The basilic vein was transected, and the area was arterial in origin and stump ligated with continuous to and fro suture of 6-0 Prolene, and vein connected to the tunneler and brought through the tunnel, flushed with heparinized saline solution, noted to flush well. Vascular clamp was placed across the arterial inflow, cephalic vein stump. The cephalic vein was divided in the distal upper arm through the same incision, ligating the stump with 3-0 silk in cephalic vein. Basilic vein anastomosis was created by spatulating both ends using continuous suture of 6-0 Prolene. Completing anastomosis, released an arterial inflow clamp and noting good flow in the fistula. The patient was given 50 mg of protamine intravenously. Subcutaneous tissue was approximated with 3-0 Monocryl, skin with subdermal 4-0 Monocryl. Surgicel was placed in the harvest bed. Sterile dressings applied. The patient tolerated the procedure well. Job ID: [id number]
[2019-03-23] MEDS ORDERED: Lidocaine 1% PF 5 ML VIAL ONE (12:12)
[2019-03-23] MEDS ORDERED: Ondansetron PF 4 MG/2 ML Vial ONE (12:12)
[2019-03-23] MEDS ORDERED: Heparin 10,000 UNITS/ 10 ML VIAL ONE ×2 (12:12→12:16)
[2019-03-23] MEDS ORDERED: PROPOFOL 200 MG/20 ML VIAL ONE (12:12)
[2019-03-23] MEDS ORDERED: ePHEDrine 50 MG/ML VIAL ONE (12:12)
== END 2019-03-23 12:50 | disposition home or self-care (01) ==
LOC: SDC 06:40
PROVIDERS: ATTEND Specialist
PROC: 05SC0ZZ Reposition Left Basilic Vein, Open Approach (ICD-10-PCS; principal; 2019-03-23)
DX: T82.590A Other mechanical complication of surgically created arteriovenous fistula, initial encounter (principal); I12.0 Hypertensive chronic kidney disease with stage 5 chronic kidney disease or end stage renal disease; E11.22 Type 2 diabetes mellitus with diabetic chronic kidney disease; N18.6 End stage renal disease; J45.909 Unspecified asthma, uncomplicated; Z79.4 Long term (current) use of insulin; Z79.899 Other long term (current) drug therapy; Z88.2 Allergy status to sulfonamides; Z91.048 Other nonmedicinal substance allergy status; Z99.2 Dependence on renal dialysis
CPT/HCPCS: 80048; 85025; 85610; 85730; J0131; J0670; J0690; J1644; J2001; J2405; J2704; J2720; J3010; J3490; Q9967; S0028

== ENCOUNTER 2019-04-01 12:42 | Day surgery (SDC) | payer BC, MEDICARE ==
[2019-04-01] MEDS ORDERED: Acetaminophen 325 MG TAB PO SCH (14:15)
[2019-04-01 14:47] VITALS: BMI 27.1
[2019-04-02 04:23] VITALS: BP 134/65; TEMP 98.6
== END 2019-04-02 10:11 | disposition home or self-care (01) ==
LOC: ONC/OP 12:42 → ONC 13:45 → ONC/OP 04-02 10:11
PROVIDERS: ATTEND Internal Medicine
DX: D64.9 Anemia, unspecified (principal); Z88.2 Allergy status to sulfonamides; Z91.048 Other nonmedicinal substance allergy status
CPT/HCPCS: 36430; 86850; 86900; 86901; P9016

== ENCOUNTER 2019-04-12 16:50 | Inpatient (IN) | payer BC, MEDICARE ==
[~2019-04-12 16:50] MED LIST: Heparin 10,000 UNITS/1 ML VIAL ONE
--- NOTE | 2019-04-12 18:16 | PDOC.FPRHP ---
- History of Present Illness Chief Complaint: hgb 5.8 during dialysis History of Present Illness: Patient is a 64F with PMHx of ESRD on HD (Tues, [place], Sat), DM2, liver cirrhosis, HTN, HLD, Hypothyroidism that was sent here from dialysis due to her having a hgb of 5.8. She received 2.5hr of dialysis before arriving at the ED. Patient denies any recent melena or hematochezia, though she did have an episode of melena a few weeks ago. She is reportedly followed by Dr. Baugh from GI, who she has an appointment with 04/25 for a repeat EGD and cauterization of vessels. She does report of fatigue, and she is pale. Denies cp, sob, reports of dry chronic cough and some rhinorrhea. Patient usually see's Dr. Canseco for her dialysis. Dr. Vaughn was consulted from the ED and rec transfuse the patient 1u pRBC during dialysis. - Allergies/Adverse Reactions Allergies Allergy/AdvReac Type Severity Reaction Status Date / Time Sulfa (Sulfonamide Allergy Intermediate Rash Verified 03/22/19 12:52 Antibiotics) adhesive Allergy Verified 03/22/19 12:52 - Home Medications Medication Instructions Recorded Confirmed Type Atorvastatin Calcium [Lipitor] 10 mg PO HS 12/05/16 04/12/19 History Escitalopram Oxalate [Lexapro] 20 mg PO DAILY 12/05/16 04/12/19 History Pregabalin [Lyrica] 50 mg PO BID 12/05/16 04/12/19 History Cetirizine HCl [Zyrtec] 10 mg PO HS 04/30/18 04/12/19 History Rifaximin [Xifaxan] 550 mg PO BID 04/30/18 04/12/19 History Mometasone/Formoterol 100/5 2 puff INH BID-RT aer 05/23/18 04/12/19 Rx [Dulera 100 Mcg/5 Mcg Inhaler] Acetaminophen W/ Codeine 1 tab PO Q4HR PRN 01/07/19 04/12/19 History [Acetaminophen/Codeine #3] Fluticasone Propionate [Flonase 1 spray EA NARE DAILY PRN 01/07/19 04/12/19 History Nasal [place]] Insulin Detemir [Levemir] 15 units SC BID 01/07/19 04/12/19 History Levothyroxine Sodium [Synthroid] 3 tab PO DAILY 01/07/19 04/12/19 History Losartan [Cozaar] 1 tab PO DAILY 01/07/19 04/12/19 History Midodrine HCl 5 mg PO DAILY 01/07/19 04/12/19 History Sevelamer Carbonate 2 tab PO TID-WM 01/07/19 04/12/19 History Ferrous Sulfate 325 mg PO DAILY #30 tablet 01/22/19 04/12/19 Rx Lactulose 30 gm PO DAILY #60 udcup 01/22/19 04/12/19 Rx Pantoprazole [Protonix] 40 mg PO BID #60 tab 01/22/19 04/12/19 Rx Benzonatate 100 mg PO TID PRN 03/22/19 04/12/19 History - History PMHx:ESRD on HD (, Th, Sat), DM2, liver cirrhosis, HTN, HLD, Hypothyroidism PSHx: breast biopsy, , tonsillectomy, EGD with cauterization 3-4x FHx: mother of cirrhosis Social: negative - Review of Systems General: reports: fatigue. denies: fever/chills, weight/appetite/sleep changes Eyes: denies: eye pain, vision changes ENT: reports: rhinorrhea. denies: nasal congestion Respiratory: reports: cough. denies: shortness of breath Cardiovascular: denies: chest pain, palpitation Gastrointestinal: reports: diarrhea (from the lactulose). denies: nausea, vomiting Genitourinary: denies: incontinence, dysuria Skin: denies: rashes, lesions Musculoskeletal: denies: pain, tenderness Neurological: denies: numbness, syncope Psychological: denies: anxiety, depression - Vital signs BP: [121/59] HR: [81] RR: [17] Tmax: [98.4] Pox: [97]% on [RA] Wt: [70.7kg] - Physical Exam Constitutional: NAD, awake, alert and oriented HEENT: grossly normal vision, grossly normal hearing Neck: supple, trachea midline Chest: no-tender to palpation, no lesions Heart: RRR, normal S1/S2 Lungs: CTAB, no respiratory distress Abdomen: non-tender, bowel sounds present, other (distended) Musculoskeletal: normal structure, normal tone Neurological: CN II-XII intact, normal sensation, other (+asterixis) Skin: no rash/lesions, no jaundice Heme/Lymphatic: no unusual bruising or bleeding, no purpura Psychiatric: normal mood and affect, good judgment and insight FMR H&P: Results - Labs Result Diagrams: 04/13/19 02:20 04/12/19 18:17 - EKG Interpretation EKG: NSR, some t wave inversion FMR H&P: A/P - Problem List (1) DM2 (diabetes mellitus, type 2) Current Visit: Yes Status: Chronic (2) ESRD on hemodialysis Current Visit: No Status: Chronic Code(s): N18.6 - END STAGE RENAL DISEASE; Z99.2 - DEPENDENCE ON RENAL DIALYSIS Comment: Dialysis per nephrology service (3) HLD (hyperlipidemia) Current Visit: No Status: Chronic Code(s): E78.5 - HYPERLIPIDEMIA, UNSPECIFIED Qualifiers: Hyperlipidemia type: unspecified Qualified Code(s): E78.5 - Hyperlipidemia , unspecified Comment: continue atorvastatin (4) Hypertension Current Visit: No Status: Chronic Code(s): I10 - ESSENTIAL (PRIMARY) HYPERTENSION Qualifiers: Hypertension type: essential hypertension Qualified Code(s): I10 - Essential (primary) hypertension Comment: controlled (5) Hypothyroidism Current Visit: No Status: Chronic Code(s): E03.9 - HYPOTHYROIDISM, UNSPECIFIED Qualifiers: Hypothyroidism type: acquired Qualified Code(s): E03.9 - Hypothyroidism, unspecified Comment: continue levothyroxine (6) Anemia in chronic kidney disease, on chronic dialysis Current Visit: Yes Status: Acute Code(s): N18.6 - END STAGE RENAL DISEASE; D63.1 - ANEMIA IN CHRONIC KIDNEY DISEASE; Z99.2 - DEPENDENCE ON RENAL DIALYSIS - Plan Patient is a 64F with PMHx of ESRD on HD (, , Thu), DM2, liver cirrhosis, HTN, HLD, Hypothyroidism that was admitted for blood transfusion during dialysis. #Anemia of chronic disease, on dialysis #ESRD on dialysis -Hgb 5.8 at dialysis, repeat hgb 7.4 -mcv 104, b12 466 wnl -iron high at 299,likely due to recent transfusion -ferritin 246 wnl, transferrin 203 wnl -Dr. Vasudev consulted, rec finish dialysis with transfusion during -patient will receive 1u pRBC during dialysis -repeat H/H 4hr post transfusion -patient denies hematochezia, melena at this time -FOBT pending -will consult GI in am to see if they want to move up her repeat EGD with cauterization since she is in the hospital #HTN -continue home meds #HLD -continue home meds #Liver cirrhosis -patient denies drinking, reports she thinks it is due to medications -GI already following patient -avoid liver toxicity medications #DM2 -continue home meds -insulin sliding scale #Hypothyroidism -continue home meds -TSH 16.96 -free T3/T4 pending -will adjust medications accordingly DVT: SCDs Diet: NPO for possible procedure tomorrow Dispo: inpatient medicine for dialysis, blood transfusion, and possible GI procedures tmrw Code: Full FMR H&P: Upper Level - Pertinent history 64 yo F here from hemodialysis where she was found to have a Hb of 5.8. Patient has a hx of anemia related to GI bleed secondary to cirrhosis and has multiple endoscopic ablations/cauterizations over the past few months. She has also needed multiple blood transfusions totaling 13 units to this point. Repeat Hb here was 7.4. She denies any symptoms related to the anemia such as dizziness, chest pain, SOB or diaphoresis. No recent hx of BRBPR or melanotic stools, though she has had them in the past. PMHx Non etoh related cirrhosis, cause unknown ESRD DM2 Hypothyroid Chronic pain HLD CAD Surgical Hx Tonsillectomy C section Multiple EGD Denies smoking, etoh, or drugs - Pertinent findings See human resources intern note for full ROS, PE, vitals, and labs ROS General denies fever or chills CV Denies CP, palpitation, or chronic peripheral edema Resp complains of SOB. Denies cough GI denies melanotic stool, BRBPR, n/v/d/c or abdominal pain denies increased frequency or dysuria Neuro denies numbness or weakness PE General A&O x4, NAD HEENT NCAT, no jaundice CV RRR, no murmur Resp CTA, no respiratory distress Abd Abdomen is distended, however soft and non tender. No fluid wave appreciated. Extremities Mild asterixis b/l. no edema, equal pedal pulses Neuro no focal deficits, CN II-XII intact - Plan Date/Time: 04/12/191815 I, Jad Loaiza DO, have evaluated this patient and agree with findings/plan as outlined by human resources intern resident. Pertinent changes/additions are listed here. 1.Acute on chronic anemia, macrocytic -Repeat here was significantly improved from reported Hb in outside facility. This is possibly related to volume contraction from HD. -Plan to transfuse 1u PRBC while pt finished HD here tonight -Repeat in am -Consult GI in am. Pt has an EGD scheduled in 2 weeks. -Fe studies, B12, folate pending. Would expect this to be anemia of chronic disease 2.ESRD -HD here britt[place] -Dr Vaughn was consulted from ED 3.Hypothyroid -Home meds 4.DM2 -Uncontrolled glucose here. Restart home meds and cover with SSI -Accucheck ACHS -Low carb diet 5.CAD -Home meds PPx SCD Diet HH and consistent carb, NPO at midnight Code Full
[2019-04-12 18:29] LABS: #Eosinphils 0.6 thou/uL (0.0-0.7); #Monocytes 0.2 thou/uL (0.11-0.59); #Neutrophils 2.3 thou/uL (1.40-6.50); %Basophils 0.3 % (0.0-1.0); %Eosinophils 13.6 % (0.0-10.0); %Lymphocytes 23.7 % (21.0-51.0); %Neutrophils 57.3 % (42.0-75.0); Hemoglobin 7.4 g/dL (12.0-16.0); Mean Corpuscular HGB CONC 34.3 g/dL (32.0-36.0); Mean Corpuscular Hemoglobin 35.8 pg (27.0-31.0); Mean Platelet Volume 8.4 fL (7.4-10.4); Platelet Count 68 thou/uL (130-400); RBC Distribution Width 17.9 % (11.5-14.5); Red Blood Cell (RBC) Count 2.07 mill/uL (4.20-5.40); White Blood Cell (WBC) Count 4.1 thou/uL (4.8-10.8)
[2019-04-12 18:52] LABS: ALT (SGPT) 11 U/L (8-55); AST (SGOT) 50 U/L (5-34); Alkaline Phosphatase 110 U/L (40-110); Anion Gap 13 mmol/L (10-20); BUN (Urea Nitrogen) 16 mg/dL (9.8-20.1); Bilirubin, Total 0.8 mg/dL (0.2-1.2); Calc. Creatinine Clearance 0 mL/min (70-130); Calcium 8.7 mg/dL (7.8-10.44); Carbon Dioxide 26 mmol/L (23-31); Chloride 100 mmol/L (98-107); Estimated GFR-MDRD 14; Glucose 267 mg/dL (80-115); Potassium 4.2 mmol/L (3.5-5.1); Sodium 135 mmol/L (136-145)
[2019-04-12 20:19] LABS: Iron 299 ug/dL (50-170); Iron Binding Capacity, Total 254 mcg/dL (265-497); Transferrin, Serum 203 mg/dL (173-360)
[2019-04-12] MEDS ORDERED: Dextrose 50% Abboject 50 ML SYRINGE SLOW IVP PRN (20:24)
[2019-04-12] MEDS ORDERED: Dextrose 5% in Water 1,000 ML IV PRN (20:24)
[2019-04-12] MEDS ORDERED: HumaLOG 300 UNITS/3 ML VIAL SC PRN (20:27)
[2019-04-12 20:35] LABS: Ferritin 246.73 ng/mL (10-291); Thyroid Stimulating Hormone 16.9679 uIU/mL (0.35-4.94)
[2019-04-12 21:55] LABS: Hemoglobin A1c 6.4 % (4.0-6.0)
[2019-04-12 22:15] LABS: Free T4 (Free Thyroxine) 0.84 ng/dL (0.70-1.48)
[2019-04-12 23:48] VITALS: BMI 28.8
--- NOTE | 2019-04-13 00:19 | CON ---
DATE OF CONSULTATION: 04/12/2019 CONSULTING PHYSICIAN: ER physician. REASON FOR CONSULT: Anemia and end-stage renal disease. REASON FOR ADMISSION: Anemia. HISTORY OF PRESENT ILLNESS: This is a 64-year-old female with history of end-stage renal disease on hemodialysis, hypertension, hyperlipidemia, who was sent to the hospital by Dr. Canseco because of anemia. She had regular blood work done and was found with a hemoglobin of 5.8. The patient denies any symptoms. She was driven by her friend from [place]. No nausea or vomiting. No bleeding. She is on followup with Dr. Wallace and Dr. Baugh for this chronic anemia. She had a few admissions last few months including here and [facility]. PAST MEDICAL HISTORY: Positive for type 2 diabetes, hypertension, hyperlipidemia, asthma, end-stage renal disease, GI bleeding. PAST SURGICAL HISTORY: Tonsillectomy, . HOME MEDICATIONS: Reviewed. ALLERGIES: ADHESIVE, SULFA. SOCIAL HISTORY: No smoking or alcohol. FAMILY HISTORY: No history of kidney disease. REVIEW OF SYSTEMS: CONSTITUTIONAL: Negative for weight loss or gain, ability to conduct usual activities. SKIN: Negative for rash, itching. EYES: Negative for double vision, pain. ENT/MOUTH: Negative for nose bleeding, neck stiffness, pain, tenderness. CARDIOVASCULAR: Negative for palpitations, dyspnea on exertion, orthopnea. RESPIRATORY: Negative for shortness of breath, wheezing, cough, hemoptysis, fever or night sweats. GASTROINTESTINAL: Negative for poor appetite, abdominal pain, heartburn, nausea, vomiting, constipation, or diarrhea. GENITOURINARY: Negative for urgency, frequency, dysuria, nocturia. MUSCULOSKELETAL: Negative for pain, swelling. NEUROLOGIC/PSYCHIATRIC: Negative for anxiety, depression. ALLERGY/IMMUNOLOGIC: Negative for skin rash, bleeding tendency. PHYSICAL EXAMINATION: GENERAL: This is a well-built female, in no apparent distress. VITAL SIGNS: Temperature 98.6, pulse 78, respiratory rate 18, and blood pressure 143/78. HEENT: Atraumatic and normocephalic. Oral mucosa is moist. NECK: Supple. CVS: S1-S2 heard. RESPIRATORY: Clear to auscultation. GASTROINTESTINAL: Abdomen is soft. MUSCULOSKELETAL: No tenderness. No edema. DERMATOLOGIC: No skin rash. NEUROLOGIC: Alert and awake and oriented X3. No focal neurologic deficits. Moving all the extremities. PSYCHIATRIC: Mood and affect normal. LABORATORY DATA: Pending. Hemoglobin is 5.8, it is on outside labs. ASSESSMENT AND PLAN: 1. End-stage renal disease. The patient had a few hours of dialysis today with plan to have dialysis with blood transfusion if hemoglobin is low. 2. Anemia. Follow with GI and Heme-Onc. 3. Continue epoetin with dialysis. Rule out bleed. 4. Edema, controlled. 5. Hypertension. We will monitor. Plan is to have dialysis with blood transfusion as tolerated. Monitor labs. Thank you for the consult. Job ID: [id number]
[2019-04-13] MEDS ORDERED: Fluticasone Propionate Nasal Spray 16 gm Bottle NASAL PRN (00:26)
[2019-04-13 02:32] LABS: Hemoglobin 7.7 g/dL (12.0-16.0); Platelet Count 56 thou/uL (130-400)
[2019-04-13] MEDS: Levothyroxine Sodium 75 MCG TAB PO SCH (06:10)
[2019-04-13] MEDS: HumaLOG 300 UNITS/3 ML VIAL SC PRN ×2 (06:13→13:11)
--- NOTE | 2019-04-13 06:23 | PDOC.FM ---
- Subjective Subjective: Pt denies any symptoms this morning or concerns over night. No current lightheadedness or dizziness. Denies noticing any dark stools or bright red blood in stools. No nausea/vomiting or hematemesis. - Objective Vital Signs & Weight: Vital Signs (12 hours) Temp Pulse Pulse Resp BP BP Pulse Ox 04/13/19 04:00 98.9 F 75 18 126/65 98 04/12/19 23:30 94 L 04/12/19 23:07 97.6 F 83 18 149/72 H 98 04/12/19 22:00 98.6 F 86 18 118/57 L 04/12/19 21:45 98.6 F 83 18 118/56 L 04/12/19 21:30 98.4 F 86 18 94/48 L 04/12/19 21:15 98.4 F 84 18 105/49 L 04/12/19 21:00 98.5 F 81 18 102/53 L Weight Weight 71.5 kg I&O: 04/11/19 04/12/19 04/13/19 06:59 06:59 06:59 Intake Total 350 Balance 350 Result Diagrams: 04/13/19 07:14 04/13/19 07:14 Phys Exam - Physical Examination Constitutional: NAD HEENT: moist MMs, sclera anicteric Neck: no JVD, full ROM Respiratory: no wheezing, no rales, no rhonchi, clear to auscultation bilateral Cardiovascular: RRR, no significant murmur Gastrointestinal: soft, non-tender, no distention, positive bowel sounds No significant fluid wave Musculoskeletal: pulses present Neurological: non-focal, normal sensation, moves all 4 limbs Psychiatric: normal affect, A&O x 3 Skin: cap refill <2 seconds Deviation from normal: Mildly pale Dx/Plan (1) Anemia in chronic kidney disease, on chronic dialysis Code(s): N18.6 - END STAGE RENAL DISEASE; D63.1 - ANEMIA IN CHRONIC KIDNEY DISEASE; Z99.2 - DEPENDENCE ON RENAL DIALYSIS Status: Acute (2) DM2 (diabetes mellitus, type 2) Status: Chronic Qualifiers: Diabetes mellitus complication status: with kidney complications Diabetes mellitus complication detail: with chronic kidney disease Chronic kidney disease stage: on chronic dialysis (3) Cirrhosis Code(s): K74.60 - UNSPECIFIED CIRRHOSIS OF LIVER Status: Chronic Qualifiers: (4) ESRD on hemodialysis Code(s): N18.6 - END STAGE RENAL DISEASE; Z99.2 - DEPENDENCE ON RENAL DIALYSIS Status: Chronic (5) History of esophageal varices with bleeding Code(s): Z87.19 - PERSONAL HISTORY OF OTHER DISEASES OF THE DIGESTIVE SYSTEM Status: Chronic (6) Hypertension Code(s): I10 - ESSENTIAL (PRIMARY) HYPERTENSION Status: Chronic Qualifiers: Hypertension type: essential hypertension Qualified Code(s): I10 - Essential (primary) hypertension (7) Hypothyroidism Code(s): E03.9 - HYPOTHYROIDISM, UNSPECIFIED Status: Chronic Qualifiers: Hypothyroidism type: acquired Qualified Code(s): E03.9 - Hypothyroidism, unspecified - Plan Plan: Anemia of chronic disease, on dialysis ESRD on dialysis - Dr. Vaughn consulted, rec finish dialysis with transfusion during - Hgb 5.8 at dialysis, repeat hgb 7.4 - patient denies hematochezia, melena at this time - FOBT positive - will consult GI in am to see if they want to move up her repeat EGD with cauterization since she is in the hospital - Macrocytic anemia - elevated iron studies - picture likely complicated by several transfusions over the past few months Liver cirrhosis - patient denies drinking, reports she thinks it is due to medications - GI already following patient - avoid liver toxicity medications - MELD 23, Child-Adame A HTN - continue home meds HLD - continue home meds DM2 - continue home meds - insulin sliding scale Hypothyroidism - continue home meds - TSH 16.96 - free T3/T4 WNL DVT: SCDs Diet: NPO for possible procedure tomorrow Dispo: inpatient medicine for dialysis, blood transfusion, and GI consult w/ possible intervention Code: Full Addendum - Attending - Attending Attestation Date/Time: 04/13/192050 I personally evaluated the patient and discussed the management with Dr. Soto. I agree with the History, Examination, Assessment and Plan documented above with any addition or exceptions noted below. The patient has been transfused 1 unit prbc's. Consulting GI for possible egd. Trend h/h. Appreciate nephro recs.
[2019-04-13] MEDS: Mometasone/Formoterol 120 PUFF INHALER INH SCH ×2 (07:01→20:44)
[2019-04-13 07:34] LABS: #Eosinphils 0.4 thou/uL (0.0-0.7); #Lymphocytes 0.7 thou/uL (1.20-3.40); #Monocytes 0.2 thou/uL (0.11-0.59); #Neutrophils 2.3 thou/uL (1.40-6.50); %Basophils 0.6 % (0.0-1.0); %Eosinophils 12.3 % (0.0-10.0); %Lymphocytes 18.9 % (21.0-51.0); %Monocytes 4.9 % (0.0-10.0); %Neutrophils 63.2 % (42.0-75.0); Hemoglobin 8.5 g/dL (12.0-16.0); Mean Corpuscular HGB CONC 33.1 g/dL (32.0-36.0); Mean Corpuscular Hemoglobin 33.9 pg (27.0-31.0); Mean Platelet Volume 8.9 fL (7.4-10.4); Platelet Count 63 thou/uL (130-400); RBC Distribution Width 16.8 % (11.5-14.5); Red Blood Cell (RBC) Count 2.51 mill/uL (4.20-5.40); White Blood Cell (WBC) Count 3.6 thou/uL (4.8-10.8)
[2019-04-13 07:37] LABS: INR-International Normal Ratio 1.1; PTT 31.5 SEC (22.9-36.1); Prothrombin Time 14.3 SEC (12.0-14.7)
[2019-04-13 07:51] LABS: Anion Gap 11 mmol/L (10-20); BUN (Urea Nitrogen) 11 mg/dL (9.8-20.1); Calc. Creatinine Clearance 26 mL/min (70-130); Calcium 8.7 mg/dL (7.8-10.44); Carbon Dioxide 27 mmol/L (23-31); Chloride 100 mmol/L (98-107); Estimated GFR-MDRD 20; Glucose 252 mg/dL (80-115); Potassium 3.3 mmol/L (3.5-5.1); Sodium 135 mmol/L (136-145)
[2019-04-13] MEDS ORDERED: Non-Formulary Item 1 EACH (Insulin Detemir [Levemir] 15 UNITS) SC SCH (09:00)
[2019-04-13] MEDS ORDERED: FLU VACC QS2019-20(6MOS UP)/PF 60 MCG/0.5 ML SYRINGE IM ONE (09:00)
[2019-04-13] MEDS: Pregabalin 50 MG CAP PO SCH ×2 (09:13→20:39)
[2019-04-13] MEDS: Losartan 25 MG TAB PO SCH (09:13)
[2019-04-13] MEDS: Escitalopram Oxalate 20 mg Tablet PO SCH (09:14)
[2019-04-13] MEDS: Ferrous Sulfate 325 MG TAB PO SCH (09:14)
[2019-04-13] MEDS: Sevelamer Carbonate 800 MG TAB PO SCH ×3 (09:14→17:52)
[2019-04-13] MEDS: Insulin Glargine 15 UNITS in Pre-Filled Syringe 1 EACH SC SCH ×2 (09:15→20:38)
--- NOTE | 2019-04-13 10:48 | CON ---
DATE OF CONSULTATION: 04/13/2019 REASON FOR CONSULTATION: Anemia. CONSULTING PROVIDER: Adán Soto DO HISTORY OF PRESENT ILLNESS: The patient is a 64-year-old female with past medical history of end-stage renal disease on hemodialysis, hypertension, hyperlipidemia, diabetes, and cirrhosis, complicated by esophageal varices, hepatic encephalopathy, and gastric antral vascular ectasias, presenting with anemia. Per the chart review, the patient has had a history of chronic anemia that has been intermittently worsening over the last 3 to 6 months, characterized as a decrease in her H and H, for which she has been getting multiple blood transfusions with most recent blood transfusion on April 02, 2019. She states that she has been experiencing chronic fatigue and tiredness throughout this entire time period as well with no change prior to admission. Yesterday, she was undergoing hemodialysis as scheduled and during dialysis, she was noted to have a hemoglobin of 5.8. At that time, she was given approximately 1 unit of PRBCs and transferred to the hospital after dialysis for further evaluation of her anemia. At this time, she states that she is doing well with no acute events or problems overnight. She denies any episodes of hematemesis, melena, or hematochezia either prior to this admission or during this hospitalization itself. She states that she has been having approximately 2 or 3 solid to semi-solid bowel movements per day as an outpatient while taking lactulose as part of treatment for her hepatic encephalopathy. Currently, she denies any nausea, vomiting, fevers, chills, abdominal pain, hematemesis, melena, hematochezia, dysphagia, odynophagia, constipation, or weight loss. Of note, the patient underwent EGD on January 19, 2019, which showed fresh blood within the stomach as well as findings consistent with oozing gastric antral vascular ectasias. They were successfully intervened upon with argon plasma coagulation. REVIEW OF SYSTEMS: A 10-category review of systems was obtained with all responses negative except for the pertinent positives as listed in HPI. PAST MEDICAL HISTORY: As per HPI. PAST SURGICAL HISTORY: , tonsillectomy, breast biopsy, and multiple upper endoscopies. FAMILY HISTORY: She states that her mother was diagnosed with chronic liver disease/cirrhosis. Denies any GI malignancies. OUTPATIENT MEDICATIONS: Reviewed. SOCIAL HISTORY: Denies any tobacco, alcohol, or illicit drug use. PHYSICAL EXAMINATION: VITAL SIGNS: Temperature 98.3, pulse 83, blood pressure 160/62, respiratory rate 18, and saturating 96% on room air. GENERAL: The patient was lying in bed, in no acute distress. Alert and oriented x4. HEENT: Normocephalic and atraumatic. NECK: Supple. No JVD or scleral icterus noted. CARDIOVASCULAR: Regular rate and rhythm. A 3/6 systolic murmur was best heard at the left upper sternal border. No gallops or rubs. RESPIRATORY: Clear to auscultation bilaterally with no discernible wheezes or rales. ABDOMEN: Normoactive bowel sounds. Soft. Mild abdominal distention. No tenderness to palpation. EXTREMITIES: No cyanosis, clubbing, or edema. LABORATORY DATA: CBC with a white blood cell count of 3.6, hemoglobin 8.5, hematocrit 25.7, and platelets 63. INR 1.1. Chemistry with a sodium of 135, potassium 3.3, chloride 100, CO2 of 27, BUN 11, creatinine 2.49, and glucose 252. Iron 299, ferritin 246, and TIBC 254. IMAGING DATA: No current GI imaging is available for review. ASSESSMENT AND PLAN: The patient is a 64-year-old female with past medical history of end-stage renal disease on hemodialysis, hypertension, hyperlipidemia, diabetes, cirrhosis complicated by esophageal varices and hepatic encephalopathy, as well as a diagnosis of gastric antral vascular ectasias, presenting with recurrent anemia. Anemia: The patient has been having recurrent anemia occurring within the last 3 to 6 months and has required multiple blood transfusions during that time period. As part of the evaluation, she underwent an upper endoscopy on January 19, 2019, which showed extensive gastric antral vascular ectasias that were actively oozing blood and successfully intervened upon with argon plasma coagulation. Since that time, she has had repeated episodes of anemia required blood transfusions and may be indicative of continued bleeding from the site as a result. However, she has multiple reasons for anemia given her end-stage renal disease as well as chronic liver disease that could contribute to anemia of chronic disease. Recommendations; 1. Would continue to trend her H and H and transfuse as necessary to maintain an H and H of 7/21. 2. Continue to monitor clinically for signs of active gastrointestinal bleeding. 3. Would continue n.p.o. status for possible EGD later on this morning and possible argon plasma coagulation if the gastric antral vascular ectasia is still present. 4. Continue the patient on proton pump inhibitor b.i.d. 5. Despite the fact that the patient does have a history of esophageal varices, the most recent upper endoscopy did not mention significant findings with the likelihood of a variceal bleed low at this time. Would hold on any octreotide drip at least for now. 6. Would avoid any nonsteroidal anti-inflammatory drugs. Further recommendations to follow esophagogastroduodenoscopy. Please call with any questions. Job ID: [id number]
--- NOTE | 2019-04-13 10:58 | PRG ---
DATE OF SERVICE: 04/13/2019 SUBJECTIVE: Patient was seen and examined at bedside and overnight events noted. Patient denies any shortness of breath or chest pain or palpitation. No history of nausea or vomiting or diarrhea or fever or chills or cramps. OBJECTIVE: GENERAL: This is a well-built female, in no apparent distress. VITAL SIGNS: Temperature 98.9. Heart rate 75. Respiratory rate 18. Blood pressure 126/65. HEENT: Atraumatic, normocephalic. Oral mucosa is moist NECK: Supple. CARDIOVASCULAR: S1, S2 heard. Rate and rhythm regular. RESPIRATORY: Clear to auscultation. GASTROINTESTINAL: Abdomen is soft. MUSCULOSKELETAL: No tenderness. No edema. DERMATOLOGIC: No skin rash. NEUROLOGIC: Alert and awake and oriented X3. No focal neurologic deficits. Moving all the extremities. PSYCHIATRIC: Mood and affect normal. LABORATORY DATA: Potassium 3.3, BUN is 11, and creatinine is 2.4. ASSESSMENT AND PLAN: 1. End-stage renal disease. Continue dialysis as tolerated. 2. Anemia, better. Follow with GI. 3. Continue Epogen. 4. Edema, controlled. 5. Hypertension, stable. Plan to continue dialysis on Thursday, , and Thursday as tolerated. Job ID: [id number]
[2019-04-13] MEDS ORDERED: PROPOFOL 200 MG/20 ML VIAL ONE (11:06)
[2019-04-13] MEDS ORDERED: ePHEDrine 50 MG/ML VIAL ONE (11:06)
--- NOTE | 2019-04-13 16:34 | OP ---
DATE OF PROCEDURE: 04/13/2019 PROCEDURE PERFORMED: Esophagogastroduodenoscopy with control of hemorrhage (APC). INDICATION FOR PROCEDURE: Anemia, history of the gastric antral vascular ectasias. DESCRIPTION OF PROCEDURE: After the risks and benefits of the procedure were explained to the patient including risks of bleeding, infection, perforation, reactions to anesthesia, aspiration and/or pain, informed consent was obtained. The patient was then taken to the endoscopy suite, where deep sedation was administered via propofol and anesthesia support. Once adequate sedation was achieved and the patient was placed in the left lateral decubitus position, the standard gastroscope was introduced into the mouth with intubation of the esophagus, stomach, and the proximal small intestines with the findings listed below. The patient tolerated the procedure well with no immediate perioperative complications. Upon conclusion of the procedure, all equipment was removed from the patient and she was transferred to PACU in satisfactory condition. FINDINGS: Esophagus: Normal-appearing mucosa was seen in both the proximal and mid esophagus. Two columns of esophageal varices were seen in the distal esophagus that were graded as a grade 2 and did not exhibit any evidence of active/recent bleeding nor were there any evidence of high-risk stigmata bleeding either. Otherwise, normal-appearing mucosa was seen in the distal esophagus with no evidence of erosions, ulcerations, mass, lesions, or active/recent bleeding. Stomach: Upon entry into the stomach, there was a minimal amount of blood clot seen at the gastroesophageal junction. On retroflexion, 3 small arteriovenous malformations were seen and ultimately cauterized with argon plasma coagulation. Otherwise, normal-appearing mucosa was then seen in the gastric cardia and the body and greater curvature and incisura; however, upon entry into the gastric antrum, multiple areas of vascular ectasias were seen, some which did exhibit overlying blood clot indicative of recent bleeding. With her prior history of GAVE, these were ultimately treated with argon plasma coagulation with good hemostasis achieved. At the end of the maneuver, there was no further areas of active/oozing of blood, nor were there any areas that did not have any overlying blood clot. The GAVE extended into the pylorus itself, which was also treated with APC. Otherwise, there was no evidence of ulcerations or mass lesions. Duodenum: Normal-appearing mucosa was seen both in the duodenal bulb and second portion of the duodenum. There was no evidence of erosions, ulcerations, mass, lesions, or active/recent bleeding. IMPRESSION: 1. Gastric antral vascular ectasias with evidence of active/recent bleeding, now status post argon plasma coagulation with good hemostasis achieved. 2. Three small arteriovenous malformations seen in the proximal stomach adjacent to the gastroesophageal junction, status post argon plasma coagulation. 3. Large (grade 2) esophageal varices seen in the distal esophagus without evidence of bleeding nor high-risk stigmata of bleeding. 4. No evidence of gastric varices. RECOMMENDATIONS: 1. We would continue to trend her H and H and transfuse as necessary to maintain an H and H of 7/. 2. Continue to monitor clinically for signs of active GI bleeding. 3. We will advance her diet to full liquid diet today with monitoring of the patient overnight for any additional bleeding and monitoring of her H and H. 4. We would avoid any NSAIDs as this can exacerbate GI bleeding. 5. We will consider placing the patient on nonselective beta-blockade for treatment of both the esophageal varices as well as the gastric antral vascular ectasias. We will continue to follow. Please call with any questions. Job ID: [id number]
[2019-04-13] MEDS: Pantoprazole 40 MG VIAL IVP SCH (20:40)
[2019-04-13] MEDS: Atorvastatin Calcium 10 MG TAB PO SCH (20:40)
[2019-04-13] MEDS: Loratadine 10 MG TAB PO SCH (20:40)
[2019-04-14] MEDS: Levothyroxine Sodium 75 MCG TAB PO SCH (05:34)
[2019-04-14] MEDS: HumaLOG 300 UNITS/3 ML VIAL SC PRN (05:35)
--- NOTE | 2019-04-14 06:11 | PDOC.FM ---
- Subjective Subjective: Pt doing well this morning. Denies any complications following EGD yesterday. No N/V. Denies lightheadedness or dizziness. - Objective Vital Signs & Weight: Vital Signs (12 hours) Temp Pulse Resp BP Pulse Ox 04/14/19 04:00 98.2 F 80 18 116/57 L 96 04/13/19 23:43 98.0 F 83 18 118/66 98 04/13/19 20:44 99 16 99 04/13/19 20:00 98.0 F 77 18 116/61 99 Weight Weight 71.5 kg I&O: 04/12/19 04/13/19 04/14/19 06:59 06:59 06:59 Intake Total 350 1000 Balance 350 1000 Result Diagrams: 04/14/19 05:31 04/14/19 05:31 Phys Exam - Physical Examination Constitutional: NAD HEENT: sclera anicteric Neck: full ROM Respiratory: no rales, no rhonchi, clear to auscultation bilateral Cardiovascular: RRR early systolic murmur Gastrointestinal: soft, non-tender, no distention, positive bowel sounds Musculoskeletal: no edema, pulses present Neurological: moves all 4 limbs Psychiatric: normal affect, A&O x 3 Skin: no rash, cap refill <2 seconds Dx/Plan (1) Anemia in chronic kidney disease, on chronic dialysis Code(s): N18.6 - END STAGE RENAL DISEASE; D63.1 - ANEMIA IN CHRONIC KIDNEY DISEASE; Z99.2 - DEPENDENCE ON RENAL DIALYSIS Status: Acute (2) DM2 (diabetes mellitus, type 2) Status: Chronic Qualifiers: Diabetes mellitus complication status: with kidney complications Diabetes mellitus complication detail: with chronic kidney disease Chronic kidney disease stage: on chronic dialysis (3) Cirrhosis Code(s): K74.60 - UNSPECIFIED CIRRHOSIS OF LIVER Status: Chronic Qualifiers: (4) ESRD on hemodialysis Code(s): N18.6 - END STAGE RENAL DISEASE; Z99.2 - DEPENDENCE ON RENAL DIALYSIS Status: Chronic (5) History of esophageal varices with bleeding Code(s): Z87.19 - PERSONAL HISTORY OF OTHER DISEASES OF THE DIGESTIVE SYSTEM Status: Chronic (6) Hypertension Code(s): I10 - ESSENTIAL (PRIMARY) HYPERTENSION Status: Chronic Qualifiers: Hypertension type: essential hypertension Qualified Code(s): I10 - Essential (primary) hypertension (7) Hypothyroidism Code(s): E03.9 - HYPOTHYROIDISM, UNSPECIFIED Status: Chronic Qualifiers: Hypothyroidism type: acquired Qualified Code(s): E03.9 - Hypothyroidism, unspecified - Plan Plan: Anemia of chronic disease, on dialysis ESRD on dialysis - Dr. Vaughn consulted, rec transfusion - Hgb 5.8 at dialysis, post transfusion hgb 8.5 - patient denies hematochezia, melena at this time - FOBT positive - Consulted GI - Dr. Dumont performed EGD w/ argon laser treatment to GAVE, Grade 2 esophageal varices, 3 small AV malformations - Macrocytic anemia - elevated iron studies - picture likely complicated by several transfusions over the past few months - If hgb remains stable following dialysis will likely be able to DC today w/ GI follow up outpt Liver cirrhosis - patient denies drinking, reports she thinks it is due to medications - GI already following patient - avoid liver toxicity medications - MELD 23, Child-Adame A HTN - continue home meds HLD - continue home meds DM2 - continue home meds - insulin sliding scale - morning basal insulin was not given yesterday, recent glucose ~300, will cont to monitor w/ resuming rx today Hypothyroidism - continue home meds - TSH 16.96 - free T3/T4 WNL DVT: SCDs Diet: Full liquid Dispo: inpatient medicine. Dialysis today, if hgb stable DC w/ GI follow up. Code: Full Addendum - Attending - Attending Attestation Date/Time: 04/14/19 1036 I personally evaluated the patient and discussed the management with Dr. Soto. I agree with the History, Examination, Assessment and Plan documented above with any addition or exceptions noted below. Pt's Hb dropped from 8.5 to 7.1. Will give a unit of prbc's with dialysis today. Starting beta norman. Will trend h/h. Dialysis per nephrology.
[2019-04-14 06:28] LABS: #Eosinphils 0.3 thou/uL (0.0-0.7); #Lymphocytes 0.5 thou/uL (1.20-3.40); #Monocytes 0.2 thou/uL (0.11-0.59); #Neutrophils 2.2 thou/uL (1.40-6.50); %Basophils 0.3 % (0.0-1.0); %Eosinophils 10.3 % (0.0-10.0); %Lymphocytes 16.1 % (21.0-51.0); %Monocytes 6.4 % (0.0-10.0); %Neutrophils 66.9 % (42.0-75.0); Hemoglobin 7.1 g/dL (12.0-16.0); Mean Corpuscular HGB CONC 33.5 g/dL (32.0-36.0); Mean Corpuscular Hemoglobin 34.5 pg (27.0-31.0); Mean Platelet Volume 9.2 fL (7.4-10.4); Platelet Count 57 thou/uL (130-400); RBC Distribution Width 16.8 % (11.5-14.5); Red Blood Cell (RBC) Count 2.05 mill/uL (4.20-5.40); White Blood Cell (WBC) Count 3.3 thou/uL (4.8-10.8)
[2019-04-14 06:31] LABS: INR-International Normal Ratio 1.1; PTT 31.5 SEC (22.9-36.1); Prothrombin Time 14.2 SEC (12.0-14.7)
[2019-04-14 06:35] LABS: ALT (SGPT) Less than 7 U/L (8-55); AST (SGOT) 12 U/L (5-34); Albumin 2.3 g/dL (3.4-4.8); Alkaline Phosphatase 92 U/L (40-110); Anion Gap 10 mmol/L (10-20); BUN (Urea Nitrogen) 19 mg/dL (9.8-20.1); Bilirubin, Total 0.5 mg/dL (0.2-1.2); Calc. Creatinine Clearance 18 mL/min (70-130); Calcium 8.3 mg/dL (7.8-10.44); Carbon Dioxide 28 mmol/L (23-31); Chloride 100 mmol/L (98-107); Estimated GFR-MDRD 13; Glucose 313 mg/dL (80-115); Potassium 3.5 mmol/L (3.5-5.1); Protein, Total 5.3 g/dL (6.0-8.3); Sodium 134 mmol/L (136-145)
[2019-04-14] MEDS: Mometasone/Formoterol 120 PUFF INHALER INH SCH ×2 (06:46→18:15)
[2019-04-14] MEDS: Insulin Glargine 15 UNITS in Pre-Filled Syringe 1 EACH SC SCH ×2 (08:16→22:16)
[2019-04-14] MEDS: Losartan 25 MG TAB PO SCH (08:17)
[2019-04-14] MEDS: Pantoprazole 40 MG VIAL IVP SCH ×2 (08:17→21:33)
[2019-04-14] MEDS: Escitalopram Oxalate 20 mg Tablet PO SCH (08:18)
[2019-04-14] MEDS: Pregabalin 50 MG CAP PO SCH ×2 (08:18→21:32)
[2019-04-14] MEDS: Ferrous Sulfate 325 MG TAB PO SCH (08:18)
[2019-04-14] MEDS: Sevelamer Carbonate 800 MG TAB PO SCH ×3 (08:24→17:07)
[2019-04-14] MEDS: Benzonatate 100 MG CAP PO PRN (08:27)
[2019-04-14] MEDS ORDERED: EPOETIN ALFA-EPBX (ESRD) 2,000 UNIT/ML VIAL IVP SCH (12:15)
[2019-04-14] MEDS ORDERED: EPOETIN ALFA-EPBX (ESRD) 10,000 UNIT/ML VIAL IVP SCH (12:15)
--- NOTE | 2019-04-14 13:13 | PRG ---
DATE OF SERVICE: 04/14/2019 SUBJECTIVE: Ms. Olguin is feeling fine. She is undergoing dialysis right now. She again denies any abdominal pain, nausea, or vomiting. No melena or hematochezia. Her bowel movements are regular with her lactulose that she continues on. Hemoglobin did drift back down to 7.1 this morning, so she is getting another unit of RBC transfusion with dialysis. OBJECTIVE: VITAL SIGNS: Temperature 98.6, pulse 83, blood pressure 134/57, and 96% oxygen saturation on room air. GENERAL: Pale, in no acute distress. HEART: Regular rate and rhythm. LUNGS: Clear to auscultation bilaterally. ABDOMEN: Soft and nontender to palpation. EXTREMITIES: No peripheral edema. LABORATORY STUDIES: Hemoglobin 7.1, WBC 3.3, platelets 57. INR 1.1. Sodium 134, potassium 3.5, BUN 19, creatinine 3.56, glucose 313. LFTs all normal with total bilirubin 0.5, alkaline phosphatase 92, AST 12, ALT less than 7, and albumin 2.3. ASSESSMENT AND PLAN: 1. Anemia, multifactorial secondary to chronic gastrointestinal blood loss and chronic kidney disease. 2. Gastric antral vascular ectasias, with chronic gastrointestinal blood loss. 3. GUY cirrhosis, complicated by renal failure and hepatic encephalopathy, as well as gastric antral vascular ectasias. Dr. Dumont performed APC treatment of her GAVE yesterday with good results. Chronic blood loss has been and will likely continue to be an ongoing issue for her. She is going to need to have hemoglobin and hematocrit checked on at least a weekly basis and our office will try to help facilitate this. She will continue to need transfusion periodically. Hopefully, with this latest APC treatment, the rate of blood loss will significantly slow. I also do agree that it is worthwhile considering a nonselective beta norman as well. I have ordered nadolol 20 mg to be given at bedtime. We will plan to repeat EGD in about 1 month in the outpatient setting for repeat treatment of her GAVE. No other barriers to discharge from a GI perspective. Job ID: [id number]
[2019-04-14] MEDS ORDERED: Heparin 10,000 UNITS/1 ML VIAL ONE ×2 (15:00)
--- NOTE | 2019-04-14 15:29 | PRG ---
DATE OF SERVICE: 04/14/2019 SUBJECTIVE: Patient was seen and examined at bedside and overnight events noted. Patient denies any shortness of breath or chest pain or palpitation. No history of nausea or vomiting or diarrhea or fever or chills or cramps. OBJECTIVE: GENERAL: This is a well-built female, in no apparent distress. VITAL SIGNS: Temperature 98.2. Heart rate 98. Respiratory rate 18. Blood pressure 112/81. HEENT: Atraumatic, normocephalic. Oral mucosa is moist NECK: Supple. CARDIOVASCULAR: S1, S2 heard. Rate and rhythm regular. RESPIRATORY: Clear to auscultation. GASTROINTESTINAL: Abdomen is soft. MUSCULOSKELETAL: No tenderness. No edema. DERMATOLOGIC: No skin rash. NEUROLOGIC: Alert and awake and oriented X3. No focal neurologic deficits. Moving all the extremities. PSYCHIATRIC: Mood and affect normal. LABORATORY DATA: Potassium 3.5, BUN is 19, and creatinine is 3.5. ASSESSMENT AND PLAN: 1. End-stage renal disease. Continue on dialysis as tolerated. 2. Edema. 3. Anemia, we will monitor. 4. Hypertension, stable. Plan to continue on dialysis as tolerated. Job ID: [id number]
[2019-04-14 16:09] LABS: Folate,Hemolysate 366.5 ng/mL (Not Estab.); Hematocrit 22.1 % (34.0-46.6); RBC Folate Test Component 1658 ng/mL (>498)
[2019-04-14 19:02] LABS: Hemoglobin 9.1 g/dL (12.0-16.0); Mean Corpuscular HGB CONC 33.7 g/dL (32.0-36.0); Mean Corpuscular Hemoglobin 33.1 pg (27.0-31.0); Mean Corpuscular Volume 98.1 fL (78.0-98.0); Mean Platelet Volume 9.6 fL (7.4-10.4); Platelet Count 39 thou/uL (130-400); RBC Distribution Width 16.8 % (11.5-14.5); Red Blood Cell (RBC) Count 2.75 mill/uL (4.20-5.40); White Blood Cell (WBC) Count 5.3 thou/uL (4.8-10.8)
[2019-04-14] MEDS ORDERED: Ondansetron ODT 4 MG TAB PO PRN (20:56)
[2019-04-14] MEDS: Nadolol 40 MG TAB PO SCH (21:31)
[2019-04-14] MEDS: Atorvastatin Calcium 10 MG TAB PO SCH (21:31)
[2019-04-14] MEDS: Loratadine 10 MG TAB PO SCH (21:31)
--- NOTE | 2019-04-15 06:09 | PDOC.FM ---
- Subjective Subjective: Pt notes some mild abdominal discomfort - Objective Vital Signs & Weight: Vital Signs (12 hours) Temp Pulse Resp BP Pulse Ox 04/15/19 04:56 100.4 F H 80 17 102/58 L 93 L 04/15/19 00:06 98.6 F 77 18 121/77 95 04/14/19 20:16 98.0 F 86 19 137/70 95 04/14/19 20:00 95 Weight Weight 71.5 kg I&O: 04/13/19 04/14/19 04/15/19 06:59 06:59 06:59 Intake Total 350 1000 590 Output Total 900 Balance 350 1000 -310 Result Diagrams: 04/15/19 05:44 04/15/19 05:44 Phys Exam - Physical Examination Constitutional: NAD HEENT: moist MMs, sclera anicteric Neck: full ROM Respiratory: no wheezing, no rales, no rhonchi, clear to auscultation bilateral short early systolic murmur Gastrointestinal: soft, non-tender Mild distension Musculoskeletal: no edema, pulses present Neurological: non-focal, moves all 4 limbs Psychiatric: normal affect, A&O x 3 Skin: no rash, cap refill <2 seconds Dx/Plan (1) Anemia in chronic kidney disease, on chronic dialysis Code(s): N18.6 - END STAGE RENAL DISEASE; D63.1 - ANEMIA IN CHRONIC KIDNEY DISEASE; Z99.2 - DEPENDENCE ON RENAL DIALYSIS Status: Acute (2) DM2 (diabetes mellitus, type 2) Status: Chronic Qualifiers: Diabetes mellitus complication status: with kidney complications Diabetes mellitus complication detail: with chronic kidney disease Chronic kidney disease stage: on chronic dialysis (3) Cirrhosis Code(s): K74.60 - UNSPECIFIED CIRRHOSIS OF LIVER Status: Chronic Qualifiers: (4) ESRD on hemodialysis Code(s): N18.6 - END STAGE RENAL DISEASE; Z99.2 - DEPENDENCE ON RENAL DIALYSIS Status: Chronic (5) History of esophageal varices with bleeding Code(s): Z87.19 - PERSONAL HISTORY OF OTHER DISEASES OF THE DIGESTIVE SYSTEM Status: Chronic (6) Hypertension Code(s): I10 - ESSENTIAL (PRIMARY) HYPERTENSION Status: Chronic Qualifiers: Hypertension type: essential hypertension Qualified Code(s): I10 - Essential (primary) hypertension (7) Hypothyroidism Code(s): E03.9 - HYPOTHYROIDISM, UNSPECIFIED Status: Chronic Qualifiers: Hypothyroidism type: acquired Qualified Code(s): E03.9 - Hypothyroidism, unspecified - Plan Plan: Anemia 2/2 gastric bleeding and anemia of chronic disease ESRD on dialysis and GAVE/esophageal varices - patient denies hematochezia, melena at this time - FOBT positive - Consulted GI - Dr. Dumont performed EGD w/ argon laser treatment to GAVE, Grade 2 esophageal varices, 3 small AV malformations - nadolol started - Macrocytic anemia - elevated iron studies - picture likely complicated by several transfusions over the past few months - Continuing to trend hgb, pt will likely need weekly H&H drawn on outpt basis and transfused accordingly Liver cirrhosis - patient denies drinking, reports she thinks it is due to medications - GI already following patient - avoid liver toxicity medications - MELD 23, Child-Adame A - Low grade fever last night, started SBP prophylaxis at this time as we continue to trend hgb HTN - continue home meds HLD - continue home meds DM2 - continue home meds - insulin sliding scale - morning basal insulin was not given yesterday, recent glucose ~300, will cont to monitor w/ resuming rx today Hypothyroidism - continue home meds - noted that pt has not been taking her rx appropriately and has been taking it with food, pharmacy instructed her on proper med administration and advised she will likely need further titration going forward on an outpt basis - TSH 16.96 - free T3/T4 WNL DVT: SCDs Diet: Full liquid Dispo: inpatient medicine. If hgb is stable today can DC w/ close outpt follow up and transition to oral abx for SBP ppx. Code: Full Addendum - Attending - Attending Attestation Date/Time: 04/15/19 1004 I personally evaluated the patient and discussed the management with Dr. Soto. I agree with the History, Examination, Assessment and Plan documented above with any addition or exceptions noted below. The patient had a tmax of 102.8 this morning. She has tenderness in her abdomen. Will get blood and urine cultures, cxr and have discussed paracentesis with GI. Monitor h/h. Will target antibiotics based on results.
[2019-04-15 06:21] LABS: #Eosinphils 0.2 thou/uL (0.0-0.7); #Lymphocytes 0.6 thou/uL (1.20-3.40); #Monocytes 0.3 thou/uL (0.11-0.59); #Neutrophils 4.6 thou/uL (1.40-6.50); %Basophils 0.1 % (0.0-1.0); %Eosinophils 3.7 % (0.0-10.0); %Lymphocytes 11.2 % (21.0-51.0); %Monocytes 5.4 % (0.0-10.0); %Neutrophils 79.7 % (42.0-75.0); Hemoglobin 9.4 g/dL (12.0-16.0); Mean Platelet Volume 9.4 fL (7.4-10.4); Platelet Count 58 thou/uL (130-400); RBC Distribution Width 16.9 % (11.5-14.5); Red Blood Cell (RBC) Count 2.76 mill/uL (4.20-5.40); White Blood Cell (WBC) Count 5.7 thou/uL (4.8-10.8)
[2019-04-15 06:23] LABS: INR-International Normal Ratio 1.1; PTT 29.9 SEC (22.9-36.1); Prothrombin Time 14.6 SEC (12.0-14.7)
[2019-04-15] MEDS: Levothyroxine Sodium 75 MCG TAB PO SCH (06:30)
[2019-04-15 06:40] LABS: ALT (SGPT) 8 U/L (8-55); AST (SGOT) 17 U/L (5-34); Albumin 2.5 g/dL (3.4-4.8); Alkaline Phosphatase 101 U/L (40-110); Anion Gap 10 mmol/L (10-20); BUN (Urea Nitrogen) 14 mg/dL (9.8-20.1); Bilirubin, Total 1.1 mg/dL (0.2-1.2); Calc. Creatinine Clearance 26 mL/min (70-130); Calcium 8.5 mg/dL (7.8-10.44); Carbon Dioxide 27 mmol/L (23-31); Chloride 100 mmol/L (98-107); Estimated GFR-MDRD 19; Globulin 3.4 g/dL (2.4-3.5); Glucose 128 mg/dL (80-115); Potassium 4.1 mmol/L (3.5-5.1); Protein, Total 5.9 g/dL (6.0-8.3); Sodium 133 mmol/L (136-145)
[2019-04-15] MEDS: Mometasone/Formoterol 120 PUFF INHALER INH SCH ×2 (07:01→20:13)
[2019-04-15] MEDS: Sevelamer Carbonate 800 MG TAB PO SCH ×3 (08:28→17:34)
[2019-04-15] MEDS: Pregabalin 50 MG CAP PO SCH ×2 (08:28→21:38)
[2019-04-15] MEDS: Ferrous Sulfate 325 MG TAB PO SCH (08:29)
[2019-04-15] MEDS: Losartan 25 MG TAB PO SCH (08:29)
[2019-04-15] MEDS: Escitalopram Oxalate 20 mg Tablet PO SCH (08:29)
[2019-04-15] MEDS: Pantoprazole 40 MG VIAL IVP SCH ×2 (08:30→21:40)
[2019-04-15] MEDS: cefTRIAXone\\ROCEPHIN 1 GM in Sodium Chloride 0.9% 100 ML IVPB SCH (09:19)
[2019-04-15] MEDS: Insulin Glargine 15 UNITS in Pre-Filled Syringe 1 EACH SC SCH ×3 (09:20→22:32)
--- NOTE | 2019-04-15 10:11 | PRG ---
DATE OF SERVICE: 04/15/2019 SUBJECTIVE: Ms. Olguin spiked some fevers overnight, temperature 102.8 this morning. She is having some subjective chills, but otherwise has been asymptomatic. She denies any significant abdominal pain. There is no nausea. She is tolerating her breakfast today. There has been no melena. Her hemoglobin is stable. She was started on IV ceftriaxone. She says she has had a lingering cough for several weeks, but evidently outpatient recent chest x-ray was unrevealing. She had some improvement with Tessalon Perles. She has no other localizing signs. OBJECTIVE: VITAL SIGNS: Temperature 102.8, pulse 75, blood pressure 112/66, and 94% oxygen saturation on room air. GENERAL: Pale, no acute distress. HEART: Regular rate and rhythm. LUNGS: Clear to auscultation bilaterally. ABDOMEN: Mild distention, tympanitic. Bowel sounds are active. The abdomen is soft and nontender to palpation throughout. EXTREMITIES: No peripheral edema. LABORATORY STUDIES: WBC 5.7, hemoglobin stable at 9.4, platelets 58. INR 1.1. Sodium 133, potassium 4.1, BUN 14, creatinine 2.52, total bilirubin 1.1, alkaline phosphatase 101, AST 17, ALT 8, procalcitonin 0.86. ASSESSMENT AND PLAN: 1. Gastric antral vascular ectasias, with chronic slow hemorrhage, status post APC treatment a couple of days ago with Dr. Dumont. 2. Anemia, multifactorial, secondary to chronic kidney disease and chronic GI blood loss. 3. Nonalcoholic steatohepatitis cirrhosis. 4. Chronic renal failure, on dialysis. 5. Fever. The fever is a new development over night. She really has no localizing symptoms. She had some mild abdominal discomfort earlier, but not now. There are no peritoneal signs. Ascites used to be a big issue for her, but this is controlled ever since she started dialysis. That being said, she likely does have some residual ascites. It would be reasonable to send her for diagnostic paracentesis in the context of this new fever. I will go ahead and put in an order for an ultrasound guided diagnostic paracentesis today. Agree with the antibiotics in the meantime. Note, her hemoglobin is stable today. Job ID: [id number]
--- NOTE | 2019-04-15 11:03 | ULT ---
Ultrasound-guided paracentesis: HISTORY: Ascites of indeterminate etiology FINDINGS: Informed consent obtained prior to the procedure. Preprocedural imaging demonstrated signif icant ascites throughout the abdomen and pelvis. Left lower quadrantprepped and draped in normal sterile fashion and anesthetized with 1% buffered lid ocaine. With direct sonographic guidance, 25-gauge needle is advanced into the ascites and removal of the sty let yielded yellow fluid. 10 cc were removed. The patient tolerated the procedure well. No postprocedural complications. IMPRESSION: Successful ultrasound-guided paracentesis yielding 10 cc, yellow ascites. Specimen was se nt to laboratory for further analysis. Results are pending.
[2019-04-15 11:07] LABS: Bilirubin Negative (Negative); Blood, Urine 1+ (Negative); Clarity Turbid (Clear); Glucose, Urine (Dipstick) 50 mg/dL (Negative); Leukocyte Negative Leu/uL (Negative); Nitrite Negative (Negative); Protein, Urine (Dipstick) 200 mg/dL (Neg-Trace); Urobilinogen Normal mg/dL (Less than 2)
[2019-04-15 11:14] LABS: Bacteria/HPF 2+ HPF (None Seen); Squamous Epithelial 21-50 HPF (0-3)
[2019-04-15 11:15] LABS: Urine Culture Reflex No No; Yeast-Budding 1+ HPF (None Seen)
--- NOTE | 2019-04-15 13:34 | RAD ---
PORTABLE CHEST: Date: 04/15/19 PROVIDED CLINICAL HISTORY: Fever. FINDINGS: Comparison with 01/10/19. The cardiac and mediastinal silhouette are unchanged in appearance. Right IJ dialysis catheter is aga in noted. Right basilar pleural parenchymal opacity noted. No evidence for pneumothorax. The left ginger g appears clear. IMPRESSION: Right basilar pleural parenchymal opacity that may reflect pleural effusion and adjacent atelectasis and/or pneumonia. Follow-up is recommended. POS: OFF
[2019-04-15 15:08] LABS: RBC Count-Automated (BF) 54 /cumm; WBC/Nucleated-Auto (BF) 205 uL
[2019-04-15 15:24] LABS: BF Color Yellow; Body Fluid Source Peritoneal Fluid; Clarity Hazy (Clear); Tube # EDTA
[2019-04-15 15:28] LABS: BF Segmented Neutrophils 15 %; Cell Count Non Hematic 66 %; Lymphocytes 19 %
--- NOTE | 2019-04-15 17:03 | PRG ---
DATE OF SERVICE: 04/15/2019 SUBJECTIVE: Patient was seen and examined at bedside and overnight events noted. Patient denies any shortness of breath or chest pain or palpitation. No history of nausea or vomiting or diarrhea or fever or chills or cramps. OBJECTIVE: GENERAL: This is a well-built female, in no apparent distress. VITAL SIGNS: Temperature 98.9, pulse 77, respiratory rate 16, blood pressure 118/63. HEENT: Atraumatic, normocephalic. Oral mucosa is moist NECK: Supple. CARDIOVASCULAR: S1, S2 heard. Rate and rhythm regular. RESPIRATORY: Clear to auscultation. GASTROINTESTINAL: Abdomen is soft. MUSCULOSKELETAL: No tenderness. No edema. DERMATOLOGIC: No skin rash. NEUROLOGIC: Alert and awake and oriented X3. No focal neurologic deficits. Moving all the extremities. PSYCHIATRIC: Mood and affect normal. LABORATORY DATA: Potassium is 4.1, BUN is 14, creatinine is 2.5. ASSESSMENT AND PLAN: 1. End-stage renal disease. Continue on dialysis Thursday, , Thursday as tolerated. 2. Edema, remove fluid. 3. Anemia, status post transfusion. Follow with GI. 4. Hypertension. 5. Plan to continue on dialysis as tolerated. Job ID: [id number]
[2019-04-15] MEDS ORDERED: Vancomycin HCl 1 GM in Premix Bag 1 BAG IVPB SCH (18:00)
[2019-04-15] MEDS ORDERED: Vancomycin HCl 1.5 GM in Sodium Chloride 0.9% 250 ML 300 ML IVPB SCH (18:00)
[2019-04-15] MEDS ORDERED: Vancomycin HCl 1.25 GM in Sodium Chloride 0.9% 250 ML 250 ML IVPB SCH (18:00)
[2019-04-15] MEDS ORDERED: HOLD VANCOMYCIN FOR LEVEL >20 FS SCH (18:00)
[2019-04-15] MEDS ORDERED: Vancomycin HCl 500 MG in Sodium Chloride 0.9% 100 ML IVPB SCH (18:00)
[2019-04-15] MEDS ORDERED: Vancomycin HCl 750 MG in Sodium Chloride 0.9% 250 ML 250 ML IVPB SCH (18:00)
[2019-04-15] MEDS ORDERED: Azithromycin 500 MG in Sodium Chloride 0.9% 250 ML 250 ML IVPB SCH (20:00)
[2019-04-15] MEDS ORDERED: Vancomycin HCl 1 GM in Sodium Chloride 0.9% 250 ML 250 ML IVPB SCH (21:00)
[2019-04-15] MEDS: Loratadine 10 MG TAB PO SCH (21:39)
[2019-04-15] MEDS: Atorvastatin Calcium 10 MG TAB PO SCH (21:39)
[2019-04-15] MEDS: Nadolol 40 MG TAB PO SCH (21:40)
[2019-04-16] MEDS: Azithromycin 500 MG in Sodium Chloride 0.9% 250 ML 250 ML IVPB SCH (01:38)
[2019-04-16] MEDS ORDERED: D5 1/2 NS 500 ML IV SCH (04:50)
[2019-04-16] MEDS ORDERED: Dextrose 5 %-0.45 % NaCl 500 ML IV SCH (05:00)
--- NOTE | 2019-04-16 05:52 | PDOC.FM ---
- Subjective Subjective: Pt notes feeling generalized malaise this morning. Denies any abdominal pain, N/ V, bloody or dark stools. Feels her swelling in her left arm has improved and feels less hot. - Objective Vital Signs & Weight: Vital Signs (12 hours) Temp Pulse Resp BP Pulse Ox 04/16/19 05:47 92/55 L 04/16/19 04:45 98.5 F 66 16 87/50 L 96 04/15/19 23:00 99.1 F 67 18 104/52 L 96 04/15/19 20:00 95 04/15/19 19:00 98.2 F 77 18 108/55 L 95 Weight Weight 71.5 kg I&O: 04/14/19 04/15/19 04/16/19 06:59 06:59 06:59 Intake Total 1000 590 300 Output Total 900 Balance 1000 -310 300 Result Diagrams: 04/16/19 06:54 04/16/19 06:54 Phys Exam - Physical Examination Constitutional: NAD HEENT: sclera anicteric slightly dry MM Neck: full ROM Mild crackles on the right, clear on the left Cardiovascular: RRR Short early systolic murmur Gastrointestinal: soft, non-tender Mildly distended Left arm edema and warmth, erythema improved from yesterday Neurological: non-focal, normal sensation, moves all 4 limbs Psychiatric: normal affect (1), A&O x 3 Deviation from normal: 1cm ulcerated wound to left axilla w/ small amount of necrotic rim Dx/Plan (1) Anemia in chronic kidney disease, on chronic dialysis Code(s): N18.6 - END STAGE RENAL DISEASE; D63.1 - ANEMIA IN CHRONIC KIDNEY DISEASE; Z99.2 - DEPENDENCE ON RENAL DIALYSIS Status: Acute (2) DM2 (diabetes mellitus, type 2) Status: Chronic Qualifiers: Diabetes mellitus complication status: with kidney complications Diabetes mellitus complication detail: with chronic kidney disease Chronic kidney disease stage: on chronic dialysis (3) Cirrhosis Code(s): K74.60 - UNSPECIFIED CIRRHOSIS OF LIVER Status: Chronic Qualifiers: (4) ESRD on hemodialysis Code(s): N18.6 - END STAGE RENAL DISEASE; Z99.2 - DEPENDENCE ON RENAL DIALYSIS Status: Chronic (5) History of esophageal varices with bleeding Code(s): Z87.19 - PERSONAL HISTORY OF OTHER DISEASES OF THE DIGESTIVE SYSTEM Status: Chronic (6) Hypertension Code(s): I10 - ESSENTIAL (PRIMARY) HYPERTENSION Status: Chronic Qualifiers: Hypertension type: essential hypertension Qualified Code(s): I10 - Essential (primary) hypertension (7) Hypothyroidism Code(s): E03.9 - HYPOTHYROIDISM, UNSPECIFIED Status: Chronic Qualifiers: Hypothyroidism type: acquired Qualified Code(s): E03.9 - Hypothyroidism, unspecified (8) Cellulitis Code(s): L03.90 - CELLULITIS, UNSPECIFIED Status: Acute - Plan Plan: Cellulitis of post operative site Fevers yesterday, found to have ulcerated wound within healing surgical incision of left fistula revision - cultures drawn from wound - pending - vancomycin started, pharmacy to dose w/ dialysis - will continue to monitor, plan to transition to clinda pending culture results - will talk with surgery since post operative infection to see if further management is warranted Anemia 2/2 gastric bleeding and anemia of chronic disease ESRD on dialysis and GAVE/esophageal varices - Consulted GI - Dr. Dumont performed EGD w/ argon laser treatment to GAVE, Grade 2 esophageal varices, 3 small AV malformations - nadolol started - Macrocytic anemia - elevated iron studies - picture likely complicated by several transfusions over the past few months - Continuing to trend hgb, pt will likely need weekly H&H drawn on outpt basis and transfused accordingly Liver cirrhosis - patient denies drinking, reports she thinks it is due to medications - GI already following patient - avoid liver toxicity medications - MELD 23, Child-Adame A - SBP prophylaxis started - paracentesis yesterday - WBC 205, will continue rocephin until cultures result HTN - continue home meds HLD - continue home meds DM2 - continue home meds - insulin sliding scale Hypothyroidism - continue home meds - noted that pt has not been taking her rx appropriately and has been taking it with food, pharmacy instructed her on proper med administration and advised she will likely need further titration going forward on an outpt basis - TSH 16.96 - free T3/T4 WNL DVT: SCDs Diet: CC Dispo: inpatient medicine. If hgb is stable today can DC w/ close outpt follow up and transition to oral abx for SBP ppx. Code: Full Addendum - Attending - Attending Attestation Date/Time: 04/16/19 [id number] I personally evaluated the patient and discussed the management with Dr. Soto. I agree with the History, Examination, Assessment and Plan documented above with any addition or exceptions noted below. Pt on IV antibiotics for new cellulitis on arm. Wound care consulted. Multiple cultures are still pending. H/H stable, will trend. Dialysis today.
[2019-04-16] MEDS: Levothyroxine Sodium 75 MCG TAB PO SCH (06:33)
[2019-04-16] MEDS: Mometasone/Formoterol 120 PUFF INHALER INH SCH ×2 (07:03→20:16)
[2019-04-16 07:11] LABS: #Eosinphils 0.4 thou/uL (0.0-0.7); #Lymphocytes 0.7 thou/uL (1.20-3.40); #Monocytes 0.4 thou/uL (0.11-0.59); #Neutrophils 4.4 thou/uL (1.40-6.50); %Basophils 0.3 % (0.0-1.0); %Lymphocytes 11.9 % (21.0-51.0); %Monocytes 7.1 % (0.0-10.0); %Neutrophils 73.8 % (42.0-75.0); Hemoglobin 8.6 g/dL (12.0-16.0); Mean Corpuscular HGB CONC 33.7 g/dL (32.0-36.0); Mean Corpuscular Hemoglobin 33.7 pg (27.0-31.0); Mean Corpuscular Volume 99.9 fL (78.0-98.0); Mean Platelet Volume 9.7 fL (7.4-10.4); Platelet Count 48 thou/uL (130-400); RBC Distribution Width 16.5 % (11.5-14.5); Red Blood Cell (RBC) Count 2.56 mill/uL (4.20-5.40)
[2019-04-16 07:16] LABS: INR-International Normal Ratio 1.2; PTT 30.9 SEC (22.9-36.1); Prothrombin Time 15.4 SEC (12.0-14.7)
[2019-04-16 07:22] LABS: Vancomycin, Random 25.6 ug/mL (See Comment)
[2019-04-16 07:38] LABS: ALT (SGPT) 11 U/L (8-55); AST (SGOT) 31 U/L (5-34); Albumin 2.2 g/dL (3.4-4.8); Alkaline Phosphatase 121 U/L (40-110); Anion Gap 11 mmol/L (10-20); BUN (Urea Nitrogen) 27 mg/dL (9.8-20.1); Bilirubin, Total 2.2 mg/dL (0.2-1.2); Calc. Creatinine Clearance 16 mL/min (70-130); Calcium 7.9 mg/dL (7.8-10.44); Carbon Dioxide 23 mmol/L (23-31); Chloride 103 mmol/L (98-107); Estimated GFR-MDRD 11; Globulin 3.2 g/dL (2.4-3.5); Glucose 126 mg/dL (80-115); Potassium 4.3 mmol/L (3.5-5.1); Protein, Total 5.4 g/dL (6.0-8.3); Sodium 133 mmol/L (136-145)
[2019-04-16] MEDS: Escitalopram Oxalate 20 mg Tablet PO SCH (08:02)
[2019-04-16] MEDS: Losartan 25 MG TAB PO SCH (08:02)
[2019-04-16] MEDS: cefTRIAXone\\ROCEPHIN 1 GM in Sodium Chloride 0.9% 100 ML IVPB SCH (08:02)
[2019-04-16] MEDS: Sevelamer Carbonate 800 MG TAB PO SCH ×3 (08:02→16:27)
[2019-04-16] MEDS: Insulin Glargine 15 UNITS in Pre-Filled Syringe 1 EACH SC SCH ×2 (08:03→22:25)
[2019-04-16] MEDS: Pantoprazole 40 MG VIAL IVP SCH ×2 (08:04→22:25)
[2019-04-16] MEDS: Pregabalin 50 MG CAP PO SCH ×2 (08:04→22:24)
[2019-04-16] MEDS: Ferrous Sulfate 325 MG TAB PO SCH (08:04)
[2019-04-16] MEDS: Lactated Ringer's 1,000 ML IV SCH ×2 (08:05→23:20)
[2019-04-16] MEDS ORDERED: Midodrine HCl 5 MG TAB PO SCH (10:00)
--- NOTE | 2019-04-16 10:52 | PRG ---
DATE OF SERVICE: 04/16/2019 SUBJECTIVE: Patient was seen and examined at bedside and overnight events noted. Patient denies any shortness of breath or chest pain or palpitation. No history of nausea or vomiting or diarrhea or fever or chills or cramps. OBJECTIVE: GENERAL: This is a well built female, in no apparent distress. VITAL SIGNS: Temperature 98.3. Heart rate 68. Respiratory rate 16. Blood pressure 93/52. HEENT: Atraumatic, normocephalic. Oral mucosa is moist NECK: Supple. CARDIOVASCULAR: S1, S2 heard. Rate and rhythm regular. RESPIRATORY: Clear to auscultation. GASTROINTESTINAL: Abdomen is soft. MUSCULOSKELETAL: No tenderness. No edema. DERMATOLOGIC: No skin rash. NEUROLOGIC: Alert and awake and oriented X3. No focal neurologic deficits. Moving all the extremities. PSYCHIATRIC: Mood and affect normal. LABORATORY DATA: Potassium 4.3, BUN is 27, creatinine is 4.1. ASSESSMENT: 1. End-stage renal disease. Continue on dialysis Thursday, , Thursday. 2. Edema. 3. Anemia, status post transfusion. 4. Hypertension. PLAN: To continue dialysis Thursday, , and Thursday as tolerated. Job ID: [id number]
[2019-04-16] MEDS ORDERED: Heparin 1,000 UNITS/ML VIAL ONE (11:11)
--- NOTE | 2019-04-16 12:45 | PRG ---
DATE OF SERVICE: 04/16/2019 SUBJECTIVE: Ms. Olguin is feeling okay. No abdominal pain. No melena. She did have some loose stool earlier today. Her fever appears to have resolved. She was started on vancomycin for left upper extremity cellulitis. OBJECTIVE: VITAL SIGNS: Temperature 98.0, pulse 64, blood pressure 131/72, and 99% oxygen saturation on room air. GENERAL: No acute distress. HEART: Regular rate and rhythm. LUNGS: Clear to auscultation bilaterally. ABDOMEN: Mild distention. Bowel sounds present. Soft and nontender. EXTREMITIES: No peripheral edema. LABORATORY STUDIES: Hemoglobin relatively stable at 8.6, WBC 6.0, and platelets 48. INR 1.2. BUN 27, creatinine 4.17, total bilirubin 2.2, alkaline phosphatase 121, AST 31, ALT 11, and glucose 89. Paracentesis studies sent yesterday showed 205 wbc's, but only 15% neutrophils, so this does not meet SBP criteria. IMAGING STUDIES: Chest x-ray showed right basilar pleural parenchymal opacity, possibly reflecting pleural effusion and adjacent atelectasis and/or pneumonia. ASSESSMENT AND PLAN: 1. 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 2. Anemia, multifactorial, secondary to chronic kidney disease and slow chronic gastrointestinal blood loss. The patient is now day 3 post repeat esophagogastroduodenoscopy with argon plasma coagulation treatment of her gastric antral vascular ectasias. Hemoglobin downtrend appears to be more shallow since then. I do expect this is going to continue to be an issue. Continue with the nadolol, stick with a plan for weekly hemoglobin and hematocrit check as an outpatient and transfusion as needed. 3. Fever. This has resolved over the past day after starting antibiotics for left upper extremity cellulitis. Note that her paracentesis fluid studies were negative for spontaneous bacterial peritonitis. GI will sign off at this time, but please call back anytime with questions or concerns. Job ID: [id number]
--- NOTE | 2019-04-16 13:42 | EKG ---
Test Reason : Blood Pressure : / mmHG Vent. Rate : 077 BPM Atrial Rate : 077 BPM P-R Int : 158 ms QRS Dur : 088 ms QT Int : 468 ms P-R-T Axes : 008 000 068 degrees QTc Int : 529 ms Normal sinus rhythm Nonspecific T wave abnormality Prolonged QT Abnormal ECG Confirmed by MARILIA ROSENTHAL ([id number]), pictures editor KIMMIE SKAGGS ([id number]) on 04/16/2019 1:41:22 PM Referred By: Confirmed By:MARILIA ROSENTHAL
[2019-04-16] MEDS: Atorvastatin Calcium 10 MG TAB PO SCH (22:24)
[2019-04-16] MEDS: Loratadine 10 MG TAB PO SCH (22:25)
[2019-04-16] MEDS: Nadolol 40 MG TAB PO SCH (22:26)
[2019-04-17] MEDS ORDERED: diphenhydrAMINE 25 MG CAP PO PRN (01:43)
[2019-04-17] MEDS: Azithromycin 500 MG in Sodium Chloride 0.9% 250 ML 250 ML IVPB SCH (02:34)
[2019-04-17 05:33] LABS: #Eosinphils 0.7 thou/uL (0.0-0.7); #Lymphocytes 0.7 thou/uL (1.20-3.40); #Monocytes 0.4 thou/uL (0.11-0.59); #Neutrophils 3.2 thou/uL (1.40-6.50); %Basophils 0.2 % (0.0-1.0); %Eosinophils 13.3 % (0.0-10.0); %Lymphocytes 14.9 % (21.0-51.0); %Monocytes 7.4 % (0.0-10.0); %Neutrophils 64.2 % (42.0-75.0); Mean Corpuscular HGB CONC 33.7 g/dL (32.0-36.0); Mean Corpuscular Hemoglobin 34.6 pg (27.0-31.0); Mean Platelet Volume 9.7 fL (7.4-10.4); Platelet Count 71 thou/uL (130-400); RBC Distribution Width 16.4 % (11.5-14.5); Red Blood Cell (RBC) Count 2.61 mill/uL (4.20-5.40)
[2019-04-17 05:36] LABS: INR-International Normal Ratio 1.1; Prothrombin Time 14.5 SEC (12.0-14.7)
[2019-04-17 05:37] LABS: PTT 36.4 SEC (22.9-36.1)
[2019-04-17 05:51] LABS: ALT (SGPT) 10 U/L (8-55); AST (SGOT) 22 U/L (5-34); Albumin 2.3 g/dL (3.4-4.8); Alkaline Phosphatase 140 U/L (40-110); Anion Gap 9 mmol/L (10-20); BUN (Urea Nitrogen) 16 mg/dL (9.8-20.1); Bilirubin, Total 0.9 mg/dL (0.2-1.2); Calc. Creatinine Clearance 20 mL/min (70-130); Carbon Dioxide 28 mmol/L (23-31); Chloride 101 mmol/L (98-107); Estimated GFR-MDRD 15; Globulin 3.2 g/dL (2.4-3.5); Glucose 133 mg/dL (80-115); Potassium 3.2 mmol/L (3.5-5.1); Protein, Total 5.5 g/dL (6.0-8.3); Sodium 135 mmol/L (136-145)
--- NOTE | 2019-04-17 05:51 | PDOC.FM ---
- Subjective Subjective: Pt notes improvement in her left arm swelling and redness. States cough has significantly improve. Denies any SOB or fevers/chills. - Objective Vital Signs & Weight: Vital Signs (12 hours) Temp Pulse Resp BP Pulse Ox 04/17/19 04:00 98.2 F 71 18 115/61 94 L 04/17/19 00:00 98.2 F 64 16 104/54 L 96 04/16/19 20:00 98.4 F 64 16 106/60 96 Weight Admit Weight 71.5 kg Weight 71.5 kg I&O: 04/15/19 04/16/19 04/17/19 06:59 06:59 06:59 Intake Total 287 850 2241 Output Total 900 Balance -684 873 6224 Result Diagrams: 04/17/19 05:05 04/17/19 05:05 Phys Exam - Physical Examination Constitutional: NAD HEENT: moist MMs, sclera anicteric Neck: no JVD, full ROM Respiratory: clear to auscultation bilateral Cardiovascular: RRR short low tone systolic murmur Gastrointestinal: soft, non-tender, positive bowel sounds mild distention Musculoskeletal: no edema, pulses present Neurological: moves all 4 limbs Psychiatric: normal affect, A&O x 3 Skin: no rash, cap refill <2 seconds Dx/Plan (1) Anemia in chronic kidney disease, on chronic dialysis Code(s): N18.6 - END STAGE RENAL DISEASE; D63.1 - ANEMIA IN CHRONIC KIDNEY DISEASE; Z99.2 - DEPENDENCE ON RENAL DIALYSIS Status: Acute (2) DM2 (diabetes mellitus, type 2) Status: Chronic Qualifiers: Diabetes mellitus complication status: with kidney complications Diabetes mellitus complication detail: with chronic kidney disease Chronic kidney disease stage: on chronic dialysis (3) Cirrhosis Code(s): K74.60 - UNSPECIFIED CIRRHOSIS OF LIVER Status: Chronic Qualifiers: (4) ESRD on hemodialysis Code(s): N18.6 - END STAGE RENAL DISEASE; Z99.2 - DEPENDENCE ON RENAL DIALYSIS Status: Chronic (5) History of esophageal varices with bleeding Code(s): Z87.19 - PERSONAL HISTORY OF OTHER DISEASES OF THE DIGESTIVE SYSTEM Status: Chronic (6) Hypertension Code(s): I10 - ESSENTIAL (PRIMARY) HYPERTENSION Status: Chronic Qualifiers: Hypertension type: essential hypertension Qualified Code(s): I10 - Essential (primary) hypertension (7) Hypothyroidism Code(s): E03.9 - HYPOTHYROIDISM, UNSPECIFIED Status: Chronic Qualifiers: Hypothyroidism type: acquired Qualified Code(s): E03.9 - Hypothyroidism, unspecified (8) Cellulitis Code(s): L03.90 - CELLULITIS, UNSPECIFIED Status: Acute - Plan Plan: Cellulitis of post operative site Fevers yesterday, found to have ulcerated wound within healing surgical incision of left fistula revision - cultures drawn from wound - pending - vancomycin started, pharmacy to dose w/ dialysis - will continue to monitor, plan to transition to clinda pending culture results - spoke w/ Dr. Miller - agreed w/ current plan of care as wound is not overlying fisutla, she or Dr. Jarrett w/ see pt when they return. Anemia 2/2 gastric bleeding and anemia of chronic disease ESRD on dialysis and GAVE/esophageal varices - Consulted GI - Dr. Dumont performed EGD w/ argon laser treatment to GAVE, Grade 2 esophageal varices, 3 small AV malformations - nadolol started - Macrocytic anemia - elevated iron studies - picture likely complicated by several transfusions over the past few months - Continuing to trend hgb, pt will likely need weekly H&H drawn on outpt basis and transfused accordingly Liver cirrhosis - patient denies drinking, reports she thinks it is due to medications - GI signed off - avoid liver toxicity medications - MELD 23, Child-Adame A - Paracentesis negative for SBP - Fluxuating LFT's and bili HTN - continue home meds HLD - continue home meds DM2 - continue home meds - insulin sliding scale Hypothyroidism - continue home meds - noted that pt has not been taking her rx appropriately and has been taking it with food, pharmacy instructed her on proper med administration and advised she will likely need further titration going forward on an outpt basis - TSH 16.96 - free T3/T4 WNL DVT: SCDs Diet: CC Dispo: inpatient medicine. Will continue IV abx for left arm cellulitis until cultures are finalized. Pt can then switch to oral abx for outpt tx. Code: Full Addendum - Attending - Attending Attestation Date/Time: 04/17/19 1640 I personally evaluated the patient and discussed the management with Dr. Soto. I agree with the History, Examination, Assessment and Plan documented above with any addition or exceptions noted below. Pt is feeling better. The cellulitis appears to be improving. Awaiting final cultures. Continue IV antibiotics. H/H is stable. Tbili has down-trended. Dialysis per nephrology. Continue azithromycin for pneumonia.
[2019-04-17] MEDS: Levothyroxine Sodium 75 MCG TAB PO SCH (05:58)
[2019-04-17] MEDS: Mometasone/Formoterol 120 PUFF INHALER INH SCH ×2 (06:44→19:02)
[2019-04-17] MEDS ORDERED: Potassium Chloride 20 MEQ TAB PO SCH (07:45)
[2019-04-17] MEDS ORDERED: Lactated Ringer's 500 ML IV SCH (08:15)
[2019-04-17] MEDS: Pregabalin 50 MG CAP PO SCH ×2 (09:12→20:47)
[2019-04-17] MEDS: Escitalopram Oxalate 20 mg Tablet PO SCH (09:12)
[2019-04-17] MEDS: Ferrous Sulfate 325 MG TAB PO SCH (09:16)
[2019-04-17] MEDS: Sevelamer Carbonate 800 MG TAB PO SCH ×3 (09:17→16:56)
[2019-04-17] MEDS: Losartan 25 MG TAB PO SCH (09:18)
[2019-04-17] MEDS: Pantoprazole 40 MG VIAL IVP SCH ×2 (09:19→20:47)
[2019-04-17] MEDS: Clotrimazole 1 % Cream 30 GM TUBE TOP SCH (09:20)
[2019-04-17] MEDS: Insulin Glargine 15 UNITS in Pre-Filled Syringe 1 EACH SC SCH ×2 (09:22→20:48)
[2019-04-17] MEDS: cefTRIAXone\\ROCEPHIN 1 GM in Sodium Chloride 0.9% 100 ML IVPB SCH (09:42)
--- NOTE | 2019-04-17 12:10 | PRG ---
DATE OF SERVICE: 04/17/2019 SUBJECTIVE: Patient was seen and examined at bedside and overnight events noted. Patient denies any shortness of breath or chest pain or palpitation. No history of nausea or vomiting or diarrhea or fever or chills or cramps. OBJECTIVE: GENERAL: This is a well built female, in no apparent distress. VITAL SIGNS: Temperature 98.2. Heart rate 71. Respiratory rate . Blood pressure 115/61. HEENT: Atraumatic, normocephalic. Oral mucosa is moist NECK: Supple. CARDIOVASCULAR: S1, S2 heard. Rate and rhythm regular. RESPIRATORY: Clear to auscultation. GASTROINTESTINAL: Abdomen is soft. MUSCULOSKELETAL: No tenderness. No edema. DERMATOLOGIC: No skin rash. NEUROLOGIC: Alert and awake and oriented X3. No focal neurologic deficits. Moving all the extremities. PSYCHIATRIC: Mood and affect normal. LABORATORY DATA: Potassium is 3.2, BUN is 16, creatinine is 3.1. ASSESSMENT: 1. End-stage renal disease. Continue dialysis Thursday, , Thursday. 2. Edema. Remove fluid. 3. Anemia . 4. Hypertension. PLAN: Continue dialysis Thursday, , Thursday as tolerated. Job ID: [id number]
[2019-04-17] MEDS: HumaLOG 300 UNITS/3 ML VIAL SC PRN (12:23)
[2019-04-17] MEDS: Benzonatate 100 MG CAP PO PRN (16:49)
[2019-04-17] MEDS: Nadolol 40 MG TAB PO SCH ×2 (20:40→20:47)
[2019-04-17] MEDS: Atorvastatin Calcium 10 MG TAB PO SCH (20:48)
[2019-04-17] MEDS: Loratadine 10 MG TAB PO SCH (20:48)
[2019-04-18] MEDS: Benzonatate 100 MG CAP PO PRN ×2 (01:30→13:17)
[2019-04-18] MEDS: Azithromycin 500 MG in Sodium Chloride 0.9% 250 ML 250 ML IVPB SCH (01:30)
[2019-04-18 05:08] LABS: INR-International Normal Ratio 0.9; PTT 26.3 SEC (22.9-36.1); Prothrombin Time 12.6 SEC (12.0-14.7)
[2019-04-18 05:19] LABS: ALT (SGPT) 10 U/L (8-55); AST (SGOT) 22 U/L (5-34); Albumin 2.5 g/dL (3.4-4.8); Alkaline Phosphatase 157 U/L (40-110); Anion Gap 13 mmol/L (10-20); BUN (Urea Nitrogen) 22 mg/dL (9.8-20.1); Bilirubin, Total 0.7 mg/dL (0.2-1.2); Calc. Creatinine Clearance 15 mL/min (70-130); Calcium 8.2 mg/dL (7.8-10.44); Carbon Dioxide 23 mmol/L (23-31); Chloride 104 mmol/L (98-107); Estimated GFR-MDRD 11; Globulin 3.7 g/dL (2.4-3.5); Glucose 179 mg/dL (80-115); Potassium 3.9 mmol/L (3.5-5.1); Protein, Total 6.2 g/dL (6.0-8.3); Sodium 136 mmol/L (136-145)
[2019-04-18 05:34] LABS: #Monocytes 0.4 thou/uL (0.11-0.59); #Neutrophils 3.6 thou/uL (1.40-6.50); %Basophils 0.4 % (0.0-1.0); %Eosinophils 16.4 % (0.0-10.0); %Lymphocytes 16.8 % (21.0-51.0); %Monocytes 6.6 % (0.0-10.0); %Neutrophils 59.9 % (42.0-75.0); Hemoglobin 9.6 g/dL (12.0-16.0); Mean Corpuscular HGB CONC 27.6 g/dL (32.0-36.0); Mean Corpuscular Hemoglobin 27.8 pg (27.0-31.0); Mean Platelet Volume 9.5 fL (7.4-10.4); Platelet Count 67 thou/uL (130-400); RBC Distribution Width 16.3 % (11.5-14.5); Red Blood Cell (RBC) Count 3.44 mill/uL (4.20-5.40); White Blood Cell (WBC) Count 6.1 thou/uL (4.8-10.8)
[2019-04-18] MEDS: Levothyroxine Sodium 75 MCG TAB PO SCH (05:54)
[2019-04-18] MEDS: HumaLOG 300 UNITS/3 ML VIAL SC PRN ×2 (05:55→16:14)
--- NOTE | 2019-04-18 06:23 | PDOC.FM ---
- Subjective Subjective: Pt is doing well today w/o any complaints. Pt believes cellulitis is improving. She did become SOB overnight requiring duonebs. - Objective Vital Signs & Weight: Vital Signs (12 hours) Temp Pulse Resp BP Pulse Ox 04/18/19 04:43 67 18 97 04/18/19 04:00 98.0 F 66 16 114/67 95 04/18/19 00:00 98.3 F 69 18 107/60 94 L 04/17/19 20:00 98.1 F 66 16 119/69 98 Weight Admit Weight 71.5 kg Weight 71.5 kg I&O: 04/16/19 04/17/19 04/18/19 06:59 06:59 06:59 Intake Total 300 2530 Balance 300 2530 Result Diagrams: 04/18/19 04:46 04/18/19 04:46 Phys Exam - Physical Examination Constitutional: NAD HEENT: PERRLA, moist MMs Respiratory: no wheezing L sided rhonchi appreciated Cardiovascular: RRR, no significant murmur Gastrointestinal: soft, non-tender, no distention Musculoskeletal: no edema, pulses present Psychiatric: normal affect, A&O x 3 Dx/Plan (1) Cellulitis Code(s): L03.90 - CELLULITIS, UNSPECIFIED Status: Acute (2) DM2 (diabetes mellitus, type 2) Status: Chronic Qualifiers: Diabetes mellitus complication status: with kidney complications Diabetes mellitus complication detail: with chronic kidney disease Chronic kidney disease stage: on chronic dialysis (3) Malfunction of arteriovenous dialysis fistula Code(s): T82.590A - [facility] COMPL OF SURGICALLY CREATED ARTERIOVENOUS FISTULA, INIT Status: Acute (4) Upper GI bleed Code(s): K92.2 - GASTROINTESTINAL HEMORRHAGE, UNSPECIFIED Status: Acute (5) Cirrhosis Code(s): K74.60 - UNSPECIFIED CIRRHOSIS OF LIVER Status: Chronic Qualifiers: (6) ESRD on hemodialysis Code(s): N18.6 - END STAGE RENAL DISEASE; Z99.2 - DEPENDENCE ON RENAL DIALYSIS Status: Chronic (7) HLD (hyperlipidemia) Code(s): E78.5 - HYPERLIPIDEMIA, UNSPECIFIED Status: Chronic Qualifiers: Hyperlipidemia type: unspecified Qualified Code(s): E78.5 - Hyperlipidemia , unspecified (8) Hepatorenal syndrome Code(s): K76.7 - HEPATORENAL SYNDROME Status: Chronic (9) History of esophageal varices with bleeding Code(s): Z87.19 - PERSONAL HISTORY OF OTHER DISEASES OF THE DIGESTIVE SYSTEM Status: Chronic (10) Thrombocytopenia Code(s): D69.6 - THROMBOCYTOPENIA, UNSPECIFIED Status: Chronic - Plan Plan: Cellulitis of post operative site Fevers yesterday, found to have ulcerated wound within healing surgical incision of left fistula revision - cultures drawn from wound - sensitive to keflex. Will discuss switching to PO medicatoin from IV vanc with Dr. Jarrett. She currently does not have IV access. - vancomycin started, pharmacy to dose w/ dialysis for now - spoke w/ Dr. Miller - agreed w/ current plan of care as wound is not overlying fisutla, she or Dr. Jarrett w/ see pt when they return. Pneumonia - pt previously started on Ceftriaxone, Azithro. Will discuss switching abx to Keflex as this will cover cellulitis as well. This is last day (09/12) of azithro treatment. Will continue ceftriaxone IM. CXR revealed effusion so will discuss with pulm. - Will discuss case with pulm Anemia 2/2 gastric bleeding and anemia of chronic disease ESRD on dialysis and GAVE/esophageal varices - Consulted GI - Dr. Dumont performed EGD w/ argon laser treatment to GAVE, Grade 2 esophageal varices, 3 small AV malformations - nadolol started - Macrocytic anemia - elevated iron studies - picture likely complicated by several transfusions over the past few months - Continuing to trend hgb, pt will likely need weekly H&H drawn on outpt basis and transfused accordingly Liver cirrhosis - patient denies drinking, reports she thinks it is due to medications - GI signed off - avoid liver toxicity medications - MELD 23, Child-Adame A - Paracentesis negative for SBP - Fluxuating LFT's and bili HTN - continue home meds HLD - continue home meds DM2 - continue home meds - insulin sliding scale Hypothyroidism - continue home meds - noted that pt has not been taking her rx appropriately and has been taking it with food, pharmacy instructed her on proper med administration and advised she will likely need further titration going forward on an outpt basis - TSH 16.96 - free T3/T4 WNL DVT: SCDs Diet: CC Dispo: inpatient medicine. Will continue abx for now, and discuss case with pulmonology. likely will need one more day. Code: Full
[2019-04-18] MEDS: Mometasone/Formoterol 120 PUFF INHALER INH SCH ×2 (06:54→18:32)
[2019-04-18] MEDS: Sevelamer Carbonate 800 MG TAB PO SCH ×3 (08:50→16:11)
[2019-04-18] MEDS: Losartan 25 MG TAB PO SCH (08:50)
[2019-04-18] MEDS: Pregabalin 50 MG CAP PO SCH ×2 (08:50→20:22)
[2019-04-18] MEDS: Ferrous Sulfate 325 MG TAB PO SCH (08:51)
[2019-04-18] MEDS: Escitalopram Oxalate 20 mg Tablet PO SCH (08:51)
[2019-04-18] MEDS: Clotrimazole 1 % Cream 30 GM TUBE TOP SCH (08:51)
[2019-04-18] MEDS: cefTRIAXone\\ROCEPHIN 1 GM in Sodium Chloride 0.9% 100 ML IVPB SCH (08:54)
[2019-04-18] MEDS: Insulin Glargine 15 UNITS in Pre-Filled Syringe 1 EACH SC SCH ×2 (08:54→20:40)
[2019-04-18] MEDS: Pantoprazole 40 MG VIAL IVP SCH ×2 (08:55→22:13)
--- NOTE | 2019-04-18 10:38 | RAD ---
XR Chest 1 View HISTORY: Follow-up of pleural effusion. COMPARISON: 04/15/2019 study. FINDINGS: Heart size is enlarged. There is increasing opacification right base suggesting increasing pleural effusion with atelectasis or infiltrate. Right-sided HemoSplit catheter remains in place. IMPRESSION: Worsening opacification the right lung base suggesting increasing effusion with atelectas is or infiltrate.
--- NOTE | 2019-04-18 13:42 | PRG ---
DATE OF SERVICE: SUBJECTIVE: This is a 64-year-old female being seen for end-stage renal disease. The patient denied nausea, vomiting, or chest pain. OBJECTIVE: CONSTITUTIONAL: The patient is awake and alert. VITAL SIGNS: , breathing 16, blood pressure 125/70. GENERAL APPEARANCE AND MENTAL STATUS: Fair. HEAD/NECK: Normocephalic. Atraumatic. EYES: EOMI. No deformity. EARS: Clear. No ulcers. NOSE: Intact. No lesions. MOUTH: Clear. No discharge. THROAT: Clear. No exudate. LUNGS: Clear. No crackles. CARDIAC: S1, S2. No rub. ABDOMEN: Benign. Bowel sounds positive. GENITALIA/RECTUM: Berman absent. BACK/EXTREMITIES: Edema 0+. NEUROLOGICAL: Alert and motor intact. SKIN: LYMPHATICS: LABORATORY DATA: Reviewed. ASSESSMENT AND PLAN: 1. Stage 6 chronic kidney disease. Continue hemodialysis. 2. Hypertensive, stable. 3. Anemia, stable. 4. Medication based on GFR appropriate. Job ID: [id number]
[2019-04-18] MEDS ORDERED: cefTRIAXone\\ROCEPHIN 1 GM VIAL IM SCH (14:00)
--- NOTE | 2019-04-18 16:12 | CON ---
DATE OF CONSULTATION: 04/18/2019 SERVICE: Pulmonary Medicine. REASON FOR CONSULTATION: Pleural effusion. HISTORY OF PRESENT ILLNESS: The patient is a 64-year-old white female with past medical history significant for cirrhosis, end-stage renal disease. She was in her usual state of health when she was discovered to be anemic. She was put in the hospital electively for a blood transfusion. On presentation, she did not have any significant effusion. That being said, she developed increasing difficulty breathing, and a repeat chest x-ray showed new onset of effusion. She has undergone a thoracentesis remotely and was proven to have a hepatic hydrothorax. She is having increasing abdominal distention. She denies any current fevers, chills, nausea, vomiting, cough, or sputum production. She does not feel infected. She is not having any myalgia, malaise, or lack of energy. Her biggest problem at this point is that she simply cannot breathe. Her oxygen saturations, however, adequate. She has a little conversational dyspnea. That being said, she did not appear to be uncomfortable in any significant way. Previously, we requested that she undergo diagnostic evaluation for sleep apnea. She never followed through with the studies that were requested. PAST MEDICAL HISTORY: 1. Cirrhosis, Child C. 2. End-stage renal disease. 3. Hypertension. 4. Dyslipidemia. 5. Hypothyroidism. 6. Obstructive sleep apnea, suspected. PAST SURGICAL HISTORY: 1. Breast biopsy. 2. . 3. Tonsillectomy. 4. EGD times 3 to 4. 5. History of right-sided thoracentesis demonstrating hepatic hydrothorax. 6. Paracentesis. FAMILY HISTORY: Noncontributory. SOCIAL HISTORY: Negative for current alcohol, tobacco, or illicit drug use. She has no exposure to chemicals, dust, asbestos, or tuberculosis. ALLERGIES: SULFA AND ADHESIVE TAPE. MEDICATIONS: List of the patient's inpatient medications was reviewed. No specific updates were made at this time other than introducing some Lasix (the patient notes she continues to make some urine). REVIEW OF SYSTEMS: General; head, ears, eyes, nose, throat; cardiovascular; respiratory; GI; ; musculoskeletal; neurologic; and skin are negative except as mentioned in the HPI. PHYSICAL EXAMINATION: VITAL SIGNS: Afebrile. Pulse 71, blood pressure 125/70, respirations 18, and saturation 97%, currently on room air. GENERAL: The patient is awake and alert, in no apparent distress. LUNGS: Decent air entry on the left with dependent crackles. There is decreased air entry at the right base with dullness to percussion. No E to A egophony is noted. Crackles are present, where air movement is appreciated, custodial up the right chest. HEART: Normal rate. Regular. ABDOMEN: Soft, nontender, and nondistended. Bowel sounds are positive. MUSCULOSKELETAL: No cyanosis or clubbing. There is trace to 1+ pitting in the bilateral lower extremities. NEUROLOGIC: Grossly nonfocal. LABORATORY DATA: WBC 6.1, hemoglobin 9.6, platelets 67,000. Creatinine 4.21, basic metabolic profile and liver function studies are otherwise unremarkable. Peritoneal fluid recently demonstrated findings consistent with a transudate. IMAGING DATA: Chest x-ray demonstrates a right-sided pleural effusion, which is new compared to 4 days ago. This was previously demonstrated on the different chest x-ray when she underwent a thoracentesis demonstrating a transudate. There is a right-sided tunneled IJ central venous catheter in place. ASSESSMENT: 1. Dyspnea, secondary to pleural effusion and increased work of breathing associated with abdominal swelling. 2. Pleural effusion on the right, previously demonstrated as representing a hepatic hydrothorax. 3. Anemia, status post blood transfusion. 4. Cirrhosis, Child C. 5. End-stage renal disease, on hemodialysis, though she still makes urine. DISCUSSION AND PLAN: I will introduce a large dose of Lasix to see if we can motivate her kidneys to make some urine. At this point, there is no role for thoracentesis unless we clearly believe she has a pneumonia and possible complicated space or her symptoms become much more severe. In those instances, thoracentesis could be considered. At this point, I do not think that any antibiotics are necessary directed at lung related disease. I will get rid of the azithromycin. She is on appropriate coverage for her Staph aureus cellulitis. I will follow for a couple of days to make certain that she gets better. If not, thoracentesis can be considered in the near future. Job ID: [id number]
[2019-04-18] MEDS: Atorvastatin Calcium 10 MG TAB PO SCH (20:21)
[2019-04-18] MEDS: Nadolol 40 MG TAB PO SCH (20:22)
[2019-04-18] MEDS: Loratadine 10 MG TAB PO SCH (20:23)
[2019-04-19 04:43] LABS: #Lymphocytes 1.1 thou/uL (1.20-3.40); #Monocytes 0.4 thou/uL (0.11-0.59); #Neutrophils 3.3 thou/uL (1.40-6.50); %Basophils 0.8 % (0.0-1.0); %Eosinophils 16.7 % (0.0-10.0); %Lymphocytes 18.4 % (21.0-51.0); %Monocytes 6.5 % (0.0-10.0); %Neutrophils 57.7 % (42.0-75.0); Hemoglobin 8.8 g/dL (12.0-16.0); Mean Corpuscular HGB CONC 32.8 g/dL (32.0-36.0); Mean Corpuscular Hemoglobin 34.1 pg (27.0-31.0); Mean Platelet Volume 8.6 fL (7.4-10.4); Platelet Count 106 thou/uL (130-400); RBC Distribution Width 16.3 % (11.5-14.5); Red Blood Cell (RBC) Count 2.59 mill/uL (4.20-5.40); White Blood Cell (WBC) Count 5.7 thou/uL (4.8-10.8)
[2019-04-19 04:44] LABS: Prothrombin Time 13.3 SEC (12.0-14.7)
[2019-04-19 04:53] LABS: ALT (SGPT) 7 U/L (8-55); AST (SGOT) 20 U/L (5-34); Albumin 2.5 g/dL (3.4-4.8); Alkaline Phosphatase 142 U/L (40-110); Anion Gap 8 mmol/L (10-20); BUN (Urea Nitrogen) 26 mg/dL (9.8-20.1); Bilirubin, Total 0.6 mg/dL (0.2-1.2); Calc. Creatinine Clearance 13 mL/min (70-130); Calcium 8.4 mg/dL (7.8-10.44); Carbon Dioxide 27 mmol/L (23-31); Chloride 104 mmol/L (98-107); Estimated GFR-MDRD 9; Globulin 3.5 g/dL (2.4-3.5); Glucose 81 mg/dL (80-115); Potassium 4.2 mmol/L (3.5-5.1); Sodium 135 mmol/L (136-145)
[2019-04-19] MEDS: Levothyroxine Sodium 75 MCG TAB PO SCH (05:08)
--- NOTE | 2019-04-19 06:29 | PDOC.FM ---
- Subjective Subjective: Pt is doing well. She states erythema has decreased on L arm. She has begun to hold fluid in her arms bilaterally L > R. - Objective Vital Signs & Weight: Vital Signs (12 hours) Temp Pulse Resp BP Pulse Ox 04/19/19 04:00 98.0 F 65 20 113/67 93 L 04/19/19 00:00 98.1 F 64 20 109/59 L 95 04/18/19 20:00 98.2 F 73 20 127/74 93 L Weight Admit Weight 71.5 kg Weight 71.5 kg I&O: 04/17/19 04/18/19 04/19/19 06:59 06:59 06:59 Intake Total 2530 200 1200 Balance 2530 200 1200 Result Diagrams: 04/19/19 04:18 04/19/19 04:18 Phys Exam - Physical Examination Constitutional: NAD HEENT: PERRLA, moist MMs Respiratory: no wheezing, no rales, clear to auscultation bilateral Decreased breath sounds in base of R lung Cardiovascular: RRR, no significant murmur Gastrointestinal: soft, non-tender, positive bowel sounds 1+/2+ edema present L extremity; trace/1+ edema R extremity Psychiatric: normal affect, A&O x 3 Deviation from normal: Erythema on LUE mostly resolved at this time Dx/Plan (1) Cellulitis Code(s): L03.90 - CELLULITIS, UNSPECIFIED Status: Acute (2) DM2 (diabetes mellitus, type 2) Status: Chronic Qualifiers: Diabetes mellitus complication status: with kidney complications Diabetes mellitus complication detail: with chronic kidney disease Chronic kidney disease stage: on chronic dialysis (3) Malfunction of arteriovenous dialysis fistula Code(s): T82.590A - [facility] COMPL OF SURGICALLY CREATED ARTERIOVENOUS FISTULA, INIT Status: Acute (4) Upper GI bleed Code(s): K92.2 - GASTROINTESTINAL HEMORRHAGE, UNSPECIFIED Status: Acute (5) Cirrhosis Code(s): K74.60 - UNSPECIFIED CIRRHOSIS OF LIVER Status: Chronic Qualifiers: (6) ESRD on hemodialysis Code(s): N18.6 - END STAGE RENAL DISEASE; Z99.2 - DEPENDENCE ON RENAL DIALYSIS Status: Chronic (7) HLD (hyperlipidemia) Code(s): E78.5 - HYPERLIPIDEMIA, UNSPECIFIED Status: Chronic Qualifiers: Hyperlipidemia type: unspecified Qualified Code(s): E78.5 - Hyperlipidemia , unspecified (8) Hepatorenal syndrome Code(s): K76.7 - HEPATORENAL SYNDROME Status: Chronic (9) History of esophageal varices with bleeding Code(s): Z87.19 - PERSONAL HISTORY OF OTHER DISEASES OF THE DIGESTIVE SYSTEM Status: Chronic (10) Thrombocytopenia Code(s): D69.6 - THROMBOCYTOPENIA, UNSPECIFIED Status: Chronic - Plan Plan: Cellulitis of post operative site Pt has cellulitis on L arm close to fistula site, previously revised by Dr. Jarrett who she has an appt with on 04/25 to discuss maturation. She currently has been on ceft, vanc (day 5); did receive 2 doses of azithromycin for possible pneumonia. Can consider switching to PO Keflex. Will receive 1 more vanc dose during dialysis, scheduled today. Dr. Jarrett is out of town, unable to discuss care. - consider switch to PO Keflex and treat for a total of 10 days - P. stuartzi cultured but likely contaminant CHRISTELLE Extremity Swelling - consider doppler at site of fistula although mild swelling on R extremity - consider Furosemide; pt did not receive dose yesterday, Dr. Feliz did recommend. Will also monitor how much fluid she has pulled of during dialysis. Weight on 04/07 was 67.5 kg and on this admission 71.5 kg. Will order standing weights after dialysis. Anemia 2/2 gastric bleeding and anemia of chronic disease ESRD on dialysis and GAVE/esophageal varices - Consulted GI - Dr. Dumont performed EGD w/ argon laser treatment to GAVE, Grade 2 esophageal varices, 3 small AV malformations - nadolol started - Macrocytic anemia - elevated iron studies - picture likely complicated by several transfusions over the past few months - Continuing to trend hgb, pt will likely need weekly H&H drawn on outpt basis and transfused accordingly Liver cirrhosis - patient denies drinking, reports she thinks it is due to medications - GI signed off - avoid liver toxicity medications - MELD 23, Child-Adame A - Paracentesis negative for SBP - Fluxuating LFT's and bili Hepatic Hydrothorax Discussed CXR, pleural effusion with Dr. Feliz. He believes this is less likely pneumnia vs Hepatic hydrothorax. She has hx of hydrothorax with thoracentesis. Dr. Feliz recommended discontinuing azithromycin and continuing to cover for cellulitis. Appreciate rec's. HTN - continue home meds HLD - continue home meds DM2 - continue home meds - insulin sliding scale Hypothyroidism - continue home meds - noted that pt has not been taking her rx appropriately and has been taking it with food, pharmacy instructed her on proper med administration and advised she will likely need further titration going forward on an outpt basis - TSH 16.96 - free T3/T4 WNL DVT: SCDs Diet: CC Dispo: inpatient medicine. Will continue abx for now, and discuss case with pulmonology. likely will need one more day. Code: Full
[2019-04-19] MEDS: Mometasone/Formoterol 120 PUFF INHALER INH SCH ×2 (06:43→18:47)
[2019-04-19] MEDS ORDERED: Azithromycin 200 MG/5 ML Oral Suspension PO SCH (09:00)
[2019-04-19] MEDS ORDERED: Azithromycin 250 MG TAB PO SCH (09:00)
[2019-04-19 09:24] LABS: Vancomycin, Random 9.5 ug/mL (See Comment)
--- NOTE | 2019-04-19 09:53 | PRG ---
DATE OF SERVICE: 04/19/2019 SUBJECTIVE: This is a 64-year-old female, being seen for end-stage renal disease. The patient denied nausea, vomiting, or chest pain. OBJECTIVE: GENERAL: The patient is awake and alert. VITAL SIGNS: Pulse 75, breathing 16, blood pressure was 127/71. GENERAL APPEARANCE AND MENTAL STATUS: Fair. HEAD/NECK: Normocephalic. Atraumatic. EYES: EOMI. No deformity. EARS: Clear. No ulcers. NOSE: Intact. No lesions. MOUTH: Clear. No discharge. THROAT: Clear. No exudate. LUNGS: Clear. No crackles. CARDIAC: S1, S2. No rub. ABDOMEN: Benign. Bowel sounds positive. GENITALIA/RECTUM: Berman absent. BACK/EXTREMITIES: Edema 0+. NEUROLOGICAL: Alert and motor intact. LABORATORY DATA: Reviewed. ASSESSMENT: 1. Stage 6 chronic kidney disease. Continue hemodialysis. 2. Hypertension, stable. 3. Anemia, stable. 4. Medication based on GFR appropriate. Job ID: [id number]
[2019-04-19] MEDS: Losartan 25 MG TAB PO SCH (12:25)
[2019-04-19] MEDS: Pregabalin 50 MG CAP PO SCH ×2 (12:25→19:51)
[2019-04-19] MEDS: Clotrimazole 1 % Cream 30 GM TUBE TOP SCH (12:27)
[2019-04-19] MEDS: Sevelamer Carbonate 800 MG TAB PO SCH ×3 (12:27→17:31)
[2019-04-19] MEDS: Escitalopram Oxalate 20 mg Tablet PO SCH (12:27)
[2019-04-19] MEDS: Ferrous Sulfate 325 MG TAB PO SCH (12:27)
[2019-04-19] MEDS: Insulin Glargine 15 UNITS in Pre-Filled Syringe 1 EACH SC SCH ×2 (12:28→19:50)
[2019-04-19] MEDS: Pantoprazole 40 MG VIAL IVP SCH (12:28)
[2019-04-19] MEDS ORDERED: Cephalexin 250 MG CAP PO SCH (13:15)
--- NOTE | 2019-04-19 14:01 | RAD ---
Chest one view HISTORY: Pleural effusion. Dyspnea. COMPARISON: 04/18/2019. FINDINGS: Fluid and atelectasis at the right base is similar in appearance to the prior study. Likely elevation right hemidiaphragm. Pulmonary vasculature remains engorged. Mediastinum is midline with aortic calcification and a large caliber right internal jugular catheter. No evidence of pneumothorax . IMPRESSION: Right pleural fluid, basilar atelectasis, and other findings are stable.
[2019-04-19] MEDS: Benzonatate 100 MG CAP PO PRN (14:03)
[2019-04-19] MEDS: Atorvastatin Calcium 10 MG TAB PO SCH (19:49)
[2019-04-19] MEDS: Nadolol 40 MG TAB PO SCH (19:50)
[2019-04-19] MEDS: Cephalexin 250 MG CAP PO SCH (19:50)
[2019-04-19] MEDS: Loratadine 10 MG TAB PO SCH (19:50)
[2019-04-20] MEDS: HumaLOG 300 UNITS/3 ML VIAL SC PRN ×2 (05:26→12:57)
[2019-04-20] MEDS: Levothyroxine Sodium 75 MCG TAB PO SCH (05:26)
[2019-04-20 06:11] LABS: #Eosinphils 0.5 thou/uL (0.0-0.7); #Lymphocytes 0.9 thou/uL (1.20-3.40); #Monocytes 0.4 thou/uL (0.11-0.59); #Neutrophils 2.9 thou/uL (1.40-6.50); %Basophils 0.5 % (0.0-1.0); %Eosinophils 11.5 % (0.0-10.0); %Lymphocytes 19.2 % (21.0-51.0); %Monocytes 7.5 % (0.0-10.0); %Neutrophils 61.3 % (42.0-75.0); Hemoglobin 8.1 g/dL (12.0-16.0); Mean Corpuscular Hemoglobin 33.8 pg (27.0-31.0); Mean Platelet Volume 8.5 fL (7.4-10.4); Platelet Count 85 thou/uL (130-400); RBC Distribution Width 16.1 % (11.5-14.5); Red Blood Cell (RBC) Count 2.39 mill/uL (4.20-5.40); White Blood Cell (WBC) Count 4.8 thou/uL (4.8-10.8)
[2019-04-20 06:14] LABS: PTT 34.5 SEC (22.9-36.1); Prothrombin Time 13.6 SEC (12.0-14.7)
--- NOTE | 2019-04-20 06:20 | PDOC.FM ---
- Subjective Subjective: Pt is doing well today. She believes erythema on L arm is decreasing. Her UE edema is consistent with yesterday, pain. She had this happen with a previous cellulitis as well. - Objective Vital Signs & Weight: Vital Signs (12 hours) Temp Pulse Resp BP Pulse Ox 04/19/19 21:06 95 04/19/19 19:21 98.9 F 65 18 116/70 95 04/19/19 18:47 68 18 99 Weight Admit Weight 71.5 kg Weight 71.5 kg I&O: 04/18/19 04/19/19 04/20/19 06:59 06:59 06:59 Intake Total 200 1200 600 Balance 200 1200 600 Result Diagrams: 04/20/19 05:49 04/20/19 05:49 Phys Exam - Physical Examination Constitutional: NAD HEENT: PERRLA, moist MMs Respiratory: no wheezing, no rales Decreased breath sounds in R base Cardiovascular: RRR, no significant murmur Gastrointestinal: soft, non-tender, positive bowel sounds Musculoskeletal: pulses present No LE edema, 1-2+ LUE edema, 1+ RUE edema Psychiatric: normal affect, A&O x 3 Deviation from normal: CHRISTELLE erythema medical elbow, abrasions in L axilla Dx/Plan (1) Cellulitis Code(s): L03.90 - CELLULITIS, UNSPECIFIED Status: Acute (2) DM2 (diabetes mellitus, type 2) Status: Chronic Qualifiers: Diabetes mellitus complication status: with kidney complications Diabetes mellitus complication detail: with chronic kidney disease Chronic kidney disease stage: on chronic dialysis (3) Malfunction of arteriovenous dialysis fistula Code(s): T82.590A - [facility] COMPL OF SURGICALLY CREATED ARTERIOVENOUS FISTULA, INIT Status: Acute (4) Upper GI bleed Code(s): K92.2 - GASTROINTESTINAL HEMORRHAGE, UNSPECIFIED Status: Acute (5) Cirrhosis Code(s): K74.60 - UNSPECIFIED CIRRHOSIS OF LIVER Status: Chronic Qualifiers: (6) ESRD on hemodialysis Code(s): N18.6 - END STAGE RENAL DISEASE; Z99.2 - DEPENDENCE ON RENAL DIALYSIS Status: Chronic (7) HLD (hyperlipidemia) Code(s): E78.5 - HYPERLIPIDEMIA, UNSPECIFIED Status: Chronic Qualifiers: Hyperlipidemia type: unspecified Qualified Code(s): E78.5 - Hyperlipidemia , unspecified (8) Hepatorenal syndrome Code(s): K76.7 - HEPATORENAL SYNDROME Status: Chronic (9) History of esophageal varices with bleeding Code(s): Z87.19 - PERSONAL HISTORY OF OTHER DISEASES OF THE DIGESTIVE SYSTEM Status: Chronic (10) Thrombocytopenia Code(s): D69.6 - THROMBOCYTOPENIA, UNSPECIFIED Status: Chronic - Plan Plan: Cellulitis of post operative site Pt has cellulitis on L arm close to fistula site, previously revised by Dr. Jarrett who she has an appt with on 04/25 to discuss maturation. She currently received 5 days of ceft, vanc. Switched to PO Keflex. Dr. Jarrett is out of town , unable to discuss care. Pt is fine for discharge today. Will need follow up with Dr. Jarrett at her originaly scheduled appt. - Keflex PO x 10 day total abx course - P. stalzi cultured but likely contaminant - CXR yesterday and this am revealed stable pleural effusion, decompensated heart failure CHRISTELLE Extremity Swelling Likely 2/2 Heart Failure vs Cirrhosis vs Albumin Deficiency Diastolic Dysfunction, Grade 2/3 Echo in 2018 revealed diastolic dysfunction Blood pressures stable, low normotensive - CXR suggested decompensated HF - Fluid restrict Anemia 2/2 gastric bleeding and anemia of chronic disease ESRD on dialysis and GAVE/esophageal varices - Consulted GI - Dr. Dumont performed EGD w/ argon laser treatment to GAVE, Grade 2 esophageal varices, 3 small AV malformations - nadolol started - Macrocytic anemia - elevated iron studies - picture likely complicated by several transfusions over the past few months - Continuing to trend hgb, pt will need weekly H&H drawn on outpt basis and transfused accordingly Liver cirrhosis - patient denies drinking, reports she thinks it is due to medications - GI signed off - avoid liver toxicity medications - MELD 23, Child-Adame A - Paracentesis negative for SBP - Fluxuating LFT's and bili Hepatic Hydrothorax Discussed CXR, pleural effusion with Dr. Feliz. He believes this is less likely pneumnia vs Hepatic hydrothorax. She has hx of hydrothorax with thoracentesis. Dr. Feliz recommended discontinuing azithromycin and continuing to cover for cellulitis. Appreciate rec's. HTN - continue home meds HLD - continue home meds DM2 - continue home meds - insulin sliding scale Hypothyroidism - continue home meds - noted that pt has not been taking her rx appropriately and has been taking it with food, pharmacy instructed her on proper med administration and advised she will likely need further titration going forward on an outpt basis - TSH 16.96 - free T3/T4 WNL DVT: SCDs Diet: CC Dispo: inpatient medicine. Will continue abx for now, and discuss case with pulmonology. Possible discharge today if pt has close follow up in outpt setting. Code: Full
[2019-04-20 06:30] LABS: ALT (SGPT) 9 U/L (8-55); AST (SGOT) 18 U/L (5-34); Albumin 2.4 g/dL (3.4-4.8); Alkaline Phosphatase 138 U/L (40-110); Anion Gap 9 mmol/L (10-20); BUN (Urea Nitrogen) 15 mg/dL (9.8-20.1); Bilirubin, Total 0.5 mg/dL (0.2-1.2); Calc. Creatinine Clearance 20 mL/min (70-130); Carbon Dioxide 27 mmol/L (23-31); Chloride 103 mmol/L (98-107); Estimated GFR-MDRD 15; Globulin 3.4 g/dL (2.4-3.5); Glucose 152 mg/dL (80-115); Potassium 3.4 mmol/L (3.5-5.1); Protein, Total 5.8 g/dL (6.0-8.3); Sodium 136 mmol/L (136-145)
[2019-04-20] MEDS: Mometasone/Formoterol 120 PUFF INHALER INH SCH (06:51)
--- NOTE | 2019-04-20 07:41 | RAD ---
FRONTAL VIEW CHEST: INDICATION: Follow-up effusion. FINDINGS: Persistent pleural-based density of the mid to inferior right chest remains, superimposed upon enlarg ement silhouette and pulmonary vascular congestion. There is partial obscuration of right hemidiaphragm. Tunneled right vascular catheter remains. IMPRESSION: Grossly stable exam with large right pleural effusion remaining, superimposed upon decompensated anibal estive heart failure. Transcribed Date/Time: 04/20/2019 7:52 AM
[2019-04-20] MEDS: Pregabalin 50 MG CAP PO SCH (09:26)
[2019-04-20] MEDS: Sevelamer Carbonate 800 MG TAB PO SCH ×2 (09:26→12:58)
[2019-04-20] MEDS: Escitalopram Oxalate 20 mg Tablet PO SCH (09:26)
[2019-04-20] MEDS: Cephalexin 250 MG CAP PO SCH (09:27)
[2019-04-20] MEDS: Ferrous Sulfate 325 MG TAB PO SCH (09:27)
[2019-04-20] MEDS: Clotrimazole 1 % Cream 30 GM TUBE TOP SCH (09:30)
[2019-04-20] MEDS: Insulin Glargine 15 UNITS in Pre-Filled Syringe 1 EACH SC SCH (09:31)
[2019-04-20] MEDS: Losartan 25 MG TAB PO SCH (09:33)
--- NOTE | 2019-04-20 09:51 | PRG ---
DATE OF SERVICE: 04/20/2019 SUBJECTIVE: This is a 64-year-old female, being seen for end-stage kidney disease. The patient denied nausea, vomiting, or chest pain. OBJECTIVE: GENERAL: The patient is awake and alert. VITAL SIGNS: Afebrile. Pulse 95, breathing 16, blood pressure was 108/73. GENERAL APPEARANCE AND MENTAL STATUS: Fair. HEAD/NECK: Normocephalic. Atraumatic. EYES: EOMI. No deformity. EARS: Clear. No ulcers. NOSE: Intact. No lesions. MOUTH: Clear. No discharge. THROAT: Clear. No exudate. LUNGS: Clear. No crackles. CARDIAC: S1, S2. No rub. ABDOMEN: Benign. Bowel sounds positive. GENITALIA/RECTUM: Berman absent. BACK/EXTREMITIES: Edema 0+. NEUROLOGICAL: Alert and motor intact. SKIN: LYMPHATICS: LABORATORY DATA: Reviewed. ASSESSMENT AND PLAN: 1. Stage 6 chronic kidney disease. Continue hemodialysis. 2. Hypertension, stable. 3. Anemia, stable. 4. Medication based on GFR appropriate. Job ID: [id number]
[2019-04-20] MEDS ORDERED: PARoxetine 20 MG TAB ONE (11:07)
--- NOTE | 2019-04-20 11:36 | ULT ---
LEFT UPPER EXTREMITY VENOUS DUPLEX EXAM: Date: 04/20/19 HISTORY: Left upper extremity pain and swelling. FINDINGS: Real-time imaging of the left upper extremity, including evaluation of the internal jugular, subclavi an, axillary, brachial, basilic, and cephalic veins, and also evaluation of the fistula performed. Th is shows a patent deep venous system with normal compressibility and augmentation. There is no eviden ce of deep venous thrombosis. Flow seen within the fistula. Some subcutaneous fluid measuring approxi mately 1.0 cm in thickness and approximately 13.0 cm in length is seen in the more subcutaneous soft tissue as a slightly complex fluid collection. I cannot exclude this being infected. IMPRESSION: No evident of deep venous thrombosis. Other findings as noted above. POS: TPC
[2019-04-20 11:44] VITALS: BP 108/52; TEMP 97.7
--- NOTE | 2019-04-20 14:55 | PRG ---
DATE OF SERVICE: 04/20/2019 SERVICE: Pulmonary Medicine. INTERVAL HISTORY: The patient is doing really well from a breathing standpoint. She remains on room air. She denies any current fevers, chills, nausea, or vomiting. She is not coughing up any phlegm, any longer. She tolerated dialysis beautifully yesterday. PHYSICAL EXAMINATION: VITAL SIGNS: Afebrile, pulse 61, blood pressure 108/52, respirations 18, and saturation 97% on room air. GENERAL: The patient is awake and alert, in no apparent distress. LUNGS: Wonderful air entry on the left. The dependent crackles have resolved on the left. There is decreased air entry at the right base still. HEART: Normal rate and regular. ABDOMEN: Soft, nontender, and nondistended. Bowel sounds are positive. MUSCULOSKELETAL: No cyanosis or clubbing. No pitting in the bilateral lower extremities. NEUROLOGIC: Grossly nonfocal. LABORATORY DATA: CBC is stable/unremarkable. INR 1.0. Creatinine 3.20, and potassium 3.4. Basic metabolic profile and liver function studies are essentially unremarkable and downtrending. Axilla wound is growing multiple organisms. Body fluid culture, blood culture x2 are unremarkable to date. IMAGING: Ultrasound of left upper extremity demonstrates no evidence of DVT. Chest x-ray demonstrates persistent right-sided tere-opacification. ASSESSMENT: 1. Hepatic hydrothorax. 2. Dyspnea, resolved. 3. Anemia. 4. Cirrhosis. 5. End-stage renal disease, on hemodialysis. ASSESSMENT: From a purely respiratory standpoint, the patient is stable for transition out of the hospital. She can have a repeat chest x-ray in 4 to 6 weeks in the outpatient setting, though truth be told, I would really not be interested in performing a repeat thoracentesis unless she has suspicion of infected space or horrendous symptoms that are refractory to fluid restriction, dialysis, and/or Lasix (the patient still makes some urine). At this point, she has no further requirements for inpatient Pulmonary/Critical Care opinion, and I will sign off. No antibiotics need to be given directed at lung issues. She will need her cellulitis treated for a duration per Primary Service. Job ID: [id number]
== END 2019-04-20 16:17 | disposition home or self-care (01) | DRG 377 ==
LOC: ERS 16:50 → T4-B 18:14
PROVIDERS: ADMIT Family Medicine; ATTEND Family Medicine
PROC: 30233N1 Transfusion of Nonautologous Red Blood Cells into Peripheral Vein, Percutaneous Approach (ICD-10-PCS; principal; 2019-04-12)
PROC: 0W3P8ZZ Control Bleeding in Gastrointestinal Tract, Via Natural or Artificial Opening Endoscopic (ICD-10-PCS; 2019-04-13)
PROC: 0W9G3ZZ Drainage of Peritoneal Cavity, Percutaneous Approach (ICD-10-PCS; 2019-04-15)
PROC: BF4CZZZ Ultrasonography of Hepatobiliary System, All (ICD-10-PCS; 2019-04-15)
DX: K31.811 Angiodysplasia of stomach and duodenum with bleeding (principal); N18.6 End stage renal disease; J18.9 Pneumonia, unspecified organism; I50.33 Acute on chronic diastolic (congestive) heart failure; T82.590A Other mechanical complication of surgically created arteriovenous fistula, initial encounter; I13.2 Hypertensive heart and chronic kidney disease with heart failure and with stage 5 chronic kidney disease, or end stage renal disease; T81.49XA Infection following a procedure, other surgical site, initial encounter; L03.113 Cellulitis of right upper limb; D63.1 Anemia in chronic kidney disease; G89.29 Other chronic pain; K75.81 Nonalcoholic steatohepatitis (NASH); K72.90 Hepatic failure, unspecified without coma; I25.10 Atherosclerotic heart disease of native coronary artery without angina pectoris; E78.5 Hyperlipidemia, unspecified; K74.60 Unspecified cirrhosis of liver; K21.9 Gastro-esophageal reflux disease without esophagitis; M19.90 Unspecified osteoarthritis, unspecified site; E78.00 Pure hypercholesterolemia, unspecified; E03.9 Hypothyroidism, unspecified; Y83.2 Surgical operation with anastomosis, bypass or graft as the cause of abnormal reaction of the patient, or of later complication, without mention of misadventure at the time of the procedure; E11.22 Type 2 diabetes mellitus with diabetic chronic kidney disease; Z99.2 Dependence on renal dialysis; Z88.2 Allergy status to sulfonamides
CPT/HCPCS: 36415; 36416; 36430; 49083; 71045; 80048; 80053; 80202; 81001; 82042; 82140; 82248; 82274; 82607; 82728; 82747; 83036; 83540; 83550; 84145; 84439; 84443; 84466; 84481; 85025; 85060; 85610; 85730; 86850; 86900; 86901; 87040; 87070; 87076; 87077; 87186; 87205; 89051; 90935; 93005; 94640; C9113; G0257; J0456; J0696; J1644; J1815; J2704; J3370; J3490; J7050; J7620; P9016; Q0162; Q0163; Q5105

== ENCOUNTER 2019-05-05 18:05 | Inpatient (IN) | payer BC, MEDICARE ==
[2019-05-05 19:02] LABS: Hemoglobin 7.1 g/dL (12.0-16.0); Mean Corpuscular HGB CONC 32.9 g/dL (32.0-36.0); Mean Corpuscular Hemoglobin 35.2 pg (27.0-31.0); Mean Platelet Volume 9.5 fL (7.4-10.4); Platelet Count 67 thou/uL (130-400); RBC Distribution Width 17.4 % (11.5-14.5); Red Blood Cell (RBC) Count 2.02 mill/uL (4.20-5.40); White Blood Cell (WBC) Count 4.1 thou/uL (4.8-10.8)
[2019-05-05 19:09] LABS: ALT (SGPT) 9 U/L (8-55); AST (SGOT) 20 U/L (5-34); Albumin 2.8 g/dL (3.4-4.8); Alkaline Phosphatase 127 U/L (40-110); Anion Gap 11 mmol/L (10-20); BUN (Urea Nitrogen) 7 mg/dL (9.8-20.1); Bilirubin, Total 1.2 mg/dL (0.2-1.2); Calc. Creatinine Clearance 0 mL/min (70-130); Calcium 8.4 mg/dL (7.8-10.44); Carbon Dioxide 27 mmol/L (23-31); Chloride 101 mmol/L (98-107); Estimated GFR-MDRD 18; Globulin 3.8 g/dL (2.4-3.5); Glucose 162 mg/dL (80-115); Protein, Total 6.6 g/dL (6.0-8.3); Sodium 136 mmol/L (136-145)
[2019-05-05 19:12] LABS: #Eosinphils 0.3 thou/uL (0.0-0.7); #Monocytes 0.4 thou/uL (0.11-0.59); #Neutrophils 2.5 thou/uL (1.40-6.50); %Basophils 0.8 % (0.0-1.0); %Eosinophils 7.6 % (0.0-10.0); %Lymphocytes 23.1 % (21.0-51.0); %Monocytes 8.6 % (0.0-10.0); %Neutrophils 59.9 % (42.0-75.0); Hypochromia SLIGHT = 6-15 cells (100X) (0-5/hpf); MDiff Complete? YES; Macrocytosis SLIGHT = 6-15 cells (100X) (0-5/hpf); Platelet Morphology Comment Appears Decreased
[2019-05-05] MEDS ORDERED: Pantoprazole 40 MG VIAL ONE (19:36)
[2019-05-05] MEDS ORDERED: Octreotide Acetate 100 MCG/ML VIAL ONE (19:36)
[2019-05-05 20:51] LABS: INR-International Normal Ratio 1.1; PTT 23.2 SEC (22.9-36.1); Prothrombin Time 13.9 SEC (12.0-14.7)
--- NOTE | 2019-05-05 22:36 | PDOC.FPRHP ---
- History of Present Illness Chief Complaint: Lightheaded, fatigue History of Present Illness: 64-year-old female with past medical history of end stage renal disease, liver cirrhosis, esophageal varices and GAVE presents to ED with symptomatic anemia. Patient was at hemodialysis earlier today and was found to have a hemoglobin of 6.0. Patient was then transferred to the emergency department by her program coordinator Dr. Canseco for further work up and transfusion. Patient stated that over the past couple days she has been experiencing intermittent dizziness and lightheadedness. She notes feeling continually fatigued even without exertion. Patient has required multiple transfusions in the past secondary to her ESRD and previous upper G.I. bleeding. Last EGD was during her previous admission three weeks ago which noted GAVE and Grade II esophageal varices - treatment with argon laser at that time. Patient does not recall when her last colonoscopy was. She notes intermittent dark stools but attributes this to her oral iron supplementation. Denies any bright red blood in her stool. No N/V, fever, or chills. ED Course: Hgb 7.1. 1 unit prbc - Allergies/Adverse Reactions Allergies Allergy/AdvReac Type Severity Reaction Status Date / Time Sulfa (Sulfonamide Allergy Intermediate Rash Verified 03/22/19 12:52 Antibiotics) adhesive Allergy Verified 03/22/19 12:52 - Home Medications Medication Instructions Recorded Confirmed Type Atorvastatin Calcium [Lipitor] 10 mg PO HS 12/05/16 05/05/19 History Escitalopram Oxalate [Lexapro] 20 mg PO DAILY 12/05/16 05/05/19 History Pregabalin [Lyrica] 50 mg PO BID 12/05/16 05/06/19 History Fluticasone Propionate [Flonase 1 spray EA NARE DAILY PRN 01/07/19 05/05/19 History Nasal [place]] Lactulose 10 gm PO TID 05/05/19 05/05/19 History Sevelamer Carbonate [Renvela] 1,600 mg PO TID-WM 05/05/19 05/06/19 History Acetaminophen With Codeine 1 each PO Q4HR PRN 05/06/19 05/06/19 History [Tylenol with Codeine #3 Tablet] Benzonatate 100 mg PO TID PRN 05/06/19 05/06/19 History Cetirizine HCl [Zyrtec] 10 mg PO DAILY 05/06/19 05/06/19 History Ferrous Sulfate 325 mg PO DAILY 05/06/19 05/06/19 History Insulin Detemir [Levemir] 15 unit SQ BID 05/06/19 05/06/19 History Levothyroxine Sodium [Synthroid] 225 mcg PO DAILY 05/06/19 05/06/19 History Losartan [Cozaar] 25 mg PO DAILY 05/06/19 05/06/19 History Midodrine HCl 5 mg PO DAILY 05/06/19 05/06/19 History Mometasone/Formoterol 100/5 2 puff INH BID 05/06/19 05/06/19 History [Dulera 100 mcg/5 mcg Inhaler] Nadolol 20 mg PO HS 05/06/19 05/06/19 History Pantoprazole [Protonix] 40 mg PO BID 05/06/19 05/06/19 History Rifaximin [Xifaxan] 550 mg PO BID 05/06/19 05/06/19 History - History PMHx:ESRD on HD (, , Thu), DM2, liver cirrhosis, HTN, HLD, Hypothyroidism, GAVE, esophageal varices PSHx: breast biopsy, , tonsillectomy, EGD with cauterization 3-4x and argon laser therapy FHx: mother of cirrhosis Social: negative - Review of Systems General: denies: fever/chills, weight/appetite/sleep changes Eyes: denies: vision changes, other ENT: denies: nasal congestion, other Respiratory: denies: cough, congestion, shortness of breath Cardiovascular: denies: chest pain, palpitation Gastrointestinal: reports: GI bleeding (dark stools, attributes to iron). denies: nausea, vomiting, diarrhea, abdominal pain Skin: reports: other (pale). denies: rashes, lesions Musculoskeletal: denies: pain, tenderness Neurological: reports: other (fatigue). denies: numbness, weakness Psychological: denies: depression, other - Vital signs BP: 96/49, Pulse: 64 (Regular), Resp: 16 (Non-Labored), Temp: 98.9 (Oral), Pain : 0, O2 sat: 95 on Room Air - Physical Exam Constitutional: NAD, awake, alert and oriented, well developed HEENT: normocephalic and atraumatic, EOMI, grossly normal vision, grossly normal hearing -HEENT: Pale conjunctiva Neck: supple, FROM, no JVD Heart: RRR, normal S1/S2 -Heart: Systolic murmur Lungs: CTAB, no respiratory distress, good air movement Abdomen: soft, non-tender, bowel sounds present Musculoskeletal: normal structure, normal tone Neurological: no focal deficit, CN II-XII intact Skin: no rash/lesions, good turgor, capillary refill <2 seconds Heme/Lymphatic: no unusual bruising or bleeding, no purpura, no petechia Psychiatric: normal mood and affect, good judgment and insight, intact recent and remote memory FMR H&P: Results - Labs Result Diagrams: 05/05/19 18:40 05/05/19 18:40 Lab results: WBC 4.1 thou/uL (4.8-10.8) L 05/05/19 18:40 Hgb 7.1 g/dL (12.0-16.0) L 05/05/19 18:40 Hct 21.6 % (36.0-47.0) L 05/05/19 18:40 MCV 107.0 fL (78.0-98.0) H 05/05/19 18:40 Plt Count 67 thou/uL (130-400) L 05/05/19 18:40 Neutrophils % 59.9 % (42.0-75.0) 05/05/19 18:40 Sodium 136 mmol/L (136-145) 05/05/19 18:40 Potassium 3.0 mmol/L (3.5-5.1) L 05/05/19 18:40 Chloride 101 mmol/L (98-107) 05/05/19 18:40 Carbon Dioxide 27 mmol/L (23-31) 05/05/19 18:40 BUN 7 mg/dL (9.8-20.1) L 05/05/19 18:40 Creatinine 2.69 mg/dL (0.6-1.1) H 05/05/19 18:40 Glucose 162 mg/dL (80-115) H 05/05/19 18:40 Calcium 8.4 mg/dL (7.8-10.44) 05/05/19 18:40 Total Bilirubin 1.2 mg/dL (0.2-1.2) 05/05/19 18:40 AST 20 U/L (5-34) 05/05/19 18:40 ALT 9 U/L (8-55) 05/05/19 18:40 Alkaline Phosphatase 127 U/L (40-110) H 05/05/19 18:40 Serum Total Protein 6.6 g/dL (6.0-8.3) 05/05/19 18:40 Albumin 2.8 g/dL (3.4-4.8) L 05/05/19 18:40 FMR H&P: A/P - Problem List (1) Symptomatic anemia Current Visit: Yes Status: Acute Code(s): D64.9 - ANEMIA, UNSPECIFIED (2) Cirrhosis Current Visit: No Status: Chronic Code(s): K74.60 - UNSPECIFIED CIRRHOSIS OF LIVER Qualifiers: (3) DM2 (diabetes mellitus, type 2) Current Visit: No Status: Chronic Qualifiers: Diabetes mellitus complication status: with kidney complications Diabetes mellitus complication detail: with chronic kidney disease Chronic kidney disease stage: on chronic dialysis (4) ESRD on hemodialysis Current Visit: No Status: Chronic Code(s): N18.6 - END STAGE RENAL DISEASE; Z99.2 - DEPENDENCE ON RENAL DIALYSIS Comment: Dialysis per nephrology service (5) HLD (hyperlipidemia) Current Visit: No Status: Chronic Code(s): E78.5 - HYPERLIPIDEMIA, UNSPECIFIED Qualifiers: Hyperlipidemia type: unspecified Qualified Code(s): E78.5 - Hyperlipidemia , unspecified Comment: continue atorvastatin (6) History of esophageal varices with bleeding Current Visit: No Status: Chronic Code(s): Z87.19 - PERSONAL HISTORY OF OTHER DISEASES OF THE DIGESTIVE SYSTEM Comment: s/p banding in past (7) Hypertension Current Visit: No Status: Chronic Code(s): I10 - ESSENTIAL (PRIMARY) HYPERTENSION Qualifiers: Hypertension type: essential hypertension Qualified Code(s): I10 - Essential (primary) hypertension Comment: controlled (8) Hypothyroidism Current Visit: No Status: Chronic Code(s): E03.9 - HYPOTHYROIDISM, UNSPECIFIED Qualifiers: Hypothyroidism type: acquired Qualified Code(s): E03.9 - Hypothyroidism, unspecified Comment: continue levothyroxine - Plan Anemia 2/2 gastric bleeding and anemia of chronic disease ESRD on dialysis and GAVE/esophageal varices - patient denies hematochezia, melena at this time - FOBT pending - Consulted GI - Dr. Goss consulted from ED will assess for need for scope following transfusion and hgb trend - Iron studies not ordered 2/2 recent transfusions - 1g Rocephin in ED, will cont daily - Continuing to trend hgb, pt will likely need weekly H&H drawn on outpt basis and transfused accordingly Liver cirrhosis - Reports she thinks it is due to medications - GI aware of pt and familiar from prev visits - avoid liver toxicity medications - Daily CBC, INR ESRD - Dr. Canseco consulted - Continue inpt dialysis HTN - continue home meds HLD - continue home meds DM2 - continue home meds - insulin sliding scale Hypothyroidism - continue home meds DVT: SCDs Diet: NPO at midnight Dispo: Admit inpt medical for hgb trending and evaluation of need for endoscopic procedure FMR H&P: Upper Level - Plan Date/Time: 05/05/19 9004 I, Duane Alberto MD, have evaluated this patient and agree with findings/plan as outlined by biomedical engineering internship resident. Pertinent changes/additions are listed here. Yessy Olguin is a 64 year old F with a PMH Gastric antral vascular ectasia, liver cirrhosis with esophageal varices, ESRD on HD who was sent to the ED from HD center for anemia. Patient states that she had hemoglobin of 6.0 prior to getting HD today. Dr. Canseco sent pt to ED for work up and transfusion. She completed all but 30 min of her HD. She was admitted early this month for upper GI bleeding and had endoscopy done during the admission showing GAVE and Grade II esophageal varices which were treated with laser therapy. She states that over the last 2 days she has had occasional dizziness and lightheadedness and CASTANEDA. She denies any RBRPR but notes having dark stools. She states that they have been dark since being on iron supplementation from previous hospitalization. Denies any fever, chills, n/v, abdominal pain. In the ED, BP was in the 90s systolic but vitals were otherwise stable and wnl. She had a hemoglobin of 7.1, wbc count of 4.1, platelets were 67. PT/INR were normal. Cr was 2.69. Physical was benign, abdomen was soft, NT/ND. Conjunctival palor present. RRR, Lungs CTAB. Dr. Goss was consulted in ED by ERMD and recommended admission, IV protonix, octreotide gtt and transfusion. Admitting patient to inpatient medical for symptomatic anemia. Will trend H/H. Continue octreotide and IV PPI. Will continue antibiotic prophylaxis for acute GI bleeding in setting of cirrhosis. Will follow GI recs. Anticipate hospital stay > 48 hrs. Please see biomedical engineering internship note above for full H&P, which I have reviewed and agree with. Addendum - Attending - Attending Attestation Date/Time: 05/05/19 8420 I personally evaluated the patient and discussed the management with Dr. Soto I agree with the History, Examination, Assessment and Plan documented above with any addition or exceptions noted below - 64 yo female with h/o ESRD on HD, HTN, DM, cirrhosis with esophageal varices and GAVE, hypothyroidism sent from dialysis due to low HGB. Patient does report feeling more fatigued and tired over last week or so. Denies any abdominal pain, N/V. No change in stools. PMH/ PSH/Meds/SH reviewed and agree with resident's documentation. Afebrile VSS Exam repeated by me and agree with resident's findings. Labs: H/H=7.1/21.6, Plt=67, Eu=096, K=3.0, Ef=227, CO2=27, BUN/Cr=7/2.69m Ceuu=165, PT/ONR=13.9/1.1. A/P: 1 ) Symptomatic anemia - possibly from GI bleed- Transfuse pRBCs and will recheck H/H; GI consulted and will evaluate patient in AM. 2) DM- monitor BG. 3) ESRD- will notify nephrology to schedule maintenance HD
[2019-05-05] MEDS ORDERED: cefTRIAXone\\ROCEPHIN 1 GM VIAL ONE (22:39)
[2019-05-05] MEDS ORDERED: Acetaminophen 325 MG TAB PO PRN (23:10)
[2019-05-06 00:07] VITALS: BMI 28.1
[2019-05-06] MEDS ORDERED: Fluticasone Propionate Nasal Spray 16 gm Bottle NASAL PRN (00:19)
[2019-05-06] MEDS ORDERED: Acetaminophen/Codeine 30-300mg Tablet PO PRN (00:19)
[2019-05-06] MEDS ORDERED: Benzonatate 100 MG CAP PO PRN (00:19)
[2019-05-06] MEDS: Lactated Ringer's 1,000 ML IV SCH ×2 (04:25→08:53)
[2019-05-06] MEDS: Levothyroxine Sodium 75 MCG TAB PO SCH (05:26)
[2019-05-06 06:13] LABS: INR-International Normal Ratio 1.2; Prothrombin Time 14.7 SEC (12.0-14.7)
[2019-05-06 06:14] LABS: PTT 30.8 SEC (22.9-36.1)
[2019-05-06 06:21] LABS: #Eosinphils 0.2 thou/uL (0.0-0.7); #Lymphocytes 0.7 thou/uL (1.20-3.40); #Monocytes 0.3 thou/uL (0.11-0.59); #Neutrophils 2.1 thou/uL (1.40-6.50); %Basophils 0.6 % (0.0-1.0); %Eosinophils 7.5 % (0.0-10.0); %Lymphocytes 19.8 % (21.0-51.0); %Monocytes 7.7 % (0.0-10.0); %Neutrophils 64.5 % (42.0-75.0); Hemoglobin 8.2 g/dL (12.0-16.0); Mean Corpuscular HGB CONC 33.5 g/dL (32.0-36.0); Mean Corpuscular Hemoglobin 33.4 pg (27.0-31.0); Mean Corpuscular Volume 99.5 fL (78.0-98.0); Mean Platelet Volume 9.5 fL (7.4-10.4); Platelet Count 49 thou/uL (130-400); RBC Distribution Width 19.7 % (11.5-14.5); Red Blood Cell (RBC) Count 2.46 mill/uL (4.20-5.40); White Blood Cell (WBC) Count 3.3 thou/uL (4.8-10.8)
[2019-05-06 06:27] LABS: ALT (SGPT) 8 U/L (8-55); AST (SGOT) 19 U/L (5-34); Albumin 2.6 g/dL (3.4-4.8); Alkaline Phosphatase 114 U/L (40-110); Anion Gap 11 mmol/L (10-20); BUN (Urea Nitrogen) 10 mg/dL (9.8-20.1); Bilirubin, Total 1.9 mg/dL (0.2-1.2); Calc. Creatinine Clearance 18 mL/min (70-130); Calcium 8.5 mg/dL (7.8-10.44); Carbon Dioxide 27 mmol/L (23-31); Chloride 102 mmol/L (98-107); Estimated GFR-MDRD 13; Globulin 3.5 g/dL (2.4-3.5); Glucose 157 mg/dL (80-115); Potassium 3.6 mmol/L (3.5-5.1); Protein, Total 6.1 g/dL (6.0-8.3); Sodium 136 mmol/L (136-145)
[2019-05-06] MEDS: Octreotide Acetate 1,250 MCG in Sodium Chloride 0.9% 250 ML 250 ML IVPB SCH (06:32)
--- NOTE | 2019-05-06 06:34 | PDOC.FM ---
- Subjective Subjective: Patient in a good mood this morning. States that she feels less weak, dizziness has resolved, although admits she has not tried getting up and walking around and this is when she is usually symptomatic. States she wants to try to get up to walk in hallway later today. Patient still feels fatigued. She says her previous BMs have been dark brown or black. Has not had a BM yet with this admission. Patient was transfused 2 units pRBCs yesterday, with Hgb back up to 8.2 this AM. - Objective MAR Reviewed: Yes Vital Signs & Weight: Vital Signs (12 hours) Temp Pulse Pulse Resp BP BP Pulse Ox 05/06/19 05:25 98.5 F 62 18 114/65 94 L 05/06/19 04:20 98.5 F 62 18 114/65 94 L 05/06/19 01:20 98.4 F 61 18 112/65 91 L 05/06/19 01:00 98.7 F 20 108/60 92 L Weight Weight 69.763 kg Most Recent Monitor Data Heart Rate from ECG 61 I&O: 05/04/19 05/05/19 05/06/19 06:59 06:59 06:59 Intake Total 350 Balance 350 Result Diagrams: 05/06/19 05:53 05/06/19 05:53 Phys Exam - Physical Examination Constitutional: NAD HEENT: moist MMs, sclera anicteric Neck: no JVD, supple, full ROM Respiratory: no wheezing, no rales, no rhonchi, clear to auscultation bilateral Cardiovascular: RRR grade 1 systolic murmur over mitral area Gastrointestinal: soft, non-tender, positive bowel sounds Musculoskeletal: no edema, pulses present Neurological: non-focal, normal sensation Psychiatric: normal affect, A&O x 3 Skin: no rash, normal turgor Dx/Plan (1) Symptomatic anemia Code(s): D64.9 - ANEMIA, UNSPECIFIED Status: Acute (2) Anemia in chronic kidney disease, on chronic dialysis Code(s): N18.6 - END STAGE RENAL DISEASE; D63.1 - ANEMIA IN CHRONIC KIDNEY DISEASE; Z99.2 - DEPENDENCE ON RENAL DIALYSIS Status: Acute (3) History of esophageal varices with bleeding Code(s): Z87.19 - PERSONAL HISTORY OF OTHER DISEASES OF THE DIGESTIVE SYSTEM Status: Chronic - Plan Plan: Patient is a 64 yo female found to have Hgb of 6.0 during dialysis is admitted for symptomatic anemia and transfusion: #Anemia 2/2 gastric bleeding and anemia of chronic disease #ESRD on dialysis and GAVE/esophageal varices - Hgb 6.0 on admission, up to Hgb 8.2 today s/p 2 units pRBCs given 05/05 - patient denies hematochezia, melena at this time - FOBT pending - Consulted GI - Dr. Goss consulted from ED will assess for need for scope later this AM following transfusion and hgb trend - Iron studies not ordered 2/2 recent transfusions - 1g Rocephin in ED, will cont daily - Continuing to trend hgb, pt will likely need weekly H&H drawn on outpt basis and transfused accordingly Liver cirrhosis - Reports she thinks it is due to medications - GI aware of pt and familiar from prev visits - avoid liver toxicity medications - Daily CBC, INR ESRD on HD //Thu - Dr. Canseco consulted - Continue inpt dialysis, next due on Thursday HTN - continue home meds: Nadolol HLD - continue home meds: Lipitor DM2 - continue home meds: Levemir - insulin sliding scale Hypothyroidism - continue home meds: Levothyroxine DVT: SCDs Diet: NPO at midnight Code: FULL Dispo: Stable, admitted to inpatient on medical unit for Hgb trending. GI to see and further evaluate need for endoscopic procedure to be performed later today, appreciate recs. Nephrology to arrange for dialysis on Thursday. Anticipate LOS >48 hours. Addendum - Attending - Attending Attestation Date/Time: 05/06/19 1141 I personally evaluated the patient and discussed the management with Dr. Mckinney I agree with the History, Examination, Assessment and Plan documented above with any addition or exceptions noted below. Patient with recent UGI bleed in recent past sent from dialysis with symptomatic anemia transfused and pending GI consult for any further urgent evaluation. Patient with ESRD and cirrhosis(? etiology) curently post transfusion feeling better VSS patient had symptomatic anemia noted at Dialysis not known to me if she completed dialysis yesterday some talk of having it done today on Sat schedule. Continue to monitor and trend H/H. nephrology and GI consulted. Patient state was scheduled for F/U EGD with Dr Baugh early May.
[2019-05-06] MEDS: Mometasone/Formoterol 120 PUFF INHALER INH SCH ×2 (06:59→19:03)
[2019-05-06] MEDS: Sevelamer Carbonate 800 MG TAB PO SCH ×3 (08:43→16:01)
[2019-05-06] MEDS: Escitalopram Oxalate 20 mg Tablet PO SCH (08:43)
[2019-05-06] MEDS: Pregabalin 50 MG CAP PO SCH ×2 (08:44→20:26)
[2019-05-06] MEDS: Midodrine HCl 5 MG TAB PO SCH (08:44)
[2019-05-06] MEDS: Losartan 25 MG TAB PO SCH (08:44)
[2019-05-06] MEDS: Rifaximin 550 MG TAB PO SCH ×2 (08:44→20:26)
[2019-05-06] MEDS: Loratadine 10 MG TAB PO SCH (08:44)
[2019-05-06] MEDS ORDERED: Pantoprazole 40 MG GRANULES PACKET PO SCH (09:00)
[2019-05-06] MEDS ORDERED: Ferrous Sulfate 325 MG TAB PO SCH (09:00)
[2019-05-06] MEDS ORDERED: Non-Formulary Item 1 EACH (Insulin Detemir [Levemir] 15 UNIT) SQ SCH (09:00)
[2019-05-06] MEDS: Pantoprazole 40 MG VIAL IVP SCH ×2 (09:07→20:27)
[2019-05-06] MEDS: Insulin Glargine 15 UNITS in Pre-Filled Syringe 1 EACH SC SCH ×2 (09:12→20:27)
[2019-05-06] MEDS: Nadolol 40 MG TAB PO SCH (10:54)
--- NOTE | 2019-05-06 11:51 | CON ---
DATE OF CONSULTATION: 05/06/2019 REASON FOR CONSULT: Reported melena and drop in hemoglobin. HISTORY OF PRESENT ILLNESS: Ms. Olguin is a 64-year-old female with cirrhosis secondary to nonalcoholic steatohepatitis. She has end-stage renal disease on dialysis as well. Apparently at dialysis, her hemoglobin was found to be 6, which was a drop from 8 to 9 when she left the hospital on 04/20/2019. She does not have any history of hematemesis. She states that she has cataracts. She really could not tell the color of her stools that may have been darker. She has had multiple EGDs with [facility] for gastric antral vascular ectasias. The last being on 04/13/2019. She was set up for repeat EGD with Dr. Baugh in the outpatient setting on 05/25. She denies any fever, chills, rashes, myalgias, arthralgias, confusion, dyspnea on exertion, or abdominal distension. PAST MEDICAL HISTORY: Cirrhosis from gastric antral vascular ectasias. She had end-stage renal disease, sees Dr. Canseco. She had hypertension, hyperlipidemia, hypothyroidism, diverticulosis, and type 2 diabetes. PAST SURGICAL HISTORY: , tonsillectomy, breast biopsy, multiple upper endoscopies, and previous colonoscopy. FAMILY HISTORY: Chronic liver disease in the mother. SOCIAL HISTORY: Negative for alcohol or tobacco. REVIEW OF SYSTEMS: Ten-systems negative. MEDICATIONS: Present medications reviewed. She is on. 1. Iron here. 2. Midodrine. 3. Nadolol. 4. Octreotide. 5. Rifaximin. 6. Lyrica. Home medications; 1. Xifaxan. 2. Renvela. 3. Lyrica. 4. Protonix. 5. Midodrine. 6. Losartan. 7. Synthroid. 8. Lactulose. 9. Insulin. 10. Ferrous sulfate. 11. Tylenol No. 3 with Codeine. PHYSICAL EXAMINATION: VITAL SIGNS: Blood pressure is 118/65, pulse 60, temperature 98, and respiratory rate 16. GENERAL: She is a mildly pale. She is alert and oriented to person, place, and time. She has no asterixis. HEENT: Oropharynx, no lesions. NECK: Supple without adenopathy. LUNGS: Clear. ABDOMEN: Soft and nontender. No rebound or guarding. LABORATORY DATA: Hemoglobin this morning is 8.2, was 7.1 on admission to the ER, apparently 6 at dialysis; platelet count 49,000; and white count 3.3. INR is 1.2. BUN and creatinine are 10 and 3.25. Electrolytes are normal. Bilirubin is 1.9, ALT 8, AST 19, and alkaline phosphatase 114. ASSESSMENT: Recurrent anemia secondary to portal hypertensive gastropathy and gastric antral vascular ectasia. PLAN: Since she dropped her hemoglobin and has already an outpatient plan for EGD and she has been n.p.o., we will see if we can get her on the schedule today for an EGD with [facility] for gastric antral vascular ectasias. Job ID: [id number]
[2019-05-06 14:47] LABS: HBSAg Index 0.18 S/CO (0-0.99); Hep B Surf Ag Non-Reactive S/CO (NonReactive)
--- NOTE | 2019-05-06 15:20 | CON ---
DATE OF CONSULTATION: REASON FOR CONSULTATION: End-stage renal disease on maintenance hemodialysis. HISTORY OF PRESENT ILLNESS: This is a very pleasant 64-year-old female, who was sent to the hospital after hemoglobin was 6. The patient received 2 units of red blood cells and IV fluids overnight. The patient denies no headache, numbness, tingling, or weakness. Denies any chest pain. PAST MEDICAL HISTORY: Significant for hypertension, anemia, end-stage renal disease, history of liver failure, anemia, multiple episodes of admission for transfusion. Past medical and surgical history reviewed. HOME MEDICATION: List reviewed. HOSPITAL MEDICATION: List reviewed. REVIEW OF SYSTEMS: A 15-point review of system was performed and negative except for positives noted above. GENERAL: HEAD: NECK: No swelling or lumps. NOSE: No epistaxis or discharge. EYES: No diplopia or pain. RESPIRATORY: CARDIOVASCULAR: GASTROINTESTINAL: /MED CARE MANAGER: MUSCULOSKELETAL: No joint pain. NEUROPSYCHIATRIC SYSTEMS: No suicidal ideation. No ideation. SKIN: Denies any rash or ulcer. CONSTITUTIONAL: No fever or chills. PHYSICAL EXAMINATION: GENERAL: The patient is awake and alert. VITAL SIGNS: Afebrile, pulse 59, breathing 16, and blood pressure 139/67. GENERAL APPEARANCE AND MENTAL STATUS: Fair. HEAD/NECK: Normocephalic. Atraumatic. EYES: EOMI. No deformity. EARS: Clear. No ulcers. NOSE: Intact. No lesions. MOUTH: Clear. No discharge. THROAT: Clear. No exudate. LUNGS: Clear. No crackles. CARDIAC: S1, S2. No rub. ABDOMEN: Benign. Bowel sounds positive. GENITALIA/RECTUM: Berman absent. BACK/EXTREMITIES: Edema 0+. NEUROLOGICAL: Alert and motor intact. SKIN: LYMPHATICS: LABORATORY DATA: Labs show hemoglobin 8.2. ASSESSMENT AND PLAN: 1. Stage 6 chronic kidney disease. Plan dialysis. 2. Hypertension, stable. 3. Anemia, stable. 4. Congestive heart failure. Plan dialysis for 2 hours and then regular dialysis tomorrow. Job ID: [id number]
[2019-05-06] MEDS ORDERED: Dextrose 5% in Water 1,000 ML IV PRN (17:41)
[2019-05-06] MEDS ORDERED: HumaLOG 300 UNITS/3 ML VIAL SC PRN ×2 (17:41)
[2019-05-06] MEDS ORDERED: Dextrose 50% Abboject 50 ML SYRINGE SLOW IVP PRN (17:41)
[2019-05-06] MEDS ORDERED: Ondansetron HCl/PF 4 MG/2 ML Vial IVP PRN (18:28)
[2019-05-06] MEDS ORDERED: Promethazine HCl 25 MG/ML VIAL IM PRN (18:28)
[2019-05-06] MEDS ORDERED: Promethazine HCl 25 MG/ML VIAL SLOW IVP PRN (18:28)
[2019-05-06] MEDS: Atorvastatin Calcium 10 MG TAB PO SCH (20:26)
[2019-05-06] MEDS: cefTRIAXone\\ROCEPHIN 1 GM in Sodium Chloride 0.9% 100 ML IVPB SCH (23:02)
[2019-05-07 05:23] LABS: INR-International Normal Ratio 1.2; PTT 23.5 SEC (22.9-36.1); Prothrombin Time 15.3 SEC (12.0-14.7)
[2019-05-07 05:37] LABS: ALT (SGPT) 7 U/L (8-55); AST (SGOT) 22 U/L (5-34); Albumin 2.6 g/dL (3.4-4.8); Alkaline Phosphatase 113 U/L (40-110); Anion Gap 9 mmol/L (10-20); BUN (Urea Nitrogen) 10 mg/dL (9.8-20.1); Bilirubin, Total 1.1 mg/dL (0.2-1.2); Calc. Creatinine Clearance 20 mL/min (70-130); Calcium 8.3 mg/dL (7.8-10.44); Carbon Dioxide 26 mmol/L (23-31); Chloride 104 mmol/L (98-107); Estimated GFR-MDRD 15; Globulin 3.6 g/dL (2.4-3.5); Glucose 149 mg/dL (80-115); Potassium 3.4 mmol/L (3.5-5.1); Protein, Total 6.2 g/dL (6.0-8.3); Sodium 136 mmol/L (136-145)
[2019-05-07 05:48] LABS: #Eosinphils 0.4 thou/uL (0.0-0.7); #Lymphocytes 0.7 thou/uL (1.20-3.40); #Monocytes 0.3 thou/uL (0.11-0.59); #Neutrophils 2.5 thou/uL (1.40-6.50); %Basophils 0.1 % (0.0-1.0); %Eosinophils 9.4 % (0.0-10.0); %Lymphocytes 18.4 % (21.0-51.0); %Monocytes 8.6 % (0.0-10.0); %Neutrophils 63.6 % (42.0-75.0); Hemoglobin 9.4 g/dL (12.0-16.0); Mean Corpuscular HGB CONC 32.6 g/dL (32.0-36.0); Mean Corpuscular Hemoglobin 32.1 pg (27.0-31.0); Mean Corpuscular Volume 98.3 fL (78.0-98.0); Mean Platelet Volume 10.2 fL (7.4-10.4); Platelet Count 46 thou/uL (130-400); RBC Distribution Width 19.7 % (11.5-14.5); Red Blood Cell (RBC) Count 2.92 mill/uL (4.20-5.40)
[2019-05-07] MEDS: Levothyroxine Sodium 75 MCG TAB PO SCH (05:57)
--- NOTE | 2019-05-07 06:02 | PDOC.FM ---
- Subjective Subjective: Pt is doing well without any complaints. She is feeling better s/p RBC transfusion. She denies any pain, blood per rectum. She did endorse a mild cough. - Objective Vital Signs & Weight: Vital Signs (12 hours) Temp Pulse Resp BP Pulse Ox 05/07/19 04:00 98.2 F 56 L 18 102/54 L 92 L 05/07/19 00:00 98.1 F 59 L 18 124/67 95 05/06/19 20:00 97.6 F 58 L 16 139/59 L 97 05/06/19 19:03 64 12 96 05/06/19 18:53 97.7 F 57 L 16 117/70 98 Weight Weight 69.763 kg Most Recent Monitor Data Heart Rate from ECG 61 I&O: 05/05/19 05/06/19 05/07/19 06:59 06:59 06:59 Intake Total 350 350 Balance 350 350 Result Diagrams: 05/07/19 05:06 05/07/19 05:06 Phys Exam - Physical Examination Constitutional: NAD HEENT: PERRLA, moist MMs Neck: no nodes, no JVD Respiratory: no wheezing, no rales, clear to auscultation bilateral Cardiovascular: RRR, no significant murmur Gastrointestinal: soft, non-tender, positive bowel sounds No erythema, warmth to touch over L extremity Dx/Plan (1) Esophageal varices determined by endoscopy Code(s): I85.00 - ESOPHAGEAL VARICES WITHOUT BLEEDING Status: Acute (2) GAVE (gastric antral vascular ectasia) Code(s): K31.819 - ANGIODYSPLASIA OF STOMACH AND DUODENUM WITHOUT BLEEDING Status: Acute (3) Symptomatic anemia Code(s): D64.9 - ANEMIA, UNSPECIFIED Status: Acute (4) Anemia in chronic kidney disease, on chronic dialysis Code(s): N18.6 - END STAGE RENAL DISEASE; D63.1 - ANEMIA IN CHRONIC KIDNEY DISEASE; Z99.2 - DEPENDENCE ON RENAL DIALYSIS Status: Acute (5) Upper GI bleed Code(s): K92.2 - GASTROINTESTINAL HEMORRHAGE, UNSPECIFIED Status: Acute (6) Chronic diastolic CHF (congestive heart failure), NYHA class 3 Code(s): I50.32 - CHRONIC DIASTOLIC (CONGESTIVE) HEART FAILURE Status: Chronic (7) DM2 (diabetes mellitus, type 2) Status: Chronic Qualifiers: Diabetes mellitus complication status: with kidney complications Diabetes mellitus complication detail: with chronic kidney disease Chronic kidney disease stage: on chronic dialysis (8) ESRD on hemodialysis Code(s): N18.6 - END STAGE RENAL DISEASE; Z99.2 - DEPENDENCE ON RENAL DIALYSIS Status: Chronic (9) HLD (hyperlipidemia) Code(s): E78.5 - HYPERLIPIDEMIA, UNSPECIFIED Status: Chronic Qualifiers: Hyperlipidemia type: unspecified Qualified Code(s): E78.5 - Hyperlipidemia , unspecified - Plan Plan: Patient is a 64 yo female found to have Hgb of 6.0 during dialysis is admitted for symptomatic anemia and transfusion: #Anemia 2/2 gastric bleeding and anemia of chronic disease #ESRD on dialysis and GAVE/esophageal varices - Hgb 6.0 on admission, up to Hgb 8.2 today s/p 3 units pRBCs given 05/05. Stable at 9.4. Continue to monitor for another day to monitor H/H. - patient denies hematochezia, melena at this time - Consulted GI - Dr. Goss consulted from ED and performed EGD yesterday to cauterize gastric antral vasc ectasia. Pending note from GI for further workup. - Iron studies not ordered 2/2 recent transfusions - 1g Rocephin in ED, will cont daily - Continuing to trend hgb, pt will likely need weekly H&H drawn on outpt basis and transfused accordingly Liver cirrhosis - Reports she thinks it is due to medications - GI aware of pt and familiar from prev visits - avoid liver toxicity medications - Daily CBC, INR ESRD on HD //Thu - Dr. Canseco consulted; underwent dialysis yesterday, today. HTN - continue home meds: Nadolol Esophageal Varices - continue Nadolol HLD - continue home meds: Lipitor DM2 - continue home meds: Levemir - insulin sliding scale Hypothyroidism - continue home meds: Levothyroxine Hypokalemia - monitor due to ESRD; pending mg, phos DVT: SCDs Diet: NPO at midnight Code: FULL Dispo: Stable, admitted to inpatient on medical unit for Hgb trending. GI to see and further evaluate need for endoscopic procedure to be performed later today, appreciate recs. Nephrology to arrange for dialysis on Thursday. Anticipate LOS >48 hours.
[2019-05-07] MEDS: Mometasone/Formoterol 120 PUFF INHALER INH SCH ×2 (06:26→19:20)
[2019-05-07] MEDS: Midodrine HCl 5 MG TAB PO SCH (09:14)
[2019-05-07] MEDS: Sevelamer Carbonate 800 MG TAB PO SCH ×3 (10:28→17:07)
[2019-05-07 11:37] LABS: Magnesium 2.1 mg/dL (1.6-2.6); Phosphorus 4.1 mg/dL (2.3-4.7)
--- NOTE | 2019-05-07 11:58 | PRG ---
DATE OF SERVICE: 05/07/2019 SUBJECTIVE: A 64-year-old female being seen for end-stage kidney disease. The patient denied nausea, vomiting, or chest pain. OBJECTIVE: CONSTITUTIONAL: The patient is awake and alert. VITAL SIGNS: Pulse 65, breathing 16, blood pressure 124/67. GENERAL APPEARANCE AND MENTAL STATUS: Fair. HEAD/NECK: Normocephalic. Atraumatic. EYES: EOMI. No deformity. EARS: Clear. No ulcers. NOSE: Intact. No lesions. MOUTH: Clear. No discharge. THROAT: Clear. No exudate. LUNGS: Clear. No crackles. CARDIAC: S1, S2. No rub. ABDOMEN: Benign. Bowel sounds positive. GENITALIA/RECTUM: Berman absent. BACK/EXTREMITIES: Edema 0+. NEUROLOGICAL: Alert and motor intact. SKIN: LYMPHATICS: LABORATORY DATA: Hemoglobin 9.4. ASSESSMENT AND PLAN: 1. Stage 6 chronic kidney disease. Continue hemodialysis. 2. Hypertension, stable. 3. Anemia, stable. 4. Medication based on GFR appropriate. Job ID: [id number]
[2019-05-07] MEDS: Octreotide Acetate 1,250 MCG in Sodium Chloride 0.9% 250 ML 250 ML IVPB SCH (12:23)
[2019-05-07] MEDS: Escitalopram Oxalate 20 mg Tablet PO SCH (12:25)
[2019-05-07] MEDS: Losartan 25 MG TAB PO SCH (12:26)
[2019-05-07] MEDS: Pregabalin 50 MG CAP PO SCH ×2 (12:26→20:13)
[2019-05-07] MEDS: Rifaximin 550 MG TAB PO SCH ×2 (12:26→20:13)
[2019-05-07] MEDS: Loratadine 10 MG TAB PO SCH (12:27)
[2019-05-07] MEDS: Pantoprazole 40 MG VIAL IVP SCH ×2 (12:27→20:16)
--- NOTE | 2019-05-07 12:41 | PRG ---
DATE OF SERVICE: 05/07/2019 Please see note from Dr. Barry, for which I agree. The patient is here for symptomatic anemia and getting 3 units of blood. Hemoglobin is up to 9. Gets frequent EGDs and bleeds, and cauterized some gastric ectasias yesterday. Dr. Goss did that. So, waiting on GI's recommendations and certainly continue outpatient dialysis scheduling. May be able to be sent home fairly soon as long as H and H are stable. Job ID: [id number]
[2019-05-07] MEDS: Insulin Glargine 15 UNITS in Pre-Filled Syringe 1 EACH SC SCH ×2 (13:41→21:00)
[2019-05-07] MEDS ORDERED: Heparin 10,000 UNITS/1 ML VIAL ONE (15:00)
[2019-05-07] MEDS: Nadolol 40 MG TAB PO SCH (20:13)
[2019-05-07] MEDS: Atorvastatin Calcium 10 MG TAB PO SCH (20:15)
[2019-05-07] MEDS: cefTRIAXone\\ROCEPHIN 1 GM in Sodium Chloride 0.9% 100 ML IVPB SCH (23:36)
[2019-05-08] MEDS: Levothyroxine Sodium 75 MCG TAB PO SCH (05:56)
--- NOTE | 2019-05-08 06:16 | PDOC.FM ---
- Subjective Subjective: Pt is doing well today. She did endorse chronic itching diffusely. She denies melena but did state she had bright red blood per rectum from her hemorrhoids. - Objective Vital Signs & Weight: Vital Signs (12 hours) Temp Pulse Resp BP Pulse Ox 05/07/19 20:00 98.2 F 56 L 16 117/62 94 L Weight Weight 69.763 kg Most Recent Monitor Data Heart Rate from ECG 61 I&O: 05/06/19 05/07/19 05/08/19 06:59 06:59 06:59 Intake Total 103 670 6575 Balance 855 347 4764 Result Diagrams: 05/08/19 09:53 05/08/19 09:53 Phys Exam - Physical Examination Constitutional: NAD HEENT: PERRLA, moist MMs Respiratory: no wheezing, no rales, clear to auscultation bilateral Cardiovascular: RRR, no significant murmur Gastrointestinal: soft, non-tender, no distention, positive bowel sounds Musculoskeletal: no edema, pulses present Dx/Plan (1) Esophageal varices determined by endoscopy Code(s): I85.00 - ESOPHAGEAL VARICES WITHOUT BLEEDING Status: Acute (2) GAVE (gastric antral vascular ectasia) Code(s): K31.819 - ANGIODYSPLASIA OF STOMACH AND DUODENUM WITHOUT BLEEDING Status: Acute (3) Symptomatic anemia Code(s): D64.9 - ANEMIA, UNSPECIFIED Status: Acute (4) Anemia in chronic kidney disease, on chronic dialysis Code(s): N18.6 - END STAGE RENAL DISEASE; D63.1 - ANEMIA IN CHRONIC KIDNEY DISEASE; Z99.2 - DEPENDENCE ON RENAL DIALYSIS Status: Acute (5) Upper GI bleed Code(s): K92.2 - GASTROINTESTINAL HEMORRHAGE, UNSPECIFIED Status: Acute (6) Chronic diastolic CHF (congestive heart failure), NYHA class 3 Code(s): I50.32 - CHRONIC DIASTOLIC (CONGESTIVE) HEART FAILURE Status: Chronic (7) DM2 (diabetes mellitus, type 2) Status: Chronic Qualifiers: Diabetes mellitus complication status: with kidney complications Diabetes mellitus complication detail: with chronic kidney disease Chronic kidney disease stage: on chronic dialysis (8) ESRD on hemodialysis Code(s): N18.6 - END STAGE RENAL DISEASE; Z99.2 - DEPENDENCE ON RENAL DIALYSIS Status: Chronic (9) HLD (hyperlipidemia) Code(s): E78.5 - HYPERLIPIDEMIA, UNSPECIFIED Status: Chronic Qualifiers: Hyperlipidemia type: unspecified Qualified Code(s): E78.5 - Hyperlipidemia , unspecified - Plan Plan: Patient is a 64 yo female found to have Hgb of 6.0 during dialysis is admitted for symptomatic anemia and transfusion: #Anemia 2/2 gastric bleeding and anemia of chronic disease #ESRD on dialysis and GAVE/esophageal varices - Hgb 6.0 on admission, up to Hgb 8.2 today s/p 3 units pRBCs given 05/05. Stable at 9.4. Continue to monitor for another day to monitor H/H. - patient denies hematochezia, melena at this time - Consulted GI - Dr. Goss consulted from ED and performed EGD yesterday to cauterize gastric antral vasc ectasia. Pending note from GI for further workup. - Iron studies not ordered 2/2 recent transfusions - 1g Rocephin in ED, will cont daily - Continuing to trend hgb, pt will likely need weekly H&H drawn on outpt basis and transfused accordingly - Will contact GI 05/08, if H/H stable could possibly be discharged. Liver cirrhosis - Reports she thinks it is due to medications - GI aware of pt and familiar from prev visits - avoid liver toxicity medications - Daily CBC, INR ESRD on HD //Thu - Dr. Canseco consulted; underwent dialysis yesterday, today. HTN - continue home meds: Nadolol Esophageal Varices - continue Nadolol HLD - continue home meds: Lipitor DM2 - continue home meds: Levemir - insulin sliding scale Hypothyroidism - continue home meds: Levothyroxine Hypokalemia - monitor due to ESRD; pending mg, phos DVT: SCDs Diet: Renal Code: FULL Dispo: Possible discharge today if H/H is stable, will contact GI as well.
[2019-05-08] MEDS: Mometasone/Formoterol 120 PUFF INHALER INH SCH (07:47)
[2019-05-08] MEDS: Rifaximin 550 MG TAB PO SCH (08:21)
[2019-05-08] MEDS: Losartan 25 MG TAB PO SCH (08:21)
[2019-05-08] MEDS: Escitalopram Oxalate 20 mg Tablet PO SCH (08:22)
[2019-05-08] MEDS: Loratadine 10 MG TAB PO SCH (08:22)
[2019-05-08] MEDS: Midodrine HCl 5 MG TAB PO SCH (08:24)
[2019-05-08] MEDS: Pregabalin 50 MG CAP PO SCH (08:25)
[2019-05-08] MEDS: Pantoprazole 40 MG VIAL IVP SCH (08:26)
[2019-05-08] MEDS: Sevelamer Carbonate 800 MG TAB PO SCH ×2 (08:30→12:22)
[2019-05-08] MEDS: Insulin Glargine 15 UNITS in Pre-Filled Syringe 1 EACH SC SCH (08:32)
[2019-05-08 10:12] LABS: #Eosinphils 0.4 thou/uL (0.0-0.7); #Lymphocytes 0.9 thou/uL (1.20-3.40); #Monocytes 0.3 thou/uL (0.11-0.59); #Neutrophils 1.8 thou/uL (1.40-6.50); %Basophils 0.4 % (0.0-1.0); %Eosinophils 10.9 % (0.0-10.0); %Lymphocytes 26.7 % (21.0-51.0); Mean Corpuscular HGB CONC 32.3 g/dL (32.0-36.0); Mean Corpuscular Hemoglobin 32.5 pg (27.0-31.0); Mean Platelet Volume 10.2 fL (7.4-10.4); Platelet Count 49 thou/uL (130-400); RBC Distribution Width 19.2 % (11.5-14.5); Red Blood Cell (RBC) Count 3.07 mill/uL (4.20-5.40); White Blood Cell (WBC) Count 3.4 thou/uL (4.8-10.8)
[2019-05-08 10:17] LABS: INR-International Normal Ratio 1.2; PTT 27.9 SEC (22.9-36.1); Prothrombin Time 14.9 SEC (12.0-14.7)
[2019-05-08 10:27] LABS: ALT (SGPT) 10 U/L (8-55); AST (SGOT) 35 U/L (5-34); Albumin 2.8 g/dL (3.4-4.8); Alkaline Phosphatase 117 U/L (40-110); Anion Gap 15 mmol/L (10-20); BUN (Urea Nitrogen) 8 mg/dL (9.8-20.1); Calc. Creatinine Clearance 20 mL/min (70-130); Calcium 8.6 mg/dL (7.8-10.44); Carbon Dioxide 22 mmol/L (23-31); Chloride 99 mmol/L (98-107); Estimated GFR-MDRD 15; Globulin 3.9 g/dL (2.4-3.5); Glucose 134 mg/dL (80-115); Protein, Total 6.7 g/dL (6.0-8.3); Sodium 132 mmol/L (136-145)
[2019-05-08] MEDS ORDERED: diphenhydrAMINE 25 MG CAP PO PRN (11:05)
--- NOTE | 2019-05-08 11:29 | PRG ---
DATE OF SERVICE: 05/08/2019 SUBJECTIVE: This is a 64-year-old female who was seen because of her history of anemia and black tarry stool. She underwent EGD on Thursday and was found to have vascular ectasia of the gastric antrum and underwent APC. She also has had some ulceration in the pyloric channel, duodenum, and also gastric antrum from previous APC treatment. The ulcers are nonbleeding. She had done well over the last 24 hours. She has only one stool today, and the stool is actually dark, but not melanous. Her blood count has been fairly stable. The hemoglobin on 05/07/2019 was 9.4 and hematocrit 28.7. This morning, hemoglobin 10 and hematocrit 30.9. She offers no complaints. OBJECTIVE: VITAL SIGNS: Afebrile, pulse is 63, and blood pressure 117/62. CARDIOVASCULAR AND LUNGS: Within normal limits. ABDOMEN: Soft. No organomegaly. No tenderness. No masses. CLINICAL IMPRESSION: 1. Liver cirrhosis, portal hypertension. 2. Esophagus is nonbleeding. 3. Vascular ectasia, gastric antrum, status post argon plasma coagulation. 4. Multiple ulcers from previous argon plasma coagulation treatment, nonbleeding. RECOMMENDATIONS: 1. Advance diet to 1800-ADA diet. 2. PPI. 3. From GI standpoint, she can go home and follow up with Dr. Brandan Baugh. Job ID: [id number]
--- NOTE | 2019-05-08 12:06 | PRG ---
DATE OF SERVICE: 05/08/2019 SUBJECTIVE: A 64-year-old female, being seen for end-stage renal disease. The patient denied nausea, vomiting, or chest pain. OBJECTIVE: CONSTITUTIONAL: The patient is awake and alert. VITAL SIGNS: Pulse 60, breathing 16, and blood pressure 130/70. GENERAL APPEARANCE AND MENTAL STATUS: Fair. HEAD/NECK: Normocephalic. Atraumatic. EYES: EOMI. No deformity. EARS: Clear. No ulcers. NOSE: Intact. No lesions. MOUTH: Clear. No discharge. THROAT: Clear. No exudate. LUNGS: Clear. No crackles. CARDIAC: S1, S2. No rub. ABDOMEN: Benign. Bowel sounds positive. GENITALIA/RECTUM: Berman absent. BACK/EXTREMITIES: Edema 0+. NEUROLOGICAL: Alert and motor intact. SKIN: LYMPHATICS: LABORATORY DATA: Reviewed. ASSESSMENT AND PLAN: 1. Stage 6 chronic kidney disease, plan dialysis. 2. Hypertension, stable. 3. Anemia, stable. 4. Medication based on GFR appropriate. Job ID: [id number]
[2019-05-08 15:22] VITALS: BP 124/58; TEMP 98.3
--- NOTE | 2019-05-08 16:52 | CON ---
DATE OF CONSULTATION: Please see note from Dr. Barry for which I agree. The patient was seen, evaluated, discussed, and examined with the residents by bedside. The patient is stable. H and H have been fine. Hemoglobin this morning is 10. No evidence of current bleeding. Still getting dialysis. It sounds like as long as GI clears her, we will likely be able to send out hopefully today after labs are rechecked. Job ID: [id number]
--- NOTE | 2019-05-09 15:33 | OP ---
DATE OF PROCEDURE: 05/06/2019 PROCEDURE PERFORMED: Esophagogastroduodenoscopy with argon plasma coagulation. PREOPERATIVE DIAGNOSIS: Gastrointestinal bleeding. INDICATIONS FOR PROCEDURE: Ms. Yessy Olguin is a 64-year-old female with liver cirrhosis, portal hypertension. She has had esophageal banding in the past. She also has had multiple EGDs over through the years with vascular ectasia . Last one was done by Dr. Red Dumont on 04/13/2019 and has multiple areas of APC done to control bleeding. POSTOPERATIVE DIAGNOSIS: Two columns of varicosities, nonbleeding. No stigmata of bleeding seen. Normal GE junction. The patient has diffuse oozing of blood over the gastric antrum. The fundus, cardia, and proximal gastric body, no pathology. The duodenal bulb again showed some duodenitis and ulceration. She also had multiple ulcerations from previous APC over the gastric antrum. DESCRIPTION OF PROCEDURE: The patient was placed on her left lateral position and was given sedation by Anesthesia Department. A Pentax video gastroscope under direct vision passed down the oropharynx past the GE junction into the stomach. There had been no overt blood staining of the mucosa or the esophagus. She does have two columns of varicosities . They are nonbleeding. The GE junction, no pathology. Upon entering the stomach, the patient was found to have diffuse oozing of blood over the gastric antrum. There was diffuse coating in the mucosa with fresh blood. There was also some blistering seen over the gastric fundus and body, which was washed out. I do not see underlying bleeding points there. gastric antrum. Water was irrigated and washed out. After washing, there were 3 or 4 well defined areas of oozing of blood noted. She also had multiple ulcerations in the gastric antrum and also one ulcer in the pyloric channel, another ulcer in the duodenal bulb. They were not bleeding. The three areas where the blood was oozing from were cauterized with APC with good hemostasis. At the end of the procedure, no bleeding was seen. The stomach decompressed and the scope was removed. RECOMMENDATION: 1. Discontinue n.p.o. 2. Clear liquid diet. 3. Follow up H and H. 4. Transfuse p.r.n. Job ID: [id number]
== END 2019-05-08 14:13 | disposition home health service (06) | DRG 377 ==
LOC: ERS 18:05 → T4-B 21:10
PROVIDERS: ADMIT Family Medicine; ATTEND Family Medicine
PROC: 30233N1 Transfusion of Nonautologous Red Blood Cells into Peripheral Vein, Percutaneous Approach (ICD-10-PCS; 2019-05-05)
PROC: 5A1D70Z Performance of Urinary Filtration, Intermittent, Less than 6 Hours Per Day (ICD-10-PCS; 2019-05-05)
PROC: 0W3P8ZZ Control Bleeding in Gastrointestinal Tract, Via Natural or Artificial Opening Endoscopic (ICD-10-PCS; principal; 2019-05-06)
DX: K31.811 Angiodysplasia of stomach and duodenum with bleeding (principal); N18.6 End stage renal disease; I13.2 Hypertensive heart and chronic kidney disease with heart failure and with stage 5 chronic kidney disease, or end stage renal disease; K76.6 Portal hypertension; I50.32 Chronic diastolic (congestive) heart failure; K25.4 Chronic or unspecified gastric ulcer with hemorrhage; I85.10 Secondary esophageal varices without bleeding; E11.22 Type 2 diabetes mellitus with diabetic chronic kidney disease; E03.9 Hypothyroidism, unspecified; E78.5 Hyperlipidemia, unspecified; D63.1 Anemia in chronic kidney disease; E87.6 Hypokalemia; K74.60 Unspecified cirrhosis of liver; K31.89 Other diseases of stomach and duodenum; K26.9 Duodenal ulcer, unspecified as acute or chronic, without hemorrhage or perforation; Z88.2 Allergy status to sulfonamides; Z91.048 Other nonmedicinal substance allergy status; Z79.899 Other long term (current) drug therapy; Z79.4 Long term (current) use of insulin; Z79.890 Hormone replacement therapy; Z99.2 Dependence on renal dialysis
CPT/HCPCS: 36415; 36416; 36430; 80053; 83735; 84100; 85025; 85610; 85730; 86850; 86900; 86901; 87340; 94664; 96365; 96375; C9113; J0696; J1644; J1815; J2354; J3490; J7050; P9016

== ENCOUNTER 2019-06-04 12:50 | Emergency (ER) | payer BC, MEDICARE ==
[2019-06-04 15:55] LABS: #Eosinphils 0.2 thou/uL (0.0-0.7); #Lymphocytes 0.8 thou/uL (1.20-3.40); #Monocytes 0.2 thou/uL (0.11-0.59); #Neutrophils 2.3 thou/uL (1.40-6.50); %Basophils 1.1 % (0.0-1.0); %Eosinophils 4.8 % (0.0-10.0); %Lymphocytes 21.9 % (21.0-51.0); %Monocytes 6.9 % (0.0-10.0); %Neutrophils 65.4 % (42.0-75.0); Hemoglobin 7.6 g/dL (12.0-16.0); Mean Corpuscular HGB CONC 33.4 g/dL (32.0-36.0); Mean Corpuscular Hemoglobin 35.4 pg (27.0-31.0); Platelet Count 73 thou/uL (130-400); Red Blood Cell (RBC) Count 2.15 mill/uL (4.20-5.40); White Blood Cell (WBC) Count 3.5 thou/uL (4.8-10.8)
[2019-06-04 16:15] LABS: MDiff Complete? YES; Macrocytosis SLIGHT = 6-15 cells (100X) (0-5/hpf); Ovalocytes SLIGHT = 2-5 cells (100X) (0-1/hpf); Platelet Morphology Comment Appears Decreased; Polychromasia MODERATE = 3-4 cells (100X) (0-2/hpf); Tear Drops SLIGHT = 2-5 cells (100X) (0-1/hpf)
[2019-06-04 16:34] LABS: Anion Gap 12 mmol/L (10-20); BUN (Urea Nitrogen) 7 mg/dL (9.8-20.1); Calc. Creatinine Clearance 0 mL/min (70-130); Calcium 9.2 mg/dL (7.8-10.44); Carbon Dioxide 29 mmol/L (23-31); Chloride 100 mmol/L (98-107); Estimated GFR-MDRD 20; Glucose 176 mg/dL (80-115); Potassium 4.1 mmol/L (3.5-5.1); Sodium 137 mmol/L (136-145)
== END 2019-06-04 21:05 | disposition home or self-care (01) ==
LOC: ERS 12:50
DX: D64.9 Anemia, unspecified (principal); I12.9 Hypertensive chronic kidney disease with stage 1 through stage 4 chronic kidney disease, or unspecified chronic kidney disease; E11.22 Type 2 diabetes mellitus with diabetic chronic kidney disease; J45.909 Unspecified asthma, uncomplicated; M19.90 Unspecified osteoarthritis, unspecified site; N18.9 Chronic kidney disease, unspecified; E78.5 Hyperlipidemia, unspecified; K21.9 Gastro-esophageal reflux disease without esophagitis; E78.00 Pure hypercholesterolemia, unspecified; Z79.899 Other long term (current) drug therapy; Z79.4 Long term (current) use of insulin
CPT/HCPCS: 36415; 36430; 80048; 85025; 86850; 86900; 86901; 99284; P9016

== ENCOUNTER 2019-06-16 12:52 | Emergency (ER) | payer BC, MEDICARE ==
[2019-06-16 14:04] LABS: #Eosinphils 0.2 thou/uL (0.0-0.7); #Monocytes 0.3 thou/uL (0.11-0.59); #Neutrophils 2.6 thou/uL (1.40-6.50); %Basophils 0.7 % (0.0-1.0); %Eosinophils 5.4 % (0.0-10.0); %Lymphocytes 23.8 % (21.0-51.0); %Monocytes 6.9 % (0.0-10.0); %Neutrophils 63.2 % (42.0-75.0); Mean Corpuscular HGB CONC 31.7 g/dL (32.0-36.0); Mean Corpuscular Hemoglobin 34.4 pg (27.0-31.0); Mean Platelet Volume 9.8 fL (7.4-10.4); Platelet Count 67 thou/uL (130-400); RBC Distribution Width 20.2 % (11.5-14.5); Red Blood Cell (RBC) Count 2.03 mill/uL (4.20-5.40)
[2019-06-16 14:26] LABS: ALT (SGPT) 8 U/L (8-55); AST (SGOT) 20 U/L (5-34); Albumin 2.5 g/dL (3.4-4.8); Alkaline Phosphatase 88 U/L (40-110); Anion Gap 14 mmol/L (10-20); BUN (Urea Nitrogen) 22 mg/dL (9.8-20.1); Calc. Creatinine Clearance 0 mL/min (70-130); Calcium 9.2 mg/dL (7.8-10.44); Carbon Dioxide 24 mmol/L (23-31); Chloride 100 mmol/L (98-107); Estimated GFR-MDRD 8; Globulin 3.7 g/dL (2.4-3.5); Glucose 130 mg/dL (80-115); Potassium 4.2 mmol/L (3.5-5.1); Protein, Total 6.2 g/dL (6.0-8.3); Sodium 134 mmol/L (136-145)
== END 2019-06-17 06:59 | disposition home or self-care (01) ==
LOC: ERS 12:52
DX: N18.6 End stage renal disease (principal); D63.1 Anemia in chronic kidney disease; E11.22 Type 2 diabetes mellitus with diabetic chronic kidney disease; I12.0 Hypertensive chronic kidney disease with stage 5 chronic kidney disease or end stage renal disease; E03.9 Hypothyroidism, unspecified; K21.9 Gastro-esophageal reflux disease without esophagitis; E78.5 Hyperlipidemia, unspecified; E78.00 Pure hypercholesterolemia, unspecified; J45.909 Unspecified asthma, uncomplicated; Z99.2 Dependence on renal dialysis; Z79.899 Other long term (current) drug therapy
CPT/HCPCS: 36415; 36416; 36430; 80053; 84484; 85025; 86850; 86900; 86901; 93005; P9016

== ENCOUNTER 2019-07-14 18:34 | Inpatient (IN) | payer BC, MEDICARE ==
[2019-07-14 19:42] LABS: #Eosinphils 0.4 thou/uL (0.0-0.7); #Lymphocytes 1.1 thou/uL (1.20-3.40); #Monocytes 0.4 thou/uL (0.11-0.59); #Neutrophils 3.6 thou/uL (1.40-6.50); %Basophils 0.9 % (0.0-1.0); %Lymphocytes 19.8 % (21.0-51.0); %Monocytes 7.5 % (0.0-10.0); %Neutrophils 64.9 % (42.0-75.0); Hemoglobin 6.9 g/dL (12.0-16.0); Mean Corpuscular HGB CONC 32.5 g/dL (32.0-36.0); Mean Corpuscular Hemoglobin 35.3 pg (27.0-31.0); Mean Platelet Volume 8.9 fL (7.4-10.4); Platelet Count 87 thou/uL (130-400); RBC Distribution Width 17.7 % (11.5-14.5); Red Blood Cell (RBC) Count 1.96 mill/uL (4.20-5.40); White Blood Cell (WBC) Count 5.6 thou/uL (4.8-10.8)
[2019-07-14 19:48] LABS: INR-International Normal Ratio 1.1; PTT 28.8 SEC (22.9-36.1); Prothrombin Time 14.5 SEC (12.0-14.7)
[2019-07-14 20:03] LABS: ALT (SGPT) 9 U/L (8-55); AST (SGOT) 15 U/L (5-34); Albumin 2.7 g/dL (3.4-4.8); Alkaline Phosphatase 100 U/L (40-110); Anion Gap 11 mmol/L (10-20); BUN (Urea Nitrogen) 6 mg/dL (9.8-20.1); Bilirubin, Total 1.4 mg/dL (0.2-1.2); Calc. Creatinine Clearance 0 mL/min (70-130); Calcium 8.8 mg/dL (7.8-10.44); Carbon Dioxide 31 mmol/L (23-31); Chloride 97 mmol/L (98-107); Estimated GFR-MDRD 18; Globulin 3.8 g/dL (2.4-3.5); Glucose 251 mg/dL (80-115); Potassium 3.6 mmol/L (3.5-5.1); Protein, Total 6.5 g/dL (6.0-8.3); Sodium 135 mmol/L (136-145)
[2019-07-14] MEDS ORDERED: Pantoprazole 40 MG VIAL ONE (20:03)
[2019-07-14] MEDS ORDERED: Pantoprazole 80 MG in Sodium Chloride 0.9% 100 ML IVP SCH (20:15)
[2019-07-14] MEDS ORDERED: Acetaminophen 325 MG TAB PO PRN (21:52)
[2019-07-14] MEDS ORDERED: Senokot S 8.6-50 MG TAB PO PRN (21:52)
[2019-07-14 23:16] VITALS: BMI 30.2
[2019-07-15 00:44] LABS: Hemoglobin 7.2 g/dL (12.0-16.0)
--- NOTE | 2019-07-15 03:58 | HP ---
CHIEF COMPLAINT: Low H and H and generalized weakness. HISTORY OF PRESENT ILLNESS: The patient is a very pleasant 64-year-old female with a history of end-stage renal disease, on dialysis. She also has a history of GAVE, who presents to the hospital with complaints of generalized weakness and also due to her abnormal lab value. The patient states that for the past few days she has not been feeling well. She has been feeling tired and occasional dizziness. The patient states that she did get her lab work checked and was told that her levels were low, so she needed to come into the ER for a blood transfusion. She denies any abdominal pain, nausea, vomiting. She has been tolerating her oral intake just fine. She did state that she has been having dark stools. However, she is unclear if this has been going on for days or weeks since she really not able to see appropriately. However, she also states that she does have some bright blood, when she wipes, when she goes to the bathroom, but this is probably she attributes this to her hemorrhoids. PAST MEDICAL HISTORY: As of the following. 1. Liver cirrhosis due to steatohepatitis. 2. Esophageal varices. 3. Anemia. 4. Chronic kidney disease. 5. Hypothyroidism. 6. Diabetes. 7. Thrombocytopenia due to hypersplenism. 8. GAVE. SOCIAL HISTORY: She does not drink, smoke, or any drug use. She is a full code. ALLERGIES: ALLERGIC TO TAPE AND SULFA. MEDICATIONS: Are as of the following. She is on, 1. Pantoprazole 40 mg b.i.d. 2. Nadolol 20 mg nightly. 3. Midodrine 10 mg daily. 4. Losartan 25 mg daily. 5. Lactulose 10 mg daily. 6. Insulin 15 units b.i.d. 7. Fluticasone as needed. 8. Iron 325 p.o. daily. 9. Sertraline 10 mg p.o. daily. 10. She is also on pregabalin 50 mg b.i.d. 11. Sevelamer t.i.d. 12. Rifaximin 550 mg b.i.d. 13. Atorvastatin 10 mg daily. 14. Escitalopram 20 mg daily. 15. Levothyroxine 225 mcg daily. FAMILY HISTORY: No history of heart disease or strokes. REVIEW OF SYSTEMS: All negative except for the ones mentioned above in the HPI. PHYSICAL EXAMINATION: VITAL SIGNS: Are as of the following, her temperature is 98.4, pulse 67, respirations 18, oxygen saturation 100% on 2 L, and blood pressure of 111/56. GENERAL: She is awake, alert, and oriented x3. Does not appear in distress. HEENT: Normocephalic and atraumatic. No lymphadenopathy noted. Pupils are equal and reactive to light. CV: S1 and S2 present. No murmurs, rubs, or gallops. LUNGS: Clear to auscultation. No rhonchi or wheezes noted. ABDOMEN: Obese. Bowel sounds are present x2. No pain upon palpation. EXTREMITIES: No edema. Pedal pulses are present x2. NEUROVASCULAR: There are no focal deficits noted. SKIN: No cuts, lesions, or bruises noted. LABORATORY RESULTS: As of the following: Her H and H were found to be initially was 5.8 at the outside facility, was 6.9 on repeat. Her WBCs of 5.6. Her hematocrit of 21.3. Her platelet count is 87. Her chemistry, her sodium is 135, potassium of 3.6, BUN of 6, and creatinine of 2.62. Sugar was 251. Her total bilirubin was 1.4. ASSESSMENT AND PLAN: The patient is a very pleasant 64-year-old female, who presents to the hospital for abnormal lab value. 1. Anemia, most likely secondary to her grade 2 esophageal varices versus arteriovenous malformation versus gastric antral vascular ectasia. The patient in April underwent an esophagogastroduodenoscopy and cauterization of the gastric antral vascular ectasia. During her previous hospitalization, she received 3 units of blood and her hemoglobin was stable at 9.4. She follows up with GI as an outpatient. We will start continue patient on Protonix IV. GI had been consulted. She was given 1 unit of packed red blood cells. We will check H and H and continue to monitor. 2. History of end-stage renal disease, on dialysis. She gets dialysis on Tuesdays, , and Saturdays. We will consult Nephrology. 3. Diabetes. We will continue her home medication. I will put on Accu-Cheks before meals and bedtime. 4. Thrombocytopenia. This appears to be chronic in nature. We will continue to monitor. 5. Deep vein thrombosis prophylaxis. We will put the patient on SCDs. Job ID: [id number]
[2019-07-15 05:09] LABS: Anion Gap 11 mmol/L (10-20); BUN (Urea Nitrogen) 9 mg/dL (9.8-20.1); Calc. Creatinine Clearance 22 mL/min (70-130); Calcium 8.4 mg/dL (7.8-10.44); Carbon Dioxide 28 mmol/L (23-31); Chloride 98 mmol/L (98-107); Estimated GFR-MDRD 16; Glucose 194 mg/dL (80-115); Potassium 3.5 mmol/L (3.5-5.1); Sodium 133 mmol/L (136-145)
[2019-07-15] MEDS: Levothyroxine Sodium 75 MCG TAB PO SCH (05:11)
[2019-07-15 05:36] LABS: #Eosinphils 0.2 thou/uL (0.0-0.7); #Lymphocytes 0.8 thou/uL (1.20-3.40); #Monocytes 0.2 thou/uL (0.11-0.59); %Basophils 0.9 % (0.0-1.0); %Eosinophils 5.5 % (0.0-10.0); %Lymphocytes 25.6 % (21.0-51.0); %Monocytes 7.3 % (0.0-10.0); %Neutrophils 60.7 % (42.0-75.0); Anisocytosis SLIGHT = 6-15 cells (100X) (0-5/hpf); Hemoglobin 6.8 g/dL (12.0-16.0); MDiff Complete? YES; Macrocytosis SLIGHT = 6-15 cells (100X) (0-5/hpf); Mean Corpuscular HGB CONC 32.7 g/dL (32.0-36.0); Mean Corpuscular Hemoglobin 33.9 pg (27.0-31.0); Mean Platelet Volume 9.4 fL (7.4-10.4); Platelet Count 56 thou/uL (130-400); Platelet Morphology Comment Appears Decreased; RBC Distribution Width 19.9 % (11.5-14.5); Red Blood Cell (RBC) Count 1.99 mill/uL (4.20-5.40); White Blood Cell (WBC) Count 3.2 thou/uL (4.8-10.8)
[2019-07-15] MEDS: Mometasone/Formoterol 120 PUFF INHALER INH SCH ×2 (07:22→19:14)
[2019-07-15] MEDS: Sevelamer Carbonate 800 MG TAB PO SCH ×3 (08:24→17:52)
[2019-07-15] MEDS: Pregabalin 50 MG CAP PO SCH ×2 (08:25→20:34)
[2019-07-15] MEDS: Rifaximin 550 MG TAB PO SCH ×2 (08:25→20:34)
[2019-07-15] MEDS: Escitalopram Oxalate 20 mg Tablet PO SCH (08:25)
[2019-07-15] MEDS: Ferrous Sulfate 325 MG TAB PO SCH (08:25)
[2019-07-15] MEDS: Insulin Glargine 10 UNITS in Pre-Filled Syringe 1 EACH SC SCH ×2 (08:46→20:36)
[2019-07-15] MEDS ORDERED: Non-Formulary Item 1 EACH (Insulin Detemir [Levemir Flextouch] 10 UNIT) SQ SCH (09:00)
[2019-07-15] MEDS ORDERED: Sodium Chloride 0.9% 10 ML ONE (09:27)
--- NOTE | 2019-07-15 12:57 | PDOC.HOSPP ---
- Subjective Encounter Date: 07/15/19 Encounter Time: 10:15 Subjective: no shagufta bleeding per rectum or hematemesis has h/o hemorrhoids with blood on tissue occasionally which is chronic but not present now no sob - Objective Vital Signs & Weight: Vital Signs (12 hours) Temp Pulse Resp BP Pulse Ox 07/15/19 11:30 98.0 F 65 19 111/55 L 98 07/15/19 07:19 98.2 F 65 16 99/52 L 99 07/15/19 04:30 99 F 67 16 114/53 L 99 Weight Weight 165 lb 1 oz I&O: 07/14/19 07/15/19 07/16/19 06:59 06:59 06:59 Intake Total 480 Output Total 0 Balance 480 Result Diagrams: 07/15/19 04:26 07/15/19 04:26 Additional Labs: Accuchecks 07/15/19 05:18 POC Glucose 220 H Hospitalist ROS - Medication Medications: Active Medications Generic Name Dose Route Start Last Admin Trade Name Freq PRN Reason Stop Dose Admin Escitalopram Oxalate 20 mg 07/15/19 09:00 07/15/19 08:25 Lexapro PO 20 mg DAILY YORDAN Administration Ferrous Sulfate 325 mg 07/15/19 09:00 07/15/19 08:25 Feosol PO 325 mg DAILY YORDAN Administration Insulin Glargine 10 units/ 0.1 mls @ 0 mls/hr 07/15/19 09:00 07/15/19 08:46 Miscellaneous Medication SC 0.1 mls BID YORDAN Administration Levothyroxine Sodium 225 mcg 07/15/19 06:00 07/15/19 05:11 Synthroid PO Not Given 0600 YORDAN Mometasone Furoate/Formoterol Fumar 2 puff 07/15/19 06:30 07/15/19 07:22 Dulera 100 Mcg/5 Mcg Inhaler INH 2 puff BID-RT YORDAN Administration Pregabalin 50 mg 07/15/19 09:00 07/15/19 08:25 Lyrica PO 50 mg BID YORDAN Administration Rifaximin 550 mg 07/15/19 09:00 07/15/19 08:25 Xifaxan PO 550 mg BID YORDAN Administration Sevelamer Carbonate 1,600 mg 07/15/19 08:00 07/15/19 08:24 Renvela PO Not Given TID-WM YORDAN - Exam General Appearance: awake alert General - other findings: pallor+ Eye: anicteric sclera ENT: normocephalic atraumatic, no oropharyngeal lesions, moist mucosa Neck: supple, no JVD Heart: RRR, no murmur Respiratory: no wheezes, no rales Gastrointestinal: soft, non-tender, normal bowel sounds, distended Extremities: no cyanosis, 1+ LE edema Skin: normal turgor, no rashes Neurological: cranial nerve grossly intact, no focal deficits Psychiatric: normal affect, A&O x 3 Hosp A/P (1) Symptomatic anemia Code(s): D64.9 - ANEMIA, UNSPECIFIED Status: Acute (2) Esophageal varices determined by endoscopy Code(s): I85.00 - ESOPHAGEAL VARICES WITHOUT BLEEDING Status: Chronic (3) GAVE (gastric antral vascular ectasia) Code(s): K31.819 - ANGIODYSPLASIA OF STOMACH AND DUODENUM WITHOUT BLEEDING Status: Chronic (4) Cirrhosis Code(s): K74.60 - UNSPECIFIED CIRRHOSIS OF LIVER Status: Chronic Qualifiers: Hepatic cirrhosis type: unspecified hepatic cirrhosis (5) Chronic diastolic CHF (congestive heart failure), NYHA class 3 Code(s): I50.32 - CHRONIC DIASTOLIC (CONGESTIVE) HEART FAILURE Status: Chronic (6) DM2 (diabetes mellitus, type 2) Status: Chronic Qualifiers: Diabetes mellitus terminal manager insulin use: with terminal manager use Diabetes mellitus complication status: with kidney complications Diabetes mellitus complication detail: with chronic kidney disease Chronic kidney disease stage : on chronic dialysis Qualified Code(s): E11.22 - Type 2 diabetes mellitus with diabetic chronic kidney disease; N18.6 - End stage renal disease; Z79.4 - terminal block assembler (current) use of insulin; Z99.2 - Dependence on renal dialysis (7) ESRD on hemodialysis Code(s): N18.6 - END STAGE RENAL DISEASE; Z99.2 - DEPENDENCE ON RENAL DIALYSIS Status: Chronic (8) HLD (hyperlipidemia) Code(s): E78.5 - HYPERLIPIDEMIA, UNSPECIFIED Status: Chronic Qualifiers: Hyperlipidemia type: unspecified Qualified Code(s): E78.5 - Hyperlipidemia , unspecified (9) Hypertension Code(s): I10 - ESSENTIAL (PRIMARY) HYPERTENSION Status: Chronic Qualifiers: Hypertension type: essential hypertension Qualified Code(s): I10 - Essential (primary) hypertension (10) Hypothyroidism Code(s): E03.9 - HYPOTHYROIDISM, UNSPECIFIED Status: Chronic Qualifiers: Hypothyroidism type: acquired Qualified Code(s): E03.9 - Hypothyroidism, unspecified (11) Thrombocytopenia Code(s): D69.6 - THROMBOCYTOPENIA, UNSPECIFIED Status: Chronic - Plan is getting 1 u prbc with HD today will have short duration dialysis per staff is npo for possible EGD, await GI eval pt normally f/u with and for anemia continue amiodarone, lipitor, coreg, hydralazine, lantus, glipizide, synthroid. eliquis and asp held for now hemostable
--- NOTE | 2019-07-15 17:42 | CON ---
DATE OF CONSULTATION: 07/15/2019 CONSULTING PHYSICIAN: Dr. Ellis. REASON FOR CONSULTATION: End-stage renal disease evaluation and care. REASON FOR ADMISSION: Anemia. HISTORY OF PRESENT ILLNESS: This is a 64-year-old female with history of cirrhosis, varices, anemia, CKD, diabetes, came to the hospital with abnormal labs and low hemoglobin. She denies any bleeding. No chest pain or palpitations. PAST MEDICAL HISTORY: Positive for cirrhosis, esophageal varices, anemia, end-stage renal disease, hypothyroidism, diabetes, thrombocytopenia, and GAVE. PAST SURGICAL HISTORY: Dialysis access placement. HOME MEDICATIONS: Reviewed. ALLERGIES: TO TAPE AND SULFA. SOCIAL HISTORY: No smoking, alcohol, or illicit drug use. FAMILY HISTORY: No history of kidney disease. REVIEW OF SYSTEMS: CONSTITUTIONAL: Negative for weight loss or gain, ability to conduct usual activities. SKIN: Negative for rash, itching. EYES: Negative for double vision, pain. ENT/MOUTH: Negative for nose bleeding, neck stiffness, pain, tenderness. CARDIOVASCULAR: Negative for palpitations, dyspnea on exertion, orthopnea. RESPIRATORY: Negative for shortness of breath, wheezing, cough, hemoptysis, fever or night sweats. GASTROINTESTINAL: Negative for poor appetite, abdominal pain, heartburn, nausea, vomiting, constipation, or diarrhea. GENITOURINARY: Negative for urgency, frequency, dysuria, nocturia. MUSCULOSKELETAL: Negative for pain, swelling. NEUROLOGIC/PSYCHIATRIC: Negative for anxiety, depression. ALLERGY/IMMUNOLOGIC: Negative for skin rash, bleeding tendency. Rest all negative review of systems. PHYSICAL EXAMINATION: GENERAL: This is a well-built female, in no apparent distress. VITAL SIGNS: Temperature 98.2, pulse 72, respiratory rate 16, blood pressure 107/53. HEENT: Atraumatic, normocephalic. Oral mucosa moist. NECK: Supple. CV: S1 and S2. Rate and rhythm regular. RESPIRATORY: Clear. GASTROINTESTINAL: Abdomen is soft. MUSCULOSKELETAL: 1+ edema. DERMATOLOGIC: No skin rash. NEUROLOGICAL: Alert and awake. PSYCHIATRIC: Mood and affect are normal. LABORATORY DATA: Hemoglobin is 6.8. Potassium 3.5, sodium is 133, BUN is 9, and creatinine is 3.03. ASSESSMENT AND PLAN: 1. End-stage renal disease, continue on hemodialysis as tolerated. 2. Edema, controlled. 3. Hypotension. 4. Anemia. Follow up with GI and we will transfuse with dialysis. Monitor labs. Monitor for bleeding. We will continue on dialysis. Plan is to have dialysis for 2 hours for blood transfusion and then continue dialysis Thursday, , Thursday per her schedule. Follow up with GI. Job ID: [id number]
[2019-07-15] MEDS ORDERED: Pantoprazole 80 MG in Sodium Chloride 0.9% 100 ML IVP SCH (19:30)
--- NOTE | 2019-07-15 19:40 | CON ---
DATE OF CONSULTATION: 07/15/2019 REASON FOR CONSULTATION: Anemia, melena, and history of cirrhosis. CONSULTING PROVIDER: Dr. Charo Ellis. HISTORY OF PRESENT ILLNESS: The patient is a 64-year-old female with past medical history of end-stage renal disease on hemodialysis, hypertension, hyperlipidemia, diabetes, gastric antral vascular ectasias, and cirrhosis complicated by esophageal varices and hepatic encephalopathy, presenting with complaints of generalized weakness and fatigue. She states that she was in her usual state of health until approximately 2 weeks ago when she began to have progressive worsening over the same time. That was associated with increased somnolence throughout the day and frequent naps. However, over the last week, she also had increased frequency of black semi-solid stools, having approximately 1 to 3 of these bowel movements per day consistent with prior episodes of GI bleeding in the past. Given her increased weakness in the appearance of these dark stools, then prompted her to seek healthcare assistance in [facility] ER for further evaluation. On initial evaluation, she was noted to have a significantly decreased H and H when compared to previous and was ultimately admitted to the hospital for further evaluation. Currently, she states that she is feeling better after infusion of 2 units of PRBCs. She currently denies any nausea, vomiting, fevers, chills, hematemesis, hematochezia, dysphagia, odynophagia, weight loss, jaundice, or encephalopathy. Of note, the patient was being evaluated as an outpatient for recurrent bleeding from these gastric antral vascular ectasias. She was planned to be started on octreotide depot injection in order to treat this particular condition, but had not been approved by her insurance company until last week (as such, she has not received this medications thus far). REVIEW OF SYSTEMS: A 10-category review of systems was obtained with all responses negative except for the pertinent positives as listed in HPI. PAST MEDICAL HISTORY: As per HPI. 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 FAMILY HISTORY: She states that her mother was diagnosed with chronic liver disease/cirrhosis, but otherwise denies any GI malignancies. OUTPATIENT MEDICATIONS: Reviewed. ALLERGIES: SULFA AND ADHESIVES. SOCIAL HISTORY: Denies any tobacco, alcohol, or illicit drug use. PHYSICAL EXAMINATION: VITAL SIGNS: Temperature 98.2, pulse 72, blood pressure 107/53, respiratory rate 16, and saturating 98% on room air. GENERAL: The patient was lying in bed, in no acute distress. Alert and oriented x4. HEENT: Normocephalic and atraumatic. NECK: Supple. No JVD or scleral icterus noted. CARDIOVASCULAR: Regular rate and rhythm with a 3/6 systolic murmur best heard at the upper left sternal border. No gallops or rubs auscultated. RESPIRATORY: Clear to auscultation bilaterally with no discernible wheezes or rales. ABDOMEN: Normoactive bowel sounds. Soft, nontender, and nondistended. EXTREMITIES: No cyanosis, clubbing, or edema. LABORATORY DATA: CBC with a white blood cell count of 3.2, hemoglobin 6.8, hematocrit 20.6, platelets 56. INR 1.1. Chemistry with a sodium of 133, potassium 3.5, chloride 98, CO2 of 28, BUN 9, creatinine 3.03, glucose 194. AST 15, ALT 9, alkaline phosphatase 100, and total bilirubin 1.4. Calculated MELD score of 25. IMAGING DATA: No current GI imaging is available for review. ASSESSMENT AND PLAN: The patient is a 64-year-old female with past medical history of end-stage renal disease on hemodialysis, hypertension, hyperlipidemia, diabetes, gastric antral vascular ectasias, and cirrhosis complicated by esophageal varices and hepatic encephalopathy, presenting with recurrence of significant anemia, most likely due to rebleeding of the vascular ectasias. Anemia/gastric antral vascular ectasia. The patient is presenting with increased weakness, somnolence, and black colored stools over the last 1 to 2 weeks, consistent with her prior episodes of bleeding in the past from gastric antral vascular ectasias. Per chart review, the patient underwent upper endoscopy in April 2019, which showed significant vascular ectasias within the gastric antrum, some of which were actively oozing blood and were ultimately amenable to cauterization. Based on her current constellation of symptoms, they are consistent with a repeat episode of bleeding from these lesions, for which the patient was planned to start octreotide as an outpatient, but has not been started as of yet. At this time, the patient would likely benefit from upper endoscopy for repeat evaluation and probable cauterization of these bleeding/oozing lesions. Recommendations: 1. We would continue to trend her H and H and transfuse as necessary to maintain an H and H of 7/21. 2. Continue to monitor clinically for signs of active GI bleeding. 3. We would continue the patient on PPI daily in light of upper GI bleed. 4. We would start the patient on antibiotic and ceftriaxone 1 g daily in light of prophylaxis in a cirrhotic patient with GI bleed. 5. We would make the patient n.p.o. at midnight in preparation for EGD tomorrow with likely APC cauterization of GAVE. Cirrhosis. The patient is currently presenting with a prior diagnosis of cirrhosis with prior workup for her cirrhosis negative for an obvious etiology and ultimately diagnosed with cryptogenic cirrhosis (although, the patient may have had fatty liver contributing to this particular issue). The patient is currently presenting with decompensated liver disease given the presence of her esophageal varices and hepatic encephalopathy in the past, both of which are currently stable, currently with a calculated MELD score of approximately 25 with the elevated calculation, most likely due to her end-stage renal disease. Imaging is up to date so far in terms of screening for any hepatic lesion/hepatomas. Recommendations: 1. We would continue the patient on her outpatient dosing of lactulose for her history of hepatic encephalopathy as well as Xifaxan 550 mg b.i.d. 2. We would have the patient follow up in the outpatient clinic within 1 to 2 weeks of discharge for continued monitoring of her cirrhosis. We will continue to follow. Please call with any questions. Job ID: [id number]
[2019-07-15] MEDS: Pantoprazole 80 MG, Admixture Fee 1 EACH in Sodium Chloride 0.9% 100 ML IVP SCH (20:06)
[2019-07-15] MEDS: Nadolol 40 MG TAB PO SCH (20:33)
[2019-07-15] MEDS: Atorvastatin Calcium 10 MG TAB PO SCH (20:34)
[2019-07-16] MEDS: Pantoprazole 80 MG, Admixture Fee 1 EACH in Sodium Chloride 0.9% 100 ML IVP SCH (05:28)
[2019-07-16] MEDS: Levothyroxine Sodium 75 MCG TAB PO SCH (05:28)
[2019-07-16] MEDS: Mometasone/Formoterol 120 PUFF INHALER INH SCH ×2 (07:47→21:43)
[2019-07-16] MEDS ORDERED: Ondansetron HCl/PF 4 MG/2 ML Vial IVP PRN ×2 (08:36→09:12)
[2019-07-16] MEDS ORDERED: Promethazine HCl 25 MG/ML VIAL SLOW IVP PRN ×2 (08:36→09:12)
[2019-07-16] MEDS ORDERED: Promethazine HCl 25 MG/ML VIAL IM PRN ×2 (08:36→09:12)
[2019-07-16] MEDS ORDERED: Ketamine 50 MG/ML (10ML VIAL) ONE (08:42)
[2019-07-16] MEDS: Sevelamer Carbonate 800 MG TAB PO SCH ×3 (10:07→17:14)
[2019-07-16] MEDS ORDERED: PHENYLEPHRINE-NS 100 MCG/ML 10 ML SYRINGE ONE (10:21)
[2019-07-16] MEDS ORDERED: PROPOFOL 200 MG/20 ML VIAL ONE (10:21)
[2019-07-16] MEDS ORDERED: ePHEDrine/0.9% NaCl/PF SYRINGE 50 mg/10 ml ONE (10:21)
[2019-07-16 11:28] LABS: Anion Gap 10 mmol/L (10-20); BUN (Urea Nitrogen) 8 mg/dL (9.8-20.1); Calc. Creatinine Clearance 20 mL/min (70-130); Calcium 8.2 mg/dL (7.8-10.44); Carbon Dioxide 29 mmol/L (23-31); Chloride 99 mmol/L (98-107); Estimated GFR-MDRD 15; Glucose 97 mg/dL (80-115); Potassium 3.7 mmol/L (3.5-5.1); Sodium 134 mmol/L (136-145)
[2019-07-16 11:55] LABS: Hemoglobin 7.8 g/dL (12.0-16.0); Mean Corpuscular Hemoglobin 33.4 pg (27.0-31.0); Mean Platelet Volume 9.9 fL (7.4-10.4); Platelet Count 53 thou/uL (130-400); RBC Distribution Width 20.1 % (11.5-14.5); Red Blood Cell (RBC) Count 2.32 mill/uL (4.20-5.40); White Blood Cell (WBC) Count 2.8 thou/uL (4.8-10.8)
--- NOTE | 2019-07-16 12:02 | PDOC.HOSPP ---
- Subjective Encounter Date: 07/16/19 Encounter Time: 11:00 Subjective: is getting HD, had EGD done this am no sob or pain no shagufta bleeding per rectum overnight - Objective Vital Signs & Weight: Vital Signs (12 hours) Temp Pulse Resp BP Pulse Ox 07/16/19 07:47 60 16 07/16/19 07:24 98.0 F 60 16 101/56 L 98 07/16/19 04:28 98.1 F 61 20 103/56 L 94 L Weight Weight 157 lb 9 oz I&O: 07/15/19 07/16/19 07/17/19 06:59 06:59 06:59 Intake Total 480 520 Output Total 0 200 Balance 480 320 Result Diagrams: 07/15/19 04:26 07/16/19 10:43 Additional Labs: Accuchecks 07/16/19 07/15/19 05:58 20:38 POC Glucose 87 225 H Hospitalist ROS - Medication Medications: Active Medications Generic Name Dose Route Start Last Admin Trade Name Freq PRN Reason Stop Dose Admin Atorvastatin Calcium 10 mg 07/15/19 21:00 07/15/19 20:34 Lipitor PO 10 mg HS YORDAN Administration Escitalopram Oxalate 20 mg 07/15/19 09:00 07/15/19 08:25 Lexapro PO 20 mg DAILY YORDAN Administration Ferrous Sulfate 325 mg 07/15/19 09:00 07/15/19 08:25 Feosol PO 325 mg DAILY YORDAN Administration Insulin Glargine 10 units/ 0.1 mls @ 0 mls/hr 07/15/19 09:00 07/15/19 20:36 Miscellaneous Medication SC 0.1 mls BID YORDAN Administration Pantoprazole Sodium 80 mg/ 100 mls @ 10 mls/hr 07/15/19 20:00 07/16/19 05:28 Miscellaneous Medication 1 IVP 100 mls each/ Sodium Chloride INF YORDAN Administration Levothyroxine Sodium 225 mcg 07/15/19 06:00 07/16/19 05:28 Synthroid PO 225 mcg 0600 YORDAN Administration Mometasone Furoate/Formoterol Fumar 2 puff 07/15/19 06:30 07/16/19 07:47 Dulera 100 Mcg/5 Mcg Inhaler INH 2 puff BID-RT YORDAN Administration Nadolol 20 mg 07/15/19 21:00 07/15/19 20:33 Corgard PO 20 mg HS YORDAN Administration Pregabalin 50 mg 07/15/19 09:00 07/15/19 20:34 Lyrica PO 50 mg BID YORDAN Administration Rifaximin 550 mg 07/15/19 09:00 07/15/19 20:34 Xifaxan PO 550 mg BID YORDAN Administration Sevelamer Carbonate 1,600 mg 07/15/19 08:00 07/16/19 10:07 Renvela PO Not Given TID-WM YORDAN - Exam General Appearance: awake alert General - other findings: pallor+ Eye: anicteric sclera ENT: no oropharyngeal lesions, dry oral mucosa Neck: supple, no JVD Heart: RRR, no murmur Respiratory: no wheezes, no rales Gastrointestinal: soft, non-tender, non-distended, normal bowel sounds Extremities: no cyanosis, no edema Neurological: cranial nerve grossly intact, no focal deficits Psychiatric: normal affect, A&O x 3 Hosp A/P (1) Vascular ectasia of stomach with hemorrhage Code(s): K31.811 - ANGIODYSPLASIA OF STOMACH AND DUODENUM WITH BLEEDING Status : Acute (2) Symptomatic anemia Code(s): D64.9 - ANEMIA, UNSPECIFIED Status: Acute (3) Esophageal varices determined by endoscopy Code(s): I85.00 - ESOPHAGEAL VARICES WITHOUT BLEEDING Status: Chronic (4) Cirrhosis Code(s): K74.60 - UNSPECIFIED CIRRHOSIS OF LIVER Status: Chronic Qualifiers: Hepatic cirrhosis type: unspecified hepatic cirrhosis (5) Chronic diastolic CHF (congestive heart failure), NYHA class 3 Code(s): I50.32 - CHRONIC DIASTOLIC (CONGESTIVE) HEART FAILURE Status: Chronic (6) DM2 (diabetes mellitus, type 2) Status: Chronic Qualifiers: Diabetes mellitus 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 Diabetes mellitus complication status: with kidney complications Diabetes mellitus complication detail: with chronic kidney disease Chronic kidney disease stage : on chronic dialysis Qualified Code(s): E11.22 - Type 2 diabetes mellitus with diabetic chronic kidney disease; N18.6 - End stage renal disease; 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 of 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; Z99.2 - Dependence on renal dialysis (7) ESRD on hemodialysis Code(s): N18.6 - END STAGE RENAL DISEASE; Z99.2 - DEPENDENCE ON RENAL DIALYSIS Status: Chronic (8) HLD (hyperlipidemia) Code(s): E78.5 - HYPERLIPIDEMIA, UNSPECIFIED Status: Chronic Qualifiers: Hyperlipidemia type: unspecified Qualified Code(s): E78.5 - Hyperlipidemia , unspecified (9) Hypertension Code(s): I10 - ESSENTIAL (PRIMARY) HYPERTENSION Status: Chronic Qualifiers: Hypertension type: essential hypertension Qualified Code(s): I10 - Essential (primary) hypertension (10) Hypothyroidism Code(s): E03.9 - HYPOTHYROIDISM, UNSPECIFIED Status: Chronic Qualifiers: Hypothyroidism type: acquired Qualified Code(s): E03.9 - Hypothyroidism, unspecified (11) Thrombocytopenia Code(s): D69.6 - THROMBOCYTOPENIA, UNSPECIFIED Status: Chronic - Plan had 1 u prbc with HD yesterday, will repeat cbc in am EGD showed active oozing from GAVE in antrum, s/p argon plasma coagulation, had gr 2 esophageal varices, mild portal gastropathy. to start octreotide per GI adv on discharge continue lipitor, nadolol, lantus, synthroid, oral iron, xifaxan, lexapro, renvela and dulera inh. hemostable clinically appears pale, will recheck cbc in am and transfuse if needed or dc home
[2019-07-16 12:06] LABS: Band 13 % (5-11); Eosinophils 1 % (0-10); Lymphocytes 11 % (21-51); MDiff Complete? YES; Monocytes 3 % (0-10); Neutrophil 72 % (42-75); Platelet Morphology Comment Appears Decreased
[2019-07-16] MEDS: Ferrous Sulfate 325 MG TAB PO SCH (14:37)
[2019-07-16] MEDS: Rifaximin 550 MG TAB PO SCH ×2 (14:38→20:31)
[2019-07-16] MEDS: Escitalopram Oxalate 20 mg Tablet PO SCH (14:38)
[2019-07-16] MEDS: Pregabalin 50 MG CAP PO SCH ×3 (14:39→20:30)
[2019-07-16] MEDS: Insulin Glargine 10 UNITS in Pre-Filled Syringe 1 EACH SC SCH ×2 (14:39→20:34)
--- NOTE | 2019-07-16 14:57 | PRG ---
DATE OF SERVICE: 07/16/2019 SUBJECTIVE: Patient was seen and examined at bedside and overnight events noted. Patient denies any shortness of breath or chest pain or palpitation. No history of nausea or vomiting or diarrhea or fever or chills or cramps. OBJECTIVE: GENERAL: This is a well-built female, in no apparent distress. VITAL SIGNS: Temperature 98.0. Heart rate 60. Respiratory rate 16. Blood pressure 101/56. HEENT: Atraumatic, normocephalic. Oral mucosa is moist NECK: Supple. CARDIOVASCULAR: S1, S2 heard. Rate and rhythm regular. RESPIRATORY: Clear to auscultation. GASTROINTESTINAL: Abdomen is soft. MUSCULOSKELETAL: No tenderness. No edema. DERMATOLOGIC: No skin rash. NEUROLOGIC: Alert and awake and oriented X3. No focal neurologic deficits. Moving all the extremities. PSYCHIATRIC: Mood and affect normal. LABORATORY DATA: Potassium is 3.7, BUN is 8, creatinine is 3.2. ASSESSMENT AND PLAN: 1. End-stage renal disease, continue dialysis. 2. Anemia. Follow with GI. 3. Hypertension. 4. Edema, controlled. 5. Hyponatremia. Limit fluid intake. 6. We will continue on dialysis Thursday, , and Thursday as tolerated. Job ID: [id number]
[2019-07-16] MEDS ORDERED: Sevelamer Carbonate 800 MG TAB PO SCH ×2 (15:00→17:00)
[2019-07-16] MEDS ORDERED: Ferrous Sulfate 325 MG TAB PO SCH (15:00)
[2019-07-16] MEDS ORDERED: Rifaximin 550 MG TAB PO SCH (15:00)
[2019-07-16] MEDS ORDERED: Escitalopram Oxalate 20 mg Tablet PO SCH (15:00)
--- NOTE | 2019-07-16 15:07 | OP ---
DATE OF PROCEDURE: 07/16/2019 PROCEDURE PERFORMED: Esophagogastroduodenoscopy with control of hemorrhage. INDICATION FOR PROCEDURE: Anemia, melena, history of cirrhosis, history of gastric antral vascular ectasias. DESCRIPTION OF PROCEDURE: After the risks and benefits of the procedure were explained to the patient including risks of bleeding, infection, perforation, reactions to anesthesia, aspiration, and/or pain, informed consent was obtained. The patient was then taken to the endoscopy suite, and after being maneuvered into the left lateral decubitus position, deep sedation was administered via propofol and Anesthesia support. Once adequate sedation was achieved, the standard gastroscope was introduced into the mouth with intubation of the esophagus, stomach, and the proximal small intestines with the findings listed below. The patient tolerated the procedure well with no immediate perioperative complications. Upon conclusion of the procedure, all equipment was removed from the patient and she was transferred to PACU in satisfactory condition. FINDINGS: Esophagus: Normal-appearing mucosa was seen in the proximal and mid esophagus; however, in the distal esophagus, there were two columns of grade 2 esophageal varices that did not exhibit any evidence of active/recent bleeding nor was there any evidence of high-risk stigmata of bleeding either. No intervention was taken on these varices given these findings and concurrent administration of nadolol as an outpatient. Otherwise, normal-appearing mucosa was seen with no evidence of erosions, ulcerations, mass lesions, or active/recent bleeding. Stomach: Diffuse mild mucosal erythema in a mosaic-type pattern was seen throughout the entire stomach consistent with portal hypertensive gastropathy. However, upon entry into the gastric antrum, there were multiple small petechiae-like vascular ectasias, some of which displayed active oozing of blood and had adherent blood clot overlying them. After irrigation with sterile water, again, it was noted that these were actively oozing blood, but no significant bleeding seen. These vascular ectasias were then intervened upon with argon plasma coagulation with good hemostasis achieved afterwards. At the end of the maneuver, there was no further areas of active bleeding/oozing of blood. When compared to the previous examination, the GAVE appeared improved. Otherwise, there was no evidence of erosions, ulcerations, or mass lesions. Duodenum: Normal-appearing mucosa was seen in both the duodenal bulb and second portion of the duodenum. There was no evidence of erosions, ulcerations, mass, lesions, or active/recent bleeding. IMPRESSION: 1. Large (grade 2) esophageal varices into the distal esophagus, but no evidence of recent bleeding or high-risk stigmata of bleeding. 2. No evidence of gastric varices. 3. [id number] gastric antral vascular ectasias with active oozing of blood, now status post argon plasma coagulation with good hemostasis achieved. RECOMMENDATIONS: 1. Would continue to trend her H and H and transfuse as necessary to maintain an H and H of 7/21. 2. Continue to monitor clinically for signs of active GI bleeding while inpatient. 3. We will continue the patient on nadolol for maintenance of her esophageal varices. 4. The patient is set to receive octreotide depot injections as an outpatient for these recurrent vascular ectasia bleeds. 5. Advance diet as tolerated. The patient could be potentially discharged to home with followup with Dr. Baugh as an outpatient for introduction of octreotide once the patient's H and H has been repeated and shown to have increased with the infusion of blood. We will sign off at this time. Please call with any questions. Job ID: [id number]
[2019-07-16] MEDS: Nadolol 40 MG TAB PO SCH (20:25)
[2019-07-16] MEDS: Atorvastatin Calcium 10 MG TAB PO SCH (20:30)
[2019-07-17] MEDS: Levothyroxine Sodium 75 MCG TAB PO SCH (05:41)
[2019-07-17 06:05] LABS: #Eosinphils 0.2 thou/uL (0.0-0.7); #Lymphocytes 0.6 thou/uL (1.20-3.40); #Monocytes 0.2 thou/uL (0.11-0.59); #Neutrophils 2.2 thou/uL (1.40-6.50); %Basophils 0.3 % (0.0-1.0); %Eosinophils 5.6 % (0.0-10.0); %Monocytes 5.8 % (0.0-10.0); %Neutrophils 70.4 % (42.0-75.0); Hemoglobin 8.1 g/dL (12.0-16.0); Mean Corpuscular HGB CONC 33.8 g/dL (32.0-36.0); Mean Corpuscular Hemoglobin 35.1 pg (27.0-31.0); Mean Platelet Volume 9.7 fL (7.4-10.4); Platelet Count 56 thou/uL (130-400); RBC Distribution Width 19.7 % (11.5-14.5); Red Blood Cell (RBC) Count 2.32 mill/uL (4.20-5.40); White Blood Cell (WBC) Count 3.1 thou/uL (4.8-10.8)
[2019-07-17] MEDS: Mometasone/Formoterol 120 PUFF INHALER INH SCH (07:39)
[2019-07-17] MEDS: Pregabalin 50 MG CAP PO SCH (08:20)
[2019-07-17] MEDS: Rifaximin 550 MG TAB PO SCH (08:20)
[2019-07-17] MEDS: Sevelamer Carbonate 800 MG TAB PO SCH ×2 (08:20→12:38)
[2019-07-17 08:21] VITALS: BP 109/65; TEMP 98.3
[2019-07-17] MEDS: Insulin Glargine 10 UNITS in Pre-Filled Syringe 1 EACH SC SCH (08:21)
[2019-07-17] MEDS: Ferrous Sulfate 325 MG TAB PO SCH (08:21)
[2019-07-17] MEDS: Escitalopram Oxalate 20 mg Tablet PO SCH (08:21)
--- NOTE | 2019-07-19 10:11 | DIS ---
DATE OF ADMISSION: 07/14/2019 DATE OF DISCHARGE: 07/17/2019 DISCHARGE DIAGNOSES: As of the following, 1. Vascular ectasia of the stomach with hemorrhage. 2. Symptomatic anemia. 3. Esophageal varices. 4. Cirrhosis. 5. Diastolic heart failure. 6. Diabetes. 7. End-stage renal disease, on dialysis. HOSPITAL COURSE: The patient is a very pleasant 64-year-old female, who initially presented to the hospital for anemia. Given her history of GAVE and also esophageal varices, she underwent 1 unit of blood transfusion and then was seen by GI. She underwent EGD, which showed active oozing from GAVE in the antrum. She underwent a status post argon plasma coagulation and had two esophageal varices and mild portal gastropathy. She has had this procedure in the past. She was initially started on octreotide drip per GI, however, then this was discontinued. Her H and H have been stable. She has been tolerating her oral intakes and her hemoglobin on discharge was 8.1. She will follow up with her primary and also with GI. GI recommended octreotide double injections as outpatient for these recurrent vascular ectasia. The patient's diet has been advanced. Again as I mentioned, H and H have been stable. HOME MEDICATIONS: As of the following, 1. Insulin 15 units b.i.d. 2. Atorvastatin 10 mg at bedtime. 3. Lexapro 20 mg daily. 4. Iron 325 daily. 5. Lactulose 10 g daily. 6. Levothyroxine 225 mcg daily. 7. Midodrine 10 mg daily. 8. Protonix 40 mg b.i.d. 9. Lyrica 50 mg b.i.d. 10. Rifaximin 550 mg b.i.d. 11. Cozaar 25 mg daily. 12. Nadolol 20 mg at bedtime. 13. Benzonatate 100 mg t.i.d. PHYSICAL EXAMINATION: VITAL SIGNS: Temperature 98.3, pulse 64, respiratory rate 16, 99% on room air, and blood pressure 109/65. GENERAL: She is awake, alert, and oriented x3. Does not appear in any distress. CV: S1 and S2 present. No murmurs, rubs, or gallops. ABDOMEN: Soft and nontender. Bowel sounds are present x2. Again, she will be discharged home. She will follow up with her primary and GI. Job ID: [id number]
== END 2019-07-17 14:36 | disposition home or self-care (01) | DRG 377 ==
LOC: ERS 18:34 → 2NO 20:40 → T4-B 07-16 17:54
PROVIDERS: ADMIT Internal Medicine; ATTEND Internal Medicine
PROC: 30233N1 Transfusion of Nonautologous Red Blood Cells into Peripheral Vein, Percutaneous Approach (ICD-10-PCS; 2019-07-14)
PROC: 5A1D70Z Performance of Urinary Filtration, Intermittent, Less than 6 Hours Per Day (ICD-10-PCS; 2019-07-15)
PROC: 0W3P8ZZ Control Bleeding in Gastrointestinal Tract, Via Natural or Artificial Opening Endoscopic (ICD-10-PCS; principal; 2019-07-16)
DX: K31.811 Angiodysplasia of stomach and duodenum with bleeding (principal); N18.6 End stage renal disease; I13.2 Hypertensive heart and chronic kidney disease with heart failure and with stage 5 chronic kidney disease, or end stage renal disease; I50.32 Chronic diastolic (congestive) heart failure; K74.60 Unspecified cirrhosis of liver; I85.10 Secondary esophageal varices without bleeding; E03.9 Hypothyroidism, unspecified; E11.22 Type 2 diabetes mellitus with diabetic chronic kidney disease; D69.59 Other secondary thrombocytopenia; D63.1 Anemia in chronic kidney disease; E78.5 Hyperlipidemia, unspecified; I95.9 Hypotension, unspecified; Z79.899 Other long term (current) drug therapy; Z79.4 Long term (current) use of insulin; Z99.2 Dependence on renal dialysis; Z79.51 Long term (current) use of inhaled steroids; Z79.890 Hormone replacement therapy
CPT/HCPCS: 36415; 36416; 36430; 80048; 80053; 82274; 85025; 85610; 85730; 86850; 86900; 86901; 93005; 96374; 99292; C9113; J1815; J2704; J3490; P9016

== ENCOUNTER 2019-09-06 20:29 | Emergency (ER) | payer BC, MEDICARE ==
[2019-09-06 21:00] LABS: #Eosinphils 0.3 thou/uL (0.0-0.7); #Lymphocytes 1.2 thou/uL (1.20-3.40); #Monocytes 0.5 thou/uL (0.11-0.59); #Neutrophils 3.9 thou/uL (1.40-6.50); %Basophils 0.3 % (0.0-1.0); %Eosinophils 4.5 % (0.0-10.0); %Lymphocytes 20.4 % (21.0-51.0); %Monocytes 8.4 % (0.0-10.0); %Neutrophils 66.4 % (42.0-75.0); Hemoglobin 7.5 g/dL (12.0-16.0); Mean Corpuscular HGB CONC 32.5 g/dL (32.0-36.0); Mean Corpuscular Hemoglobin 34.8 pg (27.0-31.0); Mean Platelet Volume 9.2 fL (7.4-10.4); Platelet Count 71 thou/uL (130-400); RBC Distribution Width 17.6 % (11.5-14.5); Red Blood Cell (RBC) Count 2.15 mill/uL (4.20-5.40); White Blood Cell (WBC) Count 5.9 thou/uL (4.8-10.8)
[2019-09-06 21:39] LABS: ALT (SGPT) 8 U/L (8-55); AST (SGOT) 12 U/L (5-34); Albumin 2.7 g/dL (3.4-4.8); Alkaline Phosphatase 77 U/L (40-110); Anion Gap 12 mmol/L (10-20); BUN (Urea Nitrogen) 7 mg/dL (9.8-20.1); Bilirubin, Total 1.5 mg/dL (0.2-1.2); Calc. Creatinine Clearance 0 mL/min (70-130); Calcium 8.8 mg/dL (7.8-10.44); Carbon Dioxide 31 mmol/L (23-31); Chloride 98 mmol/L (98-107); Estimated GFR-MDRD 16; Globulin 4.1 g/dL (2.4-3.5); Glucose 280 mg/dL (80-115); Potassium 3.3 mmol/L (3.5-5.1); Protein, Total 6.8 g/dL (6.0-8.3); Sodium 138 mmol/L (136-145)
== END 2019-09-06 22:03 | disposition home or self-care (01) ==
LOC: ERS 20:29
DX: D64.9 Anemia, unspecified (principal); E03.9 Hypothyroidism, unspecified; K21.9 Gastro-esophageal reflux disease without esophagitis; E78.5 Hyperlipidemia, unspecified; E78.00 Pure hypercholesterolemia, unspecified; J45.909 Unspecified asthma, uncomplicated; I12.0 Hypertensive chronic kidney disease with stage 5 chronic kidney disease or end stage renal disease; E11.22 Type 2 diabetes mellitus with diabetic chronic kidney disease; N18.6 End stage renal disease; M19.90 Unspecified osteoarthritis, unspecified site; Z99.2 Dependence on renal dialysis
CPT/HCPCS: 36415; 80053; 85025; 86850; 86900; 86901; 99284

== ENCOUNTER 2019-10-06 18:56 | Emergency (ER) | payer BC, MEDICARE ==
[2019-10-06 19:29] LABS: #Eosinphils 0.1 thou/uL (0.0-0.7); #Lymphocytes 0.9 thou/uL (1.20-3.40); #Monocytes 0.5 thou/uL (0.11-0.59); #Neutrophils 5.8 thou/uL (1.40-6.50); %Basophils 0.3 % (0.0-1.0); %Eosinophils 0.8 % (0.0-10.0); %Lymphocytes 12.4 % (21.0-51.0); %Monocytes 7.3 % (0.0-10.0); %Neutrophils 79.2 % (42.0-75.0); Hemoglobin 7.9 g/dL (12.0-16.0); Mean Corpuscular HGB CONC 32.6 g/dL (32.0-36.0); Mean Platelet Volume 9.7 fL (7.4-10.4); Platelet Count 96 thou/uL (130-400); RBC Distribution Width 17.1 % (11.5-14.5); Red Blood Cell (RBC) Count 2.31 mill/uL (4.20-5.40); White Blood Cell (WBC) Count 7.3 thou/uL (4.8-10.8)
[2019-10-06 19:56] LABS: ALT (SGPT) 11 U/L (8-55); AST (SGOT) 54 U/L (5-34); Albumin 2.5 g/dL (3.4-4.8); Alkaline Phosphatase 68 U/L (40-110); Anion Gap 13 mmol/L (10-20); BUN (Urea Nitrogen) 4 mg/dL (9.8-20.1); Bilirubin, Total 1.9 mg/dL (0.2-1.2); Calc. Creatinine Clearance 0 mL/min (70-130); Calcium 8.2 mg/dL (7.8-10.44); Carbon Dioxide 27 mmol/L (23-31); Chloride 99 mmol/L (98-107); Estimated GFR-MDRD 20; Globulin 4.6 g/dL (2.4-3.5); Glucose 143 mg/dL (80-115); Potassium 4.3 mmol/L (3.5-5.1); Protein, Total 7.1 g/dL (6.0-8.3); Sodium 135 mmol/L (136-145)
--- NOTE | 2019-10-06 20:08 | RAD ---
Radiograph right knee 4 views: DATE: 10/06/2019 HISTORY: 64-year-old female with acute traumatic right knee pain after fall. FINDINGS: There is diffuse osteopenia. No displaced fracture is identified. However, the osteopenia could obscu re a nondisplaced fracture. There is suprapatellar soft tissue density which could represent joint effusion or hemarthrosis. No dislocation. No high-grade DJD. IMPRESSION: 1. No displaced fracture identified. 2. Osteopenia. 3. Suprapatellar small hemarthrosis or joint effusion.
--- NOTE | 2019-10-06 20:10 | RAD ---
Radiograph left shoulder 3 views: DATE: 10/06/2019 Time: 7:39 PM HISTORY: 64-year-old female with acute traumatic left shoulder pain after fall. FINDINGS: There is fracture of the surgical neck of the humerus with anterior angulation of fracture apex, and posterior impaction with some displacement and foreshortening. No dislocation. Diffuse osteopenia. IMPRESSION: Acute, traumatic, displaced left humeral head and neck fracture.
--- NOTE | 2019-10-06 20:13 | RAD ---
RADIOGRAPH CHEST 1 VIEW: DATE: 10/06/2019 HISTORY: 64 year old female for preoperative evaluation FINDINGS: There is no airspace density, pulmonary edema, or pneumothorax. The lateral costophrenic angles are n ot effaced. Fracture of left humeral head. IMPRESSION: 1. No acute pulmonary findings. 2. Acute, traumatic, displaced left humeral head and neck fracture.
== END 2019-10-06 23:24 | disposition home or self-care (01) ==
LOC: ERS 18:56
DX: S42.212A Unspecified displaced fracture of surgical neck of left humerus, initial encounter for closed fracture (principal); I12.0 Hypertensive chronic kidney disease with stage 5 chronic kidney disease or end stage renal disease; N18.6 End stage renal disease; E11.22 Type 2 diabetes mellitus with diabetic chronic kidney disease; D64.9 Anemia, unspecified; E03.9 Hypothyroidism, unspecified; K21.9 Gastro-esophageal reflux disease without esophagitis; E78.5 Hyperlipidemia, unspecified; E78.00 Pure hypercholesterolemia, unspecified; J45.909 Unspecified asthma, uncomplicated; M19.90 Unspecified osteoarthritis, unspecified site; W19.XXXA Unspecified fall, initial encounter
CPT/HCPCS: 71045; 80053; 85025; 86850; 86900; 86901